=== PATIENT | male | born 1970 | race Caucasian/White ===

== ENCOUNTER 2024-12-05 18:52 | Inpatient (IN) | payer BC, SELFPAY ==
--- OUTSIDE RECORDS SUMMARY | 2024-10-08 07:37 | XMS_ITS | Encounter Summary ---
Author Organization [facility] Address [address] [place] [address] Care Team Providers Care Laboratory Director Name Role Phone Jose Luis Pinon MD Primary Care Provider [phone] Reason for Referral * MRI/CAT/PET Scan (Routine) - Closed Specialty Diagnoses / Procedures Referred By Contac t Referred To Contact Radiology Diagnoses Palpitations PAF (paroxysmal atrial fibrillation) Chronic systolic heart failure Acute on chronic systolic heart failure Primary hypertension Chest pain, unspecified type Procedures CT Angiogram Coronary Loi Robles MD [address] [address] Phone: tel: fax: [facility] [address] [place] [address] Phone: tel: Referral ID Status Reason Start Date Expiration Date Visits Re quested Visits Authorized [id number] Closed 09/27/2024 12/27/2025 1 1 Reason for Visit * MRI/CAT/PET Scan (Routine) - Closed Specialty Diagnoses / Procedures Referred By Contac t Referred To Contact Radiology Diagnoses Palpitations PAF (paroxysmal atrial fibrillation) Chronic systolic heart failure Acute on chronic systolic heart failure Primary hypertension Chest pain, unspecified type Procedures CT Angiogram Coronary Loi Robles MD [address] [address] Phone: tel: fax: [facility] [address] [place] [address] Phone: tel: Referral ID Status Reason Start Date Expiration Date Visits Re quested Visits Authorized [id number] Closed 09/27/2024 12/27/2025 1 1 Encounter Details Date Type Department Care Team (Latest Contact Info) Description 10/08/2024 7:37 AM EDT - 10/08/2024 11:59 PM EDT Hospital Encounter [facility] [address] [place] [address] Palpitations; PAF (paroxysmal atrial fibrillation); Chronic systolic heart failure; Acute on chronic systolic heart failure; Primary hypertension; Chest pain, unspecified type Discharge Disposition: Home or Self Care Social History Tobacco Use Types Packs/Day Years Used Date Smoking Tobacco: Some Days Cigarettes 1 17.6 Started: 05/09/2007 Passive Smoke Exposure: Current Smokeless Tobacco: Never Alcohol Use Standard Drinks/Week Comments Not Currently 0 (1 standard drink = 0.6 oz pur e alcohol) Does not drink anymore [facility] Utilities Answer Date Recorded In the past 12 months has [employer] electric, gas, oil, or water [employer] threatened to shut off services in your home? No 10/11/2023 AUDIT-C Answer Date Recorded Q1: How often do you have a drink containing alc ohol? Monthly or less 08/07/2024 Q2: How many drinks containi ng alcohol do you have on a typical day when you are drinking? 3 or 4 08/07/2024 Q3: How often do you have si x or more drinks on one occasion? Never 08/07/2024 Overall Financial Resource Strain (CARDIA) Answe r Date Recorded How hard is it for you to pa y for the very basics like food, housing, medical care, and heating? Not hard at all 10/11/2023 [facility] [place] of Occupat ional Health - Occupational Stress Questionnaire Answer Date Recorded Do you feel stress - tense, restless, nervous, or anxious, or unable to sleep at night because your mind is troubled all the time - these days? Not at all 10/11/2023 Exercise Vital Sign Answer Date Recorde d On average, how many days pe r week do you engage in moderate to strenuous exercise (like a brisk walk)? 7 days 10/11/2023 On average, how many minutes do you engage in exercise at this level? 30 min 10/11/2023 Hunger Vital Sign Answer Date Recorded Within the past 12 months, y ou worried that your food would run out before you got the money to buy more. Never true 10/11/19 24 Within the past 12 months, t he food you bought just didn't last and you didn't have money to get more. Never true 10/11/2023 PRAPARE - Transportation Answer Date Re corded In the past 12 months, has l ack of transportation kept you from medical appointments or from getting medications? No 08/2023 In the past 12 months, has l ack of transportation kept you from meetings, work, or from getting things needed for daily living? No 10/11/2023 Abuse Screen Answer Date Recorded Feels Unsafe at Home or Work/School no 08/07/2024 Feels Threatened by Someone no 05/2024 Does Anyone Try to Keep You From Having Contact with Others or Doing Things Outside Your Home? no 08/07/2024 Physical Signs of Abuse Present no 08/07/2024 Housing Stability Answer Date Recorded Current Living Arrangements home 05/2024 Potentially Unsafe Housing Conditions Not on jessika e 08/07/2024 Family and Community Support Answer Adithya e Recorded If for any reason you need h elp with day-to-day activities such as bathing, preparing meals, shopping, managing finances, etc., do you get the help you need? I don't need any help 10/11/2023 How often do you feel lonely or isolated from those around you? Rarely 10/11/2023 Employment Answer Date Recorded Do you want help finding or keeping work or a job? I do not need or want help 10/11/2023 Disabilities Answer Date Recorded Difficulty Concentrating, Remembering or Making Decisions no 08/07/2024 Difficulty Managing Errands Independently no 08/07/2024 Education Answer Date Recorded Do you want help with school or training? For example, starting or completing job training or getting a high school diploma, GED or equivalent No 10/11/2023 Preferred Language Citizen Of [place] 10/11/2023 PHQ-2 Answer Date Recorded Retired PHQ-9: Brief Depression Severity Measure Score 0 10/11/2023 Education Answer Date Recorded What is the highest level of school you have completed or the highest degree you have received? Bachelor's degree (e.g., BA, AB, BS) 10/07/2023 Comments Unknown Sex and Gender Information Value Date Recorded Sex Assigned at Choose not to disclose 12:56 PM EDT Legal Sex Male 10:22 AM EDT Gender Identity Not on file Sexual Orientation Straight 12/03/2024 12 :56 PM EDT documented as of this encounter Last Filed Vital Signs Vital Sign Reading Time Taken Comments Blood Pressure 102/69 10/08/2024 8:49 AM EDT Pulse 60 10/08/2024 8:49 AM EDT Temperature 35.9 C (96.6 F) 10/08/2024 7:36 AM EDT Respiratory Rate 18 10/08/2024 7:36 AM EDT Oxygen Saturation 94% 10/08/2024 7:36 AM EDT Inhaled Oxygen Concentration - - Weight 83.9 kg (185 lb) 10/08/2024 7:36 AM EDT Height 177.8 cm (5' 10 ) 10/08/2024 7:36 AM EDT Body Mass Index 26.54 10/08/2024 7:36 AM EDT documented in this encounter Discharge Instructions * Discharge Instructions* Dorothy Mueller RN - 10/08/2024 7:27 AM EDT MAKE SURE TO DRINK PLENTY OF FLUIDS FOR THE NEXT 48 HOURS TO FLUSH THE CONTRAST DYE THROUGH YOUR KIDNEYS TO PROTECT RENAL FUNCTION. * Attachments The following attachments cannot be sent through Care Everywhere. * Cardiac CT Angiogram (Citizen Of [place]) * Coronary Calcium Scan (Citizen Of [place]) documented in this encounter Medications at Time of Discharge aspirin 81 MG EC tablet Take 1 tablet by mouth Daily. 30 tablet 08/09/2024 Fluticasone-Umec lidin-Vilant (Trelegy Ellipta) 100-62.5-25 MCG/ACT inhaler Inhale 1 puff As Needed. 05/07/2024 Jardiance 10 MG tablet tablet TAKE 1 TABLET BY MOUTH DAILY 90 tablet 3 09/21/2024 metoprolol succinate XL (Toprol XL) 100 MG 24 hr tablet Take 1.5 tablets by mouth Daily. 135 tablet 3 08/08/2024 sacubitril-valsa rtan (Entresto) 24-26 MG tablet Take 1 tablet by mouth 2 (Two) Times a Day. 180 tablet 3 07/05/2024 spironolactone (ALDACTONE) 25 MG tablet TAKE 1 TABLET BY MOUTH DAILY 90 tablet 3 09/21/2024 albuterol sulfate HFA 108 (90 Base) MCG/ACT inhaler Inhale 2 puffs Every 4 (Four) Hours As Needed for Wheezing. 18 g 3 09/22/2022 10/30/2024 buprenorphine-na loxone (SUBOXONE) 8-[address] 1 film under the tongue Daily. 09/29/2022 10/30/2024 diazePAM (Valium) 5 MG tabletIndication s:Anxiety Take 1 tablet by mouth 2 (Two) Times a Day As Needed for Anxiety (take one tab one hour prior to CT scan). 2 tablet 10/05/2024 10/30/2024 sildenafil (VIAGRA) 100 MG tablet Take 1 tablet by mouth Daily As Needed for Erectile Dysfunction. 10/30/2024 documented as of this encounter Plan of Treatment Upcoming Encounters Date Type Department Care Team (Late st Contact Info) Description 12/10/2024 8:30 AM EDT Office Visit [facility] CARDIOTHORACIC SURGERY [address] [facility] [address] [place] [address] Elba Garcia APRN [address] [facility] [address] [place] [address] 01/04/2025 2:45 PM EDT Office Visit [facility] HEMATOLOGY & ONCOLOGY [address] [facility] [address] [place] [phone] Rc Valdez MD [address] [facility] [address] [place] [address] 07/04/2025 11:40 AM EST Office Visit [facility] CARDIOLOGY [address] [place] [address] Helene Girard PA-C [address] [place] [address] documented as of this encounter Procedures Procedure Name Priority Date/Time Associated Diagnosis Comments CT ANGIOGRAM CORONARY Routine 10/08/2024 8:54 AM EDT Palpitations PAF (paroxysmal atrial fibrillation) Chronic systolic heart failure Acute on chronic systolic heart failure Primary hypertension Chest pain, unspecified type SCANNED - TELEMETRY 10/08/2024 documented in this encounter Results * CT Angiogram Coronary (10/08/2024 8:54 AM EDT) Anatomical Region Laterality Modality Vascular, Chest N/A Computed Tomogra phy, Other 10/08/2024 11:5 2 AM EDT Impressions 10/08/2024 11:58 AM EDT Impression: 1. 2.3 cm spiculated noncalcified pulmonary nodule within the medial right lower lobe. PET/CT scan would be recommended for further evaluation. Please refer to CT Angiogram Coronary Cardiology Interp report for information on cardiac structures. Electronically Signed: Tyrel Prather MD 10/08/2024 11:58 AM EDT Workstation ID: [id number] Narrative 10/08/2024 11:[address] ANGIOGRAM CORONARY Date of Exam: 10/08/2024 8:16 AM EDT Indication: . Palpitations Comparison: None available. Technique: Non-contrasted CT images of the chest were performed for calcium scoring purposes followed by CTA images of the chest after the uneventful intravenous administration of Isovue-370 . Reconstructed coronal and sagittal images were also obtained. In addition, a 3-D volume rendered image was created for interpretation. Automated exposure control and iterative reconstruction methods were used. Findings: No mediastinal, hilar, or axillary adenopathy. No pleural effusions. Within the right upper lobe there are multiple 1 to 2 mm size interstitial tree-in-bud type nodules favoring infectious or inflammatory process. Within the right lower lobe there is a spiculated noncalcified pulmonary nodule measuring 2.3 x 2.0 cm. This is suspicious for malignancy. PET/CT scan would be recommended for further evaluation. No suspicious left-sided pulmonary nodule. Bilateral adrenal glands are within normal limits. No lytic or sclerotic bony lesion. Procedure Note Mele Prather MD - 10/08/2024 CT ANGIOGRAM CORONARY Date of Exam: 10/08/2024 8:16 AM EDT Indication: . Palpitations Comparison: None available. Technique: Non-contrasted CT images of the chest were performed forcalcium scoring purposes followed by CTA images of the chest after theuneventful intravenous administration of Isovue-370 . Reconstructedcoronal and sagittal images were also obtained. In addition, a 3-D volume rendered image was created for interpretation.Automated exposure control and iterative reconstruction methods wereused. Findings: No mediastinal, hilar, or axillary adenopathy. No pleural effusions.Within the right upper lobe there are multiple 1 to 2 mm size ymffjzqfvczoubkg-vr-aqb type nodules favoring infectious or inflammatory process.Within the right lower lobe there is a spiculated noncalcified pulmonary nodule measuring 2.3 x 2.0 cm. This issuspicious for malignancy. PET/CT scan would be recommended for furtherevaluation. No suspicious left-sided pulmonary nodule. Bilateral adrenal glands are within normal limits. No lytic or sclerotic bony lesion. IMPRESSION: Impression: 1. 2.3 cm spiculated noncalcified pulmonary nodule within the medial rightlower lobe. PET/CT scan would be recommended for further evaluation. Please refer to CT Angiogram Coronary Cardiology Interp report forinformation on cardiac structures. Electronically Signed: Tyrel Prather MD 10/08/2024 11:58 AM EDT Workstation ID: [id number] Loi Robles MD IM CT ORDERABLES Final Resul t * Telemetry Scan (10/08/2024) us [facility] Onbase ECG ORDERABLES Final Result documented in this encounter Visit Diagnoses Diagnosis Palpitations PAF (paroxysmal atrial fibrillation) Atrial fibrillation Chronic systolic heart failure Acute on chronic systolic heart failure Primary hypertension Unspecified essential hypertension Chest pain, unspecified type documented in this encounter Administered Medications Inactive Administered Medications - up to 3 most recent administrations Medication Order MAR Action Action Date Dose Rate Site iopamidol (ISOVUE-370) 76 % injection 65 mL 65 mL, Intravenous, Once in Imaging, On Tue10/08/24 at 0841, For 1 dose Given 10/08/2024 8:39 AM EDT 65 mL nitroglycerin (NITROSTAT) SL tablet 0.8 mg 0.8 mg, Sublingual, Once in Imaging, On Tue10/08/24 at 0728, For 1 dose, SBP >100 Administer Immediately Prior to Contrast Injection in CT DO NOT Administer if Phosphodiesterase Inhibitor Taken in Previous 24 Hours or Patient Has History of Severe Aortic Stenosis May administer up to 3 doses per episode. Hold if SBP less than 100.Indications:Palpitations,PAF (paroxysmal atrial fibrillation),Chronic systolic heart failure,Acute on chronic systolic heart failure,Primary hypertension,Chest pain, unspecified type Given 10/08/2024 8:30 AM EDT 0.8 mg documented in this encounter Care Teams Laboratory Director Relationship Specialty Start Date End Date Jose Luis Pinon MD [address] [facility] [place] [address] PCP - General Internal Medicine 09/19/22 documented as of this encounter
--- OUTSIDE RECORDS SUMMARY | 2024-10-08 07:37 | XMS_ITS | Encounter Summary ---
Author Organization [facility] Address [address] [place] [address] Care Team Providers Care Hospice Administrator Name Role Phone Jose Luis Pinon MD Primary Care Provider [phone] Reason for Referral * MRI/CAT/PET Scan (Routine) - Closed Specialty Diagnoses / Procedures Referred By Contac t Referred To Contact Radiology Diagnoses Palpitations PAF (paroxysmal atrial fibrillation) Chronic systolic heart failure Acute on chronic systolic heart failure Primary hypertension Chest pain, unspecified type Procedures CT Angiogram Coronary Loi Robles MD [address] [address] Phone: tel: fax: [facility] [address] [place] [address] Phone: tel: Referral ID Status Reason Start Date Expiration Date Visits Re quested Visits Authorized [id number] Closed 09/27/2024 12/27/2025 1 1 Reason for Visit * MRI/CAT/PET Scan (Routine) - Closed Specialty Diagnoses / Procedures Referred By Contac t Referred To Contact Radiology Diagnoses Palpitations PAF (paroxysmal atrial fibrillation) Chronic systolic heart failure Acute on chronic systolic heart failure Primary hypertension Chest pain, unspecified type Procedures CT Angiogram Coronary Loi Robles MD [address] [address] Phone: tel: fax: [facility] [address] [place] [address] Phone: tel: Referral ID Status Reason Start Date Expiration Date Visits Re quested Visits Authorized [id number] Closed 09/27/2024 12/27/2025 1 1 Encounter Details Date Type Department Care Team (Latest Contact Info) Description 10/08/2024 7:37 AM EDT - 10/08/2024 11:59 PM EDT Hospital Encounter [facility] [address] [place] [address] Palpitations; PAF (paroxysmal atrial fibrillation); [...] pur e alcohol) Does not drink anymore [facility] Utilities Answer Date Recorded In the past 12 months has [employer] electric, gas, oil, or water [employer] threatened to shut off services in your [...] and heating? Not hard at all 10/11/2023 [facility] [place] of Occupat ional Health - Occupational Stress [...] GED or equivalent No 10/11/2023 Preferred Language Kyrgyz 10/11/2023 PHQ-2 Answer Date Recorded Retired PHQ-9: [...] through Care Everywhere. * Cardiac CT Angiogram (Kyrgyz) * Coronary Calcium Scan (Kyrgyz) documented in this encounter Medications at Time [...] Description 12/10/2024 8:30 AM EDT Office Visit [facility] CARDIOTHORACIC SURGERY [address] [facility] [address] [place] [address] Elba Garcia APRN [address] [facility] [address] [place] [address] 01/04/2025 2:45 PM EDT Office Visit [facility] HEMATOLOGY & ONCOLOGY [address] [facility] [address] [place] [phone] Rc Valdez MD [address] [facility] [address] [place] [address] 07/04/2025 11:40 AM EST Office Visit [facility] CARDIOLOGY [address] [place] [address] Helene Girard PA-C [address] [place] [address] documented as of this encounter [...] MD 10/08/2024 11:58 AM EDT Workstation ID: [id number] Narrative 10/08/2024 11:[address] ANGIOGRAM [...] are multiple 1 to 2 mm size hdmjejxrudfyxace-wb-hdx type nodules favoring infectious or inflammatory process.Within [...] MD 10/08/2024 11:58 AM EDT Workstation ID: [id number] Loi Robles MD IM CT ORDERABLES Final [...] mg documented in this encounter Care Teams Hospice Administrator Relationship Specialty Start Date End Date Jose Luis Pinon MD [address] [facility] [place] [address] PCP - General Internal Medicine 09/19/22 documented as of this encounter
--- OUTSIDE RECORDS SUMMARY | 2024-10-08 08:56 | XMS_ITS | Encounter Summary ---
Author Organization [facility] Address [address] [place] [address] Care Team Providers Care Finance Lecturer Name Role Phone Jose Luis Pinon MD Primary Care Provider [phone] Encounter Details Date Type Department Care Team (Latest Contact Info) Description 10/08/2024 8:56 AM EDT - 10/08/2024 11:59 PM EDT Hospital Encounter [address] [address] Palpitations; PAF (paroxysmal atrial fibrillation); Chronic systolic [...] pur e alcohol) Does not drink anymore [facility] Utilities Answer Date Recorded In the past 12 months has [employer], gas, oil, or water [employer] threatened to shut off services in your [...] and heating? Not hard at all 10/11/2023 [facility] [place] of Occupat ional Health - Occupational Stress [...] GED or equivalent No 10/11/2023 Preferred Language [place] 10/11/2023 PHQ-2 Answer Date Recorded Retired PHQ-9: [...] PM EDT documented as of this encounter Medications at Time of Discharge [...] Description 12/10/2024 8:30 AM EDT Office Visit [facility] CARDIOTHORACIC SURGERY [address] [facility] [address] [place] [phone] Elba Garcia APRN [address] [facility] [address] [place] [address] 01/04/2025 2:45 PM EDT Office Visit [facility] HEMATOLOGY & ONCOLOGY [address] [facility] [address] [place] [address] cR Valdez MD [address] [facility] [address] [place] [address] 07/04/2025 11:40 AM EST Office Visit [facility] CARDIOLOGY [address] [facility] [address] [place] [phone] Helene Girard PA-C [address] [facility] [address] [address] [place] [address] documented as of this encounter Procedures Procedure Name Priority Date/Time Associated Diagnosis Comments CTA CARDIOLOGY READ CAR Routine 10/08/2024 8:56 AM EDT Palpitations PAF (paroxysmal atrial fibrillation) Chronic systolic heart failure Acute on chronic systolic heart failure Primary hypertension Chest pain, unspecified type documented in this encounter Results * CT Angiogram Coronary-Cardiology Interpretation (10/08/2024 8:56 AM EDT) Anatomical Region Laterality Modality Vascular, Chest N/A Computed Tomogra phy Impressions 10/10/2024 3:51 PM EDT Mild (25-49%) 1 vessel disease. CAD RADS 2 Overall there is moderate amount of coronary plaque No non-atherosclerotic coronary abnormalities Normal LV systolic function (calculated LVEF 67%) Please refer to the radiology report for information on non-cardiac structures. RECOMMENDATION: Mild 25-49% proximal and mid LAD stenosis otherwise normal vessels Moderate to high intensity statin therapy recommended along with smoking cessation Narrative 10/10/2024 3:51 PM EDT Table formatting from the original result was not included. Images from the original result were not included. Mild 25-49% proximal and mid LAD stenosis otherwise normal vessels Moderate to high intensity statin therapy and smoking cessation recommended. CORONARY CT ANGIOGRAPHY WITH CALCIUM SCORE CLINICAL HISTORY: atypical angina TECHNIQUE: Using a Siemens Force scanner, a preliminary brimming machine operator study was obtained, followed by coronary artery calcium protocol. 0.5 mm collimated images were obtained through the coronary arteries. Data were transferred offline for 3D reconstructions using [employer]. CONTRAST: 65 mL iopamidol (ISOVUE-370) ACQUISITION: Retrospective ECG triggered acquisition was used. Heart rate at the time of acquisition was approximately 59 BPM. MEDICATIONS: Metoprolol tartrate 150 mg oral Metoprolol tartrate 0 IV Nitroglycerin 0.8 mg sublingual tablet TECHNICAL QUALITY: Good, with minor artifact but good diagnostic quality FINDINGS: Coronary artery calcification findings: The total calcium score is 142 indicating moderate (CAC 101-300) calcified plaque in the coronary tree. Left main 0 LAD 90 LCx 43 RCA 9 Grading Scale for Plaque [place]: P1 (CAC 1-100) Mild amount of plaque P2 (CAC 101-300) Moderate amount of plaque P3 (CAC 301-999) Severe amount of plaque P4 (CAC > 1000) Extensive amount of plaque Angiographic Findings: The coronary anatomy is codominant. Left Main: Large-caliber vessel bifurcates in LAD and left circumflex, normal. LAD: Moderate caliber vessel gives rise to 2 diagonal branches, proximal to mid 30-49% heterogeneous stenosis LCX: Moderate caliber codominant vessel gives rise to 2 OM branches and continues in the AV groove to supply and LPDA, normal. RCA: Moderate caliber codominant vessel gives rise to PDA and PLV, normal. Grading Scale for Stenosis Severity: Category Degree Interpretation CAD-RADS 0 0% (No plaque or stenosis) Absence of CAD CAD-RADS 1 1-24% (Minimal stenosis or plaque w/o stenosis) Minimal non-obstructive CAD CAD-RADS 2 25-49% (Mild stenosis) Mild non-obstructive CAD CAD-RADS 3 50-69% (Moderate stenosis) Moderate stenosis CAD-RADS 4 A - 70-99% stenosis or B - Left main >/= 50% or 3-vessel obstructive (>/=70%) disease Severe stenosis CAD-RADS 5 100% (total occlusion) Total coronary occlusion or sub-total occlusion CAD-RADS N Non-diagnostic study Obstructive CAD cannot be excluded Noncoronary Cardiac Findings: Cardiac valves: Aortic valve is trileaflet. There is no thickening or calcification in the aortic and mitral valves. Pericardium: The pericardial contour is preserved with no effusion, thickening, or calcifications. Left ventricle: Calculated LVEF 67% Non-cardiac findings reported separately by radiology. us Loi Robles MD IMG CT ORDERABLES Final Resul t documented in this encounter Visit Diagnoses Diagnosis Palpitations PAF (paroxysmal atrial fibrillation) Atrial fibrillation Chronic systolic heart failure Acute on chronic systolic heart failure Primary hypertension Unspecified essential hypertension Chest pain, unspecified type documented in this encounter Care Teams Finance Lecturer Relationship Specialty Start Date End Date Jose Luis Pinon MD [address] [place] [id number] PCP - General Internal Medicine 09/19/22 documented as of this encounter
--- OUTSIDE RECORDS SUMMARY | 2024-10-08 08:56 | XMS_ITS | Encounter Summary ---
Author Organization [facility] Address [address] [place] [address] Care Team Providers Care Archivist Military History Name Role Phone Jose Luis Pinon MD Primary Care Provider [phone] Encounter Details Date Type Department Care Team (Latest Contact Info) Description 10/08/2024 8:56 AM EDT - 10/08/2024 11:59 PM EDT Hospital Encounter [address] [id number] Palpitations; PAF (paroxysmal atrial fibrillation); Chronic systolic [...] pur e alcohol) Does not drink anymore [facility] Utilities Answer Date Recorded In the past 12 months has [employer], gas, oil, or water [employer] threatened to shut off services in your [...] and heating? Not hard at all 10/11/2023 [facility] [place] of Occupat ional Health - Occupational Stress [...] GED or equivalent No 10/11/2023 Preferred Language Ecuadorean 10/11/2023 PHQ-2 Answer Date Recorded Retired PHQ-9: [...] Description 12/10/2024 8:30 AM EDT Office Visit [facility] CARDIOTHORACIC SURGERY [address] [facility] [address] [place] [id number] Elba Garcia APRN [address] [facility] [address] [place] [address] 01/04/2025 2:45 PM EDT Office Visit [facility] HEMATOLOGY & ONCOLOGY [address] [facility] [address] [place] [address] Rc Valdez MD [address] [facility] [address] [place] [address] 07/04/2025 11:40 AM EST Office Visit [facility] CARDIOLOGY [address] [facility] [address] [place] [phone] Helene Girard PA-C [address] [facility] [address] [place] [address] documented as of this encounter [...] Using a Siemens Force scanner, a preliminary armed custom protection officer study was obtained, followed by coronary artery [...] 43 RCA 9 Grading Scale for Plaque [place]: P1 (CAC 1-100) Mild amount of plaque [...] type documented in this encounter Care Teams Archivist Military History Relationship Specialty Start Date End Date Jose Luis Pinon MD [address] [place] [id number] PCP - General Internal Medicine 09/19/22 documented as of this encounter
--- OUTSIDE RECORDS SUMMARY | 2024-10-30 08:30 | XMS_ITS | Encounter Summary ---
Author Organization [facility] Address [address] [place] [address] Care Team Providers Care Material Coordinator Name Role Phone Jose Luis Pinon MD Primary Care Provider [phone] Reason for Referral * Diagnostic Medical (Routine) - Closed Specialty Diagnoses / Procedures Referred By Joo borrero Referred To Contact Pulmonology Diagnoses Lung nodule Procedures Complete PFT - Pre & Post Bronchodilator Bill Ziegler DO [address] [id number] Phone: tel: fax: [facility] PULMONARY & CRITICAL CARE MEDICINE [address] [place] [address] Phone: tel: fax: Referral ID Status Reason Start Date Expiration Date Visits Re quested Visits Authorized [id number] Closed 10/30/2024 01/29/2026 1 1 * MRI/CAT/PET Scan (Emergency) - Closed Specialty Diagnoses / Procedures Referred By Joo borrero Referred To Contact Radiology Diagnoses Lung nodule Procedures CT Chest Without Contrast Diagnostic Bill Ziegler DO [address] [place] [address] Phone: tel: fax: [facility] [address] [place] [address], [place] [address] Phone: tel: Referral ID Status Reason Start Date Expiration Date Visits Re quested Visits Authorized [id number] Closed 10/30/2024 01/29/2026 1 1 Reason for Visit * Reason Comments Lung Nodule Encounter Details Date Type Department Care Team (Late st Contact Info) Description 10/30/2024 8:30 AM EDT Office Visit [facility] PULMONARY & CRITICAL CARE MEDICINE [address] [place] [address] Bill Ziegler DO [address] [place] [address] Lung nodule (Primary Dx); Mucopurulent chronic bronchitis Social History Tobacco Use Types Packs/Day Years Used Date Smoking Tobacco: Some Days Cigarettes 1 17.6 Started: 05/09/2007 Passive Smoke Exposure: Current Smokeless Tobacco: Never Tobacco Cessation:Ready to Q uit: Not Asked; Counseling Given: Not Answered Alcohol Use Standard Drinks/Week Comments Not Currently 0 (1 standard drink = 0.6 oz pur e alcohol) Does not drink anymore [facility] Utilities Answer Date Recorded In the past 12 months has e electric, gas, oil, or water company threatened to shut off services in your [...] and heating? Not hard at all 10/11/2023 [facility] [place] of Occupat ional Health - Occupational Stress [...] GED or equivalent No 10/11/2023 Preferred Language Austrian 10/11/2023 PHQ-2 Answer Date Recorded Retired PHQ-9: [...] Sign Reading Time Taken Comments Blood Pressure 130/80 10/30/2024 8:16 AM EDT Pulse 96 10/30/2024 8:16 AM EDT Temperature 36.9 C (98.4 F) 10/30/2024 8:16 AM EDT Respiratory Rate - - Oxygen Saturation 98% 10/30/2024 8:1 6 AM EDT room air at rest Inhaled Oxygen Concentration - - Weight 86.2 kg (190 lb) 10/30/2024 8:16 AM EDT Height 177.8 cm (5' 10 ) 10/30/2024 8:1 6 AM EDT Body Mass Index 27.26 10/30/2024 8:16 AM EDT documented in this encounter Progress Notes * Layne Vogt CRT - 10/30/2024 8:30 AM EDTAddended by: LAYNE VOGT on: 10/30/2024 01:28 PM Modules accepted: Orders * Bill Ziegler DO - 10/30/2024 8:30 AM EDT New Patient Pulmonary Office Visit Patient Name: Odell Viramontes Referring Physician: No ref. provider found Chief Complaint: Chief Complaint Patient presents with Lung Nodule History of Present Illness: Odell Viramontes is a 54 y.o. male who is here today to establish care with Pulmonary. Patient has a past medical history significant for tobacco abuse, COPD, systolic heart failure, and hypertension. Patient was referred to pulmonary for evaluation of a pulmonary nodule. Patient states that he was having cardiac workup when they noted that he had a right lower lobe nodule. Has a history of smoking. Quit when he got the CT scan of the chest performed. Did not feel sick at the time. 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 No further imaging is available to compare to. Review of Systems: Review of Systems Constitutional: Negative for chills, fatigue and fever. HENT: Negative for congestion and voice change. Eyes: Negative for blurred vision. Respiratory: Negative for cough, shortness of breath and wheezing. Cardiovascular: Negative for chest pain. Skin: Negative for dry skin. Hematological: Negative for adenopathy. Psychiatric/Behavioral: Negative for agitation and depressed mood. Past Medical History: Past Medical History: Diagnosis Date Abnormal ECG Alcoholism Arrhythmia Asthma Atrial fibrillation CHF (congestive heart failure) Congenital heart disease COPD (chronic obstructive pulmonary disease) HTN (hypertension) Myocardial infarction Past Surgical History: Past Surgical History: Procedure Laterality Date OTHER SURGICAL HISTORY arm fracture Family History: Family History Problem Relation Age of Onset Arrhythmia Mother Heart attack Father Heart disease Father Heart failure Father No Known Problems Maternal Grandmother No Known Problems Maternal Grandfather No Known Problems Paternal Grandmother No Known Problems Paternal Grandfather Social History: Social History Socioeconomic History Marital status: Spouse name: Melanie Number of children: 1 Highest education level: Bachelor's degree (e.g., BA, AB, BS) Tobacco Use Smoking status: Some Days Current packs/day: 1.00 Average packs/day: 1 pack/day for 17.5 years (17.5 ttl pk-yrs) Types: Cigarettes Start date: 05/09/2007 Passive exposure: Current Smokeless tobacco: Never Vaping Use Vaping status: Never Used Substance and Sexual Activity Alcohol use: Not Currently Comment: Does not drink anymore Drug use: Never Sexual activity: Yes Partners: Female control/protection: None, Partner of same sex Medications: Current Outpatient Medications: aspirin 81 MG EC tablet, Take 1 tablet by mouth Daily., Disp: 30 tablet, Rfl: 0 Eentduvbqay-Ofucoankq-Sfpzlm (Trelegy Ellipta) 100-62.5-25 MCG/ACT inhaler, Inhale 1 puff As Needed., Disp: , Rfl: Jardiance 10 MG tablet tablet, TAKE 1 TABLET BY MOUTH DAILY, Disp: 90 tablet, Rfl: 3 metoprolol succinate XL (Toprol XL) 100 MG 24 hr tablet, Take 1.5 tablets by mouth Daily., Disp: 135 tablet, Rfl: 3 rosuvastatin (CRESTOR) 10 MG tablet, Take 1 tablet by mouth Daily., Disp: 90 tablet, Rfl: 1 sacubitril-valsartan (Entresto) 24-26 MG tablet, Take 1 tablet by mouth 2 (Two) Times a Day., Disp:180 tablet, Rfl: 3 spironolactone (ALDACTONE) 25 MG tablet, TAKE 1 TABLET BY MOUTH DAILY, Disp: 90 tablet, Rfl: 3 Allergies: No Known Allergies Physical Exam: Vital Signs: Vitals: 10/30/24 0816 BP: 130/80 Pulse: 96 Temp: 98.4 ??F (36.9 ??C) SpO2: 98% Comment: room air at rest Weight: 86.2 kg (190 lb) Height: 177.8 cm (70 ) Physical Exam Vitals and nursing note reviewed. Constitutional: General: He is not in acute distress. Appearance: He is well-developed and normal weight. He is not ill-appearing or toxic-appearing. Cardiovascular: Rate and Rhythm: Normal rate and regular rhythm. Pulses: Normal pulses. Heart sounds: Normal heart sounds. No murmur heard. No gallop. Pulmonary: Effort: Pulmonary effort is normal. Breath sounds: Normal breath sounds. No wheezing, rhonchi or rales. Musculoskeletal: Right lower leg: No edema. Left lower leg: No edema. Neurological: Mental Status: He is alert. Immunization History Administered Date(s) Administered 31-influenza Vac Quardvalent Preservativ 02/20/2019 COVID-19 (MODERNA) 1st,2nd,3rd Dose Monovalent 07/24/2020 COVID-19 (MODERNA) Monovalent Original Booster 06/09/2021 COVID-19 (PFIZER) Purple Cap Monovalent 05/28/2020, 06/20/2020 COVID-19 (UNSPECIFIED) 06/14/2020, 07/12/2020 Fluzone >6mos 01/29/2024 Influenza, Unspecified 02/20/2018 TD Preservative Free (Tenivac) 12/30/2017 Td (TDVAX) 09/16/1998, 10/15/2010 Tetanus Toxoid 06/07/2014 Results Review: - I personally reviewed the pts imaging from CT angiogram of the coronaries lung windows from 10/08/2024 showed a 2.3 centimeter right lower lobe noncalcified nodule - I personally reviewed the pts PFT from 10/30/2024 shows moderate obstruction without restriction and a normal DLCO - I personally reviewed the pts Echo report from 08/07/2020 showed a EF of 61 to 65%, normal RVSP andnormal diastolic function. - I personally reviewed the pts chart with regards to evaluation by cardiology. Assessment / Plan: Diagnoses and all orders for this visit: 1. Lung nodule (Primary) - We discussed that the lung nodule of 2.3 cm right lower lobe is concerning for malignancy especially given his history of smoking, the size and the spiculation. I would recommend they pursue navigational bronchoscopy and EBUS. -I discussed the risk and benefits of the procedure with the patient, this includes but is not limited to hoarseness/vocal cord damage, pain, infection, cough, bleeding, pneumothorax, and anesthesia complications. Patient verbalized understanding of this and agreed to proceed. - Robotic CT scan ordered - CBC, CMP, coags and EKG ordered 2. Mucopurulent chronic bronchitis -Patient has gold stage 2 class B COPD -Continue Trelegy 100 mcg 1 puff once daily with albuterol every 4 hours as needed for medication management -latest PFTs as noted above -Patient counseled on monitoring for COPD exacerbation and treatment plan - Recommend 30 minutes cardiovascular exercise per day High level of risk due to: High risk lower lobe lesion concerning for malignancy requiring invasiveprocedure navigational bronchoscopy and EBUS for further diagnosis. If malignant would have a high morbidity and require surgery which we discussed on today's visit. Follow Up: Return in about 6 weeks (around 12/11/2024). Marion Ziegler DO Pulmonary and Critical Care Medicine Note Electronically Signed Part of this note may be an electronic livestock inspector/translation of spoken language to printed textusing the Teqcycleation System. documented in this encounter Plan of Treatment Upcoming Encounters Date Type Department Care Team (Late st Contact Info) Description 12/10/2024 8:30 AM EDT Office Visit [facility] CARDI[facility]ACIC SURGERY [address] [facility] [address] [place] [phone] Elba Garcia, ROD CUP FILLER [address] [facility] [address] [place] [address] 01/04/2025 2:45 PM EDT Office Visit [facility] HEMATOLOGY & ONCOLOGY [address] [facility] [address] [place] [address] Rc Valdez MD [address] [facility] [address] [place], [place] [id number] 07/04/2025 11:40 AM EST Office Visit [facility] CARDIOLOGY [address] [facility] [address] [place] [phone] Helene Girard PA-C [address] [facility] [address] [place] [address] Scheduled Orders Name Type Priority Associated Diagnoses Orde r Schedule ECG Scan ECG Ordered: 10/30 documented as of this encounter Procedures Procedure Name Priority Date/Time Associated Diagnosis Comments PULMONARY FUNCTION TEST Routine 10/30/2024 1:28 PM EDT Lung nodule CBC WITH AUTO DIFFERENTIAL Routine 10/30/2024 9:25 AM EDT Lung nodule CBC AND DIFFERENTIAL Routine 10/30/2024 9:25 AM EDT Lung nodule COMPREHENSIVE METABOLIC PANEL Routine 10/30/2024 9:25 AM EDT Lung nodule documented in this encounter Results * CT Chest Without Contrast Diagnostic (11/06/2024 10:36 AM EDT) Anatomical Region Laterality Modality Chest N/A Computed Tomogra phy 11/12/2024 10:2 2 AM EDT Impressions 11/12/2024 10:25 AM EDT Impression: 1.Similar 2.4 x 2.1 cm spiculated nodule within the medial right lower lobe. 2.Mild emphysema. 3.Chronic mild superior endplate compression fracture of T7. Electronically Signed: Deng Chaparro MD 11/12/2024 10:25 AM EDT Workstation ID: [id number] Narrative 11/12/2024 10:[address] CHEST WO CONTRAST DIAGNOSTIC Date of Exam: 11/06/2024 10:30 AM EDT Indication: Lung nodule. Comparison: CT coronary artery exam 10/08/2024 Technique: Axial CT images were obtained of the chest without contrast administration. Reconstructed coronal and sagittal images were also obtained. Automated exposure control and iterative construction methods were used. Findings: Operative planning CT. MEDIASTINUM: Unremarkable. Aortic and heart size are normal. No mass nor pericardial effusion. CORONARY ARTERIES: There is calcified atherosclerotic disease. LUNGS: Similar 2.4 x 2.1 cm spiculated nodule within the medial right lower lobe (image 275, series 2). No other suspicious soft tissue nodule is identified. There is a calcified left upper lobe granuloma. There is mild emphysema. PLEURAL SPACE: No effusion, mass, nor pneumothorax. LYMPH NODES: There are no pathologically enlarged lymph nodes. UPPER ABDOMEN: Unremarkable OSSEOUS STRUCTURES: Chronic mild superior endplate compression fracture of T7. Procedure Note Deng Chaparro MD - 11/12/2024 CT CHEST WO CONTRAST DIAGNOSTIC Date of Exam: 11/06/2024 10:30 AM EDT Indication: Lung nodule. Comparison: CT coronary artery exam 10/08/2024 Technique: Axial CT images were obtained of the chest without contrastadministration. Reconstructed coronal and sagittal images were alsoobtained. Automated exposure control and iterative construction methodswere used. Findings: Operative planning CT. MEDIASTINUM: Unremarkable. Aortic and heart size are normal. No mass norpericardial effusion. CORONARY ARTERIES: There is calcified atherosclerotic disease. LUNGS: Similar 2.4 x 2.1 cm spiculated nodule within the medial rightlower lobe (image 275, series 2). No other suspicious soft tissue noduleis identified. There is a calcified left upper lobe granuloma. There ismild emphysema. PLEURAL SPACE: No effusion, mass, nor pneumothorax. LYMPH NODES: There are no pathologically enlarged lymph nodes. UPPER ABDOMEN: Unremarkable OSSEOUS STRUCTURES: Chronic mild superior endplate compression fracture ofT7. IMPRESSION: Impression: 1.Similar 2.4 x 2.1 cm spiculated nodule within the medial right lowerlobe. 2.Mild emphysema. 3.Chronic mild superior endplate compression fracture of T7. Electronically Signed: Deng Chaparro MD 11/12/2024 10:25 AM EDT Workstation ID: [id number] Marinoopher Mj Courtneyenach DO IMG CT ORDERABLES F inal Result * Complete PFT - Pre & Post Bronchodilator (10/30/2024 1:28 PM EDT) Bill Courtneyenach DO PFT ORDERABLES Fin al Result * (ABNORMAL) CBC Auto Differential (10/30/2024 9:25 AM EDT) WBC 11.17(H) 3.40 - 10.80 10*3/mm3 10/30/2024 11:26 PM EDT [facility] RBC 5.15 4.14 - 5.80 10*6/mm3 10/30/2024 11:26 PM EDT [facility] Hemoglobin 16.5 13.0 - 17.7 g/dL 10/30/2024 11:26 PM EDT [facility] Hematocrit 47.9 37.5 - 51.0 % 10/30/2024 11:26 PM EDT [facility] MCV 93.0 79.0 - 97.0 fL 10/30/2024 11:26 PM EDT [facility] MCH 32.0 26.6 - 33.0 pg 10/30/2024 11:26 PM EDT [facility] MCHC 34.4 31.5 - 35.7 g/dL 10/30/2024 11:26 PM EDT [facility] RDW 12.3 12.3 - 15.4 % 10/30/2024 11:26 PM [facility] RDW-SD 42.0 37.0 - 54.0 fl 10/30/2024 11:26 PM [facility] MPV 11.8 6.0 - 12.0 fL 10/30/2024 11:26 PM [facility] Platelets 212 140 - 450 10*3/mm3 10/30/2024 11:26 PM [facility] Neutrophil % 82.5(H) 42.7 - 76.0 % 10/30/2024 11:26 PM [facility] Lymphocyte % 11.3(L) 19.6 - 45.3 % 10/30/2024 11:26 PM [facility] Monocyte % 4.3(L) 5.0 - 12.0 % 10/30/2024 11:26 PM [facility] Eosinophil % 0.7 0.3 - 6.2 % 10/30/2024 11:26 PM [facility] Basophil % 0.9 0.0 - 1.5 % 10/30/2024 11:26 PM [facility] Immature Grans % 0.3 0.0 - 0.5 % 10/30/2024 11:26 PM [facility] Neutrophils, Absolute 9.22(H) 1.70 - 7.00 10*3/mm3 10/30/2024 11:26 PM [facility] Lymphocytes, Absolute 1.26 0.70 - 3.10 10*3/mm3 10/30/2024 11:26 PM [facility] Monocytes, Absolute 0.48 0.10 - 0.90 10*3/mm3 10/30/2024 11:26 PM [facility] Eosinophils, Absolute 0.08 0.00 - 0.40 10*3/mm3 10/30/2024 11:26 PM [facility] Basophils, Absolute 0.10 0.00 - 0.20 10*3/mm3 10/30/2024 11:26 PM [facility] Immature Grans, Absolute 0.03 0.00 - 0.05 10*3/mm3 10/30/2024 11:26 PM T [facility] nRBC 0.0 0.0 - 0.2 /100 WBC 10/30/2024 11:26 PM [facility] Blood Structure of left hand / Unknown Venipuncture / Unknown 10/30/2024 9:25 AM EDT 10/30/2024 9:26 AM EDT Bill Ziegler DO LAB BLOOD ORDERABLE S Final Result [facility]
[address] [place] [address], * (ABNORMAL) Comprehensive Metabolic Panel (10/30/2024 9:25 AM EDT) Glucose 113(H) 65 - 99 mg/dL 10/31/2024 12:05 AM [facility] BUN 19.0 6.0 - 20.0 mg/dL 10/31/2024 12:05 AM [facility] Creatinine 0.98 0.76 - 1.27 mg/dL 10/31/2024 12:05 AM [facility] Sodium 137 136 - 145 mmol/L 10/31/2024 12:05 AM [facility] Potassium 3.8 3.5 - 5.2 mmol/L 10/31/2024 12:05 AM [facility] Chloride 100 98 - 107 mmol/L 10/31/2024 12:05 AM [facility] CO2 22.1 22.0 - 29.0 mmol/L 10/31/2024 12:05 AM [facility] Calcium 9.2 8.6 - 10.5 mg/dL 10/31/2024 12:05 AM [facility] Total Protein 7.3 6.0 - 8.5 g/dL 10/31/2024 12:05 AM [facility] Albumin 4.6 3.5 - 5.2 g/dL 10/31/2024 12:05 AM [facility] ALT (SGPT) 29 1 - 41 U/L 10/31/2024 12:05 AM [facility] AST (SGOT) 27 1 - 40 U/L 10/31/2024 12:05 AM [facility] Alkaline Phosphatase 89 39 - 117 U/L 10/31/2024 12:05 AM [facility] Total Bilirubin 0.6 0.0 - 1.2 mg/dL 10/31/2024 12:05 AM [facility] Globulin 2.7 gm/dL 10/31/2024 12:05 AM [facility] A/G Ratio 1.7 g/dL 10/31/2024 12:05 AM [facility] BUN/Creatinine Ratio 19.4 7.0 - 25.0 10/31/2024 12:05 AM [facility] Anion Gap 14.9 5.0 - 15.0 mmol/L 10/31/2024 12:05 AM [facility] eGFR 90.5 >60.0 mL/min/1.7 3 10/31/2024 12:05 AM [facility] Blood Structure of left hand / Unknown Venipuncture / Unknown 10/30/2024 9:25 AM EDT 10/30/2024 9:26 AM [facility] - 10/31/2024 12:05 AM [facility] GFR Categories in Chronic Kidney Disease (CKD) GFR Category GFR (mL/min/1.73) Interpretation G1 90 or greater Normal or high (1) G2 60-89 Mild decrease (1) G3a 45-59 Mild to moderate decrease G3b 30-44 Moderate to severe decrease G4 15-29 Severe decrease G5 14 or less Kidney failure (1)In the absence of evidence of kidney disease, neither GFR category G1 or G2 fulfill the criteria for CKD. eGFR calculation 2020 CKD-EPI creatinine equation, which does not include race as a factor Bill Ziegler DO LAB BLOOD ORDERABLE S Final Result [facility]
[address] [place] [address], documented in this encounter Visit Diagnoses Diagnosis Lung nodule- Primary Other diseases of lung, not elsewhere classified Mucopurulent chronic bronchitis Lung nodule Other diseases of lung, not elsewhere classified documented in this encounter Administered Medications Inactive Administered Medications - up to 3 most recent administrations Medication Order MAR Action Action Date Dose Rate Site albuterol sulfate HFA (PROVENTIL HFA;VENTOLIN HFA;PROAIR HFA) inhaler 4 puff 4 puff, Inhalation, Once, On Tue10/30/24 at 1330, For 1 dose, Include Respiratory Treatment Education (SP) Shake well.Indications:Lung nodule Given 10/30/2024 1:28 PM EDT 4 puffs documented in this encounter Care Teams Material Coordinator Relationship Specialty Start Date End Date Jose Luis Pinon MD [address] [facility] [address] [place] [address] PCP - General Internal Medicine 09/19/22 documented as of this encounter
--- OUTSIDE RECORDS SUMMARY | 2024-10-30 08:30 | XMS_ITS | Encounter Summary ---
Author Organization [facility] Address [address] [place] [address] Care Team Providers Care Presser And Blocker Knitted Goods Name Role Phone Jose Luis Pinon MD Primary Care Provider [phone] Reason for Referral * Diagnostic Medical (Routine) - Closed Specialty Diagnoses / Procedures Referred By Joo borrero Referred To Contact Pulmonology Diagnoses Lung nodule Procedures Complete PFT - Pre & Post Bronchodilator Bill Ziegler DO [address] [place] [id number] Phone: tel: fax: [facility] PULMONARY & CRITICAL CARE MEDICINE [address] [place] [address] Phone: tel: fax: Referral ID Status Reason Start Date Expiration Date Visits Re quested Visits Authorized [id number] Closed 10/30/2024 01/29/2026 1 1 * MRI/CAT/PET Scan (Emergency) - Closed Specialty Diagnoses / Procedures Referred By Joo borrero Referred To Contact Radiology Diagnoses Lung nodule Procedures CT Chest Without Contrast Diagnostic Bill Ziegler DO [address] [place] [address] Phone: tel: fax: [facility] [address] [place] [address], [place] [address] Phone: tel: Referral ID Status Reason Start Date Expiration Date Visits Re quested Visits Authorized [id number] Closed 10/30/2024 01/29/2026 1 1 Reason for Visit * Reason Comments Lung Nodule Encounter Details Date Type Department Care Team (Late st Contact Info) Description 10/30/2024 8:30 AM EDT Office Visit [facility] PULMONARY & CRITICAL CARE MEDICINE [address] [place] [address] Bill Ziegler DO [address] [place] [address] Lung nodule (Primary Dx); Mucopurulent chronic bronchitis [...] pur e alcohol) Does not drink anymore [facility] Utilities Answer Date Recorded In the past [...] and heating? Not hard at all 10/11/2023 [facility] [place] of Occupat ional Health - Occupational Stress [...] GED or equivalent No 10/11/2023 Preferred Language Yemeni 10/11/2023 PHQ-2 Answer Date Recorded Retired PHQ-9: [...] at the time. 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 No further imaging is available to compare [...] mouth Daily., Disp: 30 tablet, Rfl: 0 Vjqqpfspgdb-Tbldbiove-Jnywsm (Trelegy Ellipta) 100-62.5-25 MCG/ACT inhaler, Inhale 1 [...] of this note may be an electronic jet aircraft servicer/translation of spoken language to printed textusing the Linux Voiceation System. documented in this encounter Plan of Treatment Upcoming Encounters Date Type Department Care Team (Late st Contact Info) Description 12/10/2024 8:30 AM EDT Office Visit [facility] CARDIOTHORACIC SURGERY [address] [facility] [address] [place] [phone] Elba Garcia, ASBESTOS REMOVAL SUPERVISOR [address] [facility] [address] [place] [address] 01/04/2025 2:45 PM EDT Office Visit [facility] HEMATOLOGY & ONCOLOGY [address] [facility] [address] [facility] [address] [place] [address] Rc Valdez MD [address] [facility] [address] [place], [place] [id number] 07/04/2025 11:40 AM EST Office Visit [facility] CARDIOLOGY [address] [facility] [address] [place] [phone] Helene Girard PA-C [address] [facility] [address] [place] [address] Scheduled Orders Name Type Priority [...] MD 11/12/2024 10:25 AM EDT Workstation ID: [id number] Narrative 11/12/2024 10:[address] CHEST [...] MD 11/12/2024 10:25 AM EDT Workstation ID: [id number] Marinoopher Mj Courtneyenach DO IMG CT ORDERABLES F inal Result * Complete PFT - Pre & Post Bronchodilator (10/30/2024 1:28 PM EDT) Bill Courtneyenach DO PFT ORDERABLES Fin al Result * (ABNORMAL) CBC Auto Differential (10/30/2024 9:25 AM EDT) WBC 11.17(H) 3.40 - 10.80 10*3/mm3 10/30/2024 11:26 PM EDT [facility] RBC 5.15 4.14 - 5.80 10*6/mm3 10/30/2024 11:26 PM EDT [facility] Hemoglobin 16.5 13.0 - 17.7 g/dL 10/30/2024 11:26 PM EDT [facility] Hematocrit 47.9 37.5 - 51.0 % 10/30/2024 11:26 PM EDT [facility] MCV 93.0 79.0 - 97.0 fL 10/30/2024 11:26 PM EDT [facility] MCH 32.0 26.6 - 33.0 pg 10/30/2024 11:26 PM EDT [facility] MCHC 34.4 31.5 - 35.7 g/dL 10/30/2024 11:26 PM EDT [facility] RDW 12.3 12.3 - 15.4 % 10/30/2024 11:26 PM [facility] RDW-SD 42.0 37.0 - 54.0 fl 10/30/2024 11:26 PM [facility] MPV 11.8 6.0 - 12.0 fL 10/30/2024 11:26 PM [facility] Platelets 212 140 - 450 10*3/mm3 10/30/2024 11:26 PM [facility] Neutrophil % 82.5(H) 42.7 - 76.0 % 10/30/2024 11:26 PM [facility] Lymphocyte % 11.3(L) 19.6 - 45.3 % 10/30/2024 11:26 PM [facility] Monocyte % 4.3(L) 5.0 - 12.0 % 10/30/2024 11:26 PM [facility] Eosinophil % 0.7 0.3 - 6.2 % 10/30/2024 11:26 PM [facility] Basophil % 0.9 0.0 - 1.5 % 10/30/2024 11:26 PM [facility] Immature Grans % 0.3 0.0 - 0.5 % 10/30/2024 11:26 PM [facility] Neutrophils, Absolute 9.22(H) 1.70 - 7.00 10*3/mm3 10/30/2024 11:26 PM [facility] Lymphocytes, Absolute 1.26 0.70 - 3.10 10*3/mm3 10/30/2024 11:26 PM [facility] Monocytes, Absolute 0.48 0.10 - 0.90 10*3/mm3 10/30/2024 11:26 PM [facility] Eosinophils, Absolute 0.08 0.00 - 0.40 10*3/mm3 10/30/2024 11:26 PM [facility] Basophils, Absolute 0.10 0.00 - 0.20 10*3/mm3 10/30/2024 11:26 PM [facility] Immature Grans, Absolute 0.03 0.00 - 0.05 10*3/mm3 10/30/2024 11:26 PM T [facility] nRBC 0.0 0.0 - 0.2 /100 WBC 10/30/2024 11:26 PM [facility] Blood Structure of left hand / Unknown Venipuncture / Unknown 10/30/2024 9:25 AM EDT 10/30/2024 9:26 AM EDT Bill Ziegler DO LAB BLOOD ORDERABLE S Final Result [facility]
[address] [place] [address], * (ABNORMAL) Comprehensive Metabolic Panel (10/30/2024 9:25 AM EDT) Glucose 113(H) 65 - 99 mg/dL 10/31/2024 12:05 AM [facility] BUN 19.0 6.0 - 20.0 mg/dL 10/31/2024 12:05 AM [facility] Creatinine 0.98 0.76 - 1.27 mg/dL 10/31/2024 12:05 AM [facility] Sodium 137 136 - 145 mmol/L 10/31/2024 12:05 AM [facility] Potassium 3.8 3.5 - 5.2 mmol/L 10/31/2024 12:05 AM [facility] Chloride 100 98 - 107 mmol/L 10/31/2024 12:05 AM [facility] CO2 22.1 22.0 - 29.0 mmol/L 10/31/2024 12:05 AM [facility] Calcium 9.2 8.6 - 10.5 mg/dL 10/31/2024 12:05 AM [facility] Total Protein 7.3 6.0 - 8.5 g/dL 10/31/2024 12:05 AM [facility] Albumin 4.6 3.5 - 5.2 g/dL 10/31/2024 12:05 AM [facility] ALT (SGPT) 29 1 - 41 U/L 10/31/2024 12:05 AM [facility] AST (SGOT) 27 1 - 40 U/L 10/31/2024 12:05 AM [facility] Alkaline Phosphatase 89 39 - 117 U/L 10/31/2024 12:05 AM [facility] Total Bilirubin 0.6 0.0 - 1.2 mg/dL 10/31/2024 12:05 AM [facility] Globulin 2.7 gm/dL 10/31/2024 12:05 AM [facility] A/G Ratio 1.7 g/dL 10/31/2024 12:05 AM [facility] BUN/Creatinine Ratio 19.4 7.0 - 25.0 10/31/2024 12:05 AM [facility] Anion Gap 14.9 5.0 - 15.0 mmol/L 10/31/2024 12:05 AM [facility] eGFR 90.5 >60.0 mL/min/1.7 3 10/31/2024 12:05 AM [facility] Blood Structure of left hand / Unknown Venipuncture / Unknown 10/30/2024 9:25 AM EDT 10/30/2024 9:26 AM [facility] - 10/31/2024 12:05 AM [facility] GFR Categories in Chronic Kidney Disease (CKD) [...] DO LAB BLOOD ORDERABLE S Final Result [facility]
[address] [place] [address], documented in this encounter Visit Diagnoses Diagnosis [...] puffs documented in this encounter Care Teams Presser And Blocker Knitted Goods Relationship Specialty Start Date End Date Jose Luis Pinon MD [address] [facility] [address] [place] [address] PCP - General Internal Medicine 09/19/22 documented as of this encounter
--- OUTSIDE RECORDS SUMMARY | 2024-11-06 10:23 | XMS_ITS | Encounter Summary ---
Author Organization [facility] Address [address] [place] [id number] Care Team Providers Care Dowel Pin Man Name Role Phone Jose Luis Pinon MD Primary Care Provider [phone] Reason for Referral * MRI/CAT/PET Scan (Emergency) - Closed Specialty Diagnoses / Procedures Referred By Joo borrero Referred To Contact Radiology Diagnoses Lung nodule Procedures CT Chest Without Contrast Diagnostic Bill Ziegler DO [address] [place] [address] Phone: tel: fax: [address] [address] Phone: tel: Referral ID Status Reason Start Date Expiration Date Visits Re quested Visits Authorized [id number] Closed 10/30/2024 01/29/2026 1 1 Reason for Visit * MRI/CAT/PET Scan (Emergency) - Closed Specialty Diagnoses / Procedures Referred By Joo borrero Referred To Contact Radiology Diagnoses Lung nodule Procedures CT Chest Without Contrast Diagnostic Bill Ziegler DO [address] [place] [address] Phone: tel: fax: [facility] [address] [place] [address] Phone: tel: Referral ID Status Reason Start Date Expiration Date Visits Re quested Visits Authorized [id number] Closed 10/30/2024 01/29/2026 1 1 Encounter Details Date Type Department Care Team (Moisés gold Contact Info) Description 11/06/2024 10:23 AM EDT - 11/06/2024 11:59 PM EDT Hospital Encounter [facility] AT [address] [place] [phone] Bill Ziegler, DO [address] [place] [address] Lung nodule Discharge Disposition: Home or Self Care Social History Tobacco Use Types Packs/Day Years Used Date Smoking Tobacco: Some Days Cigarettes 1 17.6 Started: 05/09/2007 Passive Smoke Exposure: Current Smokeless Tobacco: Never Alcohol Use Standard Drinks/Week Comments Not Currently 0 (1 standard drink = 0.6 oz pur e alcohol) Does not drink anymore [facility] Utilities Answer Date Recorded In the past 12 months has [employer], gas, oil, or water [employer] threatened to shut off services in your [...] and heating? Not hard at all 10/11/2023 [place] of Occupat ional Health - Occupational Stress [...] equivalent No 10/11/2023 Preferred Language Citizen Of [place] 10/11/2023 PHQ-2 Answer Date Recorded Retired PHQ-9: [...] tablet by mouth Daily. 30 tablet 08/09/2024 Fluticasone-Umecl idin-Vilant (Trelegy Ellipta) 100-62.5-25 MCG/ACT inhaler Inhale 1 puff As Needed. 05/07/2024 Jardiance 10 MG tablet tablet TAKE 1 TABLET BY MOUTH DAILY 90 tablet 3 09/21/2024 metoprolol succinate XL (Toprol XL) 100 MG 24 hr tablet Take 1.5 tablets by mouth Daily. 135 tablet 3 08/08/2024 rosuvastatin (CRESTOR) 10 MG tabletIndications :Abnormal coronary angiogram,Lung nodule Take 1 tablet by mouth Daily. 90 tablet 1 10/11/2024 sacubitril-valsar collier (Entresto) 24-26 MG tablet Take 1 tablet by mouth 2 (Two) Times a Day. 180 tablet 3 07/05/2024 spironolactone (ALDACTONE) 25 MG tablet TAKE 1 TABLET BY MOUTH DAILY 90 tablet 3 09/21/2024 documented as of this encounter Plan of Treatment Upcoming Encounters Date Type Department Care Team (Late st Contact Info) Description 12/10/2024 8:30 AM EDT Office Visit [facility] CARDIOTH[facility]ACIC SURGERY [address] [facility] [address] [place] [address] Elba Garcia, LOGISTICIAN [address] [facility] [address] [place] [address] 01/04/2025 2:45 PM EDT Office Visit [facility] HEMATOLOGY & ONCOLOGY [address] [facility] [address] [place] [phone] Rc Valdez MD [address] [facility] [address] [place], [place] [id number] 07/04/2025 11:40 AM EST Office Visit [facility] CARDIOLOGY [address] [facility] [address] [place] [address] Helene Girard PA-C [address] [facility] [address] [place] [address] documented as of this encounter Procedures Procedure Name Priority Date/Time Associated Diagnosis Comments CT CHEST WO CONTRAST DIAGNOSTIC Routine 11/06/2024 10:36 AM EDT Lung nodule documented in this [...] MD 11/12/2024 10:25 AM EDT Workstation ID: [id number] Narrative 11/12/2024 10:[address] CHEST [...] MD 11/12/2024 10:25 AM EDT Workstation ID: [id number] Bill Ziegler DO IMG CT ORDERABLES F inal Result documented in this encounter Visit Diagnoses Diagnosis Lung nodule Other diseases of lung, not elsewhere classified documented in this encounter Care Teams Dowel Pin Man Relationship Specialty Start Date End Date Jose Luis Pinon MD [address] [place] [address] PCP - General Internal Medicine 09/19/22 documented as of this encounter
--- OUTSIDE RECORDS SUMMARY | 2024-11-06 10:23 | XMS_ITS | Encounter Summary ---
Author Organization [facility] Address [address] [place] [id number] Care Team Providers Care Ring Sorter Name Role Phone Jose Luis Pinon MD Primary Care Provider [phone] Reason for Referral * MRI/CAT/PET Scan (Emergency) - Closed Specialty Diagnoses / Procedures Referred By Joo borrero Referred To Contact Radiology Diagnoses Lung nodule Procedures CT Chest Without Contrast Diagnostic Bill Ziegler DO [address] [place] [address] Phone: tel: fax: [address] [address] Phone: tel: Referral ID Status Reason Start Date Expiration Date Visits Re quested Visits Authorized [id number] Closed 10/30/2024 01/29/2026 1 1 Reason for Visit * MRI/CAT/PET Scan (Emergency) - Closed Specialty Diagnoses / Procedures Referred By Joo borrero Referred To Contact Radiology Diagnoses Lung nodule Procedures CT Chest Without Contrast Diagnostic Bill Ziegler DO [address] [place] [address] Phone: tel: fax: [facility] [address] [place] [phone] Phone: tel: Referral ID Status Reason Start Date Expiration Date Visits Re quested Visits Authorized [id number] Closed 10/30/2024 01/29/2026 1 1 Encounter Details Date Type Department Care Team (Moisés gold Contact Info) Description 11/06/2024 10:23 AM EDT - 11/06/2024 11:59 PM EDT Hospital Encounter [facility] AT [address] [place] [phone] Bill Ziegler, DO [address] [place] [address] Lung nodule Discharge Disposition: Home or Self Care Social History Tobacco Use Types Packs/Day Years Used Date Smoking Tobacco: Some Days Cigarettes 1 17.6 Started: 05/09/2007 Passive Smoke Exposure: Current Smokeless Tobacco: Never Alcohol Use Standard Drinks/Week Comments Not Currently 0 (1 standard drink = 0.6 oz pur e alcohol) Does not drink anymore [facility] Utilities Answer Date Recorded In the past 12 months has [employer], gas, oil, or water [employer] threatened to shut off services in your [...] and heating? Not hard at all 10/11/2023 [place] of Occupat ional Health - Occupational Stress [...] GED or equivalent No 10/11/2023 Preferred Language Kosovan 10/11/2023 PHQ-2 Answer Date Recorded Retired PHQ-9: [...] Description 12/10/2024 8:30 AM EDT Office Visit [facility] CARDIOTHORACIC SURGERY [address] [facility] [address] [place] [address] Elba Garcia, TOOL AND DIE MACHINIST [address] [facility] [facility] [address] [place] [address] 01/04/2025 2:45 PM EDT Office Visit [facility] HEMATOLOGY & ONCOLOGY [address] [facility] [address] [place] [phone] Rc Valdez MD [address] [facility] [address] [place], [place] [id number] 07/04/2025 11:40 AM EST Office Visit [facility] CARDIOLOGY [address] [facility] [address] [place] [address] Helene Girard PA-C [address] [facility] [address] [place] [address] documented as of this encounter [...] MD 11/12/2024 10:25 AM EDT Workstation ID: [id number] Narrative 11/12/2024 10:[address] CHEST [...] MD 11/12/2024 10:25 AM EDT Workstation ID: [id number] Bill Ziegler DO IMG CT ORDERABLES F inal Result documented in this encounter Visit Diagnoses Diagnosis Lung nodule Other diseases of lung, not elsewhere classified documented in this encounter Care Teams Ring Sorter Relationship Specialty Start Date End Date Jose Luis Pinon MD [address] [place] [address] PCP - General Internal Medicine 09/19/22 documented as of this encounter
--- OUTSIDE RECORDS SUMMARY | 2024-11-08 08:53 | XMS_ITS | Encounter Summary ---
[facility] [address] [place] [address] Care Team Providers Care Vehicle And Equipment Cleaner Name Role Phone Jose Luis Pinon MD Primary Care Provider [phone] Reason for Visit * Auth/Cert Specialty Diagnoses / Procedures Referred By Joo t Referred To Contact Diagnoses Lung nodule Lung nodule [R91.1] Procedures CT BRONCHOSCOPY W/CPTR-ASST IMAGE-GUIDED NAVIGATION BRONCHOSCOPY NAVIGATION WITH ENDOBRONCHIAL ULTRASOUND AND ION ROBOT Referral ID Status Reason Start Date Expiration Date Visits Re quested Visits Authorized [id number] 1 1 Encounter Details Date Type Department Care Team (Late st Contact Info) Description 11/08/2024 8:53 AM EDT - 11/08/2024 12:54 PM EDT Hospital Encounter [facility] [address] [place] [phone] Anette Ziegler, [address] [place] [address] Lung nodule Discharge Disposition: Home or Self Care Social History Tobacco Use Types Packs/Day Years Used Date Smoking Tobacco: Some Days Cigarettes 1 17.6 Started: 05/09/2007 Passive Smoke Exposure: Current Smokeless Tobacco: Never Alcohol Use Standard Drinks/Week Comments Not Currently 0 (1 standard drink = 0.6 oz pur e alcohol) Does not drink anymore [facility] Utilities Answer Date Recorded In the past 12 months has [employer], gas, oil, or water [employer] threatened to shut off services in your [...] and heating? Not hard at all 10/11/2023 [facility] - Occupational Stress [...] GED or equivalent No 10/11/2023 Preferred Language Angolan 10/11/2023 PHQ-2 Answer Date Recorded Retired PHQ-9: [...] Sign Reading Time Taken Comments Blood Pressure 143/90 11/08/2024 12:40 PM EDT Pulse 63 11/08/2024 12:40 PM EDT Temperature 36.5 C (97.7 F) 11/08/2024 12:40 PM EDT Respiratory Rate 20 11/08/2024 12:40 PM EDT Oxygen Saturation 98% 11/08/2024 12:40 PM EDT Inhaled Oxygen Concentration - - Weight - - Height - - Body Mass Index - - documented in this encounter Discharge Instructions * Attachments The following attachments cannot be sent through Care Everywhere. * General Anesthesia Adult Care After (Angolan) * Flexible Bronchoscopy (Angolan) * Endobronchial Ultrasound (Angolan) documented in this encounter Medications at Time [...] 3 09/21/2024 documented as of this encounter H&P Notes * Anette Ziegler DO - 11/08/2024 12:54 PM EDT H&P reviewed. The patient was examined and there are no changes to the H&P. Source Note - Anette Ziegler DO - 10/30/2024 8:30 AM EDT [...] the time. 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 No further imaging is available to compare [...] mouth Daily., Disp: 30 tablet, Rfl: 0 Nogfjnohulq-Jlkynwckq-Lohqoh (Trelegy Ellipta) 100-62.5-25 MCG/ACT inhaler, Inhale 1 [...] of this note may be an electronic superintendent drilling and production/translation of spoken language to printed textusing the [employer] Restaurant Reservationsation System. documented in this encounter Plan of Treatment Upcoming Encounters Date Type Department Care Team (Late st Contact Info) Description 12/10/2024 8:30 AM EDT Office Visit [facility] CARDIOTHORACIC SURGERY [address] [place] [phone] Elba Garcia, CANCER PROGRAM COORDINATOR [address] [facility] [address] [place], [place] [id number] 01/04/2025 2:45 PM EDT Office Visit [facility] HEMATOLOGY & ONCOLOGY [address] [place] [phone] Rc Valdez MD [address] [facility] [address] [place], [place] [phone] 07/04/2025 11:40 AM EST Office Visit [facility] CARDIOLOGY [address] [facility] [address] [place] [address] Helene Girard PA-C [address] [facility] [address] [place] [address] Pending Results Name Type Priority Associated Diagnoses Date /Time Fungus Culture - Lavage, Lung, Right Lower Lobe Microbiology Routine Lung nodule 11/08/2024 11:58 AM EDT AFB Culture - Lavage, Lung, Right Lower Lobe Microbiology Routine Lung nodule 11/08/2024 11:58 AM EDT documented as of this encounter Procedures Procedure Name Priority Date/Time Associated Diagnosis Comments XR CHEST 1 VW STAT 11/08/2024 12:22 PM EDT FL C ARM DURING SURGERY Routine 11/08/2024 12:04 PM EDT BAL CULTURE, QUANTITATIVE Routine 11/08/2024 11:58 AM EDT Lung nodule FUNGUS SMEAR Routine 11/08/2024 11:58 AM EDT Lung nodule AFB CULTURE Routine 11/08/2024 11:58 AM EDT Lung nodule FUNGAL CULTURE Routine 11/08/2024 11:58 AM EDT Lung nodule TISSUE PATHOLOGY EXAM Routine 11/08/2024 11:52 AM EDT Lung nodule NON-ASBESTOS WIRE FINISHER CYTOLOGY, [facility] (RICKIE, COR, MAD, MARCIE) Routine 11/08/2024 11:50 AM EDT Lung nodule CT BRONCHOSCOPY W/CPTR-ASST IMAGE-GUIDED NAVIGATION 11/08/2024 11:23 AM EDT Lung nodule BRONCHOSCOPY 11/08/2024 11:14 AM EDT documented in this encounter Results * XR Chest 1 View (11/08/2024 12:22 PM EDT) Anatomical Region Laterality Modality Body N/A Radiographic Yuly ging 11/08/2024 12:3 4 PM EDT Impressions 11/08/2024 12:35 PM EDT Impression: Negative for postprocedural pneumothorax. Electronically Signed: Adam Patel MD 11/08/2024 12:35 PM EDT Workstation ID: [id number] Narrative 11/08/2024 12:35 PM EDT XR CHEST 1 VW Date of Exam: 11/08/2024 12:06 PM EDT Indication: post bronch Comparison: CT chest 11/06/2024 Findings: Negative for pneumothorax, consolidation or large effusion. Heart size within normal limits. Procedure Note Adam Patel MD - 11/08/2024 XR CHEST 1 VW Date of Exam: 11/08/2024 12:06 PM EDT Indication: post bronch Comparison: CT chest 11/06/2024 Findings: Negative for pneumothorax, consolidation or large effusion. Heart sizewithin normal limits. IMPRESSION: Impression: Negative for postprocedural pneumothorax. Electronically Signed: Adam Patel MD 11/08/2024 12:35 PM EDT Workstation ID: [id number] Anette Ziegler DO IMG DIAGNOSTIC IMAG ING ORDERABLES Final Result * FL C Arm During Surgery (11/08/2024 12:04 PM EDT) Narrative SYSTEMGENERATED, DOCUMENTATION - 11/08/2024 12:06 PM EDT This procedure was auto-finalized with no dictation required. Anette Ziegler DO IMG FLUOROSCOPY ORD ERABLES Final Result * BAL Culture, Quantitative - Lavage, Lung, Right Lower Lobe (11/08/2024 11:58 AM EDT) BAL Culture No growth at 2 days ALEA 11/10/2024 10:41 AM EDT [facility] Gram Stain Few (2+) WBCs seen 11/10/2024 10:41 AM EDT [facility] Gram Stain No organisms seen 11/10/2024 10:41 AM EDT [facility] Lavage Structure of lower lobe of right lung / Unknown 11/08/2024 11:58 AM EDT 11/08/2024 1:05 PM EDT Anette Ziegler DO MICROBIOLOGY - GENE RAL ORDERABLES Final Result Performing Organization Address City/[facility]/ZIP Co de Phone Number [facility]
[address] [place] [address], [facility]
[address] [place] [address], [place] [phone] * Fungus Smear - Lavage, Lung, Right Lower Lobe (11/08/2024 11:58 AM EDT) Fungal Stain No fungal elements seen 11/12/2024 1:51 PM EDT [facility] Lavage Structure of lower lobe of right lung / Unknown 11/08/2024 11:58 AM EDT 11/08/2024 1:05 PM EDT Anette Ziegler DO MICROBIOLOGY - GENE RAL ORDERABLES Final Result Performing Organization Address City/[facility]/ZIP Co de Phone Number [facility]
[address] [place] [address], [place] [phone] * Tissue Pathology Exam (11/08/2024 11:52 AM EDT) Case Report Surgical Pathology Report Case: [id number] Authorizing Provider: Anette Ziegler Collected: 11/08/2024 11:52 AM DO Mj Ordering Location: [facility] Received: 11/08/2024 12:59 PM ENDO SUITES Pathologist: Kyrie Bird MD Specimen: Lung, Right Lower Lobe, RLL TBBX for patho 11/13/2024 1:09 PM EDT [facility] Clinical Information Lung nodule 11/13/2024 1:09 PM EDT [facility] Final Diagnosis RIGHT LOWER LOBE, TRANSBRONCHIAL BIOPSY: Pulmonary adenocarcinoma GJK 11/13/2024 1:09 PM EDT [facility] at 1309 EDT Gross Description 1. Lung, Right Lower Lobe. Received in formalin labeled RLL TBBX for patho is a 1 x 0.5 x 0.1 cm aggregate of fragmented collier-red tissue, filtered and submitted entirely in a single cassette. LDP 11/13/2024 1:09 PM EDT [facility] Special Stains Stains performed with adequate controls. Tumor positive for TTF-1 and Napsin. Tumor shows focal positivity for p40. Immunohistochemist jitendra RLLaisha: PD-L1 (22C3) Tumor Proportion Score: 30%: PD-L1 expression Testing performed at [facility]. See scanned report. 11/13/2024 1:09 PM EDT [facility] Microscopic Description The slides are reviewed and demonstrate histopathologic features supporting the above rendered diagnosis. 11/13/2024 1:09 PM EDT [facility] Tissue Structure of lower lobe of right lung / Unknown 11/08/2024 11:52 AM EDT 11/08/2024 12:59 PM EDT Anette Ziegler DO PATHOLOGY/CYTOLOGY ORDERABLES Final Result [facility]
[address] [place] [address], * NON-ASBESTOS WIRE FINISHER CYTOLOGY, [facility] (RICKIE,COR,MAD,MARCIE) (11/08/2024 11:50 AM EDT) Reference Lab Report [facility] [address] [place] [address] or [phone] Mickey Aguirre M.D., Ferryboat Operator PATIENT NAME LABORATORY NO. ODELL DAY. [id number] AGE SEX SSN CLIENT REF # [facility] 54 1970 M [id number] [address] [facility] REQUESTING [place]. [place] [address] ANETTE ZIEGLER DATE COLLECTED DATE RECEIVED DATE REPORTED 11/08/2024 11/08/2024 11/13/2024 DIAGNOSIS: A. TBNA, RIGHT LOWER LOBE: Malignant B. BRONCH BRUSH, RIGHT LOWER LOBE: Suspicious MICROSCOPIC DESCRIPTION: A. Adenocarcinoma of lung primary, see comment B. Suspicious for adenocarcinoma. Professional interpretation rendered by Laurence John D.O., F.C.A.P. at [facility], [address] [place] [address]. COMMENT: The following immunohistochemical stains were performed and reviewed with appropriate controls on block A1: TTF-1: Positive Napsin A: Positive PD-L1 (22C3) Tumor Proportion Score: 25%: PD-L1 expression The PD-L1 22C3 immunohistochemical stain for non small cell lung carcinoma is scored using the tumor proportion score (TPS). A minimum of 100 tumor cells is necessary for interpretation. The TPS is calculated by dividing the number of positive tumor cells by the total number of tumor cells, multiplied by 100. The interpretative criteria are as follows: TPS <1%: no PD-L1 expression. TPS 1-49%: PD-L1 expression. TPS 50-100%: high PD-L1 expression. The tissue was stained with the PD-L1 22C3 antibody from [employer] on the [employer] Benchmark Ultra, a process which was validated internally as a laboratory developed test. Stain is performed at [facility] and is interpreted by Dr. John. CLINICAL HISTORY: Lung nodule SPECIMENS SUBMITTED: A. TBNA, RIGHT LOWER LOBE B. BRONCH BRUSH, RIGHT LOWER LOBE GROSS SPECIMEN DESCRIPTION: A. 30 ccs transparent red fluid, scant sediment, received in fixative ThinPrep slides prepared. Cell block has been examined. B. 30 ccs clear pink fluid, containing brush, very scant visible sediment, received in fixative ThinPrep slides prepared. Automated paraffin embedded cell block has been examined. REVIEWED, DIAGNOSED AND ELECTRONICALLY SIGNED BY: Laurence John D.O., Robyn. CPT CODES: 91431, 79493q3, 83169, 47051, 34113 11/13/2024 8:57 AM EDT [facility] Tissue Structure of lower lobe of right lung / Unknown 11/08/2024 11:50 AM EDT 11/08/2024 1:00 PM EDT Bronchial brushings specimen (specimen) Structure of lower lobe of right lung / Unknown 11/08/2024 11:57 AM EDT Anette Ziegler DO PATHOLOGY/CYTOLOGY ORDERABLES Final Result [facility]
[address] [place] [address], * Bronchoscopy (11/08/2024 11:14 AM EDT) Anette Ziegler DO INTERFACE NEEDS Fin al Result documented in this encounter Visit Diagnoses Diagnosis Lung nodule- Primary Other diseases of lung, not elsewhere classified Lung nodule Other diseases of lung, not elsewhere classified documented in this encounter Admitting Diagnoses Diagnosis Lung nodule Other diseases of lung, not elsewhere classified documented in this encounter Administered Medications Inactive Administered Medications - up to 3 most recent administrations Medication Order MAR Action Action Date Dose Rate Site fentaNYL citrate (PF) (SUBLIMAZE) injection 50 mcg 50 mcg, Intravenous, Every 5 Minutes PRN, Moderate Pain, Starting on Kenzie 11/08/24 at 0924, For 5 doses, If given for pain, use the following pain scale: Mild Pain = Pain Score of 1-3, CPOT 1-2 Moderate Pain = Pain Score of 4-6, CPOT 3-4 Severe Pain = Pain Score of 7-10, CPOT 5-8 HYDROmorphone (DILAUDID) injection 0.5 mg 0.5 mg, Intravenous, Every 5 Minutes PRN, Severe Pain, Starting on Kenzie 11/08/24 at 0924, For 4 doses, Maximum total dose of hydromorphone is 2 mg. If given for pain, use the following pain scale: Mild Pain = Pain Score of 1-3, CPOT 1-2 Moderate Pain = Pain Score of 4-6, CPOT 3-4 Severe Pain = Pain Score of 7-10, CPOT 5-8 ipratropium-albuterol (DUO-NEB) nebulizer solution 3 mL 3 mL, Nebulization, Once As Needed, Wheezing, Shortness of Air, bronchospasm, Starting on Kenzie 11/08/24 at 1009, For 1 dose lactated ringers bolus 500 mL 500 mL, Intravenous, at 2,000 mL/hr, Administer over 0.25 Hours, Once As Needed, for hypovolemia, call anesthesiologist before initiating, Starting on Kenzie 11/08/24 at 0924, For 1 dose, Indications: HypovolemiaIndications:Hypovolemia lactated ringers infusion 9 mL/hr, Intravenous, Continuous, Starting on Tue11/09/24 at 0600, For 1 day, May switch to NS IV at [facility] if renal / if indicated New Bag 11/08/2024 11:28 AM EDT lidocaine PF 1% (XYLOCAINE) injection 0.5 mL 0.5 mL, Injection, Once As Needed, IV Start, Starting on Kenzie 11/08/24 at 0924, For 1 dose midazolam (VERSED) injection 1 mg 1 mg, Intravenous, Every 10 Minutes PRN, Anxiety prophylaxis, Pre-op comfort, Starting on Kenzie 11/08/24 at 0924, For 2 doses, May repeat dose in 10 minutes one time then contact provider for additional orders. (FREYA) Given 11/08/2024 10:32 AM EDT 1 mg Given 11/08/2024 9:36 AM EDT 1 mg ondansetron (ZOFRAN) injection 4 mg 4 mg, Intravenous, Once As Needed, Nausea, Vomiting, If not given pre-op/intra-op, Starting on Kenzie 11/08/24 at 0924, For 1 dose, If BOTH ondansetron (ZOFRAN) and promethazine (PHENERGAN) are ordered use ondansetron first and THEN promethazine IF ondansetron is ineffective. ondansetron (ZOFRAN) injection 4 mg 4 mg, Intravenous, Once As Needed, Nausea, Vomiting, Starting on Kenzie 11/08/24 at 1009, For 1 dose, If BOTH ondansetron (ZOFRAN) and promethazine (PHENERGAN) are ordered use ondansetron first and THEN promethazine IF ondansetron is ineffective. sodium chloride 0.9 % flush 10 mL 10 mL, Intravenous, Every 12 Hours Scheduled, First dose on Kenzie 11/08/24 at 0926 sodium chloride 0.9 % flush 10 mL 10 mL, Intravenous, As Needed, Line Care, Starting on Kenzie 11/08/24 at 0924 sodium chloride 0.9 % flush 10 mL 10 mL, Intravenous, Every 12 Hours Scheduled, First dose on Kenzie 11/08/24 at 0936Indications:Lung nodule sodium chloride 0.9 % flush 10 mL 10 mL, Intravenous, As Needed, Line Care, Starting on Kenzie 11/08/24 at 0934Indications:Lung nodule sodium chloride 0.9 % infusion 40 mL 40 mL, Intravenous, at 100 mL/hr, As Needed, Line Care, Starting on Kenzie 11/08/24 at 0934, Following administration of an IV intermittent medication, flush line with 40mL NS at 100mL/hr.Indications:Lung nodule documented in this encounter Active and Recently Administered Medications Times are shown in EDT. Scheduled Medication Order 11/06/2024 11/07/2024 11/08/2024 famotidine (PEPCID) injection 20 mg 20 mg, Intravenous, Once, On Kenzie 11/08/24 at 0926, For 1 dose, Give IV push over 2 minutes. 0926 (Due) famotidine (PEPCID) tablet 20 mg 20 mg, Oral, Once, On Kenzie 11/08/24 at 0926, For 1 dose 09 (Due) lidocaine HCl (PF) (XYLOCAINE) 4 % nebulizer solution 4 mL 4 mL, Nebulization, Once, On Kenzie 11/08/24 at 0936, For 1 dose, Administer 10 Minutes Prior to Bronchoscopy Procedure 09 (Due) sodium chloride 0.9 % flush 10 mL 10 mL, Intravenous, Every 12 Hours Scheduled, First dose on Kenzie 11/08/24 at 0926 0926 (Due) sodium chloride 0.9 % flush 10 mL 10 mL, Intravenous, Every 12 Hours Scheduled, First dose on Kenzie 11/08/24 at 0936 0936 (Due) Continuous Medication Order 11/06/2024 11/07/2024 11/08/2024 lactated ringers infusion 9 mL/hr, Intravenous, Continuous, Starting on Tue11/09/24 at 0600, For 1 day, May switch to NS IV at [facility] if renal / if indicated 1128 (New Bag - Prov ider: Daniel Louie CRNA)1145 (Anesthesia Volume Adjustment - Provider: Daniel Louie CRNA)1455 (Due: Order Ending - Provider: Automatic Discharge Provider - Comment: [Order ends at this time. Document the following action when infusion is complete: Stopped]) PRN Medication Order 11/06/2024 11/07/2024 11/08/2024 fentaNYL citrate (PF) (SUBLIMAZE) injection 50 mcg 50 mcg, Intravenous, Every 5 Minutes PRN, Moderate Pain, Starting on Kenzie 11/08/24 at 0924, For 5 doses, If given for pain, use the following pain scale: Mild Pain = Pain Score of 1-3, CPOT 1-2 Moderate Pain = Pain Score of 4-6, CPOT 3-4 Severe Pain = Pain Score of 7-10, CPOT 5-8 HYDROmorphone (DILAUDID) injection 0.5 mg 0.5 mg, Intravenous, Every 5 Minutes PRN, Severe Pain, Starting on Kenzie 11/08/24 at 0924, For 4 doses, Maximum total dose of hydromorphone is 2 mg. If given for pain, use the following pain scale: Mild Pain = Pain Score of 1-3, CPOT 1-2 Moderate Pain = Pain Score of 4-6, CPOT 3-4 Severe Pain = Pain Score of 7-10, CPOT 5-8 ipratropium-albuterol (DUO-NEB) nebulizer solution 3 mL 3 mL, Nebulization, Once As Needed, Wheezing, Shortness of Air, bronchospasm, Starting on Kenzie 11/08/24 at 1009, For 1 dose lactated ringers bolus 500 mL 500 mL, Intravenous, at 2,000 mL/hr, Administer over 0.25 Hours, Once As Needed, for hypovolemia, call anesthesiologist before initiating, Starting on Kenzie 11/08/24 at 0924, For 1 dose, Indications: Hypovolemia lidocaine PF 1% (XYLOCAINE) injection 0.5 mL 0.5 mL, Injection, Once As Needed, IV Start, Starting on Kenzie 11/08/24 at 0924, For 1 dose midazolam (VERSED) injection 1 mg (COMPLETED) 1 mg, Intravenous, Every 10 Minutes PRN, Anxiety prophylaxis, Pre-op comfort, Starting on Kenzie 11/08/24 at 0924, For 2 doses, May repeat dose in 10 minutes one time then contact provider for additional orders. (FREYA) 5945 (Given - Provid er: Rebekah De La Cruz, CONCEPCION)6087 (Given - Provider: Rebekah De La Cruz, CONCEPCION) ondansetron (ZOFRAN) injection 4 mg 4 mg, Intravenous, Once As Needed, Nausea, Vomiting, If not given pre-op/intra-op, Starting on Kenzie 11/08/24 at 0924, For 1 dose, If BOTH ondansetron (ZOFRAN) and promethazine (PHENERGAN) are ordered use ondansetron first and THEN promethazine IF ondansetron is ineffective. ondansetron (ZOFRAN) injection 4 mg 4 mg, Intravenous, Once As Needed, Nausea, Vomiting, Starting on Kenzie 11/08/24 at 1009, For 1 dose, If BOTH ondansetron (ZOFRAN) and promethazine (PHENERGAN) are ordered use ondansetron first and THEN promethazine IF ondansetron is ineffective. sodium chloride 0.9 % flush 10 mL 10 mL, Intravenous, As Needed, Line Care, Starting on Kenzie 11/08/24 at 0924 sodium chloride 0.9 % flush 10 mL 10 mL, Intravenous, As Needed, Line Care, Starting on Kenzie 11/08/24 at 0934 sodium chloride 0.9 % infusion 40 mL 40 mL, Intravenous, at 100 mL/hr, As Needed, Line Care, Starting on Kenzie 11/08/24 at 0934, Following administration of an IV intermittent medication, flush line with 40mL NS at 100mL/hr. documented in this encounter Care Teams Vehicle And Equipment Cleaner Relationship Specialty Start Date End Date Jose Luis Pinon MD [address] [place] [address] PCP - General Internal Medicine 09/19/22 documented as of this encounter
--- OUTSIDE RECORDS SUMMARY | 2024-11-08 08:53 | XMS_ITS | Encounter Summary ---
[facility] Address [address] [place] [address] Care Team Providers Care Knitter Machine Name Role Phone Jose Luis Pinon MD Primary Care Provider [phone] Reason for Visit * Auth/Cert Specialty Diagnoses / Procedures Referred By Joo t Referred To Contact Diagnoses Lung nodule Lung nodule [R91.1] Procedures WI BRONCHOSCOPY W/CPTR-ASST IMAGE-GUIDED NAVIGATION BRONCHOSCOPY NAVIGATION WITH ENDOBRONCHIAL ULTRASOUND AND ION ROBOT Referral ID Status Reason Start Date Expiration Date Visits Re quested Visits Authorized [id number] 1 1 Encounter Details Date Type Department Care Team (Late st Contact Info) Description 11/08/2024 8:53 AM EDT - 11/08/2024 12:54 PM EDT Hospital Encounter [facility] ENDO SUITES [address] [place] [phone] Anette Ziegler, [address] [place] [address] Lung nodule Discharge Disposition: Home or Self Care Social History Tobacco Use Types Packs/Day Years Used Date Smoking Tobacco: Some Days Cigarettes 1 17.6 Started: 05/09/2007 Passive Smoke Exposure: Current Smokeless Tobacco: Never Alcohol Use Standard Drinks/Week Comments Not Currently 0 (1 standard drink = 0.6 oz pur e alcohol) Does not drink anymore [facility] Utilities Answer Date Recorded In the past 12 months has [employer], gas, oil, or water [employer] threatened to shut off services in your [...] and heating? Not hard at all 10/11/2023 [facility] ional [facility] - Occupational Stress [...] GED or equivalent No 10/11/2023 Preferred Language Ghanaian 10/11/2023 PHQ-2 Answer Date Recorded Retired PHQ-9: [...] Everywhere. * General Anesthesia Adult Care After (Ghanaian) * Flexible Bronchoscopy (Ghanaian) * Endobronchial Ultrasound (Ghanaian) documented in this encounter Medications at Time [...] at the time. 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 No further imaging is available [...] mouth Daily., Disp: 30 tablet, Rfl: 0 Nkiwtuslhoa-Dmfkpeluh-Toicfp (Trelegy Ellipta) 100-62.5-25 MCG/ACT inhaler, Inhale 1 [...] of this note may be an electronic rn cardiac rehab/translation of spoken language to printed textusing the Fourth Wall Studiosation System. documented in this encounter Plan of Treatment Upcoming Encounters Date Type Department Care Team (Late st Contact Info) Description 12/10/2024 8:30 AM EDT Office Visit [facility] CARDIOTHORACIC SURGERY [address] [place] [phone] Elba Garcia, PARBOILER [address] [facility] [address] [place], [place] [phone] 01/04/2025 2:45 PM EDT Office Visit [facility] & [facility] [address] [place] [phone] Rc Valdez MD [address] [facility] [address] [place], [place] [id number] 07/04/2025 11:40 AM EST Office Visit [facility] CARDIOLOGY [address] [facility] [address] [place] [address] Helene Girard PA-C [address] [facility] [address] [place] [address] Pending Results Name Type Priority [...] Routine 11/08/2024 11:52 AM EDT Lung nodule NON-SHEEP STICKER CYTOLOGY, [facility] (RICKIE, COR, MAD, MARCIE) Routine 11/08/2024 11:50 AM EDT Lung nodule WI BRONCHOSCOPY W/CPTR-ASST IMAGE-GUIDED NAVIGATION 11/08/2024 11:23 AM [...] MD 11/08/2024 12:35 PM EDT Workstation ID: [id number] Narrative 11/08/2024 12:35 PM EDT XR CHEST [...] MD 11/08/2024 12:35 PM EDT Workstation ID: [id number] us Anette Ziegler DO IMG DIAGNOSTIC IMAG [...] 2 days ALEA 11/10/2024 10:41 AM EDT [facility] Gram Stain Few (2+) WBCs seen 11/10/2024 10:41 AM EDT [facility] Gram Stain No organisms seen 11/10/2024 10:41 AM EDT [facility] Lavage Structure of lower lobe of right lung / Unknown 11/08/2024 11:58 AM EDT 11/08/2024 1:05 PM EDT Anette Ziegler DO MICROBIOLOGY - GENE RAL ORDERABLES Final Result Performing Organization Address City/[facility]/ZIP Co de Phone Number [facility]
[address] [place] [address], [facility]
[address] [place] [address], [place] [phone] * Fungus Smear - Lavage, Lung, Right Lower Lobe (11/08/2024 11:58 AM EDT) Fungal Stain No fungal elements seen 11/12/2024 1:51 PM EDT [facility] Lavage Structure of lower lobe of right lung / Unknown 11/08/2024 11:58 AM EDT 11/08/2024 1:05 PM EDT Anette Ziegler DO MICROBIOLOGY - GENE RAL ORDERABLES Final Result Performing Organization Address City/[facility]/ZIP Co de Phone Number [facility]
[address] [place] [address], [place] [phone] * Tissue Pathology Exam (11/08/2024 11:52 AM EDT) Case Report Surgical Pathology Report Case: [id number] Authorizing Provider: Anette Ziegler Collected: 11/08/2024 11:52 AM DO Mj Ordering Location: [facility] Received: 11/08/2024 12:59 PM ENDO SUITES Pathologist: Kyrie Bird MD Specimen: Lung, Right Lower Lobe, RLL TBBX for patho 11/13/2024 1:09 PM EDT [facility] Clinical Information Lung nodule 11/13/2024 1:09 PM EDT [facility] Final Diagnosis RIGHT LOWER LOBE, TRANSBRONCHIAL BIOPSY: Pulmonary adenocarcinoma GJK 11/13/2024 1:09 PM EDT [facility] at 1309 EDT Gross Description 1. Lung, Right Lower Lobe. Received in formalin labeled RLL TBBX for patho is a 1 x 0.5 x 0.1 cm aggregate of fragmented collier-red tissue, filtered and submitted entirely in a single cassette. LDP 11/13/2024 1:09 PM EDT [facility] Special Stains Stains performed with adequate controls. Tumor positive for TTF-1 and Napsin. Tumor shows focal positivity for p40. Immunohistochemist jitendra RLLaisha: PD-L1 (22C3) Tumor Proportion Score: 30%: PD-L1 expression Testing performed at [facility]. See scanned report. 11/13/2024 1:09 PM EDT [facility] Microscopic Description The slides are reviewed and demonstrate histopathologic features supporting the above rendered diagnosis. 11/13/2024 1:09 PM EDT [facility] Tissue Structure of lower lobe of right lung / Unknown 11/08/2024 11:52 AM EDT 11/08/2024 12:59 PM EDT Anette Ziegler DO PATHOLOGY/CYTOLOGY ORDERABLES Final Result [facility]
[address] [place] [address], * NON-SHEEP STICKER CYTOLOGY, [facility] (RICKIE,COR,MAD,MARCIE) (11/08/2024 11:50 AM EDT) Reference Lab Report [facility] [address] [place] [address] or [phone] Mickey Aguirre M.D., Director Search PATIENT NAME LABORATORY NO. ODELL DAY. [id number] AGE SEX SSN CLIENT REF # [facility] 54 1970 M [id number] [address] [facility] REQUESTING [place]. ATTENDING [place] [address] ANETTE ZIEGLER DATE COLLECTED DATE RECEIVED DATE REPORTED 11/08/2024 11/08/2024 11/13/2024 DIAGNOSIS: A. TBNA, RIGHT LOWER LOBE: Malignant B. BRONCH BRUSH, RIGHT LOWER LOBE: Suspicious MICROSCOPIC DESCRIPTION: A. Adenocarcinoma of lung primary, see comment B. Suspicious for adenocarcinoma. Professional interpretation rendered by Laurence John D.O., F.C.A.P. at [facility] [employer], [employer], [address] [place] [address]. COMMENT: The following immunohistochemical stains were performed [...] PD-L1 22C3 antibody from [employer] on the [employer] Benchmark Ultra, a process which was validated [...] BY: Laurence John D.O., Robyn. CPT CODES: 35066, 89954n5, 68422, 53680, 23513 11/13/2024 8:57 AM EDT [facility] Tissue Structure of lower lobe of right lung / Unknown 11/08/2024 11:50 AM EDT 11/08/2024 1:00 PM EDT Bronchial brushings specimen (specimen) Structure of lower lobe of right lung / Unknown 11/08/2024 11:57 AM EDT Anette Ziegler DO PATHOLOGY/CYTOLOGY ORDERABLES Final Result [facility]
[address] [place] [address], * Bronchoscopy (11/08/2024 11:14 AM EDT) Anette [...] day, May switch to NS IV at [facility] if renal / if indicated New Bag [...] then contact provider for additional orders. (FREYA) 2502 (Given - Provid er: Rebekah De La Cruz, CONCEPCION)3234 (Given - Provider: Rebekah De La Cruz, [...] 100mL/hr. documented in this encounter Care Teams Knitter Machine Relationship Specialty Start Date End Date Jose Luis Pinon MD [address] [place] [address] PCP - General Internal Medicine 09/19/22 documented as of this encounter
--- OUTSIDE RECORDS SUMMARY | 2024-11-08 11:12 | XMS_ITS | Encounter Summary ---
[facility] Address [address] [place] [address] Care Team Providers Care Hotbed Lever Operator Name Role Phone Jose Luis Pinon MD Primary Care Provider [phone] Reason for Visit * Auth/Cert Specialty Diagnoses / Procedures Referred By Joo t Referred To Contact Diagnoses Lung nodule Lung nodule [R91.1] Procedures ME BRONCHOSCOPY W/CPTR-ASST IMAGE-GUIDED NAVIGATION BRONCHOSCOPY NAVIGATION WITH ENDOBRONCHIAL ULTRASOUND AND ION ROBOT Referral ID Status Reason Start Date Expiration Date Visits Re quested Visits Authorized [id number] 1 1 Encounter Details Date Type Department Care Team (Late st Contact Info) Description 11/08/2024 11:12 AM EDT - 11/08/2024 12:26 PM EDT Surgery [facility] ENDO SUITES [address] [place] [phone] Anette Ziegler, [address] [place] [address] BRONCHOSCOPY NAVIGATION WITH ENDOBRONCHIAL ULTRASOUND AND ION ROBOT [85302 (CPT )] Social History Tobacco Use Types Packs/Day Years Used Date Smoking Tobacco: Some Days Cigarettes 1 17.6 Started: 05/09/2007 Passive Smoke Exposure: Current Smokeless Tobacco: Never Alcohol Use Standard Drinks/Week Comments Not Currently 0 (1 standard drink = 0.6 oz pur e alcohol) Does not drink anymore [facility] Utilities Answer Date Recorded In the past 12 months has [employer], [employer], or [employer] threatened to shut off services in your [...] and heating? Not hard at all 10/11/2023 [facility] Occupat ional Health - Occupational Stress [...] GED or equivalent No 10/11/2023 Preferred Language Turkish 10/11/2023 PHQ-2 Answer Date Recorded Retired PHQ-9: [...] Sign Reading Time Taken Comments Blood Pressure 142/83 11/08/2024 12:25 PM EDT Pulse 60 11/08/2024 12:25 PM EDT Temperature 36.4 C (97.6 F) 11/08/2024 12:25 PM EDT Respiratory Rate 21 11/08/2024 12:25 PM EDT Oxygen Saturation 98% 11/08/2024 12:25 PM EDT Inhaled Oxygen Concentration - - Weight - - Height - - Body Mass Index - - documented in this encounter Discharge Instructions * Attachments The following attachments cannot be sent through Care Everywhere. * General Anesthesia Adult Care After (Turkish) * Flexible Bronchoscopy (Turkish) * Endobronchial Ultrasound (Turkish) documented in this encounter Medications at Time [...] at the time. 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 No further imaging is available to [...] mouth Daily., Disp: 30 tablet, Rfl: 0 Evlxhdvuesx-Nzwwnejpz-Nlevgw (Trelegy Ellipta) 100-62.5-25 MCG/ACT inhaler, Inhale 1 [...] of this note may be an electronic heart specialist/translation of spoken language to printed textusing the OrderBorderation System. documented in this encounter Plan of Treatment Upcoming Encounters Date Type Department Care Team (Late st Contact Info) Description 12/10/2024 8:30 AM EDT Office Visit [facility] CARDIOTHORACIC SURGERY [address] [place] [phone] Elba Garcia, ASIC DESIGN ENGINEER [address] [facility] [address] [place] [address] 01/04/2025 2:45 PM EDT Office Visit [facility] [address] [address] [place] [address] Rc Valdez MD [address] [facility] [address] [place] [address] 07/04/2025 11:40 AM EST Office Visit [facility] CARDIOLOG[facility] [address] [facility] [address] [place] [address] Helene Girard PA-C [address] [facility] [address] [place] [address] Pending Results Name Type Priority [...] Routine 11/08/2024 11:52 AM EDT Lung nodule NON-HOT DIE PICKER CYTOLOGY, [facility] (RICKIE, COR, MAD, MARCIE) Routine 11/08/2024 11:50 AM EDT Lung nodule ME BRONCHOSCOPY W/CPTR-ASST IMAGE-GUIDED NAVIGATION 11/08/2024 11:23 AM [...] MD 11/08/2024 12:35 PM EDT Workstation ID: [id number] Narrative 11/08/2024 12:35 PM EDT XR CHEST [...] MD 11/08/2024 12:35 PM EDT Workstation ID: [id number] us Anette Ziegler DO IMG DIAGNOSTIC IMAG ING ORDERABLES Final Result * FL C Arm During Surgery (11/08/2024 12:04 PM EDT) Narrative SYSTEMGENERATED, DOCUMENTATION - 11/08/2024 12:06 PM EDT This procedure was auto-finalized with no dictation required. us Anette Ziegler DO IMG FLUOROSCOPY ORD ERABLES Final Result * BAL Culture, Quantitative - Lavage, Lung, Right Lower Lobe (11/08/2024 11:58 AM EDT) BAL Culture No growth at 2 days ALEA 11/10/2024 10:41 AM EDT [facility] Gram Stain Few (2+) WBCs seen 11/10/2024 10:41 AM EDT [facility] Gram Stain No organisms seen 11/10/2024 10:41 AM EDT [facility] Lavage Structure of lower lobe of right lung / Unknown 11/08/2024 11:58 AM EDT 11/08/2024 1:05 PM EDT Anette Ziegler DO MICROBIOLOGY - GENE RAL ORDERABLES Final Result Performing Organization Address City/[facility]/ZIP Co de Phone Number [facility]
[address] [place] [address], [facility]
[address] [place] [address], [place] [phone] * Fungus Smear - Lavage, Lung, Right Lower Lobe (11/08/2024 11:58 AM EDT) Fungal Stain No fungal elements seen 11/12/2024 1:51 PM EDT [facility] Lavage Structure of lower lobe of right lung / Unknown 11/08/2024 11:58 AM EDT 11/08/2024 1:05 PM EDT Anette Ziegler DO MICROBIOLOGY - GENE RAL ORDERABLES Final Result [facility]
[address] [place] [address], [place] [phone] * Tissue Pathology Exam (11/08/2024 11:52 AM EDT) Case Report Surgical Pathology Report Case: [id number] Authorizing Provider: Anette Ziegler Collected: 11/08/2024 11:52 AM DO Mj Ordering Location: [facility] Received: 11/08/2024 12:59 PM ENDO SUITES Pathologist: Kyrie Bird MD Specimen: Lung, Right Lower Lobe, RLL TBBX for patho 11/13/2024 1:09 PM EDT [facility] Clinical Information Lung nodule 11/13/2024 1:09 PM EDT [facility] Final Diagnosis RIGHT LOWER LOBE, TRANSBRONCHIAL BIOPSY: Pulmonary adenocarcinoma GJK 11/13/2024 1:09 PM EDT [facility] at 1309 EDT Gross Description 1. Lung, Right Lower Lobe. Received in formalin labeled RLL TBBX for patho is a 1 x 0.5 x 0.1 cm aggregate of fragmented collier-red tissue, filtered and submitted entirely in a single cassette. LDP 11/13/2024 1:09 PM EDT [facility] Special Stains Stains performed with adequate controls. Tumor positive for TTF-1 and Napsin. Tumor shows focal positivity for p40. Immunohistochemist ry RLL: PD-L1 (22C3) Tumor Proportion Score: 30%: PD-L1 expression Testing performed at [facility]. See scanned report. 11/13/2024 1:09 PM EDT [facility] Microscopic Description The slides are reviewed and demonstrate histopathologic features supporting the above rendered diagnosis. 11/13/2024 1:09 PM EDT [facility] Tissue Structure of lower lobe of right lung / Unknown 11/08/2024 11:52 AM EDT 11/08/2024 12:59 PM EDT Anette Ziegler DO PATHOLOGY/CYTOLOGY ORDERABLES Final Result [facility]
[address] [place] [address], * NON-HOT DIE PICKER CYTOLOGY, [facility] (RICKIE,COR,MAD,MARCIE) (11/08/2024 11:50 AM EDT) Reference Lab Report [facility] [address] [place] [address] or [phone] Mickey Aguirre M.D., Printed Circuit Boards Router PATIENT NAME LABORATORY NO. ODELL DAY. [id number] AGE SEX SSN CLIENT REF # [facility] 54 [id number] [address] [place] [address] REQUESTING Sherlyn. ATTENDING MStellaDSt[place] [address] ANETTE ZIEGLER DATE COLLECTED DATE RECEIVED DATE REPORTED 11/08/2024 11/08/2024 11/13/2024 DIAGNOSIS: A. TBNA, RIGHT LOWER LOBE: Malignant B. BRONCH BRUSH, RIGHT LOWER LOBE: Suspicious MICROSCOPIC DESCRIPTION: A. Adenocarcinoma of lung primary, see comment B. Suspicious for adenocarcinoma. Professional interpretation rendered by Laurence John D.O., F.C.A.P. at [facility], [facility], [address] [place] [address]. COMMENT: The following immunohistochemical stains were performed [...] PD-L1 22C3 antibody from [employer] on the [employer] Benchmark Ultra, a process which was validated [...] BY: Laurence John D.O., Robyn. CPT CODES: 56697, 18690k5, 35545, 74472, 23192 11/13/2024 8:57 AM EDT [facility] Tissue Structure of lower lobe of right lung / Unknown 11/08/2024 11:50 AM EDT 11/08/2024 1:00 PM EDT Bronchial brushings specimen (specimen) Structure of lower lobe of right lung / Unknown 11/08/2024 11:57 AM EDT Anette Ziegler DO PATHOLOGY/CYTOLOGY ORDERABLES Final Result [facility]
[address] [place] [address], * Bronchoscopy (11/08/2024 11:14 AM EDT) Anette [...] day, May switch to NS IV at [facility] if renal / if indicated New Bag [...] Kenzie 11/08/24 at 0926, For 1 dose 0926 (Due) lidocaine HCl (PF) (XYLOCAINE) 4 % nebulizer solution 4 mL 4 mL, Nebulization, Once, On Kenzie 11/08/24 at 0936, For 1 dose, Administer 10 Minutes Prior to Bronchoscopy Procedure 0936 (Due) sodium chloride 0.9 % flush 10 [...] then contact provider for additional orders. (FREYA) 8495 (Given - Provid er: Rebekah De La Cruz, CONCEPCION)8599 (Given - Provider: Rebekah De La Cruz, [...] 100mL/hr. documented in this encounter Care Teams Hotbed Lever Operator Relationship Specialty Start Date End Date Jose Luis Pinon MD [address] [facility] [address] [place] [address] PCP - General Internal Medicine 09/19/22 documented as of this encounter
--- OUTSIDE RECORDS SUMMARY | 2024-11-08 11:12 | XMS_ITS | Encounter Summary ---
[facility] Address [address] [place] [address] Care Team Providers Care Services Host Name Role Phone Jose Luis Pinon MD Primary Care Provider [phone] Reason for Visit * Auth/Cert Specialty Diagnoses / Procedures Referred By Joo t Referred To Contact Diagnoses Lung nodule Lung nodule [R91.1] Procedures [place] BRONCHOSCOPY W/CPTR-ASST IMAGE-GUIDED NAVIGATION BRONCHOSCOPY NAVIGATION WITH ENDOBRONCHIAL ULTRASOUND AND ION ROBOT Referral ID Status Reason Start Date Expiration Date Visits Re quested Visits Authorized [id number] 1 1 Encounter Details Date Type Department Care Team (Late st Contact Info) Description 11/08/2024 11:12 AM EDT - 11/08/2024 12:26 PM EDT Surgery [facility] ENDO SUITES [address] [place] [address] Anette Ziegler, [address] [place] [address] BRONCHOSCOPY NAVIGATION WITH ENDOBRONCHIAL ULTRASOUND AND ION ROBOT [44656 (CPT )] Social History Tobacco Use Types Packs/Day Years Used Date Smoking Tobacco: Some Days Cigarettes 1 17.6 Started: 05/09/2007 Passive Smoke Exposure: Current Smokeless Tobacco: Never Alcohol Use Standard Drinks/Week Comments Not Currently 0 (1 standard drink = 0.6 oz pur e alcohol) Does not drink anymore [facility] Utilities Answer Date Recorded In the past 12 months has [facility], [facility], or [employer] threatened to shut off services in your [...] and heating? Not hard at all 10/11/2023 [facility] [place] of Occupat ional Health - Occupational Stress [...] GED or equivalent No 10/11/2023 Preferred Language Marshallese 10/11/2023 PHQ-2 Answer Date Recorded Retired PHQ-9: [...] Everywhere. * General Anesthesia Adult Care After (Marshallese) * Flexible Bronchoscopy (Marshallese) * Endobronchial Ultrasound (Marshallese) documented in this encounter Medications at Time [...] at the time. 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 No further imaging is available to [...] mouth Daily., Disp: 30 tablet, Rfl: 0 Eblxrnpkypi-Xyrmlrune-Xjykjw (Trelegy Ellipta) 100-62.5-25 MCG/ACT inhaler, Inhale 1 [...] of this note may be an electronic engineer gas pumping station/translation of spoken language to printed textusing the CoSchedule[employer] System. documented in this encounter Plan of Treatment Upcoming Encounters Date Type Department Care Team (Late st Contact Info) Description 12/10/2024 8:30 AM EDT Office Visit [facility] CARDIOTHORACIC SURGERY [address] [place] [phone] Elba Garcia, OUTREACH EDUCATOR [address] [facility] [address] [place] [address] 01/04/2025 2:45 PM EDT Office Visit [facility]ATOLOGY & [facility]COLOGY [address] [place] [address] Rc Valdez MD [address] [facility] [address] [place] [address] 07/04/2025 11:40 AM EST Office Visit [facility] CARDIOLOGY [address] [facility] [address] [place] [address] Helene Girard PA-C [address] [facility] [address] [place] [address] Pending Results Name Type Priority [...] Routine 11/08/2024 11:52 AM EDT Lung nodule NON-INJECTION MOLDING MACHINE SETTER CYTOLOGY, [facility] (RICKIE, COR, MAD, MARCIE) Routine 11/08/2024 11:50 AM EDT Lung nodule AK BRONCHOSCOPY W/CPTR-ASST IMAGE-GUIDED NAVIGATION 11/08/2024 11:23 AM [...] MD 11/08/2024 12:35 PM EDT Workstation ID: [id number] Narrative 11/08/2024 12:35 PM EDT XR CHEST [...] MD 11/08/2024 12:35 PM EDT Workstation ID: [id number] us Anette Ziegler DO IMG DIAGNOSTIC IMAG [...] 2 days ALEA 11/10/2024 10:41 AM EDT [facility] Gram Stain Few (2+) WBCs seen 11/10/2024 10:41 AM EDT [facility] Gram Stain No organisms seen 11/10/2024 10:41 AM EDT [facility] Lavage Structure of lower lobe of right lung / Unknown 11/08/2024 11:58 AM EDT 11/08/2024 1:05 PM EDT Anette Ziegler DO MICROBIOLOGY - GENE RAL ORDERABLES Final Result Performing Organization Address City/[facility]/ZIP Co de Phone Number [facility]
[address] [place] [address], [facility]
[address] [place] [address], [place] [phone] * Fungus Smear - Lavage, Lung, Right Lower Lobe (11/08/2024 11:58 AM EDT) Fungal Stain No fungal elements seen 11/12/2024 1:51 PM EDT [facility] Lavage Structure of lower lobe of right lung / Unknown 11/08/2024 11:58 AM EDT 11/08/2024 1:05 PM EDT Anette Ziegler DO MICROBIOLOGY - GENE RAL ORDERABLES Final Result [facility]
[address] [place] [address], [place] [phone] * Tissue Pathology Exam (11/08/2024 11:52 AM EDT) Case Report Surgical Pathology Report Case: [id number] Authorizing Provider: Anette Ziegler Collected: 11/08/2024 11:52 AM DO Mj Ordering Location: [facility] Received: 11/08/2024 12:59 PM ENDO SUITES Pathologist: Kyrie Bird MD Specimen: Lung, Right Lower Lobe, RLL TBBX for patho 11/13/2024 1:09 PM EDT [facility] Clinical Information Lung nodule 11/13/2024 1:09 PM EDT [facility] Final Diagnosis RIGHT LOWER LOBE, TRANSBRONCHIAL BIOPSY: Pulmonary adenocarcinoma GJK 11/13/2024 1:09 PM EDT [facility] at 1309 EDT Gross Description 1. Lung, Right Lower Lobe. Received in formalin labeled RLL TBBX for patho is a 1 x 0.5 x 0.1 cm aggregate of fragmented collier-red tissue, filtered and submitted entirely in a single cassette. LDP 11/13/2024 1:09 PM EDT [facility] Special Stains Stains performed with adequate controls. Tumor positive for TTF-1 and Napsin. Tumor shows focal positivity for p40. Immunohistochemist ry RLL: PD-L1 (22C3) Tumor Proportion Score: 30%: PD-L1 expression Testing performed at [facility]. See scanned report. 11/13/2024 1:09 PM EDT [facility] Microscopic Description The slides are reviewed and demonstrate histopathologic features supporting the above rendered diagnosis. 11/13/2024 1:09 PM EDT [facility] Tissue Structure of lower lobe of right lung / Unknown 11/08/2024 11:52 AM EDT 11/08/2024 12:59 PM EDT Anette Ziegler DO PATHOLOGY/CYTOLOGY ORDERABLES Final Result [facility]
[address] [place] [address], * NON-INJECTION MOLDING MACHINE SETTER CYTOLOGY, [facility] (RICKIE,COR,MAD,MARCIE) (11/08/2024 11:50 AM EDT) Reference Lab Report [facility] [address] [place] [address] or [phone] Mickey Aguirre M.D., Road Commissioner PATIENT NAME LABORATORY NO. ODELL DAY. [id number] AGE SEX SSN CLIENT REF # [facility] 54 1970 [id number] [address] [place] [address] REQUESTING Sherlyn. ATTENDING MStellaDStella[place] [address] ANETTE ZIEGLER DATE COLLECTED DATE RECEIVED DATE REPORTED 11/08/2024 11/08/2024 11/13/2024 DIAGNOSIS: A. TBNA, RIGHT LOWER LOBE: Malignant B. BRONCH BRUSH, RIGHT LOWER LOBE: Suspicious MICROSCOPIC DESCRIPTION: A. Adenocarcinoma of lung primary, see comment B. Suspicious for adenocarcinoma. Professional interpretation rendered by Laurence John D.O., F.C.A.P. at [facility], [facility], [address] [place] [address]. COMMENT: The following immunohistochemical stains were performed [...] PD-L1 22C3 antibody from [employer] on the [employer] Benchmark Ultra, a process which was validated [...] BY: Laurence John D.O., Robyn. CPT CODES: 07041, [id number], [id number], 10930, 97557 11/13/2024 8:57 AM EDT [facility] Tissue Structure of lower lobe of right lung / Unknown 11/08/2024 11:50 AM EDT 11/08/2024 1:00 PM EDT Bronchial brushings specimen (specimen) Structure of lower lobe of right lung / Unknown 11/08/2024 11:57 AM EDT Anette Ziegler DO PATHOLOGY/CYTOLOGY ORDERABLES Final Result [facility]
[address] [place] [address], * Bronchoscopy (11/08/2024 11:14 AM EDT) Anette [...] day, May switch to NS IV at [facility] if renal / if indicated New [...] 20 mg 20 mg, Oral, Once, On Keznie 11/08/24 at 0926, For 1 dose 0926 [...] then contact provider for additional orders. (FREYA) 4772 (Given - Provid er: Rebekah De La Cruz, CONCEPCION)4415 (Given - Provider: Rebekah De La Cruz, [...] 100mL/hr. documented in this encounter Care Teams Services Host Relationship Specialty Start Date End Date Jose Luis Pinon MD [address] [facility] [address] [place] [address] PCP - General Internal Medicine 09/19/22 documented as of this encounter
--- OUTSIDE RECORDS SUMMARY | 2024-11-08 11:28 | XMS_ITS | Encounter Summary ---
[facility] Address [address] [place] [address] Care Team Providers Care Theatrical Scenic Designer Name Role Phone HectorfatumaJose Luis MD Primary Care Provider + [phone] Reason for Visit * Auth/Cert Specialty Diagnoses / Procedures Referred By Joo t Referred To Contact Diagnoses Lung nodule Lung nodule [R91.1] Procedures [place] BRONCHOSCOPY W/CPTR-ASST IMAGE-GUIDED NAVIGATION BRONCHOSCOPY NAVIGATION WITH ENDOBRONCHIAL ULTRASOUND AND ION ROBOT Referral ID Status Reason Start Date Expiration Date Visits Re quested Visits Authorized [id number] 1 1 Encounter Details Date Type Department Care Team (Late st Contact Info) Description 11/08/2024 11:28 AM EDT Anesthesia Event [facility] ENDO SUITES [address] [place] [address] Markus Allan MD [address] [place] [address] Anesthesia Record Procedure Summary Procedure Name Responsible Anesthesiologist Anesthesia Start Time Anesthesia Stop Time BRONCHOSCOPY NAVIGATION WITH ENDOBRONCHIAL ULTRASOUND AND ION ROBOT Markus Allan MD 11/08/24 1128 11/08/24 1211 Events Date Time Event Comment 11/08/2024 0929 1114 AN Equip Check 1128 An Start The patient was reevaluated immediately before moderate or deep sedation use and before anesthesia induction. 1128 An Start Data 1129 An Induction 1131 An Intubation 1204 An Extubation 1211 an stop data 1211 Handoff to RN The following has been completed: 1. Identification of Patient, garcía family member(s) or patient surrogate 2. Identification of the responsible Practitioner (primary service) 3. Discussion of the pertinent/attainable medical history 4. Discussion of the surgical/procedure course (procedure, reason for surgery, procedure performed) 5. Intraoperative anesthetic management and issue/concerns to include things such as airway, hemodynamics, narcotic, sedation level and paralytic management and intravenous fluids/blood products and urine output during the procedure 6. Expectations/Plans for the early post-procedure period to include things such as anticipated course (anticipatory guidance), complications, need for laboratory or ECG and medication administration 7. Opportunity for questions and acknowledgment of understanding of report from the receiving PACU/ICU team 1211 An Stop Meds Name Total propofol 10 MG/ML 200 mg lidocaine PF 1% 1 % 100 mg rocuronium 50 MG/5ML 50 mg ondansetron 2 mg/mL 4 mg dexAMETHasone 4 MG/ML 8 mg fentaNYL citrate (PF) 100 MCG/2ML 100 mc g dexmedetomidine (PRECEDEX) 200 mcg/2 mL injection 40 mcg sugammadex 200 MG/2ML 200 mg lactated ringers infusion 250 mL * Agents Name O2 N2O Air Sevoflurane Inspired Sevoflurane * Blood No blood administrations on file. Lines, Drains, and Airways Type Details Placement Removal Peripheral IV Placement Date: 07/31; Placement Time: 924; Catheter Size: 20 G; Orientation: Anterior, Right; Location: Wrist; Removal Date: 11/08/24; Removal Time: 1253 11/08/24 0925 by Dora Waters RN 11/08/24 1253 by Oanh Lim RN ETT Placement Date: 07/31; Placement Time: 113 (created via procedure documentation); Blade Size: 3; Location: Oral; Removal Date: 11/08/24; Removal Time: 1204 11/08/24 1131 by Daniel Louie CRNA 11/08/24 1204 by Daniel Louie CRNA documented in this encounter Social History Tobacco Use Types Packs/Day Years Used Date Smoking Tobacco: Some Days Cigarettes 1 17.6 Started: 05/09/2007 Passive Smoke Exposure: Current Smokeless Tobacco: Never Alcohol Use Standard Drinks/Week Comments Not Currently 0 (1 standard drink = 0.6 oz pur e alcohol) Does not drink anymore [facility] Utilities Answer Date Recorded In the past 12 months has th e electric, gas, oil, or water company [...] and heating? Not hard at all 10/11/2023 [facility] [place] of Occupat ional Health - Occupational Stress [...] GED or equivalent No 10/11/2023 Preferred Language Haitian 10/11/2023 PHQ-2 Answer Date Recorded Retired PHQ-9: [...] PM EDT documented as of this encounter OR Notes * Anesthesia Postprocedure Evaluation - Daniel Louie CRNA - 11/08/2024 12:11 PM EDT Patient: Odell Viramontes Procedure Summary Date: 11/08/24 Room / Location: [facility] Anesthesia Start: 1128 Anesthesia Stop: 1211 Procedure: BRONCHOSCOPY NAVIGATION WITH ENDOBRONCHIAL ULTRASOUND AND ION ROBOT Diagnosis: Lung nodule (Lung nodule [R91.1]) Surgeons: Bill Ziegler DO Provider: Markus Allan MD Anesthesia Type: general ASA Status: 3 Anesthesia Type: general Vitals No vitals data found for the desired time range. Post Anesthesia Care and Evaluation Patient location during evaluation: PACU Patient participation: complete - patient participated Level of consciousness: awake and alert Pain management: adequate Airway patency: patent Anesthetic complications: No anesthetic complications PONV Status: none Cardiovascular status: hemodynamically stable and acceptable Respiratory status: nonlabored ventilation, acceptable and nasal cannula Hydration status: acceptable * Anesthesia Procedure Notes - Daniel Louie CRNA - 11/08/2024 11:34 AM EDTAssociated Order(s): Airway Airway Reason: elective Date/Time: 11/08/2024 11:31 AM Airway not difficult General Information and Staff Patient location during procedure: OR SALES SPECIAL AGENT/CAA: Daniel Louie CRNA Indications and Patient Condition Indications for airway management: airway protection Preoxygenated: yes MILS not maintained throughout Mask difficulty assessment: 1 - vent by mask Final Airway Details Final airway type: endotracheal airway Successful airway: ETT Cuffed: yes Successful intubation technique: direct laryngoscopy Adjuncts used in placement: anterior pressure/BURP and intubating stylet Endotracheal tube insertion site: oral Blade: Trevino Blade size: 3 ETT size (mm): 9.0 Cormack-Lehane Classification: grade I - full view of glottis Placement verified by: chest auscultation and capnometry Measured from: lips ETT/EBT to lips (cm): 20 Number of attempts at approach: 2 Assessment: lips, teeth, and gum same as pre-op and atraumatic intubation Additional Comments Negative epigastric sounds, Breath sound equal bilaterally with symmetric chest rise and fall. First look DL Robison 2, limited neck extension, grade 2b. Second look Trevino Grade I. Tube thru glotticopening w anterior pressure. Easy pass, atraumatic, dentition unchanged. * Anesthesia Preprocedure Evaluation - Markus Allan MD - 11/08/2024 9:26 AM EDT Anesthesia Evaluation Patient summary reviewed and Nursing notes reviewed Airway Mallampati: II TM distance: >3 FB Neck ROM: full No difficulty expected Dental - normal exam Pulmonary - normal exam (+) a smoker Current, COPD, asthma, Cardiovascular - normal exam (+) hypertension, past [place] , dysrhythmias Atrial Fib, CHF Neuro/Psych (+) psychiatric history Anxiety and Depression GI/Hepatic/Renal/Endo (+) renal disease- ARF Musculoskeletal (-) negative ROS Abdominal - normal exam Bowel sounds: normal. 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 Plan discussed with SALES SPECIAL AGENT. CODE STATUS: documented in this encounter Plan of Treatment Upcoming Encounters Date Type Department Care Team (Late st Contact Info) Description 12/10/2024 8:30 AM EDT Office Visit [facility] CARDIOTHORACIC SURGERY [address] [facility] [address] [place] [address] Elba Garcia APRN [address] [facility] [address] [place] [address] 01/04/2025 2:45 PM EDT Office Visit [facility] HEMATOLOGY & ONCOLOGY [address] [facility] [address] [place] [address] Rc Valdez MD [address] [facility] [address] [place] [address] 07/04/2025 11:40 AM EST Office Visit [facility] CARDIOLOGY [address] [facility] [address] [place] [address] Helene Girard PA-C [address] [facility] [address] [place] [address] documented as of this encounter Procedures Procedure Name Priority Date/Time Associated Diagnosis Comments ANESTHESIA INTUBATION Routine 11/08/2024 11:34 AM EDT documented in this encounter Results * BH AN ETT AIRWAY (11/08/2024 11:34 AM EDT) Narrative Daniel Louie CRNA - 11/08/2024 11:34 AM EDT Daniel Louie CRNA 11/08/2024 11:35 AM Airway Reason: elective Date/Time: 11/08/2024 11:31 AM Airway not difficult General Information and Staff Patient location during procedure: OR SALES SPECIAL AGENT/CAA: Daniel Louie CRNA Indications and Patient Condition Indications for airway management: airway protection Preoxygenated: yes MILS not maintained throughout Mask difficulty assessment: 1 - vent by mask Final Airway Details Final airway type: endotracheal airway Successful airway: ETT Cuffed: yes Successful intubation technique: direct laryngoscopy Adjuncts used in placement: anterior pressure/BURP and intubating stylet Endotracheal tube insertion site: oral Blade: Belinda Blade size: 3 ETT size (mm): 9.0 Cormack-Lehane Classification: grade I - full view of glottis Placement verified by: chest auscultation and capnometry Measured from: lips ETT/EBT to lips (cm): 20 Number of attempts at approach: 2 Assessment: lips, teeth, and gum same as pre-op and atraumatic intubation Additional Comments Negative epigastric sounds, Breath sound equal bilaterally with symmetric chest rise and fall. First look DL Robison 2, limited neck extension, grade 2b. Second look Trevino Grade I. Tube thru glottic opening w anterior pressure. Easy pass, atraumatic, dentition unchanged. us Markus Allan MD ANESTHESIA ORDERABLES Final Res ult documented in this encounter Visit Diagnoses Not on filedocumented in this encounter Administered Medications Inactive Administered Medications - up to 3 most recent administrations Medication Order MAR Action Action Date Dose Rate Site dexAMETHasone (DECADRON) injection Intravenous, As Needed, Starting on Kenzie 11/08/24 at 1136 Given 11/08/2024 11:36 AM EDT 8 mg dexmedetomidine HCl (PRECEDEX) injection Intravenous, As Needed, Starting on Kenzie 11/08/24 at 1128 Given 11/08/2024 11:28 AM EDT 40 mcg fentaNYL citrate (PF) (SUBLIMAZE) injection Intravenous, As Needed, Starting on Kenzie 11/08/24 at 1128 Given 11/08/2024 11:28 AM EDT 100 mcg lactated ringers infusion 9 mL/hr, Intravenous, Continuous, Starting on Tue11/09/24 at 0600, For 1 day, May switch to NS IV at [facility] if renal / if indicated New Bag 11/08/2024 11:28 AM EDT lidocaine PF 1% (XYLOCAINE) injection Intravenous, As Needed, Starting on Kenzie 11/08/24 at 1128 Given 11/08/2024 11:28 AM EDT 100 mg ondansetron (ZOFRAN) injection Intravenous, As Needed, Starting on Kenzie 11/08/24 at 1136 Given 11/08/2024 11:36 AM EDT 4 mg propofol (DIPRIVAN) injection Intravenous, As Needed, Starting on Kenzie 11/08/24 at 1129 Given 11/08/2024 11:29 AM EDT 200 mg rocuronium (ZEMURON) injection Intravenous, As Needed, Starting on Kenzie 11/08/24 at 1129 Given 11/08/2024 11:29 AM EDT 50 mg sugammadex (BRIDION) injection Intravenous, As Needed, Starting on Kenzie 11/08/24 at 1203 Given 11/08/2024 12:03 PM EDT 200 mg documented in this encounter Care Teams Theatrical Scenic Designer Relationship Specialty [place] [address] [place] [address] PCP - General Internal Medicine 09/19/22 documented as of this encounter
--- OUTSIDE RECORDS SUMMARY | 2024-11-08 11:28 | XMS_ITS | Encounter Summary ---
[facility] Address [address] [place] [address] Care Team Providers Care Utility Arborist Name Role Phone HectorfatumaJose Luis MD Primary Care Provider + [phone] Reason for Visit * Auth/Cert Specialty Diagnoses / Procedures Referred By Joo t Referred To Contact Diagnoses Lung nodule Lung nodule [R91.1] Procedures [place] BRONCHOSCOPY W/CPTR-ASST IMAGE-GUIDED NAVIGATION BRONCHOSCOPY NAVIGATION WITH ENDOBRONCHIAL ULTRASOUND AND ION ROBOT Referral ID Status Reason Start Date Expiration Date Visits Re quested Visits Authorized [id number] 1 1 Encounter Details Date Type Department Care Team (Late st Contact Info) Description 11/08/2024 11:28 AM EDT Anesthesia Event [facility] ENDO SUITES [address] [place] [address] Markus Allan MD [address] [place] [address] Anesthesia Record Procedure Summary Procedure Name Responsible [...] pur e alcohol) Does not drink anymore [facility] Utilities Answer Date Recorded In [...] and heating? Not hard at all 10/11/2023 [facility] [place] of Occupat ional Health - Occupational Stress [...] GED or equivalent No 10/11/2023 Preferred Language Guamanian 10/11/2023 PHQ-2 Answer Date Recorded Retired PHQ-9: [...] and Staff Patient location during procedure: OR MORNING SHOW PRODUCER/CAA: Daniel Louie CRNA Indications and Patient Condition [...] Cardiovascular - normal exam (+) hypertension, past [place] , dysrhythmias Atrial Fib, CHF Neuro/Psych (+) psychiatric history Anxiety and Depression GI/Hepatic/Renal/Endo (+) renal disease- ARF Musculoskeletal (-) negative ROS Abdominal - normal exam Bowel sounds: normal. 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 Plan discussed with MORNING SHOW PRODUCER. CODE STATUS: documented in this encounter Plan of Treatment Upcoming Encounters Date Type Department Care Team (Late st Contact Info) Description 12/10/2024 8:30 AM EDT Office Visit [facility] CARDIOTHORACIC SURGERY [address] [facility] [address] [place] [address] Elba Garcia APRN [address] [facility] [address] [place] [address] 01/04/2025 2:45 PM EDT Office Visit [facility] HEMATOLOGY & ONCOLOGY [address] [facility] [address] [place] [address] Rc Valdez MD [address] [facility] [address] [place] [address] 07/04/2025 11:40 AM EST Office Visit [facility] CARDIOLOGY [address] [facility] [address] [place] [address] Helene Girard PA-C [address] [facility] [address] [place] [address] documented as of this encounter [...] and Staff Patient location during procedure: [place] MORNING SHOW PRODUCER/CAA: Daniel Louie CRNA Indications and Patient Condition [...] chest rise and fall. First look DL Roibson 2, limited neck extension, grade 2b. Second [...] mg documented in this encounter Care Teams Utility Arborist Relationship Specialty [place] [address] [place] [address] PCP - General Internal Medicine 09/19/22 documented as of this encounter
--- OUTSIDE RECORDS SUMMARY | 2024-11-20 07:49 | XMS_ITS | Encounter Summary ---
Author Organization [facility] [address] Address [address] [place] [address] Care Team Providers Care Geological Engineer Name Role Phone Jose Luis Pinon MD Primary Care Provider [phone] Reason for Visit * MRI/CAT/PET Scan (Routine) - Closed Specialty Diagnoses / Procedures Referred By Contac t Referred To Contact Radiology Diagnoses Adenocarcinoma of right lung Procedures NM PET/CT Skull Base to Mid Thigh Bill Ziegler, DO [address] [place] [address] Phone: tel: fax: [facility] [address] [place] [phone] Phone: tel: Referral ID Status Reason Start Date Expiration Date Visits Re quested Visits Authorized [id number] Closed 11/13/2024 02/12/2026 2 2 Encounter Details Date Type Department Care Team (Latest Contact Info) Description 11/20/2024 7:49 AM EDT - 11/20/2024 11:59 PM EDT Hospital Encounter [facility] [address] [place] [address] Discharge Disposition: Home or Self Care Social History Tobacco Use Types Packs/Day Years Used Date Smoking Tobacco: Some Days Cigarettes 1 17.6 Started: 05/09/2007 Passive Smoke Exposure: Current Smokeless Tobacco: Never Alcohol Use Standard Drinks/Week Comments Not Currently 0 (1 standard drink = 0.6 oz pur e alcohol) Does not drink anymore [facility] Utilities Answer Date Recorded In the [...] and heating? Not hard at all 10/11/2023 [facility]at [facility] - Occupational [...] this encounter Medications at Time of Discharge ALPRAZolam (XANAX) 0.5 MG tablet Take 1 tablet 3 times a day by oral route as needed for 30 days. 11/14/2024 aspirin 81 MG EC tablet Take 1 [...] Times a Day. 180 tablet 3 07/05/2024 sertraline (ZOLOFT) 50 MG tablet Take 1 tablet by mouth Daily. 11/14/2024 02/12/2025 spironolactone (ALDACTONE) 25 MG tablet TAKE 1 TABLET BY MOUTH DAILY 90 tablet 3 09/21/2024 documented as of this encounter Plan of Treatment Upcoming Encounters Date Type Department Care Team (Late st Contact Info) Description 12/10/2024 8:30 AM EDT Office Visit [facility] CARDIOTHORACIC SURGERY [address] [facility] [address] [place] [phone] Elba Garcia APRN [address] [facility] [address] [place] [address] 01/04/2025 2:45 PM EDT Office Visit [facility] HEMATOLOGY & ONCOLOGY [address] [facility] [address] [place] [address] Rc Valdez MD [address] [facility] [address] [place] [address] 07/04/2025 11:40 AM EST Office Visit [facility] CARDIOLOGY [address] [facility] [address] [place] [phone] Helene Girard PAFlorentinC [address] [facility] [address] [place] [address] documented as of this encounter Procedures Procedure Name Priority Date/Time Associated Diagnosis Comments NM PET/CT SKULL BASE TO MID THIGH Routine 11/20/2024 9:43 AM EDT Adenocarcinoma of right lung documented in this encounter Results * NM PET/CT Skull Base to Mid Thigh (11/20/2024 9:43 AM EDT) Anatomical Region Laterality Modality Head and Neck, Spine, Abdome n, Chest, Pelvis, Lower Leg, Thigh N/A Nuclear Medicine 11/23/2024 11:1 3 AM EDT Impressions 11/23/2024 11:34 AM EDT Impression: 1. Mildly hypermetabolic activity in the patient's known right lower lobe pulmonary mass, which by biopsy represents adenocarcinoma. 2. Negative PET scan for metastatic disease elsewhere. 3. Incidentally noted hypermetabolic activity corresponding to opacified right maxillary sinus, and what appears to be a small dental apical abscess along the inferior margin of the right maxillary sinus floor. Electronically Signed: Deric Nava MD 11/23/2024 11:34 AM EDT Workstation ID: [id number] Narrative 11/23/2024 11:34 AM EDT FDG NM PET/CT SKULL BASE TO MID THIGH Date of Exam: 11/20/2024 8:33 AM EDT Indication: Adenocarcinoma of the lung. Comparison: No prior PET scan. Unenhanced chest CT scan 11/06/2024 Technique: 13.9 mCi of F-18 FDG was administered intravenously. PET imaging was obtained from skull base to mid-thigh approximately 60 minutes after radiotracer injection. A low dose non contrast CT was obtained for attenuation correction and anatomic localization. Fused PET-CT and 3D MIP reconstructions were utilized for image interpretation. Fasting blood glucose level: 103 mg/dl. Reference uptake values: Mediastinum: 2.1 SUVmax Liver: 2.5 SUVmax Normalization method: Body Weight Findings: Exam report from 11/06/2024 describes approximately 2.4 x 2.1 cm spiculated medial right lower lobe pulmonary nodule. 3D images show mild focal activity in the medial right lung base, mild patchy activity in the anterior right face and otherwise expected biodistribution of radiotracer. Multiplanar images show no some generalized mild increased uptake in the right maxillary sinus corresponding to the maxillary sinus opacification and also a small focus of activity along the floor of the right maxillary sinus appears to correspond to a dental apical abscess of the right upper first molar, maximal SUV 4.8, image 46. No other significant abnormality of radiotracer uptake is seen in the neck. In the chest, the patient's spiculated right lower lobe nodule has stable appearance on CT scan and maximal SUV of only 3.4, greater than background liver uptake. This is consistent with biopsy results of adenocarcinoma, with the mild degree of uptake suggesting potential low-grade adenocarcinoma. No hypermetabolic node or mass is seen elsewhere in the chest. Below the diaphragm, no hypermetabolic liver or adrenal or other solid organ uptake is seen. There is typical GI and tract activity. Small focus of activity in the anterior subcutaneous tissues of the mid abdomen resembles a medicine injection site on CT imaging, maximal SUV 3.0. No abnormal marrow space uptake is seen. Procedure Note NavaDeric abraham MD - 11/23/2024 FDG NM PET/CT SKULL BASE TO MID THIGH Date of Exam: 11/20/2024 8:33 AM EDT Indication: Adenocarcinoma of the lung. Comparison: No prior PET scan. Unenhanced chest CT scan 11/06/2024 Technique: 13.9 mCi of F-18 FDG was administered intravenously. PETimaging was obtained from skull base to mid-thigh approximately 60 minutesafter radiotracer injection. A low dose non contrast CT was obtained forattenuation correction and anatomic localization. Fused PET-CT and 3D MIP reconstructions were utilized forimage interpretation. Fasting blood glucose level: 103 mg/dl. Reference uptake values: Mediastinum: 2.1 SUVmax Liver: 2.5 SUVmax Normalization method: Body Weight Findings: Exam report from 11/06/2024 describes approximately 2.4 x 2.1 cm spiculatedmedial right lower lobe pulmonary nodule. 3D images show mild focalactivity in the medial right lung base, mild patchy activity in theanterior right face and otherwise expected biodistribution of radiotracer. Multiplanar images show no some generalized mild increased uptake in theright maxillary sinus corresponding to the maxillary sinus opacificationand also a small focus of activity along the floor of the right maxillarysinus appears to correspond to a dental apical abscess of the right upper first molar, maximal SUV 4.8,image 46. No other significant abnormality of radiotracer uptake is seenin the neck. In the chest, the patient's spiculated right lower lobe nodule has stableappearance on CT scan and maximal SUV of only 3.4, greater than backgroundliver uptake. This is consistent with biopsy results of adenocarcinoma,with the mild degree of uptake suggesting potential low-grade adenocarcinoma. No hypermetabolic node or mass is seen elsewhere in the chest. Below thediaphragm, no hypermetabolic liver or adrenal or other solid organ uptakeis seen. There is typical GI and tract activity. Small focus ofactivity in the anterior subcutaneous tissues of the mid abdomen resembles a medicine injection site on CTimaging, maximal SUV 3.0. No abnormal marrow space uptake is seen. IMPRESSION: Impression: 1. Mildly hypermetabolic activity in the patient's known right lower lobepulmonary mass, which by biopsy represents adenocarcinoma. 2. Negative PET scan for metastatic disease elsewhere. 3. Incidentally noted hypermetabolic activity corresponding to opacifiedright maxillary sinus, and what appears to be a small dental apicalabscess along the inferior margin of the right maxillary sinus floor. Electronically Signed: Deric Nava MD 11/23/2024 11:34 AM EDT Workstation ID: [id number] Bill Ziegler DO IM NM ORDERABLES F inal Result documented in this encounter Visit Diagnoses Not on filedocumented in this encounter Care Teams Geological Engineer Relationship Specialty Start Date End Date Jose Luis Pinon MD [address] [place] [address] PCP - General Internal Medicine 09/19/22 documented as of this encounter
--- OUTSIDE RECORDS SUMMARY | 2024-11-20 07:49 | XMS_ITS | Encounter Summary ---
Author Organization [facility] Address [address] [place] [address] Care Team Providers Care Coach Operator Name Role Phone Jose Luis Pinon MD Primary Care Provider [phone] Reason for Referral * MRI/CAT/PET Scan (Routine) - Closed Specialty Diagnoses / Procedures Referred By Joo borrero Referred To Contact Radiology Diagnoses Adenocarcinoma of right lung Procedures NM PET/CT Skull Base to Mid Thigh Bill Ziegler DO [address] [place] [address] Phone: tel: fax: [address] [address] Phone: tel: Referral ID Status Reason Start Date Expiration Date Visits Re quested Visits Authorized [id number] Closed 11/13/2024 02/12/2026 2 2 Reason for Visit * MRI/CAT/PET Scan (Routine) - Closed Specialty Diagnoses / Procedures Referred By Joo borrero Referred To Contact Radiology Diagnoses Adenocarcinoma of right lung Procedures NM PET/CT Skull Base to Mid Thigh Bill Ziegler DO [address] [place] [address] Phone: tel: fax: [place] [phone] Phone: tel: Referral ID Status Reason Start Date Expiration Date Visits Re quested Visits Authorized [id number] Closed 11/13/2024 02/12/2026 2 2 Encounter Details Date Type Department Care Team (Latest Contact Info) Description 11/20/2024 7:49 AM EDT - 11/20/2024 11:59 PM EDT Hospital Encounter [facility] [place] [address] [place] [address] Adenocarcinoma of right lung Discharge Disposition: Home or Self Care Social History Tobacco Use Types Packs/Day Years Used Date Smoking Tobacco: Some Days Cigarettes 1 17.6 Started: 05/09/2007 Passive Smoke Exposure: Current Smokeless Tobacco: Never Alcohol Use Standard Drinks/Week Comments Not Currently 0 (1 standard drink = 0.6 oz pur e alcohol) Does not drink anymore [facility] Utilities Answer Date Recorded In the past 12 months has [employer], gas, oil, or water [employer] threatened to shut off services in your [...] and heating? Not hard at all 10/11/2023 [facility] Occupat ional Health - Occupational Stress [...] GED or equivalent No 10/11/2023 Preferred Language Kiswahili 10/11/2023 PHQ-2 Answer Date Recorded Retired PHQ-9: [...] [facility] CARDIOTHORACIC SURGERY [address] [facility] [address] [place] [address] Elba Garcia, CIGAR TOBACCO PROCESSING SUPERVISOR [address] [address] 01/04/2025 2:45 PM EDT Office Visit [facility] HEMATOLOGY & ONCOLOGY [address] [facility] [address] [place] [address] Rc Valdez MD [address] [facility] [address] [place] [address] 07/04/2025 11:40 AM EST Office Visit [facility] CARDIOLOGY [address] [facility] [address] [place] [address] Helene Girard PA-C [address] [facility] [address] [place] [address] documented as of this encounter Procedures Procedure Name Priority Date/Time Associated Diagnosis Comments NM PET/CT SKULL BASE TO MID THIGH Routine 11/20/2024 9:43 AM EDT Adenocarcinoma of right lung POCT GLUCOSE FINGERSTICK Routine 11/20/2024 8:20 AM EDT documented in this encounter Results * NM [...] MD 11/23/2024 11:34 AM EDT Workstation ID: [id number] Narrative 11/23/2024 11:34 AM EDT FDG NM [...] marrow space uptake is seen. Procedure Note Deric Nava MD - 11/23/2024 FDG NM PET/CT SKULL [...] MD 11/23/2024 11:34 AM EDT Workstation ID: [id number] us Bill Ziegler DO IMG NM ORDERABLES F inal Result * POC Glucose Once (11/20/2024 8:20 AM EDT) Glucose 103 70 - 130 mg/dL 11/20/2024 8:33 AM EDT [facility] Comment:Serial Number: [id number]: [id number] Blood 11/20/2024 8:20 AM EDT 11/20/2024 8:33 AM EDT Bill Ziegler DO POINT OF CARE TEST ORDERABLES Final Result [facility]
[address] [facility] [address] [place] [address], documented in this encounter Visit Diagnoses Diagnosis Adenocarcinoma of right lung documented in this encounter Administered Medications Inactive Administered Medications - up to 3 most recent administrations Medication Order MAR Action Action Date Dose Rate Site fludeoxyglucose F18 injection 1 dose 1 dose, Intravenous, Once in Imaging, On Tue11/20/24 at 0930, For 1 dose, Millicuries: 13.86 Given 11/20/2024 8:27 AM EDT 1 dose documented in this encounter Care Teams Coach Operator Relationship Specialty Start Date End Date Jose Luis Pinon MD [address] [facility] [[email or web address] [address] [place] [address] PCP - General Internal Medicine 09/19/22 documented as of this encounter
--- OUTSIDE RECORDS SUMMARY | 2024-11-20 07:49 | XMS_ITS | Encounter Summary ---
Author Organization [facility] [address] [address] [facility] Address [address] [place] [address] Care Team Providers Care School Boat Driver Name Role Phone Jose Luis Pinon MD Primary Care Provider [phone] Reason for Visit * MRI/CAT/PET Scan (Routine) - Closed Specialty Diagnoses / Procedures Referred By Contac t Referred To Contact Radiology Diagnoses Adenocarcinoma of right lung Procedures NM PET/CT Skull Base to Mid Thigh Bill Ziegler, DO [address] [place] [address] Phone: tel: fax: [facility] [address] [place] [phone] Phone: tel: Referral ID Status Reason Start Date Expiration Date Visits Re quested Visits Authorized [id number] Closed 11/13/2024 02/12/2026 2 2 Encounter Details Date Type Department Care Team (Latest Contact Info) Description 11/20/2024 7:49 AM EDT - 11/20/2024 11:59 PM EDT Hospital Encounter [facility] [place] [address] [facility] [address] [place] [address] Discharge Disposition: Home or Self Care Social History Tobacco Use Types Packs/Day Years Used Date Smoking Tobacco: Some Days Cigarettes 1 17.6 Started: 05/09/2007 Passive Smoke Exposure: Current Smokeless Tobacco: Never Alcohol Use Standard Drinks/Week Comments Not Currently 0 (1 standard drink = 0.6 oz pur e alcohol) Does not drink anymore [facility] Utilities Answer Date Recorded In [...] and heating? Not hard at all 10/11/2023 [facility] of Occupat ional Health - Occupational [...] equivalent No 10/11/2023 Preferred Language Citizen Of [place] 10/11/2023 PHQ-2 Answer Date Recorded Retired PHQ-9: [...] Description 12/10/2024 8:30 AM EDT Office Visit [facility] CARDIOTHORACIC SURGERY [address] [facility] [address] [place] [phone] Elba Garcia APRN [address] [facility] [address] [place] [address] 01/04/2025 2:45 PM EDT Office Visit [facility] HEMATOLOGY & ONCOLOGY [address] [facility] [address] [place] [address] Rc Valdez MD [address] [facility] [address] [place] [address] 07/04/2025 11:40 AM EST Office Visit [facility] CARDIOLOGY [address] [facility] [address] [place] [address] Helene Girard PAFlorentinC [address] [facility] [address] [place] [address] documented as of this encounter [...] MD 11/23/2024 11:34 AM EDT Workstation ID: [id number] Narrative 11/23/2024 11:34 AM EDT FDG NM [...] MD 11/23/2024 11:34 AM EDT Workstation ID: [id number] Bill Ziegler DO IM NM ORDERABLES F inal Result documented in this encounter Visit Diagnoses Not on filedocumented in this encounter Care Teams School Boat Driver Relationship Specialty Start Date End Date Jose Luis Pinon MD [address] [facility] [address] [place] [address] PCP - General Internal Medicine 09/19/22 documented as of this encounter
--- OUTSIDE RECORDS SUMMARY | 2024-11-20 07:49 | XMS_ITS | Encounter Summary ---
Author Organization [facility] Address [address] [place] [address] Care Team Providers Care Building Surveyor Name Role Phone Jose Luis Pinon MD Primary Care Provider [phone] Reason for Referral * MRI/CAT/PET Scan (Routine) - Closed Specialty Diagnoses / Procedures Referred By Joo borrero Referred To Contact Radiology Diagnoses Adenocarcinoma of right lung Procedures NM PET/CT Skull Base to Mid Thigh Bill Ziegler DO [address] [place] [address] Phone: tel: fax: [address] [phone] Phone: tel: Referral ID Status Reason Start Date Expiration Date Visits Re quested Visits Authorized [id number] Closed 11/13/2024 02/12/2026 2 2 Reason for Visit * MRI/CAT/PET Scan (Routine) - Closed Specialty Diagnoses / Procedures Referred By Joo borrero Referred To Contact Radiology Diagnoses Adenocarcinoma of right lung Procedures NM PET/CT Skull Base to Mid Thigh Bill Ziegler DO [address] [place] [address] Phone: tel: fax: [place] [phone] Phone: tel: Referral ID Status Reason Start Date Expiration Date Visits Re quested Visits Authorized [id number] Closed 11/13/2024 02/12/2026 2 2 Encounter Details Date Type Department Care Team (Latest Contact Info) Description 11/20/2024 7:49 AM EDT - 11/20/2024 11:59 PM EDT Hospital Encounter [facility] [address] [facility] [address] [place] [address] Adenocarcinoma of right lung Discharge Disposition: Home or Self Care Social History Tobacco Use Types Packs/Day Years Used Date Smoking Tobacco: Some Days Cigarettes 1 17.6 Started: 05/09/2007 Passive Smoke Exposure: Current Smokeless Tobacco: Never Alcohol Use Standard Drinks/Week Comments Not Currently 0 (1 standard drink = 0.6 oz pur e alcohol) Does not drink anymore [facility] Utilities Answer Date Recorded In the past 12 months has [employer], gas, oil, or water [employer] threatened to shut off services in your [...] and heating? Not hard at all 10/11/2023 [facility] [place] of Occupat ional Health - Occupational Stress [...] GED or equivalent No 10/11/2023 Preferred Language Upper Sorbian 10/11/2023 PHQ-2 Answer Date Recorded Retired PHQ-9: [...] Description 12/10/2024 8:30 AM EDT Office Visit [facility] CARDIOTHORACIC SURGERY [address] [facility] [address] [place] [address] Elba Garcia, RESTAURANT HOURLY TEAM MEMBER [address] [address] 01/04/2025 2:45 PM EDT Office Visit [facility] HEMATOLOGY & ONCOLOGY [address] [facility] [address] [place] [address] Rc Valdez MD [address] [facility] [address] [place] [address] 07/04/2025 11:40 AM EST Office Visit [facility] CARDIOLOGY [address] [facility] [address] [place] [address] Helene Girard PA-C [address] [facility] [address] [place] [address] documented as of this encounter [...] MD 11/23/2024 11:34 AM EDT Workstation ID: [id number] Narrative 11/23/2024 11:34 AM EDT FDG NM [...] MD 11/23/2024 11:34 AM EDT Workstation ID: [id number] us Bill Ziegler DO IMG NM ORDERABLES F inal Result * POC Glucose Once (11/20/2024 8:20 AM EDT) Glucose 103 70 - 130 mg/dL 11/20/2024 8:33 AM EDT [facility] Comment:Serial Number: [id number] Blood 11/20/2024 8:20 AM EDT 11/20/2024 8:33 AM EDT Bill Ziegler DO POINT OF CARE TEST ORDERABLES Final Result [facility]
[address] [facility] [address] [place] [address], documented in this encounter Visit Diagnoses Diagnosis [...] dose documented in this encounter Care Teams Building Surveyor Relationship Specialty Start Date End Date Jose Luis Pinon MD [address] [facility] [address] [place] [address] PCP - General Internal Medicine 09/19/22 documented as of this encounter
--- OUTSIDE RECORDS SUMMARY | 2024-11-23 09:45 | XMS_ITS | Encounter Summary ---
[facility] Address [address] [place] [address] Care Team Providers Care Fire Alarm Technician Name Role Phone Jose Luis Pinon MD Primary Care Provider [phone] Reason for Visit * Consultation (Routine) - Authorized Specialty Diagnoses / Procedures Referred By Joo borrero Referred To Contact Oncology Diagnoses Adenocarcinoma of right lung Procedures [place] OFFICE/OUTPATIENT NEW MODERATE MDM 45 MINUTES Bill Ziegler, DO [address] [place] [address] Phone: tel: fax: [facility] & ONCOLOGY [address] [facility] [address] [place] [address] Phone: tel: fax: Referral ID Status Reason Start Date Expiration Date V isits Requested Visits Authorized [id number] Authorized 11/13/2024 02/12/2026 2 2 Encounter Details Date Type Department Care Team (Late st Contact Info) Description 11/23/2024 9:45 AM EDT Consult [facility] HEMATOLOG[facility] & ONCOLOGY [address] [facility] [address] [place] [address] Rc Valdez MD [address] [facility] [address] [place] [address] Adenocarcinoma of lower lobe of right lung (Primary Dx) Social History Tobacco Use Types Packs/Day Years [...] and heating? Not hard at all 10/11/2023 [facility] - Occupational Stress [...] Sign Reading Time Taken Comments Blood Pressure 167/97 11/23/2024 9:03 AM EDT LUE Pulse 72 11/23/2024 9:03 AM EDT Temperature 36.2 C (97.1 F) 11/23/2024 9:03 AM EDT Respiratory Rate 20 11/23/2024 9:03 AM EDT Oxygen Saturation 99% 11/23/2024 9:03 AM EDT RA Inhaled Oxygen Concentration - - Weight 90.3 kg (199 lb) 11/23/2024 9:03 AM EDT Height 172.7 cm (5' 8 ) 11/23/2024 9:03 AM EDT Body Mass Index 30.26 11/23/2024 9:03 AM EDT documented in this encounter Progress Notes * Rc Valdez MD - 11/23/2024 9:45 AM EDT DATE OF CONSULTATION: 11/23/2024 REFERRING PHYSICIAN: Jose Luis Pinon MD Dear Jose Luis Amador MD Thank you for asking for my medical advice on this patient. I saw him in the [place] office on 11/23/2024 REASON FOR CONSULTATION: Right lower lobe lung adenocarcinoma PROBLEM LIST: 1. Right lower lobe lung adenocarcinoma T1 cN0 M0 stage I A3, PD-L1 30%: A. Presented with abnormal CT coronary October 08, 2024. B. CT chest November 06, 2024 confirmed 2.5 cm right lower lobe lung nodule. C. Status post bronchoscopy with biopsy done by Dr. Ziegler November 08, 2024 confirmed adenocarcinoma D. Whole-body PET scan done November 20, 2024 negative for metastatic disease. 2. Anxiety 3. Hypertension 4. Type 2 diabetes without complications HISTORY OF PRESENT ILLNESS: The patient is a very pleasant 54 y.o. male who was in his usual state of health until October 08, 2024 the patient presented with abnormal CT angiogram for coronary arteries. Incidentally noted right lower lobe lung nodule this was confirmed on CT chest November 06, 2024. The patient status post bronchoscopy with biopsy from right lower lobe lung nodule confirming adenocarcinoma done by Dr. Ziegler November 08, 2024. The patient was referred to me for further recommendations. SUBJECTIVE: When I saw the patient today he is here by himself. He is very anxious about his new cancer diagnosis. Never been diagnosed with cancer before. Denies any respiratory symptoms. Review of Systems Past Medical History: Diagnosis Date Abnormal ECG Alcoholism Arrhythmia Asthma Atrial fibrillation CHF (congestive heart failure) Congenital heart disease COPD (chronic obstructive pulmonary disease) HTN (hypertension) Myocardial infarction Social History Socioeconomic History Marital status: Spouse [...] Female control/protection: None, Partner of same sex Family History Problem Relation Age of Onset Arrhythmia Mother Heart attack Father Heart disease Father Heart failure Father No Known Problems Maternal Grandmother No Known Problems Maternal Grandfather No Known Problems Paternal Grandmother No Known Problems Paternal Grandfather Past Surgical History: Procedure Laterality Date BRONCHOSCOPY WITH ION ROBOTIC ASSIST N/A 11/08/2024 Procedure: BRONCHOSCOPY NAVIGATION WITH ENDOBRONCHIAL ULTRASOUND AND ION ROBOT; Surgeon: Bill Ziegler DO; Location: [facility]; Service: Robotics - Pulmonary; Laterality: N/A; OTHER SURGICAL HISTORY arm fracture No Known Allergies Current Outpatient Medications: ALPRAZolam (XANAX) 0.5 MG tablet, Take 1 tablet 3 times a day by oral route as needed for 30 days.,Disp: , Rfl: Rwgzativdtc-Jmzjmkska-Wuvyyh (Trelegy Ellipta) 100-62.5-25 MCG/ACT inhaler, Inhale 1 [...] Times a Day., Disp:180 tablet, Rfl: 3 sertraline (ZOLOFT) 50 MG tablet, Take 1 tablet by mouth Daily., Disp: , Rfl: spironolactone (ALDACTONE) 25 MG tablet, TAKE 1 TABLET BY MOUTH DAILY, Disp: 90 tablet, Rfl: 3 tadalafil (Cialis) 5 MG tablet, , Disp: , Rfl: aspirin 81 MG EC tablet, Take 1 tablet by mouth Daily., Disp: 30 tablet, Rfl: 0 PHYSICAL EXAMINATION: BP 167/97 Comment: LUE Pulse 72 Temp 97.1 ??F (36.2 ??C) (Temporal) Resp 20 Ht 172.7 cm (68 ) Wt 90.3 kg (199 lb) SpO2 99% Comment: RA BMI 30.26 kg/m?? Pain Score 11/23/24 0903 PainSc: 0-No pain ECOG score: 0 ECOG Performance Status: 1 - Symptomatic but completely ambulatory General Appearance: alert, cooperative, no apparent distress and appears stated age Neurologic/Psychiatric: A&O x 3, gait steady, appropriate affect, strength 5/5 in all muscle groups HEENT: Normocephalic, without obvious abnormality, mucous membranes moist Neck: Supple, symmetrical, trachea midline, no adenopathy; No thyromegaly, masses, or tenderness Lungs: Clear to auscultation bilaterally; respirations regular, even, and unlabored bilaterally Heart: Regular rate and rhythm, no murmurs appreciated Abdomen: Soft, non-tender, non-distended, and no organomegaly Lymph nodes: No cervical, supraclavicular, inguinal or axillary adenopathy noted Extremities: Normal, atraumatic; no clubbing, cyanosis, or edema Skin: No rashes, ulcers, or suspicious lesions noted Hospital Outpatient Visit on 11/20/2024 Component Date Value Ref Range Status Glucose 11/20/2024 103 70 - 130 mg/dL Final Serial Number: [id number]: [id number] CT Chest Without Contrast Diagnostic Result Date: 11/12/2024 Narrative: CT CHEST WO CONTRAST DIAGNOSTIC Date of Exam: 11/06/2024 10:30 AM EDT Indication: Lung nodule. Comparison: CT coronary artery exam 10/08/2024 Technique: Axial CT images were obtained of the chest without contrast administration. Reconstructed coronal and sagittal images were also obtained. Automated exposure control and iterative construction methods were used. Findings: Operative planningCT. MEDIASTINUM: Unremarkable. Aortic and heart size are [...] mild superior endplate compression fracture of T7. Impression: Impression: 1.Similar 2.4 x 2.1 cm spiculated nodule within the medial right lower lobe. 2.Mild emphysema. 3.Chronic mild superior endplate compression fracture of T7. Electronically Signed: Deng Chaparro MD 11/12/2024 10:25 AM EDT Workstation ID: [id number] XR Chest 1 View Result Date: 11/08/2024 Narrative: XR CHEST 1 VW Date of Exam: 11/08/2024 12:06 PM EDT Indication: post bronch Comparison: CTchest 11/06/2024 Findings: Negative for pneumothorax, consolidation or large effusion. Heart size within normal limits. Impression: Impression: Negative for postprocedural pneumothorax. Electronically Signed: Adam Patel MD 11/08/2024 12:35 PM EDT Workstation ID: [id number] FL C Arm During Surgery Result Date: 11/08/2024 Narrative: This procedure was auto-finalized with no dictation required. DIAGNOSTIC DATA: Extensive patient medical records including doctor notes, blood work results, pathology report and imaging reports reviewed by me and documented in the patient's chart. ASSESSMENT: The patient is a very pleasant 54 y.o. male with right lower lobe lung adenocarcinoma PLAN: 1. Right lower lobe lung adenocarcinoma, T1 cN0 M0 stage I A3, PD-L1 30%: A. I had a long discussion today with the patient about his new diagnosis of lung cancer. I did go over the final pathology report in detail with both of them. I reviewed the patient's documents including refereing provider's notes, lab results, imaging, and path report. B. I did go over the PET scan result with the patient. I reviewed the films myself. I went over thepictures with him. No official reading yet. No evidence of metastatic disease. C. I will refer the patient to Dr. Mccord for surgical resection. I discussed the case with Dr. Martin over the phone today to coordinate patient care. D. He will follow-up me in 6 weeks to go over the final pathology report. F. The patient is a candidate for regular clinical trial looking at the addition of immunotherapy with or without targeted therapy in adjuvant setting troponin 12 protocol. Patient is interested. I discussed the case with my research nurse Stella Luis who will be consulting with the patient today. 2. Hypertension: A. He will continue metoprolol twice a day as well as spironolactone. 3. Type 2 diabetes without complications: A. He will continue Jardiance. 4. Anxiety: A. Patient is on Xanax as needed. FOLLOW UP: 6 weeks to go over the results. Total time of patient care including preparation of patient chart prior to arrival, [id number] with patient and following visit spent in reviewing records, lab results, imaging studies, discussion with patient, and documentation/charting was 60 minutes Rc Valdez MD 11/23/2024 documented in this encounter Plan of Treatment Upcoming Encounters Date Type Department Care Team (Late st Contact Info) Description 12/10/2024 8:30 AM EDT Office Visit [facility] CARDI[facility]IC SURGERY [address] [facility] [address] [place] [address] Elba Garcia, ACTIVITIES MANAGER [address] [facility] [address] [place] [address] 01/04/2025 2:45 PM EDT Office Visit [facility] & ONCOLOGY [address] [facility] [address] [place] [phone] Rc Valdez MD [address] [facility] [address] [place] [address] 07/04/2025 11:40 AM EST Office Visit [facility] CARDIOLOGY [address] [facility] [address] [place] [address] Helene Girard PAFlorentinC [address] [place] [address] documented as of this encounter Visit Diagnoses Diagnosis Adenocarcinoma of lower lobe of right lung- Primary documented in this encounter Care Teams Fire Alarm Technician Relationship Specialty Start Date End Date Beiting, Jose Luis Martinez MD [address] [place], [place] [id number] PCP - General Internal Medicine 09/19/22 documented as of this encounter
--- OUTSIDE RECORDS SUMMARY | 2024-11-23 09:45 | XMS_ITS | Encounter Summary ---
[facility] Address [address] [place] [address] Care Team Providers Care Paper Cup Machine Tender Name Role Phone Jose Luis Pinon MD Primary Care Provider [phone] Reason for Visit * Consultation (Routine) - Authorized Specialty Diagnoses / Procedures Referred By Joo borrero Referred To Contact Oncology Diagnoses Adenocarcinoma of right lung Procedures [place] OFFICE/OUTPATIENT NEW MODERATE MDM 45 MINUTES Bill Ziegler, DO [address] [place] [address] Phone: tel: fax: [facility] HEMATOLOGY & ONCOLOGY [address] [facility] [address] [place] [address] Phone: tel: fax: Referral ID Status Reason Start Date Expiration Date V isits Requested Visits Authorized [id number] Authorized 11/13/2024 02/12/2026 2 2 Encounter Details Date Type Department Care Team (Late st Contact Info) Description 11/23/2024 9:[address] [facility] HEMATOLOGY & ONCOLOGY [address] [facility] [address] [place] [address] Rc Valdez MD [address] [facility] [address] [place] [address] Adenocarcinoma of lower lobe of right lung (Primary Dx) Social History Tobacco Use Types Packs/Day Years Used Date Smoking Tobacco: Some Days Cigarettes 1 17.6 Started: 05/09/2007 Passive Smoke Exposure: Current Smokeless Tobacco: Never Alcohol Use Standard Drinks/Week Comments Not Currently 0 (1 standard drink = 0.6 oz pur e alcohol) Does not drink anymore [facility] Utilities Answer Date Recorded In [...] heating? Not hard at all 10/11/2023 [facility] Occupat ional Health - [...] GED or equivalent No 10/11/2023 Preferred Language Welsh 10/11/2023 PHQ-2 Answer Date Recorded Retired PHQ-9: [...] this patient. I saw him in the [place] office on 11/23/2024 REASON FOR CONSULTATION: Right [...] ION ROBOT; Surgeon: Bill Ziegler DO; Location: [facility]; Service: Robotics - Pulmonary; Laterality: N/A; OTHER SURGICAL HISTORY arm fracture No Known Allergies Current Outpatient Medications: ALPRAZolam (XANAX) 0.5 MG tablet, Take 1 tablet 3 times a day by oral route as needed for 30 days.,Disp: , Rfl: Bnvzivzsjmq-Qndvpjvid-Sebdgz (Trelegy Ellipta) 100-62.5-25 MCG/ACT inhaler, Inhale 1 [...] 70 - 130 mg/dL Final Serial Number: [id number]: [id number] CT Chest Without Contrast Diagnostic Result Date: [...] MD 11/12/2024 10:25 AM EDT Workstation ID: [id number] XR Chest 1 View Result Date: 11/08/2024 Narrative: XR CHEST 1 VW Date of Exam: 11/08/2024 12:06 PM EDT Indication: post bronch Comparison: CTchest 11/06/2024 Findings: Negative for pneumothorax, consolidation or large effusion. Heart size within normal limits. Impression: Impression: Negative for postprocedural pneumothorax. Electronically Signed: Adam Patel MD 11/08/2024 12:35 PM EDT Workstation ID: [id number] FL C Arm During Surgery Result Date: [...] preparation of patient chart prior to arrival, [id number] with patient and following visit spent in reviewing records, lab results, imaging studies, discussion with patient, and documentation/charting was 60 minutes Rc Valdez MD 11/23/2024 documented in this encounter Plan of Treatment Upcoming Encounters Date Type Department Care Team (Late st Contact Info) Description 12/10/2024 8:30 AM EDT Office Visit [facility] CARDI[facility]IC SURGERY [address] [facility] [address] [place] [address] Elba Garcia, REGULAR SENIOR CARE PROVIDER [address] [facility] [address] [place] [address] 01/04/2025 2:45 PM EDT Office Visit [facility] HEMATOLOGY & ONCOLOGY [address] [facility] [address] [place] [address] Rc Valdez MD [address] [facility] [address] [place] [address] 07/04/2025 11:40 AM EST Office Visit [facility] C[facility]Y [address] [facility] [address] [place] [address] Helene Girard PAFlorentinC [address] [place] [address] documented as of this encounter Visit Diagnoses Diagnosis Adenocarcinoma of lower lobe of right lung- Primary documented in this encounter Care Teams Paper Cup Machine Tender Relationship Specialty Start Date End Date Beiting, Jose Luis Martinez MD [address] [place], [place] [id number] PCP - General Internal Medicine 09/19/22 documented as of this encounter
--- OUTSIDE RECORDS SUMMARY | 2024-11-27 09:56 | XMS_ITS | Encounter Summary ---
Author Organization [facility] Address [address] [place] [id number] Care Team Providers Care Front Desk Worker Name Role Phone Jose Luis Pinon MD Primary Care Provider [phone] Reason for Referral * MRI/CAT/PET Scan (Routine) - Closed Specialty Diagnoses / Procedures Referred By Joo borrero Referred To Contact Radiology Diagnoses Adenocarcinoma of right lung Procedures MRI Brain With & Without Contrast Bill Ziegler DO [address] [place] [address] Phone: tel: fax: [address] [address] Phone: tel: Referral ID Status Reason Start Date Expiration Date Visits Re quested Visits Authorized [id number] Closed 11/13/2024 02/12/2026 1 1 Reason for Visit * MRI/CAT/PET Scan (Routine) - Closed Specialty Diagnoses / Procedures Referred By Joo borrero Referred To Contact Radiology Diagnoses Adenocarcinoma of right lung Procedures MRI Brain With & Without Contrast Bill Ziegler DO [address] [place] [address] Phone: tel: fax: [address] [address] Phone: tel: Referral ID Status Reason Start Date Expiration Date Visits Re quested Visits Authorized [id number] Closed 11/13/2024 02/12/2026 1 1 Encounter Details Date Type Department Care Team (Late st Contact Info) Description 11/27/2024 9:56 AM EDT - 11/27/2024 11:59 PM EDT Hospital Encounter [facility] MRI AT [facility] [address] [place] [address] Bill Ziegler, DO [address] [place] [address] Adenocarcinoma of right lung Discharge Disposition: Home or Self Care Social History Tobacco Use Types Packs/Day Years Used Date Smoking Tobacco: Some Days Cigarettes 1 17.6 Started: 05/09/2007 Passive Smoke Exposure: Current Smokeless Tobacco: Never Alcohol Use Standard Drinks/Week Comments Not Currently 0 (1 standard drink = 0.6 oz pur e alcohol) Does not drink anymore [facility] Utilities Answer Date Recorded In the past 12 months has [employer], gas, oil, or water [employer] threatened to shut off services in your [...] and heating? Not hard at all 10/11/2023 [facility] - Occupational Stress [...] GED or equivalent No 10/11/2023 Preferred Language Romanian 10/11/2023 PHQ-2 Answer Date Recorded Retired PHQ-9: [...] BY MOUTH DAILY 90 tablet 3 09/21/2024 tadalafil (Cialis) 5 MG tablet documented as of this encounter Plan of Treatment Upcoming Encounters Date Type Department Care Team (Late st Contact Info) Description 12/10/2024 8:30 AM EDT Office Visit [facility]ERY [address] [facility] [address] [place] [phone] Elba Garcia APRN [address] [facility] [address] [place] [address] 01/04/2025 2:45 PM EDT Office Visit [facility] HEMAT[facility] & ONCOLOGY [address] [facility] [address] [place] [address] Rc Valdez MD [address] [facility] [address] [place], [place] [address] 07/04/2025 11:40 AM EST Office Visit [facility] [address] [facility] [address] [place] [phone] Helene Girard PA-C [address] [facility] [address] [place] [address] documented as of this encounter Procedures Procedure Name Priority Date/Time Associated Diagnosis Comments MRI BRAIN W WO CONTRAST Routine 11/27/2024 11:33 AM EDT Adenocarcinoma of right lung documented in this encounter Results * MRI Brain With & Without Contrast (11/27/2024 11:33 AM EDT) Anatomical Region Laterality Modality Head, Neck N/A Magnetic Resonan ce 11/27/2024 11:3 5 AM EDT Impressions 11/27/2024 11:43 AM EDT 1.No significant abnormality is identified within the brain. 2.No diffusion restriction is identified to suggest acute infarct. 3.No abnormal contrast enhancement is identified. 4.Paranasal sinus disease with complete opacification of the right maxillary sinus. Electronically Signed: Ankush Miguel MD 11/27/2024 11:43 AM EDT Workstation ID: [id number] Narrative 11/27/2024 11:43 AM EDT MRI BRAIN W WO CONTRAST Date of Exam: 11/27/2024 10:52 AM EDT Indication: Adenocarcinoma of the lung. Comparison: Brain MRI dated 08/06/2024 Technique: Routine multiplanar/multisequence sequence images of the brain were obtained before and after the uneventful administration of 19 mL Multihance. FINDINGS: The brain parenchyma appears unremarkable in volume and signal intensity on the obtained sequences. Midline structures appear unremarkable. No significant mass effect, intracranial hemorrhage, or hydrocephalus is identified. No abnormal contrast enhancement is seen. Diffusion-weighted sequences demonstrate no acute infarct.The visualized intracranial flow-voids appear unremarkable. Paranasal sinus mucosal thickening is present with complete opacification of the right maxillary sinus. The orbits, globes, retrobulbar soft tissues appear unremarkable. The visualized superficial soft tissues and cervical spine demonstrate no significant abnormality. Procedure Note Ankush Miguel MD - 11/27/2024 MRI BRAIN W WO CONTRAST Date of Exam: 11/27/2024 10:52 AM EDT Indication: Adenocarcinoma of the lung. Comparison: Brain MRI dated 08/06/2024 Technique: Routine multiplanar/multisequence sequence images of the brainwere obtained before and after the uneventful administration of 19 mLMultihance. FINDINGS: The brain parenchyma appears unremarkable in volume and signal intensityon the obtained sequences. Midline structures appear unremarkable. Nosignificant mass effect, intracranial hemorrhage, or hydrocephalus isidentified. No abnormal contrast enhancement is seen. Diffusion-weighted sequences demonstrate no acuteinfarct.The visualized intracranial flow-voids appear unremarkable.Paranasal sinus mucosal thickening is present with complete opacificationof the right maxillary sinus. The orbits, globes, retrobulbar soft tissues appear unremarkable. The visualizedsuperficial soft tissues and cervical spine demonstrate no significantabnormality. IMPRESSION: 1.No significant abnormality is identified within the brain. 2.No diffusion restriction is identified to suggest acute infarct. 3.No abnormal contrast enhancement is identified. 4.Paranasal sinus disease with complete opacification of the rightmaxillary sinus. Electronically Signed: Ankush Miguel MD 11/27/2024 11:43 AM EDT Workstation ID: [id number] Bill Ziegler DO [facility] MRI ORDERABLES Final Result documented in this encounter Visit Diagnoses Diagnosis Adenocarcinoma of right lung documented in this encounter Administered Medications Inactive Administered Medications - up to 3 most recent administrations Medication Order MAR Action Action Date Dose Rate Site gadobenate dimeglumine (MULTIHANCE) injection 19 mL 19 mL, Intravenous, Once in Imaging, On Tue11/27/24 at 1125, For 1 dose, Vesicant; admin as rapid bolus; flush with 5 mL NS after admin or 20 mL for renal or aortoiliofemoral vasculature Given 11/27/2024 11:24 AM EDT 19 mL documented in this encounter Care Teams Front Desk Worker Relationship Specialty Start Date End Date Jose Luis Pinon MD [address] [facility] [address] [place] [address] PCP - General Internal Medicine 09/19/22 documented as of this encounter
--- OUTSIDE RECORDS SUMMARY | 2024-11-27 09:56 | XMS_ITS | Encounter Summary ---
Author Organization [facility] Address [address] [place] [id number] Care Team Providers Care Child Psychology Teacher Name Role Phone Jose Luis Pinon MD Primary Care Provider [phone] Reason for Referral * MRI/CAT/PET Scan (Routine) - Closed Specialty Diagnoses / Procedures Referred By Joo borrero Referred To Contact Radiology Diagnoses Adenocarcinoma of right lung Procedures MRI Brain With & Without Contrast Bill Ziegler DO [address] [place] [address] Phone: tel: fax: [address] [phone] Phone: tel: Referral ID Status Reason Start Date Expiration Date Visits Re quested Visits Authorized [id number] Closed 11/13/2024 02/12/2026 1 1 Reason for Visit * MRI/CAT/PET Scan (Routine) - Closed Specialty Diagnoses / Procedures Referred By Joo borrero Referred To Contact Radiology Diagnoses Adenocarcinoma of right lung Procedures MRI Brain With & Without Contrast Bill Ziegler DO [address] [place] [address] Phone: tel: fax: [address] [address] Phone: tel: Referral ID Status Reason Start Date Expiration Date Visits Re quested Visits Authorized [id number] Closed 11/13/2024 02/12/2026 1 1 Encounter Details Date Type Department Care Team (Late st Contact Info) Description 11/27/2024 9:56 AM EDT - 11/27/2024 11:59 PM EDT Hospital Encounter [facility] MRI AT [facility] [address] [place] [address] Bill Ziegler, DO [address] [place] [address] Adenocarcinoma of right lung Discharge Disposition: Home or Self Care Social History Tobacco Use Types Packs/Day Years Used Date Smoking Tobacco: Some Days Cigarettes 1 17.6 Started: 05/09/2007 Passive Smoke Exposure: Current Smokeless Tobacco: Never Alcohol Use Standard Drinks/Week Comments Not Currently 0 (1 standard drink = 0.6 oz pur e alcohol) Does not drink anymore [facility] Utilities Answer Date Recorded In the past 12 months has [place], gas, oil, or water [employer] threatened to shut off services in your [...] and heating? Not hard at all 10/11/2023 [place] [facility] - Occupational Stress [...] GED or equivalent No 10/11/2023 Preferred Language Chinese 10/11/2023 PHQ-2 Answer Date Recorded Retired PHQ-9: [...] Office Visit [facility] CARDIOTHORACIC SURGERY [address] [facility] [address] [place] [id number] Elba Garcia APRN [address] [facility] [address] [place] [address] 01/04/2025 2:45 PM EDT Office Visit [facility] HEMATOLOGY & ONCOLOGY [address] [facility] [address] [place] [address] Rc Valdez MD [address] [facility] [address] [place], [place] [id number] 07/04/2025 11:40 AM EST Office Visit [facility] CARDIOLOGY [address] [facility] [address] [place] [id number] Helene Girard PA-C [address] [facility] [address] [place] [address] documented as of this encounter [...] MD 11/27/2024 11:43 AM EDT Workstation ID: [id number] Narrative 11/27/2024 11:43 AM EDT MRI BRAIN [...] MD 11/27/2024 11:43 AM EDT Workstation ID: [id number] Bill Ziegler DO [facility] [place] Final Result documented in this [...] mL documented in this encounter Care Teams Child Psychology Teacher Relationship Specialty Start Date End Date Jose Luis Pinon MD [address] [facility] [address] [place] [address] PCP - General Internal Medicine 09/19/22 documented as of this encounter
--- OUTSIDE RECORDS SUMMARY | 2024-12-03 23:17 | XMS_ITS | Encounter Summary ---
Author Organization [facility] Address [address] [place] [address] Care Team Providers Care Hollow Core Door Frame Assembler Name Role Phone Jose Luis Pinon MD Primary Care Provider [phone] Reason for Visit * Reason Comments Anxiety Encounter Details Date Type Department Care Team (Late st Contact Info) Description 12/03/2024 11:17 PM EDT - 12/04/2024 5:42 AM EDT Emergency [facility] EMERGENCY DEPARTMENT [address] [place] [id number] Adam Sanchez MD [address] [place] [address] Alcohol abuse (Primary Dx); Anxiety; Primary hypertension; Tobacco abuse Discharge Disposition: Home or Self Care Social History Tobacco Use Types Packs/Day Years Used Date Smoking Tobacco: Some Days Cigarettes 1 17.6 Started: 05/09/2007 Passive Smoke Exposure: Current Smokeless Tobacco: Never Alcohol Use Standard Drinks/Week Comments Not Currently 0 (1 standard drink = 0.6 oz pur e alcohol) Does not drink anymore [facility] Utilities Answer Date Recorded In the past 12 months has [employer], gas, oil, or water [employer] threatened to shut off services in your [...] and heating? Not hard at all 10/11/2023 [facility] Occupational Stress Questionnaire Answer Date Recorded [...] Feels Unsafe at Home or Work/School no 12/04/2024 Feels Threatened by Someone no 11/07 Does Anyone Try to Keep You From Having Contact with Others or Doing Things Outside Your Home? no 12/04/2024 Physical Signs of Abuse Present no 12/04/2024 Housing Stability Answer Date Recorded Current Living [...] GED or equivalent No 10/11/2023 Preferred Language Sami 10/11/2023 PHQ-2 Answer Date Recorded Retired PHQ-9: [...] Sign Reading Time Taken Comments Blood Pressure 115/65 12/04/2024 1:00 AM EDT Pulse 96 12/04/2024 12:30 AM EDT Temperature 36.6 C (97.8 F) 12/03/2024 11:25 PM EDT Respiratory Rate 18 12/03/2024 11:25 PM EDT Oxygen Saturation 93% 12/04/2024 12:30 AM EDT Inhaled Oxygen Concentration - - Weight 83.9 kg (185 lb) 12/04/2024 12:00 AM EDT Height 177.8 cm (5' 10 ) 12/03/2024 11:25 PM EDT Body Mass Index 26.54 12/03/2024 11:25 PM EDT documented in this encounter Functional Status * Calculated C-SSRS Risk Score (Lifetime/Recent) Answer Date of Assessment Author No Risk Indicated 12/03/2024 11:23 PM EDT Vogt, Adam, RN * [place] Suicide Severity Rating Scale (Screener/Recent Self-Report) Question Answer Date of Assessment Author 1. Wish to be (Past 1 Month) No 025 11:23 PM EDT Adam Yanes RN 2. Non-Specific Active Suici brisa Thoughts (Past 1 Month) No 12/03/2024 11:23 PM EDT Adam Yanes RN 6. Suicidal Behavior (Lifetime) No 11:23 PM EDT Adam Yanes RN documented as of this encounter Discharge Instructions * Discharge Instructions* Adam Sanchez MD - 12/04/2024 5:25 AM EDT Continue to take medications as directed. Maintain adequate hydration. Use acetaminophen or NSAIDs as discussed for pain control. Follow-up with your primary physician or specialist within the next 24 hours. Return to the emergency department for any change in symptoms. * Attachments The following attachments cannot be sent through Care Everywhere. * Alcohol Misuse and Nutrition (Sami) documented in this encounter Medications at Time [...] MG tablet documented as of this encounter ED Notes * Adam Sanchez MD - 12/04/2024 3:32 AM EDT Subjective History of Present Illness This is a 54-year-old male with a history of alcohol abuse presenting to the emergency department with some agitation. The patient states that he has been very anxious. He states that he has a cancerdiagnosis and very anxious about his medical condition. Patient mitts to drinking earlier today. Hestates that he just wants something to calm him down. Denies any suicidal or homicidal ideations. No fevers or chills. No headache or change in vision. No focal weakness. No chest pain or shortness of breath History provided by: Patient and EMS personnel engrosser used: No Review of Systems Constitutional: Negative for chills and fever. HENT: Negative for congestion, ear pain and sore throat. Eyes: Negative for visual disturbance. Respiratory: Negative for shortness of breath. Cardiovascular: Negative for chest pain. Gastrointestinal: Negative for abdominal pain. Genitourinary: Negative for difficulty urinating. Musculoskeletal: Negative for arthralgias. Skin: Negative for rash. Neurological: Negative for dizziness, weakness and numbness. Psychiatric/Behavioral: Negative for agitation. The patient is nervous/anxious. Past Medical History: Diagnosis Date Abnormal ECG Alcoholism Arrhythmia Asthma Atrial fibrillation CHF (congestive heart failure) Congenital heart disease COPD (chronic obstructive pulmonary disease) HTN (hypertension) Myocardial infarction No Known Allergies Past Surgical History: Procedure Laterality Date BRONCHOSCOPY WITH ION ROBOTIC ASSIST N/A 11/08/2024 Procedure: BRONCHOSCOPY NAVIGATION WITH ENDOBRONCHIAL ULTRASOUND AND ION ROBOT; Surgeon: Bill Ziegler DO; Location: [facility] END[facility]COPY; Service: Robotics - Pulmonary; Laterality: N/A; OTHER SURGICAL HISTORY arm fracture Family History Problem Relation Age of Onset Arrhythmia Mother Heart attack Father Heart disease Father Heart failure Father No Known Problems Maternal Grandmother No Known Problems Maternal Grandfather No Known Problems Paternal Grandmother No Known Problems Paternal Grandfather Social History Socioeconomic History Marital status: Spouse name: Melanie Number of children: 1 Highest education level: Bachelor's degree (e.g., BA, AB, BS) Tobacco Use Smoking status: Some Days Current packs/day: 1.00 Average packs/day: 1 pack/day for 17.6 years (17.6 ttl pk-yrs) Types: Cigarettes Start date: 05/09/2007 Passive exposure: Current Smokeless tobacco: Never Vaping Use Vaping status: Never Used Substance and Sexual Activity Alcohol use: Not Currently Comment: Does not drink anymore Drug use: Never Sexual activity: Yes Partners: Female control/protection: None, Partner of same sex Objective Physical Exam Vitals and nursing note reviewed. Constitutional: General: He is not in acute distress. Appearance: He is not ill-appearing or toxic-appearing. Eyes: Conjunctiva/sclera: Conjunctivae normal. Cardiovascular: Rate and Rhythm: Normal rate and regular rhythm. Pulmonary: Effort: Pulmonary effort is normal. No respiratory distress. Abdominal: General: Abdomen is flat. There is no distension. Palpations: There is no mass. Tenderness: There is no abdominal tenderness. There is no guarding or rebound. Musculoskeletal: General: No deformity. Normal range of motion. Skin: General: Skin is warm. Findings: No rash. Neurological: General: No focal deficit present. Mental Status: He is alert and oriented to person, place, and time. Motor: No weakness. Procedures ED Course ED Course as of 12/04/24 0525 [facility] Dec 04, 2024 0200 SMOKING CESSATION COUNSELING: I independently performed smoking cessation counseling with the patient for a total of 5 minutes. Idiscussed the risks associated with smoking, including increased risk of chronic lung disease, cardiovascular disease and cancer. I offered to provide resources related to assistance with smoking cessation and also offered to prescribe nicotine replacement therapy, including nicotine gum and patches. The patient is not currently interested in quitting at this time. I am providing discharge instructions related to smoking cessation as well as information on how to obtain treatment should they decide. [JK] 0334 BP: 116/77 [JK] 0334 Noninvasive MAP (mmHg): 97 [JK] 0334 Heart Rate: 97 [JK] 0334 SpO2: 93 % Interpretation: Patient's repeat vitals, telemetry tracing, and pulse oximetry tracing were directly viewed and interpreted by myself. O2 sat 93% on room air, interpreted as normal. Telemetry rhythm strip revealed a rate of 96 bpm, interpreted as normal sinus rhythm [JK] 0334 Comprehensive Metabolic Panel(!) [JK] 0334 Ethanol(!) [JK] 0334 TSH Rfx On Abnormal To Free T4 [JK] 0334 CBC & Differential(!) Interpretation: Laboratory studies were reviewed and interpreted directly by myself. CMP shows a mild elevation ALTof 42, ethanol is elevated to 34 [JK] 0334 Patient is declining EKG, imaging and urine drug screen. He states that he just wants to sleep. [JK] 0523 Patient is resting comfortably in the room. On reexam I did offer evaluation by behavioral health. Patient declining at this time. He wants to go home. No suicidal homicidal ideations. We did have a long discussion about alcohol cessation. Follow-up with PCP in 48 hours. Given strict return pre cautions. Verbalized understanding. [JK] 0524 I had a discussion with the patient/family regarding diagnosis, diagnostic results, treatment plan, and medications. The patient/family indicated understanding of these instructions. I spent adequate time at the bedside prior to discharge necessary to discuss the aftercare instructions, givingpatient education, providing explanations of the results of our evaluations/findings, and my decision making to assure that the patient/family understand the plan of care. Time was allotted to answerquestions at that time and throughout the ED course. Patient is required to maintain timely follow up, as discussed. I also discussed the potential for the development of an acute emergent condition r equiring further evaluation, return to the ER, admission, or even surgical intervention. I encouraged the patient to return to the emergency department immediately for any concerns, worsening symptoms, new complaints, or if symptoms persist and they are unable to seek follow-up in a timely fashion.The patient/family expressed understanding and agreement with this plan Shared decision making: After full review of the patient's clinical presentation, review of any work-up including but not limited to laboratory studies and radiology obtained, I had a discussion with the patient. Treatment options were discussed as well as the risks, benefits and consequences. I discussed all findings with the patient and family members if available. During the discussion, treatment goals were understood by all as well as any misconceptions which were addressed with the patient. Ample time was given for any questions they may have had. They are in agreement with the treatment plan as well as final disposition. [JK] ED Course User Index [JK] Adam Sanchez MD Medical Decision Making This is a 54-year-old male presenting to the emergency department with some anxiety and agitation. Patient meets alcohol use tonight. I do believe this is exacerbating his symptoms. No suicidal homicidal ideations. Overall, the patient is nontoxic. Afebrile. IV access was established in the patient. Placed on continuous telemetry monitoring. Given the patient's presentation, differential is broadand will require further evaluation. Workup initiated. Differential diagnosis: Alcohol abuse, anxiety, agitation, acute kidney injury, electrolyte abnormality, anemia Amount and/or Complexity of Data Reviewed Independent Historian: EMS External Data Reviewed: labs, radiology, ECG and notes. Details: External laboratories, imaging as well as notes were reviewed personally by myself. All relevant studies were used to guide decision making. Date of previous record: 07/09/2024 Source of note: Admission Record Summary: Patient was seen and admitted for chest pain. I did review basic laboratory studies on file as well as a previous chest x-ray and EKG. Records reviewed Labs: ordered. Decision-making details documented in ED Course. Risk Prescription drug management. Final diagnoses: Alcohol abuse Anxiety Primary hypertension Tobacco abuse ED Disposition ED Disposition ED Disposition Discharge Condition Stable Comment -- Jose Luis Pionn MD [address] [facility] [address] [facility] [address] [address] [facility] [address] [facility] [address] Call in 1 day Medication List No changes were made to your prescriptions during this visit. Adam Sanchez MD 12/04/24 0525 documented in this encounter Plan of Treatment Upcoming Encounters Date Type Department Care Team (Late st Contact Info) Description 12/10/2024 8:30 AM EDT Office Visit [facility] CARDIOTHORACIC SURGERY [address] [place] [address] Elba Garcia, GLOBAL CHIEF EXPERIENCE OFFICER [address] [facility] [address] [place], [place] [id number] 01/04/2025 2:45 PM EDT Office Visit [facility] HEMATOLOGY & ONCOLOGY [address] [place] [address] Rc Valdez MD [address] [facility] [address] [place], [place] [id number] 07/04/2025 11:40 AM EST Office Visit [facility] CARDIOLOGY [address] [facility] [address] [place] [address] Helene Girard PA-C [address] [facility] [address] [place] [address] documented as of this encounter Procedures Procedure Name Priority Date/Time Associated Diagnosis Comments TSH RFX ON ABNORMAL TO FREE T4 STAT 12/04/2024 12:09 AM EDT CBC WITH AUTO DIFFERENTIAL STAT 12/04/2024 12:09 AM EDT CBC AND DIFFERENTIAL STAT 12/04/2024 12:09 AM EDT ETHANOL STAT 12/04/2024 12:09 AM EDT COMPREHENSIVE METABOLIC PANEL STAT 12/04/2024 12:09 AM EDT SCANNED - TELEMETRY 12/03/2024 1 1:23 PM EDT documented in this encounter Results * (ABNORMAL) CBC Auto Differential (12/04/2024 12:09 AM EDT) [facility] WBC 10.14 3.40 - 10.80 10*3/mm3 12/04/2024 12:16 AM EDT [facility] RBC 4.87 4.14 - 5.80 10*6/mm3 12/04/2024 12:16 AM [facility] Hemoglobin 15.5 13.0 - 17.7 g/dL 12/04/2024 12:16 AM [facility] Hematocrit 43.7 37.5 - 51.0 % 12/04/2024 12:16 AM [facility] MCV 89.7 79.0 - 97.0 fL 12/04/2024 12:16 AM EDT [facility] MCH 31.8 26.6 - 33.0 pg 12/04/2024 12:16 AM [facility] MCHC 35.5 31.5 - 35.7 g/dL 12/04/2024 12:16 AM [facility] RDW 12.6 12.3 - 15.4 % 12/04/2024 12:16 AM [facility] RDW-SD 41.1 37.0 - 54.0 fl 12/04/2024 12:16 AM [facility] MPV 10.3 6.0 - 12.0 fL 12/04/2024 12:16 AM [facility] Platelets 273 140 - 450 10*3/mm3 12/04/2024 12:16 AM [facility] Neutrophil % 56.3 42.7 - 76.0 % 12/04/2024 12:16 AM [facility] Lymphocyte % 33.1 19.6 - 45.3 % 12/04/2024 12:16 AM [facility] Monocyte % 5.5 5.0 - 12.0 % 12/04/2024 12:16 AM [facility] Eosinophil % 2.6 0.3 - 6.2 % 12/04/2024 12:16 AM [facility] Basophil % 1.9(H) 0.0 - 1.5 % 12/04/2024 12:16 AM [facility] Immature Grans % 0.6(H) 0.0 - 0.5 % 12/04/2024 12:16 AM EDT [facility] Neutrophils, Absolute 5.71 1.70 - 7.00 10*3/mm3 12/04/2024 12:16 AM EDT [facility] Lymphocytes, Absolute 3.36(H) 0.70 - 3.10 10*3/mm3 12/04/2024 12:16 AM EDT [facility] Monocytes, Absolute 0.56 0.10 - 0.90 10*3/mm3 12/04/2024 12:16 AM EDT [facility] Eosinophils, Absolute 0.26 0.00 - 0.40 10*3/mm3 12/04/2024 12:16 AM EDT [facility] Basophils, Absolute 0.19 0.00 - 0.20 10*3/mm3 12/04/2024 12:16 AM EDT [facility] Immature Grans, Absolute 0.06(H) 0.00 - 0.05 10*3/mm3 12/04/2024 12:16 AM EDT [facility] nRBC 0.0 0.0 - 0.2 /100 WBC 12/04/2024 12:16 AM EDT [facility] Blood Line / Unknown 12/04/2024 12 :09 AM EDT 12/04/2024 12:14 AM EDT Adam Sanchez MD LAB BLOOD ORDERABLES Final Result [facility]
[address] [place] [address], * TSH Rfx On Abnormal To Free T4 (12/04/2024 12:09 AM EDT) TSH 1.660 0.270 - 4.200 uIU/mL 12/04/2024 12:45 AM EDT [facility] Blood Line / Unknown 12/04/2024 12 :09 AM EDT 12/04/2024 12:14 AM EDT us Adam Sanchez MD LAB BLOOD ORDERABLES Final Result Performing Organization Address City/[facility]/ZIP Co de Phone Number [facility]
[address] [place] [address], * (ABNORMAL) Ethanol (12/04/2024 12:09 AM EDT) Ethanol 234(H) 0 - 10 mg/dL 12/04/2024 12:40 AM EDT [facility] Blood Line / Unknown 12/04/2024 12 :09 AM EDT 12/04/2024 12:14 AM EDT Narrative [facility] - 12/04/2024 12:40 AM EDT Not for legal purposes. Adam Sanchez MD LAB BLOOD ORDERABLES Final Result Performing Organization Address [facility] Co de Phone Number [facility]
[address] [place] [address], * (ABNORMAL) Comprehensive Metabolic Panel (12/04/2024 12:09 AM EDT) Glucose 131(H) 65 - 99 mg/dL 12/04/2024 12:40 AM EDT [facility] BUN 13.0 6.0 - 20.0 mg/dL 12/04/2024 12:40 AM EDT [facility] Creatinine 0.93 0.76 - 1.27 mg/dL 12/04/2024 12:40 AM EDT [facility] Sodium 143 136 - 145 mmol/L 12/04/2024 12:40 AM EDT [facility] Potassium 3.6 3.5 - 5.2 mmol/L 12/04/2024 12:40 AM EDT [facility] Chloride 105 98 - 107 mmol/L 12/04/2024 12:40 AM EDT [facility] CO2 25.0 22.0 - 29.0 mmol/L 12/04/2024 12:40 AM [facility] Calcium 8.3(L) 8.6 - 10.5 mg/dL 12/04/2024 12:40 AM [facility] Total Protein 6.7 6.0 - 8.5 g/dL 12/04/2024 12:40 AM [facility] Albumin 4.6 3.5 - 5.2 g/dL 12/04/2024 12:40 AM [facility] ALT (SGPT) 42(H) 1 - 41 U/L 12/04/2024 12:40 AM [facility] AST (SGOT) 35 1 - 40 U/L 12/04/2024 12:40 AM [facility] Alkaline Phosphatase 78 39 - 117 U/L 12/04/2024 12:40 AM [facility] Total Bilirubin 0.3 0.0 - 1.2 mg/dL 12/04/2024 12:40 AM [facility] Globulin 2.1 gm/dL 12/04/2024 12:40 AM [facility] Comment:Calculated Result A/G Ratio 2.2 g/dL 12/04/2024 12:40 AM [facility] BUN/Creatinine Ratio 14.0 7.0 - 25.0 12/04/2024 12:40 AM [facility] Anion Gap 13.0 5.0 - 15.0 mmol/L 12/04/2024 12:40 AM [facility] eGFR 96.4 >60.0 mL/min/1.7 3 12/04/2024 12:40 AM [facility] Blood Line / Unknown 12/04/2024 12 :09 AM EDT 12/04/2024 12:14 AM [facility] - 12/04/2024 12:40 AM EDT GFR Categories in Chronic Kidney Disease (CKD) [...] does not include race as a factor Adam Sanchez MD LAB BLOOD ORDERABLES Final Result [facility]
[address] [place] [address], * Telemetry Scan (12/03/2024 11:23 PM EDT) [facility] Onbase ECG ORDERABLES Final Result documented in this encounter Visit Diagnoses Diagnosis Alcohol abuse- Primary Nondependent alcohol abuse, unspecified drinking behavior Anxiety Anxiety state, unspecified Primary hypertension Unspecified essential hypertension Tobacco abuse Tobacco use disorder documented in this encounter Administered Medications Inactive Administered Medications - up to 3 most recent administrations Medication Order MAR Action Action Date Dose Rate Site midazolam (VERSED) injection 2 mg 2 mg, Intravenous, Once, On Tue12/03/24 at 2348, For 1 dose, If given IV Push: give slowly over at least 2 minutes, unless provider at bedside for induction. (FREYA) Given 12/03/2024 11:52 PM EDT 2 mg sodium chloride 0.9 % bolus 1,000 mL 1,000 mL, Intravenous, at 2,000 mL/hr, Administer over 0.5 Hours, Once, On Tue12/03/24 at 2348, For 1 dose New Bag 12/03/2024 11:52 PM EDT 1,000 mL 2000 mL/hr documented in this encounter Active and Recently Administered Medications Times are shown in EDT. Scheduled Medication Order 12/02/2024 12/03/2024 12/04/2024 midazolam (VERSED) injection 2 mg (COMPLETED) 2 mg, Intravenous, Once, On Tue12/03/24 at 2348, For 1 dose, If given IV Push: give slowly over at least 2 minutes, unless provider at bedside for induction. (FREYA) 0217 (Given - Provider: Irene Lassiter, RN) sodium chloride 0.9 % bolus 1,000 mL (COMPLETED) 1,000 mL, Intravenous, at 2,000 mL/hr, Administer over 0.5 Hours, Once, On Tue12/03/24 at 2348, For 1 dose 2352 (New Bag - Provider: Irene Lassiter RN) 5678 (Stopped - Provider: Erick Arriaga Roving Machine Operator) documented in this encounter Care Teams Hollow Core Door Frame Assembler Relationship Specialty Start Date End Date Jose Luis Pinon MD [address] [facility] [address] [place] [address] PCP - General Internal Medicine 09/19/22 documented as of this encounter
--- OUTSIDE RECORDS SUMMARY | 2024-12-03 23:17 | XMS_ITS | Encounter Summary ---
Author Organization [facility] Address [address] [place] [address] Care Team Providers Care Bender Hand Name Role Phone Jose Luis Pinon MD Primary Care Provider [phone] Reason for Visit * Reason Comments Anxiety Encounter Details Date Type Department Care Team (Late st Contact Info) Description 12/03/2024 11:17 PM EDT - 12/04/2024 5:42 AM EDT Emergency [facility] EMERGENCY DEPARTMENT [address] [place] [phone] Adam Sanchez MD [address] [place] [address] Alcohol abuse (Primary Dx); Anxiety; Primary hypertension; Tobacco abuse Discharge Disposition: Home or Self Care Social History Tobacco Use Types Packs/Day Years Used Date Smoking Tobacco: Some Days Cigarettes 1 17.6 Started: 05/09/2007 Passive Smoke Exposure: Current Smokeless Tobacco: Never Alcohol Use Standard Drinks/Week Comments Not Currently 0 (1 standard drink = 0.6 oz pur e alcohol) Does not drink anymore [facility] Utilities Answer Date Recorded In the past 12 months has [employer], gas, oil, or water [employer] threatened to shut off services in your [...] and heating? Not hard at all 10/11/2023 [facility] - Occupational Stress Questionnaire Answer Date [...] 11:23 PM EDT Vogt, Adam, RN * [place] Suicide Severity Rating Scale (Screener/Recent Self-Report) Question [...] History provided by: Patient and EMS personnel paraprofessional interpreter used: No Review of Systems Constitutional: Negative [...] ION ROBOT; Surgeon: Bill Ziegler DO; [facility]; Service: Robotics - Pulmonary; Laterality: N/A; [...] Course ED Course as of 12/04/24 0525 [facility] Dec 04, 2024 0200 SMOKING CESSATION COUNSELING: [...] Discharge Condition Stable Comment -- Jose Luis Pinon MD [address] [facility] [address] [facility] [address] Call in 1 day [facility] [address] [facility] [address] Call in 1 day Medication List No changes were made to your prescriptions during this visit. Adam Sanchez MD 12/04/24 0525 documented in this encounter Plan of Treatment Upcoming Encounters Date Type Department Care Team (Late st Contact Info) Description 12/10/2024 8:30 AM EDT Office Visit [facility] CARDIOTHORACIC SURGERY [address] [place] [address] Elba Garcia, COLLEGE INTERN [address] [facility] [address] [place], [place] [id number] 01/04/2025 2:45 PM EDT Office Visit [facility] HEMATOLOGY & ONCOLOGY [address] [address] [place] [address] Rc Valdez MD [address] [facility] [address] [place], [place] [id number] 07/04/2025 11:40 AM EST Office Visit [facility] CARDIOLOGY [address] [facility] [address] [place] [address] Helene Girard PA-C [address] [facility] [address] [place] [address] documented as of this encounter [...] CBC Auto Differential (12/04/2024 12:09 AM EDT) [facility] WBC 10.14 3.40 - 10.80 10*3/mm3 12/04/2024 12:16 AM EDT [facility] RBC 4.87 4.14 - 5.80 10*6/mm3 12/04/2024 12:16 AM [facility] Hemoglobin 15.5 13.0 - 17.7 g/dL 12/04/2024 12:16 AM [facility] Hematocrit 43.7 37.5 - 51.0 % 12/04/2024 12:16 AM [facility] MCV 89.7 79.0 - 97.0 fL 12/04/2024 12:16 AM EDT [facility] MCH 31.8 26.6 - 33.0 pg 12/04/2024 12:16 AM [facility] MCHC 35.5 31.5 - 35.7 g/dL 12/04/2024 12:16 AM [facility] RDW 12.6 12.3 - 15.4 % 12/04/2024 12:16 AM [facility] RDW-SD 41.1 37.0 - 54.0 fl 12/04/2024 12:16 AM [facility] MPV 10.3 6.0 - 12.0 fL 12/04/2024 12:16 AM [facility] Platelets 273 140 - 450 10*3/mm3 12/04/2024 12:16 AM [facility] Neutrophil % 56.3 42.7 - 76.0 % 12/04/2024 12:16 AM [facility] Lymphocyte % 33.1 19.6 - 45.3 % 12/04/2024 12:16 AM [facility] Monocyte % 5.5 5.0 - 12.0 % 12/04/2024 12:16 AM [facility] Eosinophil % 2.6 0.3 - 6.2 % 12/04/2024 12:16 AM [facility] Basophil % 1.9(H) 0.0 - 1.5 % 12/04/2024 12:16 AM [facility] Immature Grans % 0.6(H) 0.0 - 0.5 % 12/04/2024 12:16 AM EDT [facility] Neutrophils, Absolute 5.71 1.70 - 7.00 10*3/mm3 12/04/2024 12:16 AM EDT [facility] Lymphocytes, Absolute 3.36(H) 0.70 - 3.10 10*3/mm3 12/04/2024 12:16 AM EDT [facility] Monocytes, Absolute 0.56 0.10 - 0.90 10*3/mm3 12/04/2024 12:16 AM EDT [facility] Eosinophils, Absolute 0.26 0.00 - 0.40 10*3/mm3 12/04/2024 12:16 AM EDT [facility] Basophils, Absolute 0.19 0.00 - 0.20 10*3/mm3 12/04/2024 12:16 AM EDT [facility] Immature Grans, Absolute 0.06(H) 0.00 - 0.05 10*3/mm3 12/04/2024 12:16 AM EDT [facility] nRBC 0.0 0.0 - 0.2 /100 WBC 12/04/2024 12:16 AM EDT [facility] Blood Line / Unknown 12/04/2024 12 :09 AM EDT 12/04/2024 12:14 AM EDT Adam Sanchez MD LAB BLOOD ORDERABLES Final Result [facility]
[address] [place] [address], * TSH Rfx On Abnormal To Free T4 (12/04/2024 12:09 AM EDT) TSH 1.660 0.270 - 4.200 uIU/mL 12/04/2024 12:45 AM EDT [facility] Blood Line / Unknown 12/04/2024 12 :09 AM EDT 12/04/2024 12:14 AM EDT us Adam Sanchez MD LAB BLOOD ORDERABLES Final Result Performing Organization Address City/[facility]/ZIP Co de Phone Number [facility]
[address] [place] [address], * (ABNORMAL) Ethanol (12/04/2024 12:09 AM EDT) Ethanol 234(H) 0 - 10 mg/dL 12/04/2024 12:40 AM EDT [facility] Blood Line / Unknown 12/04/2024 12 :09 AM EDT 12/04/2024 12:14 AM EDT Narrative [facility] - 12/04/2024 12:40 AM EDT Not for legal purposes. Adam Sanchez MD LAB BLOOD ORDERABLES Final Result Performing Organization Address [facility] Co de Phone Number [facility]
[address] [place] [address], * (ABNORMAL) Comprehensive Metabolic Panel (12/04/2024 12:09 AM EDT) Glucose 131(H) 65 - 99 mg/dL 12/04/2024 12:40 AM EDT [facility] BUN 13.0 6.0 - 20.0 mg/dL 12/04/2024 12:40 AM EDT [facility] Creatinine 0.93 0.76 - 1.27 mg/dL 12/04/2024 12:40 AM EDT [facility] Sodium 143 136 - 145 mmol/L 12/04/2024 12:40 AM EDT [facility] Potassium 3.6 3.5 - 5.2 mmol/L 12/04/2024 12:40 AM EDT [facility] Chloride 105 98 - 107 mmol/L 12/04/2024 12:40 AM EDT [facility] CO2 25.0 22.0 - 29.0 mmol/L 12/04/2024 12:40 AM [facility] Calcium 8.3(L) 8.6 - 10.5 mg/dL 12/04/2024 12:40 AM [facility] Total Protein 6.7 6.0 - 8.5 g/dL 12/04/2024 12:40 AM [facility] Albumin 4.6 3.5 - 5.2 g/dL 12/04/2024 12:40 AM [facility] ALT (SGPT) 42(H) 1 - 41 U/L 12/04/2024 12:40 AM [facility] AST (SGOT) 35 1 - 40 U/L 12/04/2024 12:40 AM [facility] Alkaline Phosphatase 78 39 - 117 U/L 12/04/2024 12:40 AM [facility] Total Bilirubin 0.3 0.0 - 1.2 mg/dL 12/04/2024 12:40 AM [facility] Globulin 2.1 gm/dL 12/04/2024 12:40 AM [facility] Comment:Calculated Result A/G Ratio 2.2 g/dL 12/04/2024 12:40 AM [facility] BUN/Creatinine Ratio 14.0 7.0 - 25.0 12/04/2024 12:40 AM [facility] Anion Gap 13.0 5.0 - 15.0 mmol/L 12/04/2024 12:40 AM [facility] eGFR 96.4 >60.0 mL/min/1.7 3 12/04/2024 12:40 AM [facility] Blood Line / Unknown 12/04/2024 12 :09 AM EDT 12/04/2024 12:14 AM [facility] - 12/04/2024 12:40 AM EDT GFR [...] Sanchez MD LAB BLOOD ORDERABLES Final Result [facility]
[address] [place] [address], * Telemetry Scan (12/03/2024 11:23 PM EDT) [facility] Onbase ECG ORDERABLES Final Result documented [...] unless provider at bedside for induction. (FREYA) 3199 (Given - Provider: Irene Lassiter, RN) sodium chloride 0.9 % bolus 1,000 mL (COMPLETED) 1,000 mL, Intravenous, at 2,000 mL/hr, Administer over 0.5 Hours, Once, On Tue12/03/24 at 2348, For 1 dose 2352 (New Bag - Provider: Irene Lassiter RN) 0260 (Stopped - Provider: Erick Arriaga Metal Furnace Operator) documented in this encounter Care Teams Bender Hand Relationship Specialty Start Date End Date Jose Luis Pinon MD [address] [facility] [address] [place] [address] PCP - General Internal Medicine 09/19/22 documented as of this encounter
[2024-12-05] VITALS (13 sets, daily range): BP systolic 149–177; BP diastolic 91–116; PULSE 92–109; RESP 13–19; TEMP 36.6; O2SAT 95–99; BMI 27.3
--- NOTE | 2024-12-05 19:25 | ED_ITS ---
Discharge Plan Referrals Follow up/Referrals: Provider,Referral, [Primary Care Provider, Medical] - See instructions Clinical Impressions Clinical Impression: Suicide ideation, Alcohol abuse Print Language Print Language: Ukrainian Discharge ED Provider: Satnam Feliz General Adult HPI General Chief complaint: Psychiatric Symptoms Stated complaint: Intoxicated; SI Time Seen by Provider: 12/05/24 19:09 Mode of Arrival: Ambulatory Source of Information: Patient Description of Symptoms (Recalled from ER Triage Doc. by RN): pt presents to ED for SI and alcohol intoxication. pt reports that he was recently diagnosed with lung cancer and has had racing thoughts. pt reports that he began drinking approx 2-3 days ago. son at bedside reports pt p[refers fireball. upon talking to pt, he is very tearful. pt states that he likes to to drink anything. pt called son to be taken somewhere. pt had psych history but has not been taking medications. 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 son reports that pt stated he wanted to put a gun in his mouth and blow his head off. pt reports that he is not going to harm anyone else, but wants to rest. History of Present Illness HPI narrative: Patient is a 54-year-old male previous smoker bipolar disorder not on long-term medication, hypertension hyperlipidemia presents emergency department for evaluation of suicidal ideation with a plan. Patient reportedly told his son that he was going to kill himself he has multiple guns that he has access to at home. 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 He has been diagnosed recently with small cell lung cancer and has had significant anxiety around this. He has no acute complaints, denies chest pain, abdominal pain, shortness of breath, ingestants. Please note that above description of symptoms, in this electronic medical record under categorization of recalled from ER triage doctor by RN are reflective of an initial nursing assessment, however, is not reflective of my full history and physical exam that was personally taken and clarified. Consequentially, this preceding description of symptoms, which may include the patient's categorized chief complaint in the EMR, do not reflect my personal clinical impression, and the ultimate description of history of present illness and patient stated complaints should be deferred to this section of the note. Unless stated otherwise or congruent with this section of the note, additional signs, symptoms, or incongruence should be interpreted as inaccurate with my clinical impression. Related Data Allergies Allergy/AdvReac Type Severity Reaction Status Date / Time No Known Allergies Allergy Verified 12/05/24 19:56 [facility] Disclaimer: The information contained in this section may have been updated after the patient was seen, as this information can be updated by other users. Social History Smoking Status: Never smoker alcohol intake: current current occupational status: other Travel in the last 8 weeks?: None ROS Obtained: Yes Systems reviewed as appropriate & no additional complaints except as documented Physical Exam General General appearance: alert and anxious Head Head exam: atraumatic and normocephalic Eye Eye exam: Present PERRL and EOMI ENT ENT exam: Present mucous membranes moist Neck Neck exam: Present normal inspection Chest Chest inspection: Present normal inspection and symmetric chest wall rise Respiratory Respiratory exam: Present normal lung sounds bilaterally; Absent respiratory distress Cardiovascular Cardiovascular exam: Present regular rate and tachycardia Abdominal Exam Abdominal exam: Present soft; Absent tenderness Extremities Exam Extremities exam: Present normal inspection Neurological Exam Neurological exam: Present alert Psychiatric Psychiatric exam: Present anxious Skin Skin exam: Present warm and dry Medical Decision Making Medical Records Screening: Per USPSTF and CDC recommendations, given the prevalence of disease in our region, it is our hospital?s policy to screen for HIV and viral Hepatitis for all patients aged 18 and over and those with ongoing risk factors. Manav Inquiry Pt receiving controlled substance: No Vital Signs: 12/05/24 18:57 12/05/24 19:00 12/05/24 19:14 Temperature 97.9 F Temperature Source Oral Pulse Rate 96 H 97 H Pulse Rate [Left Radial] 95 H Respiratory Rate 16 19 Blood Pressure 177/102 H 167/116 H Blood Pressure [Right Arm] 177/102 H Blood Pressure Mean [Right Arm] 127 02 Sat by Pulse Oximetry 98 99 99 Oxygen Delivery Method Room Air 12/05/24 19:55 12/05/24 20:00 12/05/24 20:30 Temperature Temperature Source Pulse Rate 109 H 107 H Pulse Rate [Left Radial] Respiratory Rate 15 15 13 Blood Pressure 172/105 H 169/115 H 158/91 H Blood Pressure [Right Arm] Blood Pressure Mean [Right Arm] 02 Sat by Pulse Oximetry 95 96 Oxygen Delivery Method 12/05/24 21:00 Temperature Temperature Source Pulse Rate Pulse Rate [Left Radial] Respiratory Rate 16 Blood Pressure 153/93 H Blood Pressure [Right Arm] Blood Pressure Mean [Right Arm] 02 Sat by Pulse Oximetry Oxygen Delivery Method Lab Data Lab Results 12/05/24 19:48: WBC 8.3, RBC 5.39, Hgb 17.5, Hct 47.2, MCV 87.6, MCH 32.5 H, M CHC 37.1 H, RDW 12.3, Plt Count 270, MPV 10.2, Neut % (Auto) 61.2, Lymph % (Auto) 25.8, [place] % (Auto) 9.7 H, Eos % (Auto) 1.2, Baso % (Auto) 1.7, Neut # (Auto) 5.1, Lymph # (Auto) 2.1, [place] # (Auto) 0.8, Eos # (Auto) 0.1, Baso # (Auto) 0.1, D-Dimer 0.39, Sodium 144, Potassium 3.8, Chloride 104, Carbon Dioxide 28, Anion Gap 15.8 H, BUN 11, Creatinine 0.90, Estimated Creat Clear 106, Estimated GFR 87, Est GFR ( Amer) 106, Glucose 144 H, Calcium 9.0, Total Bilirubin 0.7, AST 142 H, ALT 187 H, Alkaline Phosphatase 75, Total Protein 7.5, Albumin 5.1 H, Globulin 2.4, Albumin/Globulin Ratio 2.1 H, TSH 1.66, Free T4 0.83, Salicylates < 1.0 L, Acetaminophen < 10 L, Plasma/Serum Alcohol 281 H 12/05/24 20:08: Urine Color Yellow, Urine Appearance Clear, Urine pH 6.0, Ur Specific [place] 1.020, Urine Protein Trace, Urine Glucose (UA) 3+, Urine Ketones Negative, Urine Blood Negative, Urine Nitrate Negative, Urine Bilirubin Negative, Urine Urobilinogen 0.2, Ur Leukocyte Esterase Negative, Urine WBC Occasional, Ur Squamous Epith Cells 3-5, Urine Bacteria Trace, Urine Opiates Screen Negative, Urine Methadone Screen Negative, Ur Barbituates Screen Negative, Ur Phencyclidine Scrn Negative, Ur Amphetamines Screen Negative, U Benzodiazepines Scrn Positive H, Urine Cocaine Screen Negative, U Marijuana (THC) Screen Negative 12/05/24 19:48 12/05/24 19:48 Orders (Tests/Meds): ED MEDICATIONS Discontinued Medications Generic Name Dose Route Start Last Admin Trade Name Freq PRN Reason Stop Dose Admin Diazepam 2 mg 12/05/24 19:24 12/05/24 19:50 Diazepam 10mg/2ml Syringe IV 12/05/24 19:25 2 mg ONCE ONE Administration Diazepam 2 mg 12/05/24 21:00 12/05/24 21:04 Diazepam 10mg/2ml Syringe IV 12/05/24 21:01 2 mg ONCE ONE Administration ORDERS Category Date Time Status Acetaminophen Stat Lab 12/05/24 19:48 Completed Complete Blood Count Auto Diff Stat Lab 12/05/24 19:48 Completed Comprehensive Metabolic Panel Stat Lab 12/05/24 19:48 Completed D-Dimer Stat Lab 12/05/24 19:48 Completed Drug Screen,Urine Stat Lab 12/05/24 20:08 Completed Ethyl Alcohol Stat Lab 12/05/24 19:48 Completed Free T4 (Free Thyroxine) Stat Lab 12/05/24 19:48 Completed Salicylate Stat Lab 12/05/24 19:48 Completed Thyroid Stimulating Hormone Stat Lab 12/05/24 19:48 Completed Urinalysis and Microscopic Stat Lab 12/05/24 20:08 Completed ECG Data Tracing #1: Independently interpreted by me rate is 94, rhythm is regular, axis is normal, no ST elevation in anatomical contiguous leads, QTc 401 Medical Decision Narrative: In summary patient is a 54-year-old male with past medical history described above who presents emergency department for evaluation of suicidal ideation with a plan. Patient is hemodynamically stable nontoxic-appearing arrival, afebrile. He has no acute complaints. He has mild tachycardia which I think is secondary to anxiety however he does have a recent diagnosis of small cell lung cancer therefore workup will be conducted with D-dimer. Hematologic labs, urinalysis, drug screen, coingestion screen will be conducted for medical clearance for behavioral health evaluation. Initial interventions include Valium given how anxious patient is. Initial reviewed by me no significant leukocytosis no transfusable anemia no CHELY or critical electrolyte abnormality. Mild transaminitis with elevated ethanol level 281. I suspect patient drinks significantly at baseline although he did not state this given that he is completely conversational upon my original evaluation. Benzodiazepines are positive in the setting of benzodiazepine administration. Drug abuse screen negative otherwise. The patient was placed in observation status at 8:45 PM. Medical necessity for observational status is psychiatric patient planning placement. The patient was provided serial reevaluations while awaiting results. I discussed case with Yary with empath graciously accepted patient for continued evaluation at this time. Total time of observation 30 minutes. Critical Care Critical Care Time Critical Care Time: No
--- NOTE | 2024-12-05 19:27 | ECG_ITS ---
APPROVED REPORT Exam: Resting ECG HR:94 bpm ECG Measurements Heart Rate 94 AXES OH 146 P 70 QRSd 93 QRS 73 QT 349 T 48 QTc 401 Conclusion SINUS RHYTHM NORMAL ECG Electronically signed by : CRUZ GUSMAN, 12/05/2024 22:04:09
--- OUTSIDE RECORDS SUMMARY | 2024-12-05 19:48 | XMS_ITS | Encounter Summary ---
[facility] Address [address] [place] [address] Care Team Providers Care Broadcast Systems Engineer Name Role Phone Jose Luis Pinon MD Primary Care Provider + [phone] Encounter Details Date Type Department Care Team (Latest Contact Info) Description 11/27/2024 Travel Social History Tobacco Use Types Packs/Day Years Used Date Smoking Tobacco: Some Days Cigarettes 1 17.6 Started: 05/09/2007 Passive Smoke Exposure: Current Smokeless Tobacco: Never Alcohol Use Standard Drinks/Week Comments Not Currently 0 (1 standard drink = 0.6 oz pur e alcohol) Does not drink anymore [facility] Utilities Answer Date Recorded In the [...] and heating? Not hard at all 10/11/2023 [facility] [place] [facility] Occupat ional Health - Occupational Stress [...] GED or equivalent No 10/11/2023 Preferred Language Prydeinig 10/11/2023 PHQ-2 Answer Date Recorded Retired PHQ-9: [...] PM EDT documented as of this encounter Plan of Treatment Upcoming Encounters Date Type Department Care Team (Late st Contact Info) Description 12/10/2024 8:30 AM EDT Office Visit [facility] CARDI[facility]IC SURGERY [address] [facility] [address] [place] [phone] Elba Garcia APRN [address] [facility] [address] [place] [address] 01/04/2025 2:45 PM EDT Office Visit [facility] HEMATOLOGY & ONCOLOGY [address] [facility] [address] [place] [address] Rc Valdez MD [address] [facility] [address] [place] [address] 07/04/2025 11:40 AM EST Office Visit [facility] C[facility] [address] [facility] [address] [place] [address] Helene Girard PA-C [address] [facility] [address] [place] [phone] documented as of this encounter Visit Diagnoses Not on filedocumented in this encounter Care Teams Broadcast Systems Engineer Relationship Specialty Start Date End Date Jose Luis Pinon MD [address] [facility] [address] [place] [address] PCP - General Internal Medicine 09/19/22 documented as of this encounter
--- OUTSIDE RECORDS SUMMARY | 2024-12-05 19:48 | XMS_ITS | Encounter Summary ---
[facility] Address [address] [place] [address] Care Team Providers Care Safety Security Officer Name Role Phone Jose Luis Pinon MD Primary Care Provider + [phone] Encounter Details Date Type Department Care Team (Late st Contact Info) Description 12/03/2024 Patient Outreach [facility] NURSE NAVIGATOR [address] [place] [phone] Svetlana Lala, RN Social History Tobacco Use Types Packs/Day Years Used Date Smoking Tobacco: Some Days Cigarettes 1 17.6 Started: 05/09/2007 Passive Smoke Exposure: Current Smokeless Tobacco: Never Alcohol Use Standard Drinks/Week Comments Not Currently 0 (1 standard drink = 0.6 oz pur e alcohol) Does not drink anymore [facility] Utilities Answer Date Recorded In the past 12 months has [employer] gas, oil, or water [employer] threatened to shut off services in your [...] and heating? Not hard at all 10/11/2023 [facility] [place] [facility] Occupat ional Health - Occupational Stress [...] GED or equivalent No 10/11/2023 Preferred Language Jamaican 10/11/2023 PHQ-2 Answer Date Recorded Retired PHQ-9: [...] PM EDT documented as of this encounter Miscellaneous Notes * Significant Note - Svetlana Lala RN - 12/03/2024 3:40 PM EDTSummary: Incoming patient call with several questions/concerns Received incoming call from patient with several questions and concerns regarding upcoming appointments and plans for treatment of his recently diagnosed lung cancer. Provided emotional support and answered questions and concerns regarding upcoming appointments and what to expect. Discussed keeping journal with questions/concerns as well as list of his doctors in order to feel more organized and decrease confusion. Patient has agreed to do this and is aware of his appointment on Tuesday with [facility]. He is aware of date, time, location and has agreed to write down surgical questions to discuss withElba Garcia APRN at this appointment. He knows to call me back in the interim if he has further needs prior to his appt. documented in this encounter Plan of Treatment Upcoming Encounters Date Type Department Care Team (Late st Contact Info) Description 12/10/2024 8:30 AM EDT Office Visit [facility] CARDIOTHORACIC SURGERY [address] [place] [phone] Elba Garcia, BUTCHER SCULLION [address] [facility] [address] [place], [place] [id number] 01/04/2025 2:45 PM EDT Office Visit [facility] HEMATOLOGY & ONCOLOGY [address] [facility] [address] [place] [address] Rc Valdez MD [address] [facility] [address] [place], [place] [id number] 07/04/2025 11:40 AM EST Office Visit [facility] CARDIOLOGY [address] [facility] [address] [place] [address] Helene Girard PAMelissa [address] [facility] [address] [place] [address] documented as of this encounter Visit Diagnoses Not on filedocumented in this encounter Care Teams Safety Security Officer Relationship Specialty Start Date End Date Be[place], Jose Luis Martinez MD [address] [facility] [address] [place], [place] [id number] PCP - General Internal Medicine 09/19/22 documented as of this encounter
--- OUTSIDE RECORDS SUMMARY | 2024-12-05 19:48 | XMS_ITS | Encounter Summary ---
[facility] [address] [place] [address] Care Team Providers Care Rehabilitation Aide Name Role Phone Jose Luis Pinon MD Primary Care Provider + [phone] Encounter Details Date Type Department Care Team (Latest Contact Info) Description 12/03/2024 Travel Social History Tobacco Use Types Packs/Day Years Used Date Smoking Tobacco: Some Days Cigarettes 1 17.6 Started: 05/09/2007 Passive Smoke Exposure: Current Smokeless Tobacco: Never Alcohol Use Standard Drinks/Week Comments Not Currently 0 (1 standard drink = 0.6 oz pur e alcohol) Does not drink anymore [facility] Utilities Answer Date Recorded In the [...] and heating? Not hard at all 10/11/2023 [employer] [place] of Occupat ional Health - Occupational Stress [...] GED or equivalent No 10/11/2023 Preferred Language Tanzanian 10/11/2023 PHQ-2 Answer Date Recorded Retired PHQ-9: [...] PM EDT documented as of this encounter Functional Status * Calculated C-SSRS Risk Score (Lifetime/Recent) Answer Date of Assessment Author No Risk Indicated 12/03/2024 11:23 PM EDT Adam Yanes RN * [place] Suicide Severity Rating Scale (Screener/Recent Self-Report) Question Answer Date of Assessment Author 1. Wish to be (Past 1 Month) No 025 11:23 PM EDT Adam Yanes RN 2. Non-Specific Active Suici brisa Thoughts (Past 1 Month) No 12/03/2024 11:23 PM EDT Adam Yanes RN 6. Suicidal Behavior (Lifetime) No 11:23 PM EDT Adam Yanes RN documented as of this encounter Plan of Treatment Upcoming Encounters Date Type Department Care Team (Late st Contact Info) Description 12/10/2024 8:30 AM EDT Office Visit [facility] CARDIOTHORACIC SURGERY [address] [facility] [address] [place] [phone] Elba Garcia APRN [address] [facility] [address] [place] [address] 01/04/2025 2:45 PM EDT Office Visit [facility] HEMATOLOGY & ONCOLOGY [address] [facility] [address] [place] [address] Rc Valdez MD [address] [place], [place] [id number] 07/04/2025 11:40 AM EST Office Visit [facility] CARDIOLOGY [address] [place] [address] Helene Girard PAMelissa [address] [place] [address] documented as of this encounter Visit Diagnoses Not on filedocumented in this encounter Care Teams Rehabilitation Aide Relationship Specialty Start Date End Date Jose Luis Pinon MD [address] [place] [address] PCP - General Internal Medicine 09/19/22 documented as of this encounter
--- OUTSIDE RECORDS SUMMARY | 2024-12-05 19:49 | XMS_ITS | Clinical Summary ---
[facility] Address [address] [place] [address] Care Team Providers Care Census Enumerator Name Role Phone Jose Luis Pinon MD Primary Care Provider + [phone] Allergies No known active allergies Medications sacubitril-vals yessi (Entresto) 24-26 MG tablet Take 1 tablet by mouth 2 (Two) Times a Day. 180 tablet 3 07/05/2024 Active metoprolol succinate XL (Toprol XL) 100 MG 24 hr tablet Take 1.5 tablets by mouth Daily. 135 tablet 3 08/08/2024 Active aspirin 81 MG EC tablet Take 1 tablet by mouth Daily. 30 tablet 08/09/2024 Active spironolactone (ALDACTONE) 25 MG tablet TAKE 1 TABLET BY MOUTH DAILY 90 tablet 3 09/21/2024 Active Jardiance 10 MG tablet tablet TAKE 1 TABLET BY MOUTH DAILY 90 tablet 3 09/21/2024 Active Fluticasone-Ume clidin-Vilant (Trelegy Ellipta) 100-62.5-25 MCG/ACT inhaler Inhale 1 puff As Needed. 05/07/2024 Active rosuvastatin (CRESTOR) 10 MG tabletIndicatio ns:Abnormal coronary angiogram,Lung nodule Take 1 tablet by mouth Daily. 90 tablet 1 10/11/2024 Active ALPRAZolam (XANAX) 0.5 MG tablet Take 1 tablet 3 times a day by oral route as needed for 30 days. 11/14/2024 Active sertraline (ZOLOFT) 50 MG tablet Take 1 tablet by mouth Daily. 11/14/2024 Active tadalafil (Cialis) 5 MG tablet Active Active Problems Problem Noted Date Diagnosed Date Adenocarcinoma of lower lobe of right lung 11/23 Cancer Staging:Clinical stage from 11/23/2024:Stage IA3(cT1c, cN0, cM0) - Signed by Rc Valdez MD on 11/23/2024 Lung nodule 10/30/2024 Palpitations 08/08/2024 Unilateral weakness 08/06/2024 PAF (paroxysmal atrial fibrillation) 07/05/2024 Tobacco abuse 07/05/2024 Anxiety disorder, unspecified 10/11/2023 Adjustment disorder with mixed anxiety and depre ssed mood 10/08/2023 Alcohol withdrawal syndrome without complication 01/26/2023 CHELY (acute kidney injury) 01/24/2023 Acute systolic heart failure 09/22/2022 Acute on chronic systolic heart failure 09/23/19 Chronic systolic heart failure 09/22/2022 Alcohol dependence 09/19/2022 Alcohol intoxication 09/19/2022 Opioid dependence 09/19/2022 Chest pain 09/19/2022 HTN (hypertension) 09/19/2022 Resolved Problems Problem Noted Date Diagnosed Date Resolved Date Suicidal ideation 10/07/2023 10/11/2023 Acute HFrEF (heart failure w ith reduced ejection fraction) 09/22/2022 09/27/2024 Atrial fibrillation with rap id ventricular response 09/19/2022 09/27/2024 Encounters Date Type Department Care Team Description 12/03/2024 11:17 PM EDT - 12/04/2024 5:42 AM EDT Emergency [facility] EMERGENCY DEPARTMENT [address] [place] [address] Adam Sanchez MD Alcohol abuse (Primary Dx); Anxiety; Primary hypertension; Tobacco abuse Discharge Disposition: Home or Self Care 12/03/2024 Travel 12/03/2024 Patient Outreach [facility] NURSE NAVIGATOR [address] [place] [address] Svetlana Lala RN 11/27/2024 9:56 AM EDT - 11/27/2024 11:59 PM EDT Hospital Encounter [facility] [place] [address] [place] [id number] Anette Ziegler, Adenocarcinoma of right lung Discharge Disposition: Home or Self Care 11/27/2024 Travel 11/23/2024 9:45 AM EDT Consult [facility] HEMATOLOGY & ONCOLOGY [address] [facility] [address] [place] [address] Rc Valdez MD Adenocarcinoma of lower lobe of right lung (Primary Dx) 11/23/2024 Travel 11/20/2024 7:49 AM EDT - 11/20/2024 11:59 PM EDT Hospital Encounter [facility] [address] [facility] [address] [place] [address] Discharge Disposition: Home or Self Care 11/20/2024 7:49 AM EDT - 11/20/2024 11:59 PM EDT Hospital Encounter [facility] [address] [facility] [address] [place] [address] Adenocarcinoma of right lung Discharge Disposition: Home or Self Care 11/20/2024 Travel 11/13/2024 Patient Outreach [facility] HEMATOLOGY & ONCOLOGY [address] [facility] [address] [place] [address] Charlene Pickard RN 11/08/2024 11:28 AM EDT Anesthesia Event [facility] ENDO SUITES [address] [place] [address] Markus Allan MD 11/08/2024 11:12 AM EDT - 11/08/2024 12:26 PM EDT Surgery [facility] SU[facility] [address] [place] [address] Anette Ziegler, BRONCHOSCOPY NAVIGATION WITH ENDOBRONCHIAL ULTRASOUND AND ION ROBOT [97024 (CPT )] 11/08/2024 8:53 AM EDT - 11/08/2024 12:54 PM EDT Hospital Encounter [facility] END[facility]IT[facility] [address] [place] [address] Anette Ziegler, DO Lung nodule Discharge Disposition: Home or Self Care 11/08/2024 Travel 11/06/2024 10:23 AM EDT - 11/06/2024 11:59 PM EDT Hospital Encounter [facility] AT [address] [place] [phone] Anette Ziegler, DO Lung nodule Discharge Disposition: Home or Self Care 11/06/2024 Travel 10/30/2024 8:30 AM EDT Office Visit [facility] PULMONARY & CRITICAL CARE MEDICINE [address] [place] [address] Anette Ziegler, DO Lung nodule (Primary Dx); Mucopurulent chronic bronchitis 10/30/2024 Patient Outreach [facility] HEMATOLOGY & ONCOLOGY [address] [facility] [address] [place] [address] Charlene Pickard, RN 10/30/2024 Prep for Surgery [facility] ORDERS ONLY [address] [place] [address] Anette Ziegler, DO Lung nodule (Primary Dx) 10/30/2024 Travel 10/10/2024 Telephone [facility] CARDIOLOGY [address] [facility] [address] [place] [address]SAWYER - CALL BACK 10/09/2024 Patient Outreach [facility] NURSE NAVIGATOR [address] [place] [address] Svetlana Lala, RN 10/08/2024 8:56 AM EDT - 10/08/2024 11:59 PM EDT Hospital Encounter [facility] [address] [place] [address] Palpitations; PAF (paroxysmal atrial fibrillation); Chronic systolic heart failure; Acute on chronic systolic heart failure; Primary hypertension; Chest pain, unspecified type Discharge Disposition: Home or Self Care 10/08/2024 7:37 AM EDT - 10/08/2024 11:59 PM EDT Hospital Encounter [facility] [address] [place] [address] Palpitations; PAF (paroxysmal atrial fibrillation); Chronic systolic heart failure; Acute on chronic systolic heart failure; Primary hypertension; Chest pain, unspecified type Discharge Disposition: Home or Self Care 10/08/2024 Travel 10/05/2024 Telephone [facility] 4D [address] [place] [address] Loi Robles MD 10/05/2024 Telephone [facility] 4D [address] [place] [address] Loi Robles MD 09/27/2024 1:30 PM EDT Office Visit [facility] CARDIOLOGY [address] [facility] [address] [place] [address] Loi Robles MD Chronic systolic heart failure (Primary Dx); PAF (paroxysmal atrial fibrillation); Primary hypertension 09/27/2024 Travel 09/21/2024 Refill [facility] CARDIOLOGY [address] [facility] [address] [place] [address] Loi Robles MD Med Refill from Last 3 Months Immunizations Immunization Administration Dates Next Due 31-influenza Vac Quardvalent Preservativ 019 COVID-19 (MODERNA) 1st,2nd,3rd Dose Monovalent 0 07/24/2020 COVID-19 (MODERNA) Monovalent Original Booster 0 06/09/2021 COVID-19 (UNSPECIFIED) 07/12/2020,06/14/2020 Fluzone >6mos 01/29/2024 Influenza, Unspecified 02/20/2018 TD Preservative Free (Tenivac) 12/30/2017 Td (TDVAX) 10/15/2010,09/16/1998 Tetanus Toxoid 06/07/2014 Family History Medical History Relation Name Comments Heart attack Father Amando Wander Heart disease Father Amando Fang Heart failure Father Amando Fang No Known Problems Maternal Grandfather No Known Problems Maternal Grandmother Arrhythmia Mother Madan burton No Known Problems Paternal Grandfather No Known Problems Paternal Grandmother Relation Name Status Comments Brother Alive Father Amando Fang Alive Maternal Grandfather Maternal Grandmother Mother Madan burton Alive Paternal Grandfather Paternal Grandmother Social History Tobacco Use Types Packs/Day Years Used Date Smoking Tobacco: Some Days Cigarettes 1 17.6 Started: 05/09/2007 Passive Smoke Exposure: Current Smokeless Tobacco: Never Tobacco Cessation:Ready to Q uit: Not Asked; Counseling Given: Not Answered Alcohol Use Standard Drinks/Week Comments Not Currently 0 (1 standard drink = 0.6 oz pur e alcohol) Does not drink anymore [facility] Answer Date Recorded In the past 12 [...] and heating? Not hard at all 10/11/2023 [facility] - Occupational [...] GED or equivalent No 10/11/2023 Preferred Language Mongolian 10/11/2023 PHQ-2 Answer Date Recorded Retired PHQ-9: [...] Orientation Straight 12/03/2024 12 :56 PM EDT Last Filed Vital Signs Vital Sign Reading [...] Mass Index 26.54 12/03/2024 11:25 PM EDT Plan of Treatment Upcoming Encounters Date Type Department Care Team (Late st Contact Info) Description 12/10/2024 8:30 AM EDT Office Visit [facility] CARDIOTHORACIC SURGERY [address] [facility] [address] [place] [phone] Elba Garcia APRN [address] [facility] [address] [place] [address] 01/04/2025 2:45 PM EDT Office Visit [facility] HEMATOLOGY & ONCOLOGY [address] [facility] [address] [place] [phone] Rc Valdez MD [address] [facility] [address] [place] [address] 07/04/2025 11:40 AM EST Office Visit [facility] CARDIOLOGY [address] [facility] [address] [place] [address] Helene Girard PAFlorentinC [address] [facility] [address] [place] [address] Health Maintenance Due Date Last Done Comments Annual Gynecologic Pelvic an d Breast Exam 1970 Pneumococcal Vaccine 50+ (1 of 2 - PCV) 07/27/1987 PAP SMEAR 1989 MAMMOGRAM 2008 COLOGUARD 2013 COLON CANCER SCREENING 5 YEA R SIGMOIDOSCOPY 2013 COLONOSCOPY 2013 [address] CANCER SCREENING 2013 CT COLONOGRAPHY 2013 FECAL OCCULT BLOOD TEST 2013 FIT Testing (1 year) 2013 ZOSTER VACCINE (1 of 2) 2018 ANNUAL PHYSICAL 09/22/2022 COVID-19 Vaccine (7 - 2023-2 5 season) 2024 06/09/2021, 07/24/2020, 07/12/2020, Additional history exists INFLUENZA VACCINE 02/06/2025 01/29/2024, , 02/20/2018 TDAP/TD VACCINES (4 - Tdap) 12/31/2027 0808/2017, 10/15/2010, 09/16/1998 HEPATITIS C SCREENING Completed 01/24/2023 Procedures Procedure Name Priority Date/Time Associated Diagnosis Comments CBC AND DIFFERENTIAL STAT 12/04/2024 12:09 AM EDT CBC WITH AUTO DIFFERENTIAL STAT 12/04/2024 12:09 AM EDT TSH RFX ON ABNORMAL TO FREE T4 STAT 12/04/2024 12:09 AM EDT ETHANOL STAT 12/04/2024 12:09 AM EDT COMPREHENSIVE METABOLIC PANEL STAT 12/04/2024 12:09 AM EDT SCANNED - TELEMETRY 12/03/2024 1 1:23 PM EDT MRI BRAIN W WO CONTRAST Routine 11/27/2024 11:33 AM EDT Adenocarcinoma of right lung NM PET/CT SKULL BASE TO MID THIGH Routine 11/20/2024 9:43 AM EDT Adenocarcinoma of right lung POCT GLUCOSE FINGERSTICK Routine 11/20/2024 8:20 AM EDT XR CHEST 1 VW STAT 11/08/2024 12:22 [...] Routine 11/08/2024 11:52 AM EDT Lung nodule NON-AUTOMATIC CHIEF CYTOLOGY, [facility] (RICKIE, COR, MAD, MARCIE) Routine 11/08/2024 11:50 AM EDT Lung nodule ANESTHESIA INTUBATION Routine 11/08/2024 11:34 AM EDT NM BRONCHOSCOPY W/CPTR-ASST IMAGE-GUIDED NAVIGATION 11/08/2024 11:23 AM EDT Lung nodule BRONCHOSCOPY 11/08/2024 11:[address] CHEST WO CONTRAST DIAGNOSTIC Routine 11/06/2024 10:36 AM EDT Lung nodule PULMONARY FUNCTION TEST Routine 10/30/2024 1:28 PM EDT Lung nodule CBC AND DIFFERENTIAL Routine 10/30/2024 9:25 AM EDT Lung nodule CBC WITH AUTO DIFFERENTIAL Routine 10/30/2024 9:25 AM EDT Lung nodule COMPREHENSIVE METABOLIC PANEL Routine 10/30/2024 9:25 AM EDT Lung nodule CTA CARDIOLOGY READ CAR Routine 10/08/2024 8:56 AM EDT Palpitations PAF (paroxysmal atrial fibrillation) Chronic systolic heart failure Acute on chronic systolic heart failure Primary hypertension Chest pain, unspecified type CT ANGIOGRAM CORONARY Routine 10/08/2024 8:54 AM EDT Palpitations PAF (paroxysmal atrial fibrillation) Chronic systolic heart failure Acute on chronic systolic heart failure Primary hypertension Chest pain, unspecified type SCANNED - TELEMETRY 10/08/2024 HEPATITIS PANEL, ACUTE Add-On 4:32 PM EDT from Last 3 Months or Most Recently Relevant to Health Maintenance Results * TSH Rfx On Abnormal To Free T4 (12/04/2024 12:09 AM EDT) Pathologist [facility] TSH 1.660 0.270 - 4.200 uIU/mL 12/04/2024 12:45 AM EDT [facility] Blood Line / Unknown 12/04/2024 12 :09 AM EDT 12/04/2024 12:14 AM EDT Adam Sanchez MD LAB BLOOD ORDERABLES Final Result [facility]
[address] [place] [address], * (ABNORMAL) CBC Auto Differential (12/04/2024 12:09 AM EDT) Only the most recent of2 resultswithin the time period is included. Pathologist [facility] WBC 10.14 3.40 - 10.80 10*3/mm3 12/04/2024 12:16 AM EDT [facility] RBC 4.87 4.14 - 5.80 10*6/mm3 12/04/2024 12:16 AM EDT [facility] Hemoglobin 15.5 13.0 - 17.7 g/dL 12/04/2024 12:16 AM EDT [facility] Hematocrit 43.7 37.5 - 51.0 % 12/04/2024 12:16 [facility] MCV 89.7 79.0 - 97.0 fL 12/04/2024 12:16 AM EDT [facility] MCH 31.8 26.6 - 33.0 pg 12/04/2024 12:16 [facility] MCHC 35.5 31.5 - 35.7 g/dL 12/04/2024 12:16 AM T [facility] RDW 12.6 12.3 - 15.4 % 12/04/2024 12:16 AM [facility] RDW-SD 41.1 37.0 - 54.0 fl 12/04/2024 12:16 AM [facility] MPV 10.3 6.0 - 12.0 fL 12/04/2024 12:16 AM [facility] Platelets 273 140 - 450 10*3/mm3 12/04/2024 12:16 AM [facility] Neutrophil % 56.3 42.7 - 76.0 % 12/04/2024 12:16 AM [facility] Lymphocyte % 33.1 19.6 - 45.3 % 12/04/2024 12:16 AM [facility] Monocyte % 5.5 5.0 - 12.0 % 12/04/2024 12:16 AM [facility] Eosinophil % 2.6 0.3 - 6.2 % 12/04/2024 12:16 AM [facility] Basophil % 1.9(H) 0.0 - 1.5 % 12/04/2024 12:16 AM [facility] Immature Grans % 0.6(H) 0.0 - 0.5 % 12/04/2024 12:16 AM [facility] Neutrophils, Absolute 5.71 1.70 - 7.00 10*3/mm3 12/04/2024 12:16 AM [facility] Lymphocytes, Absolute 3.36(H) 0.70 - 3.10 10*3/mm3 12/04/2024 12:16 AM EDT [facility] Monocytes, Absolute 0.56 0.10 - 0.90 10*3/mm3 12/04/2024 12:16 AM EDT [facility] Eosinophils, Absolute 0.26 0.00 - 0.40 10*3/mm3 12/04/2024 12:16 AM EDT [facility] Basophils, Absolute 0.19 0.00 - 0.20 10*3/mm3 12/04/2024 12:16 AM EDT [facility] Immature Grans, Absolute 0.06(H) 0.00 - 0.05 10*3/mm3 12/04/2024 12:16 AM EDT [facility] nRBC 0.0 0.0 - 0.2 /100 WBC 12/04/2024 12:16 AM EDT [facility] Blood Line / Unknown 12/04/2024 12 :09 AM EDT 12/04/2024 12:14 AM EDT Adam Sanchez MD LAB BLOOD ORDERABLES Final Result [facility]
[address] [place] [address], * (ABNORMAL) Ethanol (12/04/2024 12:09 AM EDT) Ethanol 234(H) 0 - 10 mg/dL 12/04/2024 12:40 AM EDT [facility] Blood Line / Unknown 12/04/2024 12 :09 AM EDT 12/04/2024 12:14 AM EDT Narrative [facility] - 12/04/2024 12:40 AM EDT Not for legal purposes. Adam Sanchez MD LAB BLOOD ORDERABLES Final Result [facility]
[address] [place] [address], [place] [phone] * (ABNORMAL) Comprehensive Metabolic Panel (12/04/2024 12:09 AM EDT) Only the most recent of2 resultswithin the time period is included. Glucose 131(H) 65 - 99 mg/dL 12/04/2024 12:40 AM EDT [facility] BUN 13.0 6.0 - 20.0 mg/dL 12/04/2024 12:40 AM EDT [facility] Creatinine 0.93 0.76 - 1.27 mg/dL 12/04/2024 12:40 AM T [facility] Sodium 143 136 - 145 mmol/L 12/04/2024 12:40 AM T [facility] Potassium 3.6 3.5 - 5.2 mmol/L 12/04/2024 12:40 AM [facility] Chloride 105 98 - 107 mmol/L 12/04/2024 12:40 AM [facility] CO2 25.0 22.0 - 29.0 mmol/L 12/04/2024 12:40 AM [facility] Calcium 8.3(L) 8.6 - 10.5 mg/dL 12/04/2024 12:40 AM [facility] Total Protein 6.7 6.0 - 8.5 g/dL 12/04/2024 12:40 AM [facility] Albumin 4.6 3.5 - 5.2 g/dL 12/04/2024 12:40 AM EDT [facility] ALT (SGPT) 42(H) 1 - 41 U/L 12/04/2024 12:40 AM [facility] AST (SGOT) 35 1 - 40 U/L 12/04/2024 12:40 AM [facility] Alkaline Phosphatase 78 39 - 117 U/L 12/04/2024 12:40 AM [facility] Total Bilirubin 0.3 0.0 - 1.2 mg/dL 12/04/2024 12:40 AM [facility] Globulin 2.1 gm/dL 12/04/2024 12:40 AM EDT [facility] Comment:Calculated Result A/G Ratio 2.2 g/dL 12/04/2024 12:40 AM EDT [facility] BUN/Creatinine Ratio 14.0 7.0 - 25.0 12/04/2024 12:40 AM EDT [facility] Anion Gap 13.0 5.0 - 15.0 mmol/L 12/04/2024 12:40 AM EDT [facility] eGFR 96.4 >60.0 mL/min/1.7 3 12/04/2024 12:40 AM EDT [facility] Blood Line / Unknown 12/04/2024 12 :09 AM EDT 12/04/2024 12:14 AM EDT Narrative [facility] - 12/04/2024 12:40 AM EDT GFR [...] Sanchez MD LAB BLOOD ORDERABLES Final Result [facility]
[address] [place] [address], * Telemetry Scan (12/03/2024 11:23 PM EDT) Only the most recent of2 resultswithin the time period is included. [facility] Onbase ECG ORDERABLES Final Result * MRI Brain With & Without Contrast [...] MD 11/27/2024 11:43 AM EDT Workstation ID: [id number] Narrative 11/27/2024 11:43 AM EDT MRI BRAIN [...] MD 11/27/2024 11:43 AM EDT Workstation ID: [id number] us Anette Ziegler DO IMG MRI ORDERABLES Final Result * NM PET/CT Skull Base to Mid [...] MD 11/23/2024 11:34 AM EDT Workstation ID: [id number] Narrative 11/23/2024 11:34 AM EDT FDG NM [...] MD 11/23/2024 11:34 AM EDT Workstation ID: [id number] us Anette Ziegler DO IMG NM ORDERABLES F inal Result * POC Glucose Once (11/20/2024 8:20 AM EDT) Glucose 103 70 - 130 mg/dL 11/20/2024 8:33 AM EDT [facility] Comment:Serial Number: [id number]: [id number] Blood 11/20/2024 8:20 AM EDT 11/20/2024 8:33 AM EDT Anette Ziegler DO POINT OF CARE TEST ORDERABLES Final Result [facility]
[address] [place] [address], [place] * XR Chest 1 View (11/08/2024 12:22 PM EDT) Anatomical Region Laterality Modality Body N/A Radiographic Yuly ging 11/08/2024 12:3 4 PM EDT Impressions 11/08/2024 12:35 PM EDT Impression: Negative for postprocedural pneumothorax. Electronically Signed: Adam Patel MD 11/08/2024 12:35 PM EDT Workstation ID: [id number] Narrative 11/08/2024 12:35 PM EDT XR CHEST [...] MD 11/08/2024 12:35 PM EDT Workstation ID: [id number] Anette Ziegler DO IMG DIAGNOSTIC IMAG ING [...] 2 days ALEA 11/10/2024 10:41 AM EDT [facility] Gram Stain Few (2+) WBCs seen 11/10/2024 10:41 AM EDT [facility] Gram Stain No organisms seen 11/10/2024 10:41 AM EDT [facility] Lavage Structure of lower lobe of right lung / Unknown 11/08/2024 11:58 AM EDT 11/08/2024 1:05 PM EDT Anette Ziegler DO MICROBIOLOGY - GENE RAL ORDERABLES Final Result Performing Organization Address City/[facility]/ZIP Co de Phone Number [facility]
[address] [place] [address], [facility]
[address] [place] [address], [place] [phone] * Fungus Smear - Lavage, Lung, Right Lower Lobe (11/08/2024 11:58 AM EDT) Fungal Stain No fungal elements seen 11/12/2024 1:51 PM EDT [facility] Lavage Structure of lower lobe of right lung / Unknown 11/08/2024 11:58 AM EDT 11/08/2024 1:05 PM EDT Anette Ziegler DO MICROBIOLOGY - GENE RAL ORDERABLES Final Result Performing Organization Address City/[facility]/ZIP Co de Phone Number [facility]
[address] [place] [address], [place] [phone] * Tissue Pathology Exam (11/08/2024 11:52 AM EDT) Case Report Surgical Pathology Report Case: [id number] Authorizing Provider: Anette Ziegler Collected: 11/08/2024 11:52 AM DO Mj Ordering Location: [facility] Received: 11/08/2024 12:59 PM ENDO SUITES Pathologist: Kyrie Bird MD Specimen: Lung, Right Lower Lobe, RLL TBBX for patho 11/13/2024 1:09 PM EDT [facility] Clinical Information Lung nodule 11/13/2024 1:09 PM EDT [facility] Final Diagnosis RIGHT LOWER LOBE, TRANSBRONCHIAL BIOPSY: Pulmonary adenocarcinoma GJK 11/13/2024 1:09 PM EDT [facility] at 1309 EDT Gross Description 1. Lung, Right Lower Lobe. Received in formalin labeled RLL TBBX for patho is a 1 x 0.5 x 0.1 cm aggregate of fragmented collier-red tissue, filtered and submitted entirely in a single cassette. LDP 11/13/2024 1:09 PM EDT [facility] Special Stains Stains performed with adequate controls. Tumor positive for TTF-1 and Napsin. Tumor shows focal positivity for p40. Immunohistochemist SANDIE ham: PD-L1 (22C3) Tumor Proportion Score: 30%: PD-L1 expression Testing performed at [facility]. See scanned report. 11/13/2024 1:09 PM EDT [facility] Microscopic Description The slides are reviewed and demonstrate histopathologic features supporting the above rendered diagnosis. 11/13/2024 1:09 PM EDT [facility] Tissue Structure of lower lobe of right lung / Unknown 11/08/2024 11:52 AM EDT 11/08/2024 12:59 PM EDT Anette Ziegler DO PATHOLOGY/CYTOLOGY ORDERABLES Final Result [facility]
[address] [place] [address], * NON-AUTOMATIC CHIEF CYTOLOGY, [facility] (RICKIE,COR,MAD,MARCIE) (11/08/2024 11:50 AM EDT) Reference Lab Report [facility] [address] [place] [address] or [phone] Mickey Aguirre M.D., [employer] PATIENT NAME LABORATORY NO. ODELL DAY. [id number] AGE SEX SSN CLIENT REF # [facility] 54 1970 [id number] MANDUJANO REQUESTING Barry ATTENDING [place] [address] ANETTE ZIEGLER DATE COLLECTED DATE RECEIVED DATE REPORTED 11/08/2024 11/08/2024 11/13/2024 DIAGNOSIS: A. TBNA, RIGHT LOWER LOBE: Malignant B. BRONCH BRUSH, RIGHT LOWER LOBE: Suspicious MICROSCOPIC DESCRIPTION: A. Adenocarcinoma of lung primary, see comment B. Suspicious for adenocarcinoma. Professional interpretation rendered by Laurence John D.O., F.C.A.P. at [facility], [employer], [address] [place] [address]. COMMENT: The following immunohistochemical stains were performed [...] PD-L1 22C3 antibody from [employer] on the [place] Benchmark Ultra, a process which was validated [...] AND ELECTRONICALLY SIGNED BY: Laurence John D.O., Fernanda CPT CODES: [id number], [id number], [id number], [id number], [id number] 11/13/2024 8:57 AM EDT [facility] Tissue Structure of lower lobe of right lung / Unknown 11/08/2024 11:50 AM EDT 11/08/2024 1:00 PM EDT Bronchial brushings specimen (specimen) Structure of lower lobe of right lung / Unknown 11/08/2024 11:57 AM EDT Anette Ziegler DO PATHOLOGY/CYTOLOGY ORDERABLES Final Result [facility]
[address] [place] [address], * BH AN ETT AIRWAY (11/08/2024 11:34 AM EDT) Narrative Daniel Louie CRNA - 11/08/2024 11:34 AM EDT Daniel Louie CRNA 11/08/2024 11:35 AM Airway Reason: elective Date/Time: 11/08/2024 11:31 AM Airway not difficult General Information and Staff Patient location during procedure: OR SENIOR BENEFITS SPECIALIST/CAA: Daniel Louie CRNA Indications and Patient Condition [...] anterior pressure. Easy pass, atraumatic, dentition unchanged. Markus Allan MD ANESTHESIA ORDERABLES Final Res ult * Bronchoscopy (11/08/2024 11:14 AM EDT) Anette Ziegler DO INTERFACE NEEDS Fin al Result * CT Chest Without Contrast Diagnostic (11/06/2024 [...] MD 11/12/2024 10:25 AM EDT Workstation ID: [id number] Narrative 11/12/2024 10:[address] CHEST [...] MD 11/12/2024 10:25 AM EDT Workstation ID: [id number] Anette Ziegler DO IMG CT ORDERABLES F inal Result * Complete PFT - Pre & Post Bronchodilator (10/30/2024 1:28 PM EDT) us Anette Ziegler DO PFT ORDERABLES Fin al Result * CT Angiogram Coronary-Cardiology Interpretation (10/08/2024 8:56 [...] Using a Siemens Force scanner, a preliminary newspaper carrier study was obtained, followed by coronary artery [...] 43 RCA 9 Grading Scale for Plaque [place]: P1 (CAC 1-100) Mild amount of plaque [...] MD IMG CT ORDERABLES Final Resul t * CT Angiogram Coronary (10/08/2024 8:54 AM [...] MD 10/08/2024 11:58 AM EDT Workstation ID: [id number] Narrative 10/08/2024 11:[address] ANGIOGRAM [...] are multiple 1 to 2 mm size ldtxbjahpvttbnqt-ta-buo type nodules favoring infectious or inflammatory process.Within [...] MD 10/08/2024 11:58 AM EDT Workstation ID: [id number] Loi Robles MD IMG CT ORDERABLES Final Resul t * Hepatitis Panel, Acute (01/24/2023 4:32 PM EDT) Hepatitis B Surface Ag Non-Reacti ve Non-Reacti ve 01/24/2023 10:44 PM EDT [facility] Hep A IgM Non-Reacti ve Non-Reacti ve 01/24/2023 10:44 PM EDT [facility] Hep B C IgM Non-Reacti ve Non-Reacti ve 01/24/2023 10:44 PM EDT [facility] Hepatitis C Ab Non-Reacti ve Non-Reacti ve 01/24/2023 10:44 PM EDT [facility] Blood Venipuncture / Unknown 01/24/2023 4:32 PM EDT 01/24/2023 4:42 PM EDT Narrative [facility] - 01/24/2023 10:44 PM EDT Results may be falsely decreased if patient taking Biotin. Ernst Ingram DO LAB BLOOD ORDERABLES Final Resu lt [facility]
[address] [place] [address], from Last 3 Months or Most Recently Relevant to Health Maintenance Insurance [address] PPO Advance Directives * CPR (Attempt to Resuscitate) (Latest Code Status on File) Date Activated Date Inactivated Comments 08/06/2024 8:49 PM 08/08/2024 4:52 PM Question Answer Comments Code Status (Patient has no pulse and is not breathing): CPR (Attempt to Resuscitate) Medical Interventions (Patie nt has pulse or is breathing): Full Support Level Of Support Discussed With: Patient * CPR (Attempt to Resuscitate) Date Activated Date Inactivated Comments 10/07/2023 8:46 AM 10/11/2023 3:06 PM Question Answer Comments Code Status (Patient has no pulse and is not breathing): CPR (Attempt to Resuscitate) Medical Interventions (Patie nt has pulse or is breathing): Full Support * CPR (Attempt to Resuscitate) Date Activated Date Inactivated Comments 01/24/2023 10:13 PM 01/26/2023 3:26 PM Question Answer Comments Code Status (Patient has no pulse and is not breathing): CPR (Attempt to Resuscitate) Medical Interventions (Patie nt has pulse or is breathing): Full Support * CPR (Attempt to Resuscitate) Date Activated Date Inactivated Comments 09/19/2022 10:33 PM 09/22/2022 2:23 PM Question Answer Comments Code Status (Patient has no pulse and is not breathing): CPR (Attempt to Resuscitate) Medical Interventions (Patie nt has pulse or is breathing): Full Support Care Teams Census Enumerator Relationship Specialty Start Date End Date Jose Luis Pinon MD [address] [facility] [address] [place] [address] PCP - General Internal Medicine 09/19/22
--- OUTSIDE RECORDS SUMMARY | 2024-12-05 19:49 | XMS_ITS | Encounter Summary ---
[facility] Address [address] [place] [address] Care Team Providers Care Assistant Kitchen Manager Name Role Phone Jose Luis Pinon MD Primary Care Provider + [phone] Encounter Details Date Type Department Care Team (Latest Contact Info) Description 10/30/2024 Travel Social History Tobacco Use Types Packs/Day Years Used Date Smoking Tobacco: Some Days Cigarettes 1 17.6 Started: 05/09/2007 Passive Smoke Exposure: Current Smokeless Tobacco: Never Alcohol Use Standard Drinks/Week Comments Not Currently 0 (1 standard drink = 0.6 oz pur e alcohol) Does not drink anymore [facility] Utilities Answer Date Recorded In the past [...] and heating? Not hard at all 10/11/2023 [facility] [place] of Occupat ional Health - Occupational Stress [...] equivalent No 10/11/2023 Preferred Language Citizen Of [place] 10/11/2023 PHQ-2 Answer Date Recorded Retired PHQ-9: [...] Description 12/10/2024 8:30 AM EDT Office Visit [facility] CARDIOTHORACIC SURGERY [address] [facility] [address] [place] [phone] Elba Garcia APRN [address] [facility] [address] [place] [address] 01/04/2025 2:45 PM EDT Office Visit [facility] HEMATOLOGY & ONCOLOGY [address] [facility] [address] [place] [address] Rc Valdez MD [address] [facility] [address] [place] [address] 07/04/2025 11:40 AM EST Office Visit [facility] CARDIOLOGY [address] [facility] [address] [place] [address] Helene Girard PA-C [address] [facility] [address] [place] [phone] documented as of this encounter Visit Diagnoses Not on filedocumented in this encounter Care Teams Assistant Kitchen Manager Relationship Specialty Start Date End Date Jose Luis Pinon MD [address] [facility] [address] [place] [address] PCP - General Internal Medicine 09/19/22 documented as of this encounter
--- OUTSIDE RECORDS SUMMARY | 2024-12-05 19:49 | XMS_ITS | Encounter Summary ---
[facility] Address [address] [place] [address] Care Team Providers Care Uptwister Tender Name Role Phone Jose Luis Pinon MD Primary Care Provider + [phone] Encounter Details Date Type Department Care Team (Latest Contact Info) Description 11/20/2024 Travel Social History Tobacco Use Types Packs/Day Years Used Date Smoking Tobacco: Some Days Cigarettes 1 17.6 Started: 05/09/2007 Passive Smoke Exposure: Current Smokeless Tobacco: Never Alcohol Use Standard Drinks/Week Comments Not Currently 0 (1 standard drink = 0.6 oz pur e alcohol) Does not drink anymore [facility] Utilities Answer Date Recorded In the [...] and heating? Not hard at all 10/11/2023 [facility] of Occupat ional Health - Occupational Stress [...] GED or equivalent No 10/11/2023 Preferred Language Turkmen 10/11/2023 PHQ-2 Answer Date Recorded Retired PHQ-9: [...] Description 12/10/2024 8:30 AM EDT Office Visit [facility] CARDIOTHORACIC SURGERY [address] [facility] [address] [place] [phone] Elba Garcia APRN [address] [facility] [address] [place] [address] 01/04/2025 2:45 PM EDT Office Visit [facility] HEMATOLOGY & ONCOLOGY [address] [facility] [address] [place] [address] Rc Valdez MD [address] [facility] [address] [place] [address] 07/04/2025 11:40 AM EST Office Visit [facility] CARDIOLOGY [address] [facility] [address] [place] [address] Helene Girard PA-C [address] [facility] [address] [place] [phone] documented as of this encounter Visit Diagnoses Not on filedocumented in this encounter Care Teams Uptwister Tender Relationship Specialty Start Date End Date Jose Luis Pinon MD [address] [facility] [address] [place] [address] PCP - General Internal Medicine 09/19/22 documented as of this encounter
--- OUTSIDE RECORDS SUMMARY | 2024-12-05 19:49 | XMS_ITS | Encounter Summary ---
Author Organization [facility] Address [address] [place] [address] Care Team Providers Care Developer Architect Name Role Phone Jose Luis Pinon MD Primary Care Provider [phone] Reason for Visit * Reason Onset Date Comments - CALL BACK 10/10/2024 Encounter Details Date Type Department Care Team (Late st Contact Info) Description 10/10/2024 Telephone [facility] CARDIOLOGY [address] [address] Loi Robles MD [address] [place] [address] - CALL BACK Social History Tobacco Use Types Packs/Day Years Used Date Smoking Tobacco: Some Days Cigarettes 1 17.6 Started: 05/09/2007 Passive Smoke Exposure: Current Smokeless Tobacco: Never Alcohol Use Standard Drinks/Week Comments Not Currently 0 (1 standard drink = 0.6 oz pur e alcohol) Does not drink anymore [facility] Utilities Answer Date Recorded In the past 12 months has [employer], gas, oil, or water company threatened to [...] all 10/11/2023 [facility] - Occupational Stress Questionnaire Answer Date Recorded [...] GED or equivalent No 10/11/2023 Preferred Language Khmer 10/11/2023 PHQ-2 Answer Date Recorded Retired PHQ-9: [...] as of this encounter Miscellaneous Notes * Telephone Encounter - Mack Wei RN - 10/11/2024 9:41 AM EDT Spoke with patient about test results. Per Dr. Robles, start patient on rosuvastatin 10mg and [facility]. Orders placed. * Telephone Encounter - Latrice Fuentes RegSched Rep - 10/10/2024 4:31 PM EDT Caller: Odell Viramontes Relationship: Self Best call back number: [phone] What is the best time to reach you: ANYTIME Who are you requesting to speak with (clinical staff, provider, specific staff member): ANYONE What was the call regarding: PATIENT WOULD LIKE A CALL BACK TO DISCUSS HIS CTA RESULTS. WANTING TO KNOW WHAT PROVIDER HE SHOULD BE SEEING MOVING FORWARD. IS VERY CONCERNED AND WOULD LIKE A CALL BACK [facility] TO DISCUSS HIS PLAN OF CARE WITH . documented in this encounter Plan of Treatment Upcoming Encounters Date Type Department Care Team (Late st Contact Info) Description 12/10/2024 8:30 AM EDT Office Visit [facility] CARDIOTHORACIC SURGERY [address] [facility] [address] [place] [phone] Elba Garcia, GOVERNMENT RELATIONS DIRECTOR [address] [place] [address] 01/04/2025 2:45 PM EDT Office Visit [facility] HEMATOLOGY & ONCOLOGY [address] [facility] [address] [place] [phone] Rc Valdez MD [address] [facility] [address] [place] [address] 07/04/2025 11:40 AM EST Office Visit [facility] CARDIOLOGY [address] [facility] [address] [place] [phone] Helene Girard, PAFlorentinC [address] [facility] [address] [place] [phone] documented as of this encounter Visit Diagnoses Not on filedocumented in this encounter Care Teams Developer Architect Relationship Specialty Start Date End Date Jose Luis Pinon MD [address] [place], [place] [phone] PCP - General Internal Medicine 09/19/22 documented as of this encounter
--- OUTSIDE RECORDS SUMMARY | 2024-12-05 19:49 | XMS_ITS | Encounter Summary ---
[facility] Address [address] [place] [address] Care Team Providers Care Study Hall Supervisor Name Role Phone Jose Luis Pinon MD Primary Care Provider + [phone] Encounter Details Date Type Department Care Team (Latest Contact Info) Description 11/08/2024 Travel Social History Tobacco Use Types Packs/Day Years Used Date Smoking Tobacco: Some Days Cigarettes 1 17.6 Started: 05/09/2007 Passive Smoke Exposure: Current Smokeless Tobacco: Never Alcohol Use Standard Drinks/Week Comments Not Currently 0 (1 standard drink = 0.6 oz pur e alcohol) Does not drink anymore [place] Utilities Answer Date Recorded In the past [...] and heating? Not hard at all 10/11/2023 [facility] [place] of Occupat ional Health - Occupational Stress [...] GED or equivalent No 10/11/2023 Preferred Language Gambian 10/11/2023 PHQ-2 Answer Date Recorded Retired PHQ-9: [...] Description 12/10/2024 8:30 AM EDT Office Visit [facility] CARDIOTHORACIC SURGERY [address] [facility] [address] [place] [phone] Elba Garcia APRN [address] [facility] [address] [place] [address] 01/04/2025 2:45 PM EDT Office Visit [facility] HEMATOLOGY & ONCOLOGY [address] [facility] [address] [place] [address] Rc Valdez MD [address] [facility] [address] [place] [address] 07/04/2025 11:40 AM EST Office Visit [facility] CARDIOLOGY [address] [facility] [address] [place] [address] Helene Girard PA-C [address] [facility] [address] [place] [phone] documented as of this encounter Visit Diagnoses Not on filedocumented in this encounter Care Teams Study Hall Supervisor Relationship Specialty Start Date End Date Jose Luis Pinon MD [address] [facility] [address] [place] [address] PCP - General Internal Medicine 09/19/22 documented as of this encounter
--- OUTSIDE RECORDS SUMMARY | 2024-12-05 19:49 | XMS_ITS | Encounter Summary ---
[facility] Address [address] [place] [address] Care Team Providers Care Director Learning Name Role Phone Jose Luis Pinon MD Primary Care Provider + [phone] Encounter Details Date Type Department Care Team (Late st Contact Info) Description 10/30/2024 Prep for Surgery [facility] ORDERS ONLY [address] [place] [address] Bill Ziegler, DO [address] [place] [address] Lung nodule (Primary Dx) Social History Tobacco Use Types Packs/Day Years Used Date Smoking Tobacco: Some Days Cigarettes 1 17.6 Started: 05/09/2007 Passive Smoke Exposure: Current Smokeless Tobacco: Never Alcohol Use Standard Drinks/Week Comments Not Currently 0 (1 standard drink = 0.6 oz pur e alcohol) Does not drink anymore [facility] Utilities Answer Date Recorded In the past 12 months has [facility], gas, oil, or water [employer] threatened to shut off services in your [...] and heating? Not hard at all 10/11/2023 [facility] [place] of Occupat ional Health - Occupational Stress [...] GED or equivalent No 10/11/2023 Preferred Language Syriac 10/11/2023 PHQ-2 Answer Date Recorded Retired PHQ-9: [...] Description 12/10/2024 8:30 AM EDT Office Visit [facility] CARDIOTHORACIC SURGERY [address] [facility] [address] [place] [phone] Elba Garcia APRN [address] [facility] [address] [place] [address] 01/04/2025 2:45 PM EDT Office Visit [facility] HEMATOLOGY & ONCOLOGY [address] [facility] [address] [place] [phone] Rc Valdez MD [address] [facility] [address] [place] [address] 07/04/2025 11:40 AM EST Office Visit [facility] CARDIOLOGY [address] [facility] [address] [place] [phone] McGHelene lawrence PA-C [address] [place] [address] Scheduled Orders Name Type Priority Associated Diagnoses Orde r Schedule ECG 12 Lead ECG Routine Lung nodule Expected: 11/04/2024, Expires: 10/30/2025 documented as of this encounter Results * (ABNORMAL) Comprehensive Metabolic Panel (10/30/2024 9:25 AM EDT) Glucose 113(H) 65 - 99 mg/dL 10/31/2024 12:05 AM EDT [facility] BUN 19.0 6.0 - 20.0 mg/dL 10/31/2024 12:05 AM T [facility] Creatinine 0.98 0.76 - 1.27 mg/dL 10/31/2024 12:05 AM [facility] Sodium 137 136 - 145 mmol/L 10/31/2024 12:05 AM EDT [facility] Potassium 3.8 3.5 - 5.2 mmol/L 10/31/2024 12:05 AM [facility] Chloride 100 98 - 107 mmol/L 10/31/2024 12:05 AM T [facility] CO2 22.1 22.0 - 29.0 mmol/L 10/31/2024 12:05 AM [facility] Calcium 9.2 8.6 - 10.5 mg/dL 10/31/2024 12:05 AM T [facility] Total Protein 7.3 6.0 - 8.5 g/dL 10/31/2024 12:05 AM T [facility] Albumin 4.6 3.5 - 5.2 g/dL 10/31/2024 12:05 AM [facility] ALT (SGPT) 29 1 - 41 U/L 10/31/2024 12:05 AM [facility] AST (SGOT) 27 1 - 40 U/L 10/31/2024 12:05 AM [facility] Alkaline Phosphatase 89 39 - 117 U/L 10/31/2024 12:05 AM EDT [facility] Total Bilirubin 0.6 0.0 - 1.2 mg/dL 10/31/2024 12:05 AM T [facility] Globulin 2.7 gm/dL 10/31/2024 12:05 AM T [facility] A/G Ratio 1.7 g/dL 10/31/2024 12:05 AM EDT [facility] BUN/Creatinine Ratio 19.4 7.0 - 25.0 10/31/2024 12:05 AM T [facility] Anion Gap 14.9 5.0 - 15.0 mmol/L 10/31/2024 12:05 AM [facility] eGFR 90.5 >60.0 mL/min/1.7 3 10/31/2024 12:05 AM [facility] Blood Structure of left hand / Unknown Venipuncture / Unknown 10/30/2024 9:25 AM EDT 10/30/2024 9:26 AM EDT Narrative [facility] - 10/31/2024 12:05 AM EDT GFR Categories in Chronic Kidney [...] DO LAB BLOOD ORDERABLE S Final Result [facility]
[address] [place] [address], [place] [phone] documented in this encounter Visit Diagnoses Diagnosis Lung nodule- Primary Other diseases of lung, not elsewhere classified documented in this encounter Care Teams Director Learning Relationship Specialty Start Date End Date Jose Luis Pinon MD [address] [facility] [address] [place] [address] PCP - General Internal Medicine 09/19/22 documented as of this encounter
--- OUTSIDE RECORDS SUMMARY | 2024-12-05 19:49 | XMS_ITS | Encounter Summary ---
[facility] Address [address] [place] [address] Care Team Providers Care Forest Fire Fighters Dispatcher Name Role Phone Jose Luis Pinon MD Primary Care Provider + [phone] Reason for Visit * Reason Comments Med Refill Encounter Details Date Type Department Care Team (Late st Contact Info) Description 05/30/2023 Refill [facility] CARDIOLOGY [address] [phone] Arlene Mccarty, LUIS [address] [place] [address] Med Refill Social History Tobacco Use Types Packs/Day Years Used Date Smoking Tobacco: Former Cigarettes 1 17.6 S tarted: 2007 Passive Smoke Exposure: Current Smokeless Tobacco: Never Alcohol Use Standard Drinks/Week Comments Yes 0 (1 standard drink = 0.6 oz pure alcohol) drinks 3 shots of fireball daily, 1 tall sharmin mixer in a can AUDIT-C Answer Date Recorded Q1: How often do you have a drink containing alcohol? 4 or more times a week 01/25/2023 Q2: How many drinks containi ng alcohol do you have on a typical day when you are drinking? 7 to 9 Q3: How often do you have si x or more drinks on one occasion? Daily or almost daily 01/25/2023 Exercise Vital Sign Answer Date Recorde d On average, how many days pe r week do you engage in moderate to strenuous exercise (like a brisk walk)? 5 days 01/26/2023 On average, how many minutes do you engage in exercise at this level? 20 min 01/26/2023 Hunger Vital Sign Answer Date Recorded Within the past 12 months, y ou worried that your food would run out before you got the money to buy more. Never true 01/27/20 Within the past 12 months, t he food you bought just didn't last and you didn't have money to get more. Never true 01/26/2023 Abuse Screen Answer Date Recorded Feels Unsafe at Home or Work/School no 01/24/2023 Feels Threatened by Someone no 01/07 Does Anyone Try to Keep You From Having Contact with Others or Doing Things Outside Your Home? no 01/24/2023 Physical Signs of Abuse Present no 01/24/2023 Housing Stability Answer Date Recorded Current Living Arrangements home 01/08 Potentially Unsafe Housing Conditions none 01/26/2023 Family and Community Support Answer Adithya e Recorded Help with Day-to-Day Activities Not on file 02/14/2023 Lonely or Isolated Not on file 02/14/2023 Employment Answer Date Recorded Do you want help finding or keeping work or a srinivasa b? Not on file 02/14/2023 Disabilities Answer Date Recorded Difficulty Concentrating, Remembering or Making Decisions no 01/25/2023 Difficulty Managing Errands Independently no 01/25/2023 Education Answer Date Recorded Help with school or training? Not on file Preferred Language Trinidadian 01/26/2023 Comments Unknown Sex and Gender Information Value Date Recorded Sex Assigned at Choose not to disclose 12:56 PM EDT Legal Sex Male 10:22 AM EDT Gender Identity Not on file Sexual Orientation Straight 12/03/2024 12 :56 PM EDT documented as of this encounter Miscellaneous Notes * Telephone Encounter - Katie Hancock, PharmD - 05/31/2023 7:53 AM EST See message from pharmacy. Failed refill protocol. Please review and refill if appropriate. documented in this encounter Plan of Treatment Upcoming Encounters Date Type Department Care Team (Late st Contact Info) Description 12/10/2024 8:30 AM EDT Office Visit [facility] CARDIOTHORACIC SURGERY [address] [facility] [address] [place] [phone] Elba Garcia APRN [address] [facility] [address] [place] [address] 01/04/2025 2:45 PM EDT Office Visit [facility] HEMATOLOGY & ONCOLOGY [address] [facility] [address] [place] [address] Rc Valdez MD [address] [facility] [address] [place], [place] [id number] 07/04/2025 11:40 AM EST Office Visit [facility] CARDIOLOGY [address] [facility] [address] [place] [phone] Helene Girard PA-C [address] [facility] [address] [place] [address] documented as of this encounter Visit Diagnoses Not on filedocumented in this encounter Additional Health Concerns Infection Onset Date Last Indicated Resolved Time COVID Screen (preop/placement) 08/06/2024 08/06/2024 08/06/2024 6:48 PM EDT documented as of this encounter Care Teams Forest Fire Fighters Dispatcher Relationship Specialty Start Date End Date Jose Luis Pinon MD [address] [place], [place] [id number] PCP - General Internal Medicine 09/19/22 documented as of this encounter
--- OUTSIDE RECORDS SUMMARY | 2024-12-05 19:49 | XMS_ITS | Encounter Summary ---
[facility] Address [address] [place] [address] Care Team Providers Care Iron Worker Name Role Phone Jose Luis Pinon MD Primary Care Provider + [phone] Encounter Details Date Type Department Care Team (Late st Contact Info) Description 10/30/2024 Patient Outreach [facility] HEMATOLOGY & ONCOLOGY [address] [facility] [address] [place] [phone] Charlene Pickard, RN Social History Tobacco Use Types Packs/Day Years Used Date Smoking Tobacco: Some Days Cigarettes 1 17.6 Started: 05/09/2007 Passive Smoke Exposure: Current Smokeless Tobacco: Never Alcohol Use Standard Drinks/Week Comments Not Currently 0 (1 standard drink = 0.6 oz pur e alcohol) Does not drink anymore [facility] Utilities Answer Date Recorded In the past 12 months has [email or web address], gas, oil, or water [employer] threatened to shut off services in your [...] and heating? Not hard at all 10/11/2023 [facility] [place] of Occupat ional Health - Occupational Stress [...] GED or equivalent No 10/11/2023 Preferred Language Bermudian 10/11/2023 PHQ-2 Answer Date Recorded Retired PHQ-9: [...] Description 12/10/2024 8:30 AM EDT Office Visit [facility] CARDIOTHORACIC SURGERY [address] [facility] [address] [place] [phone] Elba Garcia, CLINICAL QUALITY ASSURANCE SPECIALIST [address] [facility] [address] [place] [address] 01/04/2025 2:45 PM EDT Office Visit [facility] HEMATOLOGY & ONCOLOGY [address] [facility] [address] [place] [address] cR Valdez MD [address]00 [facility] [address] [place] [address] 07/04/2025 11:40 AM EST Office Visit [facility] CARDIOLOGY [address] [facility] [address] [place] [phone] Helene Girard PA-C [address] [facility] [address] [place] [address] documented as of this encounter Visit Diagnoses Not on filedocumented in this encounter Care Teams Iron Worker Relationship Specialty Start Date End Date Jose Luis Pinon MD [address] [facility] [address] [place] [address] PCP - General Internal Medicine 09/19/22 documented as of this encounter
--- OUTSIDE RECORDS SUMMARY | 2024-12-05 19:49 | XMS_ITS | Encounter Summary ---
[facility] Address [address] [place] [address] Care Team Providers Care Metal Painter Name Role Phone Jose Luis Pinon MD Primary Care Provider + [phone] Encounter Details Date Type Department Care Team (Latest Contact Info) Description 11/06/2024 Travel Social History Tobacco Use Types Packs/Day Years Used Date Smoking Tobacco: Some Days Cigarettes 1 17.6 Started: 05/09/2007 Passive Smoke Exposure: Current Smokeless Tobacco: Never Alcohol Use Standard Drinks/Week Comments Not Currently 0 (1 standard drink = 0.6 oz pur e alcohol) Does not drink anymore [facility] Utilities Answer Date Recorded In the [...] and heating? Not hard at all 10/11/2023 [facility] [place] of Occupat ional Health - Occupational Stress [...] GED or equivalent No 10/11/2023 Preferred Language Lao 10/11/2023 PHQ-2 Answer Date Recorded Retired PHQ-9: [...] 8:30 AM EDT Office Visit [facility] CARDIOTHORACIC SURGERY [address]20 [facility] 502 [place] [phone] Elba Garcia APRN 1720 [facility] [address] [place] [address] 01/04/2025 2:45 PM EDT Office Visit [facility] HEMATOLOGY & ONCOLOGY 3000 [facility] [address] [place] [address] Rc Valdez MD 1700 [facility] [address] [place] [address] 07/04/2025 11:40 AM EST Office Visit [facility] CARDIOLOGY 1720 [facility] [address] [place] [address] Helene Girard PA-C 1720 [facility] [address] [place] [phone] documented as of this encounter Visit Diagnoses Not on filedocumented in this encounter Care Teams Metal Painter Relationship Specialty Start Date End Date Jose Luis Pinon MD [address] [facility] [address] [place] [address] PCP - General Internal Medicine 09/19/22 documented as of this encounter
--- OUTSIDE RECORDS SUMMARY | 2024-12-05 19:49 | XMS_ITS | Encounter Summary ---
[facility] Address [address] [place] [address] Care Team Providers Care Cooking Chef Name Role Phone Jose Luis Pinon MD Primary Care Provider + [phone] Encounter Details Date Type Department Care Team (Latest Contact Info) Description 11/23/2024 Travel Social History Tobacco Use Types Packs/Day Years Used Date Smoking Tobacco: Some Days Cigarettes 1 17.6 Started: 05/09/2007 Passive Smoke Exposure: Current Smokeless Tobacco: Never Alcohol Use Standard Drinks/Week Comments Not Currently 0 (1 standard drink = 0.6 oz pur e alcohol) Does not drink anymore [facility] Utilities Answer Date Recorded In the past [...] and heating? Not hard at all 10/11/2023 [facility] [place] of Occupat ional Health - Occupational Stress [...] GED or equivalent No 10/11/2023 Preferred Language [place] Citizen 10/11/2023 PHQ-2 Answer Date Recorded Retired PHQ-9: [...] Description 12/10/2024 8:30 AM EDT Office Visit [facility] CARDIOTHORACIC SURGERY [address] [facility] [address] [place] [phone] Elba Garcia APRN [address]20 [facility] [address] [place] [address] 01/04/2025 2:45 PM EDT Office Visit [facility] HEMATOLOGY & ONCOLOGY 3000 [facility] [address] [place] [address] Rc Valdez MD 1700 [facility] [address] [place] [address] 07/04/2025 11:40 AM EST Office Visit [facility] CARDIOLOGY [address] [facility] [address] [place] [address] Helene Girard PA-C 17[address] [facility] [address] [address] [place] [phone] documented as of this encounter Visit Diagnoses Not on filedocumented in this encounter Care Teams Cooking Chef Relationship Specialty Start Date End Date Jose Luis Pinon MD [address] [facility] [address] [place] [address] PCP - General Internal Medicine 09/19/22 documented as of this encounter
--- OUTSIDE RECORDS SUMMARY | 2024-12-05 19:49 | XMS_ITS | Encounter Summary ---
[facility] Address [address] [place] [address] Care Team Providers Care Supervisor [employer] Name Role Phone Jose Luis Pinon MD Primary Care Provider + [phone] Encounter Details Date Type Department Care Team (Latest Contact Info) Description 10/08/2024 Travel Social History Tobacco Use Types Packs/Day [...] and heating? Not hard at all 10/11/2023 [facility] [place] of Occupat ional Health - Occupational Stress [...] GED or equivalent No 10/11/2023 Preferred Language Qatari 10/11/2023 PHQ-2 Answer Date Recorded Retired PHQ-9: [...] Description 12/10/2024 8:30 AM EDT Office Visit [facility] CARDIOTHORACIC SURGERY 1720 [facility] 502 [place] [phone] Elba Garcia APRN [address] [facility] [address] [place] [address] 01/04/2025 2:45 PM EDT Office Visit [facility] HEMATOLOGY & ONCOLOGY 3000 [facility] [address] [place] [address] Rc Valdez MD [address] [facility] [address] [place] [address] 07/04/2025 11:40 AM EST Office Visit [facility] CARDIOLOGY [address] [facility] [address] [place] [address] Helene Girard PA-C [address] [facility] [address] [place] [phone] documented as of this encounter Visit Diagnoses Not on filedocumented in this encounter Care Teams Supervisor [employer] Relationship Specialty Start Date End Date Jose Luis Pinon MD [address] [facility] [address] [place] [address] PCP - General Internal Medicine 09/19/22 documented as of this encounter
--- OUTSIDE RECORDS SUMMARY | 2024-12-05 19:49 | XMS_ITS | Encounter Summary ---
[facility] Address [address] [place] [address] Care Team Providers Care Beef Cattle Farm Manager Name Role Phone Jose Luis Pinon MD Primary Care Provider + [phone] Encounter Details Date Type Department Care Team (Late st Contact Info) Description 11/13/2024 Patient Outreach [facility] HEMATOLOGY & ONCOLOGY 1700 [facility] 1100 [place] [phone] Charlene Pickard, RN Social History Tobacco Use Types Packs/Day Years Used Date Smoking Tobacco: Some Days Cigarettes 1 17.6 Started: 05/09/2007 Passive Smoke Exposure: Current Smokeless Tobacco: Never Alcohol Use Standard Drinks/Week Comments Not Currently 0 (1 standard drink = 0.6 oz pur e alcohol) Does not drink anymore [facility] Utilities Answer Date Recorded In the past 12 months has [employer], gas, oil, or water [employer] threatened to shut off services in your [...] and heating? Not hard at all 10/11/2023 [facility] [place] of Occupat ional Health - Occupational Stress [...] GED or equivalent No 10/11/2023 Preferred Language Malian 10/11/2023 PHQ-2 Answer Date Recorded Retired PHQ-9: [...] Description 12/10/2024 8:30 AM EDT Office Visit [facility] CARDIOTHORACIC SURGERY 1720 [facility] 502 [place] [phone] Elba Garcia, VEGETABLE COOK 1720 [facility] [address] [place] [address] 01/04/2025 2:45 PM EDT Office Visit [facility] HEMATOLOGY & ONCOLOGY [address] [facility] [address] [place] [address] Rc Valdez MD 1700 [facility] [address] [place] [address] 07/04/2025 11:40 AM EST Office Visit [facility] CARDIOLOGY 17[address] [facility] [address] [place] [phone] Helene Girard PA-C 17[address] [facility] [address] [address] [place] [address] documented as of this encounter Visit Diagnoses Not on filedocumented in this encounter Care Teams Beef Cattle Farm Manager Relationship Specialty Start Date End Date Jose Luis Pinon MD [address] [facility] [address] [place] [address] PCP - General Internal Medicine 09/19/22 documented as of this encounter
--- OUTSIDE RECORDS SUMMARY | 2024-12-05 19:49 | XMS_ITS | Encounter Summary ---
[facility] Address [address] [place] [address] Care Team Providers Care Course Instructor Name Role Phone Jose Luis Pinon MD Primary Care Provider + [phone] Encounter Details Date Type Department Care Team (Late st Contact Info) Description 10/09/2024 Patient Outreach [facility] NURSE NAVIGATOR [address] [place] [phone] Svetlana Lala, RN Social History Tobacco Use Types Packs/Day Years Used Date Smoking Tobacco: Some Days Cigarettes 1 17.6 Started: 05/09/2007 Passive Smoke Exposure: Current Smokeless Tobacco: Never Alcohol Use Standard Drinks/Week Comments Not Currently 0 (1 standard drink = 0.6 oz pur e alcohol) Does not drink anymore [facility] Utilities Answer Date Recorded In the past 12 months has [employer], gas, oil, or water [employer] threatened to shut off services in your [...] and heating? Not hard at all 10/11/2023 [facility] [place] of Occupat ional Health - Occupational Stress [...] GED or equivalent No 10/11/2023 Preferred Language Barbadian 10/11/2023 PHQ-2 Answer Date Recorded Retired PHQ-9: [...] Description 12/10/2024 8:30 AM EDT Office Visit [facility] CARDIOTHORACIC SURGERY 1720 [facility] [address] [place] [address] Elba Garcia, END USER CONSULTANT 1720 [facility] [address] [place] [address] 01/04/2025 2:45 PM EDT Office Visit [facility] HEMATOLOGY & ONCOLOGY 3000 [facility] [address] [place] [address] Rc Valdez MD 1700 [facility] [address] [place] [address] 07/04/2025 11:40 AM EST Office Visit [facility] CARDIOLOGY 17[address] [facility] [address] [place] [address] Helene Girard PA-C [address] [facility] [address] [address] [place] [address] documented as of this encounter Visit Diagnoses Not on filedocumented in this encounter Care Teams Course Instructor Relationship Specialty Start Date End Date Jose Luis Pinon MD [address] [facility] [address] [place] [address] PCP - General Internal Medicine 09/19/22 documented as of this encounter
--- OUTSIDE RECORDS SUMMARY | 2024-12-05 19:49 | XMS_ITS | Clinical Summary ---
Author Organization [facility] Address [address] [place] [address] Care Team Providers Care Bailing Machine Operator Name Role Phone Jose Luis Pinon MD Primary Care Provider + [phone] Allergies Active Allergy Reactions Criticality Noted Date Comments Penicillins Unknown - Patient st ates they do not know rxn details Low 12/23/2022 Immunizations Immunization Administration Dates Next Due TD (adult), 2 Lf tetanus tox oid, preservative free, adsorbed 10/15/2010 Social History Tobacco Use Types Packs/Day Years Used Date Smoking Tobacco: Never Assessed Tobacco Cessation:Counseling Given: Not Answered Sex and Gender Information Value Date Recorded Sex Assigned at Not on file Legal Sex Male 7:41 PM EDT Gender Identity Not on file Sexual Orientation Not on file Last Filed Vital Signs Vital Sign Reading Time Taken Comments Blood Pressure 153/79 12/23/2022 9:45 PM EDT Pulse 81 12/23/2022 9:45 PM EDT Temperature 36.6 C (97.8 F) 12/23/2022 9:45 PM EDT Respiratory Rate 14 12/23/2022 9:45 PM EDT Oxygen Saturation 98% 12/23/2022 9:45 PM EDT Inhaled Oxygen Concentration - - Weight 87.7 kg (193 lb 5.5 oz) 12/23/2022 4:20 P M EDT Height 177.8 cm (5' 10 ) 12/23/2022 4:20 PM EDT Body Mass Index 27.74 12/23/2022 4:20 PM EDT Plan of Treatment Not on file Insurance Care Teams Bailing Machine Operator Relationship Specialty Start Date End Date Jose Luis Pinon MD [address] [place] [address] PCP - General 12/23/22
[2024-12-05] MEDS: diazePAM 10MG/2ML SYRINGE 2 MG IV ×2 (19:50→21:04)
--- OUTSIDE RECORDS SUMMARY | 2024-12-05 19:50 | XMS_ITS | Encounter Summary ---
[facility] Address [address] [place] [address] Care Team Providers Care Research Engineer Marine Equipment Name Role Phone Jose Luis Pinon MD Primary Care Provider + [phone] Reason for Visit * Reason Comments Med Refill Encounter Details Date Type Department Care Team (Late st Contact Info) Description 05/05/2023 Refill [facility] CARDIOLOGY [address] [place] [phone] Arlene Mccarty, LUIS [address]20 [place] [address] Med Refill Social History Tobacco Use Types [...] money to buy more. Never true 01/27/20 23 Within the past 12 months, t he [...] or training? Not on file Preferred Language Bahamian 01/26/2023 Comments Unknown Sex and Gender Information [...] [facility] CARDIOTHORACIC SURGERY 1720 [facility] 502 [place] [address] Elba Garcia, TRANSPORT ANALYST 1720 [facility] [address] [place] [id number] 01/04/2025 2:45 PM EDT Office Visit [facility] HEMATOLOGY & ONCOLOGY 3000 [facility] [address] [place] [address] Rc Valdez MD 1700 [facility] [address] [place], [place] [id number] 07/04/2025 11:40 AM EST Office Visit [facility] CARDIOLOGY 17[address] [facility] 400 [place] [address] Helene Girard PAMelissa 1720 [facility] [address] [place] [address] documented as of this encounter Visit Diagnoses Not on filedocumented in this encounter Additional Health Concerns Infection Onset Date Last Indicated Resolved Time COVID Screen (preop/placement) 08/06/2024 08/06/2024 08/06/2024 6:48 PM EDT documented as of this encounter Care Teams Research Engineer Marine Equipment Relationship Specialty Start Date End Date Jose Luis Pinon MD 1401 [facility] [address] [place], [place] [phone] PCP - General Internal Medicine 09/19/22 documented as of this encounter
--- OUTSIDE RECORDS SUMMARY | 2024-12-05 19:50 | XMS_ITS | Encounter Summary ---
Author [facility] Address [address] [place] [address] Care Team Providers Care Appeals Rn Name Role Phone Jose Luis Pinon MD Primary Care Provider [phone] Reason for Visit * Reason Comments Med Refill Encounter Details Date Type Department Care Team (Late st Contact Info) Description 10/19/2022 Refill [facility] CARDIOLOGY [address] [place] [phone] Arlene Mccarty, CLOD PULLER [address] [place] [address] Med Refill Social History Tobacco Use Types Packs/Day Years Used Date Smoking Tobacco: Former Cigarettes 1 17.6 S tarted: 2008 Passive Smoke Exposure: Current Smokeless Tobacco: Never Alcohol Use Standard Drinks/Week Comments Not Currently 10 (1 standard drink = 0.6 oz pu re alcohol) not for 4 weeks AUDIT-C Answer Date Recorded Q1: How often do you have a drink containing alcohol? 4 or more times a week 09/23/2022 Q2: How many drinks containi ng alcohol do you have on a typical day when you are drinking? 5 or 6 Q3: How often do you have si x or more drinks on one occasion? Weekly 09/23/2022 Comments Unknown Sex and Gender Information Value [...] Description 12/10/2024 8:30 AM EDT Office Visit [facility] CARDIOTHORACIC SURGERY [address] [facility] [address] [place] [phone] Elba Garcia, CLOD PULLER [address] [facility] [address] [place] [address] 01/04/2025 2:45 PM EDT Office Visit [facility] HEMATOLOGY & ONCOLOGY 3000 [facility] [address] [place] [phone] Rc Valdez MD [address] [facility] [address] [place], [place] [address] 07/04/2025 11:40 AM EST Office Visit [facility] CARDIOLOGY [address] [facility] [address] [place] [phone] Helene Girard PA-C [address] [facility] [address] [address] [place] [phone] documented as of this encounter Visit Diagnoses Not on filedocumented in this encounter Additional Health Concerns Infection Onset Date Last Indicated Resolved Time COVID Screen (preop/placement) 01/24/2023 01/24/2023 01/24/2023 5:05 PM EDT COVID Screen (preop/placement) 08/06/2024 08/06/2024 08/06/2024 6:48 PM EDT documented as of this encounter Care Teams Appeals Rn Relationship Specialty Start Date End Date Jose Luis Pinon MD [address] [place], [place] [phone] PCP - General Internal Medicine 09/19/22 documented as of this encounter
--- OUTSIDE RECORDS SUMMARY | 2024-12-05 19:50 | XMS_ITS | Encounter Summary ---
[facility] [address] [place] [address] Care Team Providers Care Roustabout Pusher Name Role Phone Jose Luis Pinon MD Primary Care Provider + [phone] Reason for Visit * Reason Comments Med Refill Encounter Details Date Type Department Care Team (Late st Contact Info) Description 09/23/2022 Refill [facility] CARDIOLOGY [address] [phone] Arlene Mccarty, WRONG ADDRESS CLERK [address] [place] [address] Med Refill Social History Tobacco Use Types Packs/Day Years Used Date Smoking Tobacco: Former Cigarettes 1 17.6 S tarted: 2008 Passive Smoke Exposure: Current Smokeless Tobacco: Never Alcohol Use Standard Drinks/Week Comments Yes 10 (1 standard drink = 0.6 oz pu re alcohol) AUDIT-C Answer Date Recorded Q1: How often [...] as of this encounter Functional Status * Audit-C Score Answer Date of Assessment Author 9 09/23/2022 3:05 PM EDT Monique Hayes MA * Question Answer Date of Assessment Author Q1: How often do you have a drink containing alcohol? 4 or more times a week 09/23/2022 3:05 PM EDT Shaista Hayes MA Q2: How many drinks containing alcohol do you have on a typical day when you are drinking? 5 or 6 09/23/2022 3:05 PM EDT Shaista Hayes MA Q3: How often do you have six or more drinks on one occasion? Weekly 09/23/2022 3:05 PM EDT Shaista Hayes MA documented as of this encounter Plan of Treatment Upcoming Encounters Date Type Department Care Team (Late st Contact Info) Description 12/10/2024 8:30 AM EDT Office Visit [facility] CARDIOTHORACIC SURGERY [address] [facility] [address] [place] [phone] Elba Garcia, WRONG ADDRESS CLERK [address] [facility] [address] [place] [address] 01/04/2025 2:45 PM EDT Office Visit [facility] HEMATOLOGY & ONCOLOGY [address] [facility] [address] [place] [address] Rc Valdez MD 1700 [facility] [address] [place] [address] 07/04/2025 11:40 AM EST Office Visit [facility] CARDIOLOGY 1720 [facility] [address] [place] [address] Helene Girard PA-C [address] [facility] [address] [place] [address] documented as of this encounter Visit Diagnoses Not on filedocumented in this encounter Additional Health Concerns Infection Onset Date Last Indicated Resolved Time COVID Screen (preop/placement) 01/24/2023 01/24/2023 01/24/2023 5:05 PM EDT COVID Screen (preop/placement) 08/06/2024 08/06/2024 08/06/2024 6:48 PM EDT documented as of this encounter Care Teams Roustabout Pusher Relationship Specialty Start Date End Date Jose Luis Pinon MD [address] [place] [address] PCP - General Internal Medicine 09/19/22 documented as of this encounter
[2024-12-05 19:59] LABS: Hematocrit 47.2 % (42.0-52.0); Hemoglobin 17.5 g/dL (14.1-18.0); Immature Granulocytes % 0.4 %; Mean Corpuscular HGB Conc 37.1 g/dL (31.8-35.4); Mean Corpuscular Hemoglobin 32.5 pg (27.0-31.2); Mean Corpuscular Volume 87.6 fl (80-94); Nucleated Red Blood Cells % 0 %; Platelet Count 270 K/mm3 (142-424); Red Blood Count 5.39 M/mm3 (4.60-6.20); Red Cell Distribution Width-SD 39.3 fL; White Blood Count 8.3 K/mm3 (4.8-10.8)
[2024-12-05 20:12] LABS: Alanine Aminotransferase 187 U/L (12-78); Albumin Level 5.1 g/dl (3.5-5.0); Albumin/Globulin Ratio 2.1 (1.1-1.8); Alkaline Phosphatase 75 U/L (38-126); Anion Gap 15.8 mEq/L (5-15); Aspartate Amino Transferase 142 U/L (17-59); Bilirubin,Total 0.7 mg/dl (0.2-1.3); Blood Urea Nitrogen 11 mg/dl (9-20); Calcium 9.0 mg/dl (8.4-10.2); Carbon Dioxide 28 mmol/L (22.0-30.0); Chloride 104 mmol/L (98-107); Creatinine Clearance Estimated 106 mL/min (50-200); Creatinine,Serum 0.90 mg/dl (0.66-1.25); Estimated Glomerular Filt Rate 87 ml/min (>60); GFR (African American) 106 ML/MIN (>60); Globulin 2.4 g/dL (1.3-3.2); Glucose 144 mg/dl (74-100); Potassium 3.8 mmoL/L (3.5-5.1); Sodium 144 mmol/L (136-145); Total Protein,Serum 7.5 g/dl (6.3-8.2)
[2024-12-05 20:13] LABS: Acetaminophen < 10 ug/ml (10-30); Salicylate < 1.0 mg/dL (2.0-20.0)
[2024-12-05 20:18] LABS: D-Dimer 0.39 ug/mL (0.0-0.5)
[2024-12-05 20:19] LABS: Microscopic, Urine URINE MICROSCOPIC (MICROSCOPIC)
[2024-12-05 20:27] LABS: Bilirubin,Urine Negative (Negative); Color,Urine YELLOW (Yellow); Glucose,Urine (UA) 3+ (Negative); Ketones,Urine Negative (Negative); Leukocyte Esterase,Urine Negative (Negative); PH,Urine 6.0 (5.0-8.5); Protein,Urine TRACE (Negative); Specific Gravity, Urine 1.020 (1.005-1.030); Urobilinogen,Urine 0.2 EU/dl (0.2)
[2024-12-05 20:36] LABS: Free T4 (Free Thyroxine) 0.83 ng/dl (0.78-2.19)
[2024-12-05 20:38] LABS: Barbiturates Screen,Urine Negative ng/ml (<200)
[2024-12-05 20:39] LABS: Benzodiazepines Screen,Urine Positive ng/ml (<200)
[2024-12-05 20:40] LABS: Amphetamine/Metha Screen,Urine Negative ng/ml (<1000)
[2024-12-05 20:41] LABS: Methadone Screen,Urine Negative ng/ml (<300)
[2024-12-05 20:42] LABS: Thyroid Stimulating Hormone 1.66 uIU/mL (0.465-4.68)
[2024-12-05 20:42] LABS: Opiate Screen,Urine Negative ng/ml (<300)
[2024-12-05 20:43] LABS: Bacteria,Urine Trace /lpf; Phencyclidine Screen,Urine Negative ng/ml (<25); WBC,Urine Occasional #/hpf (0-3)
--- NOTE | 2024-12-05 21:10 | PC.NURSE ---
Called [facility] regarding a transfer. stated they would call back
--- NOTE | 2024-12-05 21:52 | PC.NURSE ---
Pt woke up from nap very agitated this tech tried to calm pt down. Looked through the door to the nurses and said that i needed help. Hermann Gill and the rest of the nurses came in the room to help calm pt down. Took approximately 5 or so minutes to calm down pt. Pt at this time is calm at this time
[2024-12-05] MEDS: diazePAM 10MG/2ML SYRINGE 5 MG IV (21:57)
--- NOTE | 2024-12-05 22:19 | PC.NURSE ---
Patient became agitated and proceeded to remove his gown, blood pressure cuff and cardiac monitoring insisting that he needed to leave. pt stated i'm freaking the fuck out and you guys dont understand . This RN as well as other staff at bedside, Pt was able to be redirected and calmed down. This RN got patient back into bed with gown and monitoring back on. MD notified of situation and new orders given, upon attempt to administer medication, this RN discover the IV was no longer patent. New IV established into the left hand , medication administered per orde and patient is resting more comfortable at this time communicating with staff.
--- NOTE | 2024-12-05 22:54 | EXP.HP ---
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 Patient states he has unfortunately been diagnosed with stage II lung cancer at [facility], [place] in [place] about 4 weeks ago. He has since followed up with oncology who is considering surgical resection. They apparently have not discussed chemo/radiation therapy yet. Nonetheless, patient has taken this news extremely hard and has been very depressed since diagnosis. He is currently reserved, tearful and not providing many details at this time. 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 He has been having racing thoughts, including thoughts of self-harm. He apparently told his son that he wanted to put a gun in his mouth and blow his head off, and asked to be taken somewhere at which point his son brought him to the ED. In addition, patient started drinking heavily with multiple shots of fireball 3 days ago, last known drink was 6 PM on 12/05/2024. Workup in the ED significant for AST/ALT 142/187, alcohol level 281. ED provider consulted with empath who initially excepted patient, but upon further discovery the patient has had severe alcohol withdrawal in the past they advised further medical stabilization before considering inpatient psychiatry. I discussed case with ED provider and decision was made to admit patient for alcohol intoxication/withdrawal, and suicidal ideation. [facility] Disclaimer: The information contained in this section may have been updated after the patient was seen, as this information can be updated by other users. Social History (Updated 12/06/24 @ 00:55 by Arlene Bajwa RN) Smoking Status: Never smoker alcohol intake: current current occupational status: other Travel in the last 8 weeks?: None Have you lived/traveled outside US in past 30 days?: No Contact w/someone who lives/traveled outside US past 30 days?: No Exposure to someone with infectious disease in past 14 days?: No Do you have a fever (greater than 100.4 F or 38 C)?: No Have you tested positive for COVID-19?: No Exposed to someone with COVID-19 in past 14 days?: No Do you have a sore throat?: No Do you have a cough?: No Do you have any weakness?: No Are you experiencing any nausea/vomitting?: No Do you have any diarrhea?: No Are you experiencing any unusual bleeding?: No Do you have any muscle aches/pain?: No Do you have any abdominal pain?: No Are you experiencing loss of taste or smell?: No Meds Home Medications and Allergies New Prescriptions to Start Prescriptions: Allergies Allergy/AdvReac Type Severity Reaction Status Date / Time No Known Allergies Allergy Verified 12/05/24 19:56 Exam Data for Last 24 hours Vital signs and Labs for Last 24 Hours: Temp Pulse Resp BP Pulse Ox O2 Del Method 97.8 F 96 H 18 152/92 H 96 Room Air 12/05/24 22:09 12/05/24 22:09 12/05/24 22:09 12/05/24 22:09 12/05/24 22:09 12/05/24 22:09 Laboratory Results - last 24 hr 12/05/24 19:48: WBC 8.3, RBC 5.39, Hgb 17.5, Hct 47.2, MCV 87.6, MCH 32.5 H, MCHC 37.1 H, RDW 12.3, Plt Count 270, MPV 10.2, Neut % (Auto) 61.2, Lymph % (Auto) 25.8, Hunt % (Auto) 9.7 H, Eos % (Auto) 1.2, Baso % (Auto) 1.7, Neut # (Auto) 5.1, Lymph # (Auto) 2.1, Hunt # (Auto) 0.8, Eos # (Auto) 0.1, Baso # (Auto) 0.1, D-Dimer 0.39, Sodium 144, Potassium 3.8, Chloride 104, Carbon Dioxide 28, Anion Gap 15.8 H, BUN 11, Creatinine 0.90, Estimated Creat Clear 106, Estimated GFR 87, Est GFR ( Amer) 106, Glucose 144 H, Calcium 9.0, Total Bilirubin 0.7, AST 142 H, ALT 187 H, Alkaline Phosphatase 75, Total Protein 7.5, Albumin 5.1 H, Globulin 2.4, Albumin/Globulin Ratio 2.1 H, TSH 1.66, Free T4 0.83, Salicylates < 1.0 L, Acetaminophen < 10 L, Plasma/Serum Alcohol 281 H 12/05/24 20:08: Urine Color Yellow, Urine Appearance Clear, Urine pH 6.0, Ur Specific [place] 1.020, Urine Protein Trace, Urine Glucose (UA) 3+, Urine Ketones Negative, Urine Blood Negative, Urine Nitrate Negative, Urine Bilirubin Negative, Urine Urobilinogen 0.2, Ur Leukocyte Esterase Negative, Urine WBC Occasional, Ur Squamous Epith Cells 3-5, Urine Bacteria Trace, Urine Opiates Screen Negative, Urine Methadone Screen Negative, Ur Barbituates Screen Negative, Ur Phencyclidine Scrn Negative, Ur Amphetamines Screen Negative, U Benzodiazepines Scrn Positive H, Urine Cocaine Screen Negative, U Marijuana (THC) Screen Negative I & O for Last 24 hours: Intake & Output 12/02/24 12/03/24 12/04/24 12/05/24 23:59 23:59 23:59 23:59 Weight 81.647 kg Constitutional Constitutional: no acute distress *Routine HEENT Exam Head: Present normocephalic Eye: Present EOMI and PERRL ENT: Present mucous membranes moist *Routine Neck Exam Neck: Present supple; Absent lymphadenopathy *Routine Respiratory Exam Respiratory: Present CTA bilaterally *Routine Cardiovascular Exam Cardiovascular: Present RRR *Routine Abdominal Exam Abdominal: Present soft and normoactive bowel sounds; Absent tenderness *Routine Rectal Exam Rectal:: deferred *Routine Genitalia Exam Genitalia:: deferred *Routine Extremities Exam Extremities: Absent cyanosis, clubbing or edema *Routine Skin Exam Skin: Present warm; Absent rash *Routine Neurological Exam Neurological: Present alert and oriented X3 Routine Psychiatric Exam Psychiatric: Present depressed and anxious Assessment and Plan *Assessment and plan (1) Suicide ideation: Status: Acute Category: Medical Code(s): R45.851 - Suicidal ideations (2) Anxiety and depression: Status: Acute Category: Medical Code(s): F41.9 - Anxiety disorder, unspecified; F32.A - Depression, unspecified Plan 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 Patient states he has unfortunately been diagnosed with stage II lung cancer at [facility] [place] in [place] about 4 weeks ago. He has since followed up with oncology who is considering surgical resection. They apparently have not discussed chemo/radiation therapy yet. Nonetheless, patient has taken this news extremely hard and has been very depressed since diagnosis. He is currently reserved, tearful and not providing many details at this time. 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 He has been having racing thoughts, including thoughts of self-harm. He apparently told his son that he wanted to put a gun in his mouth and blow his head off, and asked to be taken somewhere at which point his son brought him to the ED. In addition, patient started drinking heavily with multiple shots of fireball 3 days ago, last known drink was 6 PM on 12/05/2024. Workup in the ED significant for AST/ALT 142/187, alcohol level 281. ED provider consulted with empath who initially excepted patient, but upon further discovery the patient has had severe alcohol withdrawal in the past they advised further medical stabilization before considering inpatient psychiatry. I discussed case with ED provider and decision was made to admit patient for alcohol intoxication/withdrawal, and suicidal ideation. #Suicidal ideation #Uncontrolled anxiety/depression #Stage II lung malignancy ? Presents with 4-week onset of uncontrolled anxiety/depression after learning he has stage II lung cancer [facility]. ? Has been having racing thoughts, including thoughts of suicide with multiple guns at home. Asked son for help, who brought him to the ED. ? On my evaluation, patient is tearful and feeling very anxious. But also reserved. Denies SI/HI at this time, states guns are locked at home with a garcía. I advised garcía be given to his . ? Empath unable to accept at this time as patient has history of severe alcohol withdrawals. Advised medical stabilization and reconsideration after that. ? TSH, free T4 normal. ? Ativan as needed for anxiety. ? Behavioral health consulted, pending further recommendations. #Alcohol intoxication #History of alcohol withdrawal ? Initial serum alcohol 281. Has been drinking multiple shots of fireball the past 3 days. No significant drinking history prior to that. Last known drink 6 PM 12/05/2024. ? CIWA protocol, Ativan as needed. ? Daily vitamins. ? Banana bag for 1 day. Discontinue after that. ? Peer support consulted, pending further recommendations. Full code DVT prophylaxis: Lovenox 40 mg
[2024-12-06] VITALS (11 sets, daily range): BP systolic 153–170; BP diastolic 90–108; PULSE 67–110; RESP 9–24; TEMP 36.8–37.1; O2SAT 94–99; BMI 29.5; BMI 29.4
[2024-12-06] MEDS: ACETAMINOPHEN 325MG TAB 650 MG PO (00:18)
--- NOTE | 2024-12-06 04:18 | PC.NURSE ---
0418 Linen bags were taken out, table wiped, and ice filled. Patient does not need anything at this time.
[2024-12-06 06:19] LABS: Hematocrit 47.0 % (42.0-52.0); Hemoglobin 16.8 g/dL (14.1-18.0); Immature Granulocytes % 0.3 %; Mean Corpuscular HGB Conc 35.7 g/dL (31.8-35.4); Mean Corpuscular Hemoglobin 32.6 pg (27.0-31.2); Mean Corpuscular Volume 91.1 fl (80-94); Nucleated Red Blood Cells % 0 %; Platelet Count 206 K/mm3 (142-424); Red Blood Count 5.16 M/mm3 (4.60-6.20); Red Cell Distribution Width-SD 40.7 fL; White Blood Count 7.0 K/mm3 (4.8-10.8)
[2024-12-06 07:05] LABS: Alanine Aminotransferase 513 U/L (12-78); Albumin Level 4.7 g/dl (3.5-5.0); Albumin/Globulin Ratio 2.0 (1.1-1.8); Alkaline Phosphatase 105 U/L (38-126); Anion Gap 17.3 mEq/L (5-15); Aspartate Amino Transferase 546 U/L (17-59); Bilirubin,Total 1.4 mg/dl (0.2-1.3); Blood Urea Nitrogen 13 mg/dl (9-20); Calcium 8.6 mg/dl (8.4-10.2); Carbon Dioxide 21 mmol/L (22.0-30.0); Chloride 106 mmol/L (98-107); Creatinine Clearance Estimated 114 mL/min (50-200); Creatinine,Serum 0.90 mg/dl (0.66-1.25); Estimated Glomerular Filt Rate 87 ml/min (>60); GFR (African American) 106 ML/MIN (>60); Globulin 2.4 g/dL (1.3-3.2); Glucose 131 mg/dl (74-100); Magnesium 1.8 mg/dl (1.6-2.3); Potassium 4.3 mmoL/L (3.5-5.1); Sodium 140 mmol/L (136-145); Total Protein,Serum 7.1 g/dl (6.3-8.2)
[2024-12-06] MEDS: HALOPERIDOL LACTATE 5 MG/ML VIAL IV (09:43)
[2024-12-06] MEDS: FOLIC ACID 1MG TABLET 1 MG PO (09:44)
[2024-12-06] MEDS: FAMOTIDINE 20MG TABLET 20 MG PO ×2 (09:44→20:21)
[2024-12-06] MEDS: MVI, ADULT NO.1 WITH VIT K 10 ML, THIAMINE HCL 100 MG, MAGNESIUM SULFATE 2 GM in LACTAT... 125 ML IV (09:45)
[2024-12-06] MEDS: THIAMINE 100MG TABLET 100 MG PO (09:54)
--- NOTE | 2024-12-06 12:05 | P.CONS_ITS ---
History of Present Illness *Admission Date: 12/05/24 *Reason for visit:: Behavioral health referral for suicidal ideation. *History of present illness: Per Dr. 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 Patient states he has unfortunately been diagnosed with stage II lung cancer at [facility] in [place] about 4 weeks ago. He has since followed up with oncology who is considering surgical resection. They apparently have not discussed chemo/radiation therapy yet. Nonetheless, patient has taken this news extremely hard and has been very depressed since diagnosis. He is currently reserved, tearful and not providing many details at this time. 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 He has been having racing thoughts, including thoughts of self-harm. He apparently told his son that he wanted to put a gun in his mouth and blow his head off, and asked to be taken somewhere at which point his son brought him to the ED. In addition, patient started drinking heavily with multiple shots of fireball 3 days ago, last known drink was 6 PM on 12/05/2024. Workup in the ED significant for AST/ALT 142/187, alcohol level 281. ED provider consulted with empath who initially excepted patient, but upon further discovery the patient has had severe alcohol withdrawal in the past they advised further medical stabilization before considering inpatient psychiatry. I discussed case with ED provider and decision was made to admit patient for alcohol intoxication/withdrawal, and suicidal ideation. [facility] Disclaimer: The information contained in this section may have been updated after the patient was seen, as this information can be updated by other users. Social History (Updated 12/06/24 @ 00:55 by Arlene Bajwa RN) Smoking Status: Never smoker alcohol intake: current current occupational status: other Travel in the last 8 weeks?: None Have you lived/traveled outside US in past 30 days?: No Contact w/someone who lives/traveled outside US past 30 days?: No Exposure to someone with infectious disease in past 14 days?: No Do you have a fever (greater than 100.4 F or 38 C)?: No Have you tested positive for COVID-19?: No Exposed to someone with COVID-19 in past 14 days?: No Do you have a sore throat?: No Do you have a cough?: No Do you have any weakness?: No Are you experiencing any nausea/vomitting?: No Do you have any diarrhea?: No Are you experiencing any unusual bleeding?: No Do you have any muscle aches/pain?: No Do you have any abdominal pain?: No Are you experiencing loss of taste or smell?: No Review of Systems Review of Systems Review of systems:: pertinent systems reviewed and negative unless documented below Constitutional Constitutional: Reports as per HPI Eyes Eyes: Reports as per HPI ENT Ears, Nose, Mouth, and Throat: Reports as per HPI *Cardiovascular Cardiovascular: Reports as per HPI *Respiratory Respiratory: Reports as per HPI *Gastrointestinal Gastrointestinal: Reports as per HPI *Genitourinary Genitourinary: Reports as per HPI *Musculoskeletal Musculoskeletal: Reports other (Tremors present.) Integumentary/Breasts Skin/Breast: Reports as per HPI *Neurologic Neurologic: Reports as per HPI Psychiatric Psychiatric: Reports depression (He reports difficulty coping with new stage II lung cancer diagnosis.) and Reports suicidal ideation (He denies current suici brisa thoughts or plans.) Endocrine Endocrine: Reports as per HPI Hematologic/Lymphatic Hematologic/Lymphatic: Reports as per HPI Allergic/Immunologic Allergic/Immunologic: Reports as per HPI Meds Home Medications and Allergies Home Medications ?Medication ?Instructions ?Recorded ?Confirmed ?Type alprazolam 0.5 mg tablet 0.5 mg PO TIDP PRN Anxiety 0 12/06/24 12/06/24 History buprenorphine 300 mg/1.5 mL 300 mg SQ WEEKLY 12/06/24 12/06/24 History solution,exten.rel.subcutaneous syringe (Sublocade) New Prescriptions to Start Prescriptions: Allergies Allergy/AdvReac Type Severity Reaction Status Date / Time No Known Allergies Allergy Verified 12/05/24 19:56 Assessment and Plan *Assessment and plan (1) Suicide ideation: Status: Acute Category: Medical Code(s): R45.851 - Suicidal ideations (2) Alcohol abuse: Status: Acute Category: Social Hx Code(s): F10.10 - Alcohol abuse, uncomplicated (3) Anxiety and depression: Status: Acute Category: Medical Code(s): F41.9 - Anxiety disorder, unspecified; F32.A - Depression, unspecified Plan Assessment: 54-year-old male presented to the emergency room department with his son related to the patient having suicidal thoughts with a plan to put his gun in his mouth and blow his head off. He states he asked his son to take him somewhere and that is when he was brought to the emergency room. He denies any current suicidal thoughts or plans and states that he was recently diagnosed with stage II lung cancer and he is having difficulty accepting that diagnosis. He denies starting any treatment for the cancer at this time, but that he has an upcoming appointment on Tuesday at [facility] to discuss treatment options. He states his plan is to have surgery. He denies feeling sad or hopeless. He denies any interest in an antidepressant. He states he is a former smoker that he quit several months ago. Tremors are present. He states that he does not feel the medication for his alcohol withdrawal is strong enough. He reports that he lives with his and that she is supportive and plans to take him to his appointments. He states that he has received his Sublocade injection once and that it was a month and a half ago and that he was never told that it could be addictive and he does not plan to take it again. He reports that he took Lortab by mouth 50 years ago and that is why he was prescribed Sublocade. He states that Dr. Alba prescribed him the Sublocade and he does not wish for him to be contacted. He denies any other form of opioid use. Did discuss with him medications that could be used to maintain sobriety from alcohol and/or opiates. He states that he has a few more days to get that under control. Also discussed that in the future (as he is not interested at this time) he may need an antidepressant as the cancer diagnosis and treatment plan may have an impact on his mental health. Recommend counseling for coping skills with new cancer diagnosis. Recommend reevaluation of suicidal ideation after he has completed alcohol detox. At this time he denies suicidal ideations or plans. If he has recurrent suicidal ideations or plan then do recommend inpatient treatment. Recommend outpatient evaluation for antidepressant in the future as he denies interest at this time. He he changes his mind and wishes to start antidepressant; recommend zoloft 50mg PO daily. Recommend follow-up with behavioral health after discharge. Recommend medication to maintain sobriety from alcohol. Current recommendation is acamprosate 666mg PO TID as he plans to have surgery in the future and maybe prescribed pain medication related to surgery and possibly related to his cancer diagnosis.
--- NOTE | 2024-12-06 12:06 | US_ITS ---
FINAL REPORT TECHNIQUE: Sonographic images of the right upper quadrant were obtained. CLINICAL HISTORY: Elevated liver enzymes COMPARISON: None FINDINGS: PANCREAS: Head is normal, tail is obscured.. LIVER: Homogeneous. No focal hepatic lesion. No intrahepatic biliary ductal dilatation. GALLBLADDER: Distended. No evidence of gallstones. COMMON DUCT: 9 mm. Dilated for age.. RIGHT KIDNEY: The right kidney measures 12.0 cm. There is no hydronephrosis, mass, or stone. FREE FLUID: None. IMPRESSION: Distended gallbladder with common duct dilated but no evidence of stones. Consider MRCP. Reviewed, Interpreted and Dictated by Maricruz Lilly MD Transcribed by Deirdre Conde Authenticated and [facility]
--- OUTSIDE RECORDS SUMMARY | 2024-12-06 12:14 | XMS_ITS | Encounter Summary ---
[facility] [address] [place] [address] Care Team Providers Care Rolls Baker Name Role Phone Jose Luis Pinon MD Primary Care Provider + [phone] Encounter Details Date Type Department Care Team (Late st Contact Info) Description 12/03/2024 Patient Outreach [facility] NURSE NAVIGATOR [address] [place] [phone] Svetlana Lala, RN Social History Tobacco Use [...] Recorded In the past 12 months has [facility], gas, oil, or water [employer] threatened to shut off services in your [...] and heating? Not hard at all 10/11/2023 [facility] - Occupational [...] GED or equivalent No 10/11/2023 Preferred Language Salvadorean 10/11/2023 PHQ-2 Answer Date Recorded Retired PHQ-9: [...] 12/10/2024 8:30 AM EDT Office Visit [facility] CARDIOTHORACIC SURGERY [address] [place] [phone] Elba Garcia, AUDIO VISUAL COORDINATOR [address] [facility] [address] [place], [place] [id number] 01/04/2025 2:45 PM EDT Office Visit [facility] HEMATOLOGY & ONCOLOGY [address] [facility] [address] [place] [address] Rc Valdez MD [address] [facility] [facility] [address] [place], [place] [id number] 07/04/2025 11:40 AM EST Office Visit [facility] CARDIOLOGY [address] [facility] [address] [place] [address] Helene Girard PAMelissa [address] [facility] [address] [place] [address] documented as of this encounter Visit Diagnoses Not on filedocumented in this encounter Care Teams Rolls Baker Relationship Specialty Start Date End Date Beiting, Jose Luis Martinez MD [address] [facility] [address] [place], [place] [id number] PCP - General Internal Medicine 09/19/22 documented as of this encounter
--- OUTSIDE RECORDS SUMMARY | 2024-12-06 12:14 | XMS_ITS | Encounter Summary ---
[facility] Address [address] [place] [address] Care Team Providers Care Mail Carrier And Clerk Name Role Phone Jose Luis Pinon MD Primary Care Provider + [phone] Encounter Details Date Type Department Care Team (Latest Contact Info) Description 12/03/2024 Travel Social History Tobacco Use Types Packs/Day Years Used Date Smoking Tobacco: Some Days Cigarettes 1 17.6 Started: 05/09/2007 Passive Smoke Exposure: Current Smokeless Tobacco: Never Alcohol Use Standard Drinks/Week Comments Not Currently 0 (1 standard drink = 0.6 oz pur e alcohol) Does not drink anymore [facility] Utilities Answer Date Recorded In [...] and heating? Not hard at all 10/11/2023 [facility] - Occupational Stress [...] GED or equivalent No 10/11/2023 Preferred Language Norwegian 10/11/2023 PHQ-2 Answer Date Recorded Retired PHQ-9: [...] 11:23 PM EDT Adam Yanes RN * [place] Suicide Severity Rating Scale (Screener/Recent Self-Report) Question [...] [facility] CARDIOTHORACIC SURGERY [address] [facility] [address] [place] [phone] Elba Garcia APRN [address] [facility] [address] [place] [address] 01/04/2025 2:45 PM EDT Office Visit [facility] HEMATOLOGY & ONCOLOGY [address] [facility] [address] [place] [address] Rc Valdez MD [address] [place], [place] [phone] 07/04/2025 11:40 AM EST Office Visit [facility] CARDIOLOGY [address] [place] [address] Helene Girard PAMelissa [address] [place] [address] documented as of this encounter Visit Diagnoses Not on filedocumented in this encounter Care Teams Mail Carrier And Clerk Relationship Specialty Start Date End Date Jose Luis Pinon MD [address] [place] [address] PCP - General Internal Medicine 09/19/22 documented as of this encounter
--- OUTSIDE RECORDS SUMMARY | 2024-12-06 12:14 | XMS_ITS | Referral Summary ---
Author Organization [facility] ([place], [place], [place], [place]) Address [address] [place] [address] Care Team Providers Care Kennel Keeper Name Role Phone Jose Luis Pinon MD Primary Care Provider [phone] Allergies No known active allergies Medications No known medications Social History Tobacco Use Types Packs/Day Years Used Date Smoking Tobacco: Never Assessed Food Insecurity Answer Date Recorded Food run out past 12 months Not on file 05/09 Food did not last past 12 months Not on file 05/20/2023 Employment Answer Date Recorded Help finding and keeping a job Not on file 0 05/20/2023 Family and Community Support Answer Adithya e Recorded Help with Day to Day Activities Not on file 05/20/2023 Feeling Lonely or Isolated Not on file 05/20 Educational Attainment Answer Date Jitendra rded Speak language other than Guyanese at home Not on file 05/20/2023 Want help with school or training Not on file 05/20/2023 Substance Use Answer Date Recorded Used prescription meds for non-medical reasons N ot on file 05/20/2023 Used illegal drugs past 12 months Not on file 05/20/2023 Sex and Gender Information Value Date Recorded Sex Assigned at Not on file Legal Sex Male 4:45 PM CDT Gender Identity Not on file Sexual Orientation Not on file Last Filed Vital Signs Vital Sign Reading Time Taken Comments Blood Pressure 94/64 03/18/2023 7:35 PM EST Pulse 99 03/18/2023 7:35 PM EST Temperature 36.6 C (97.8 F) 03/18/2023 7:35 PM EST Respiratory Rate 18 03/18/2023 7:35 PM EST Oxygen Saturation 98% 03/18/2023 7:35 PM EST Inhaled Oxygen Concentration - - Weight 86.2 kg (190 lb) 03/18/2023 7:35 PM EST Height 177.8 cm (5' 10 ) 03/18/2023 7:35 PM EST Body Mass Index 27.26 03/18/2023 7:35 PM EST Plan of Treatment Not on file Insurance BLUE CROSS/BLUE SHIELD Care Teams Kennel Keeper Relationship Specialty Start Date End Date Jose Luis Pinon MD PCP - General Internal Medicine 03/18/23
--- OUTSIDE RECORDS SUMMARY | 2024-12-06 12:14 | XMS_ITS | Clinical Summary ---
Author Organization [facility] ([place], [place], [place], [place]) Address [address] [place] [address] Care Team Providers Care Packaging Line Attendant Name Role Phone Jose Luis Pinon MD Primary Care Provider [phone] Allergies No known active allergies Medications No [...] Date Jitendra rded Speak language other than Yemeni at home Not on file 05/20/2023 Want [...] 03/18/2023 7:35 PM EST Plan of Treatment Health Maintenance Due Date Last Done Comments CT Colonography 1968 Colonoscopy 1968 Colorectal Cancer Screening 1968 FOBT/FIT 1968 Fit-DNA (Cologuard) 1968 Sigmoidoscopy 1968 Depression Screening (12+) 1980 Tobacco Cessation Counseling and Screening (12+) 1980 HIV Screening 07/27/1983 Hepatitis C Screening 1986 Pneumococcal 50+ years (1 of 1 - PCV) 2018 Shingles Vaccine (Zoster) (1 of 2) 2018 COVID-19 VACCINE (7 - 2023-2 5 season) 2024 06/09/2021, 07/24/2020, 07/12/2020, Additional history exists Influenza Vaccine (#1) 2025 DTAP/TDAP/TD VACCINES (5 - T d or Tdap) 12/31/2027 12/30/2017, 06/07/2014, 10/15/2010, Additional history exists Lipid Panel 08/07/2029 08/07/2024, 09/21/2022 Insurance BLUE CROSS/BLUE SHIELD Care Teams Packaging Line Attendant Relationship Specialty Start Date End Date Beiting, Jose Luis, MD PCP - General Internal Medicine 03/18/23
--- OUTSIDE RECORDS SUMMARY | 2024-12-06 12:14 | XMS_ITS | Clinical Summary ---
[facility] Address [address] [place] [address] Care Team Providers Care Visual Education Director Name Role Phone Jose Luis Pinon MD Primary Care Provider + [phone] Allergies No known active allergies Medications sacubitril-vals [...] 5:42 AM EDT Emergency [facility] EMERGENCY DEPARTMENT [address] [place] [address] Adam Sanchez MD Alcohol abuse (Primary Dx); Anxiety; Primary hypertension; Tobacco abuse Discharge Disposition: Home or Self Care 12/03/2024 Travel 12/03/2024 Patient Outreach [facility] NURSE NAVIGATOR [address] [place] [address] Svetlana Lala RN 11/27/2024 9:56 AM EDT - 11/27/2024 11:59 PM EDT Hospital Encounter [facility] [place] [address] [place] [address] Anette Ziegler, Adenocarcinoma of right lung Discharge Disposition: Home or Self Care 11/27/2024 Travel 11/23/2024 9:45 AM EDT Consult [facility] HEMATOLOGY & ONCOLOGY [address] [facility] [address] [place] [address] Rc Valdez MD Adenocarcinoma of lower lobe of right lung (Primary Dx) 11/23/2024 Travel 11/20/2024 7:49 AM EDT - 11/20/2024 11:59 PM EDT Hospital Encounter [facility] [place] [address] [facility] [address] [place] [address] Discharge Disposition: Home or Self Care 11/20/2024 7:49 AM EDT - 11/20/2024 11:59 PM EDT Hospital Encounter [facility] [place] [address] [facility] [address] [place] [address] Adenocarcinoma of right lung Discharge Disposition: Home or Self Care 11/20/2024 Travel 11/13/2024 Patient Outreach [facility] HEMATOLOGY & ONCOLOGY [address] [facility] [address] [place] [address] Charlene Pickard RN 11/08/2024 11:28 AM EDT Anesthesia Event [facility] ENDO SUITES [address] [place] [address] Markus Allan MD 11/08/2024 11:12 AM EDT - 11/08/2024 12:26 PM EDT Surgery [facility] ENDO SUITES [address] [place] [address] Anette Ziegler, BRONCHOSCOPY NAVIGATION WITH ENDOBRONCHIAL ULTRASOUND AND ION ROBOT [15991 (CPT )] 11/08/2024 8:53 AM EDT - 11/08/2024 12:54 PM EDT Hospital Encounter [facility] ENDO SUITES [address] [address] Anette Ziegler, DO Lung nodule Discharge Disposition: Home or Self Care 11/08/2024 Travel 11/06/2024 10:23 AM EDT - 11/06/2024 11:59 PM EDT Hospital Encounter [facility] AT [address] [place] [phone] Anette Ziegler, DO Lung nodule Discharge Disposition: Home or Self Care 11/06/2024 Travel 10/30/2024 8:30 AM EDT Office Visit [facility] PULMONARY & CRITICAL CARE MEDICINE [address] [place] [address] Anette Ziegler, DO Lung nodule (Primary Dx); Mucopurulent chronic bronchitis 10/30/2024 Patient Outreach [facility] HEMATOLOGY & ONCOLOGY [address] [facility] [address] [place] [address] Charlene Pickard, RN 10/30/2024 Prep for Surgery [facility] ORDERS ONLY [address] [place] [address] Anette Ziegler, DO Lung nodule (Primary Dx) 10/30/2024 Travel 10/10/2024 Telephone [facility] CARDIOLOGY [address] [facility] [address] [place] [address]SAWYER - CALL BACK 10/09/2024 Patient Outreach [facility] NURSE NAVIGATOR [address] [place] [address] Svetlana Lala, RN 10/08/2024 8:56 AM EDT - 10/08/2024 11:59 PM EDT Hospital Encounter [facility] [address] [place] [address] Palpitations; PAF (paroxysmal atrial fibrillation); Chronic systolic heart failure; Acute on chronic systolic heart failure; Primary hypertension; Chest pain, unspecified type Discharge Disposition: Home or Self Care 10/08/2024 7:37 AM EDT - 10/08/2024 11:59 PM EDT Hospital Encounter [facility] CT [address] [place] [address] Palpitations; PAF (paroxysmal atrial fibrillation); Chronic systolic heart failure; Acute on chronic systolic heart failure; Primary hypertension; Chest pain, unspecified type Discharge Disposition: Home or Self Care 10/08/2024 Travel 10/05/2024 Telephone [facility] 4D [address] [place] [address] Loi Robles MD 10/05/2024 Telephone [facility] 4D [address] [place] [address] Loi Robles MD 09/27/2024 1:30 PM EDT Office Visit [facility] CARDIOLOGY [address] [facility] [address] [place] [address] Loi Robles MD Chronic systolic heart failure (Primary Dx); PAF (paroxysmal atrial fibrillation); Primary hypertension 09/27/2024 Travel 09/21/2024 Refill [facility] CARDIOLOGY [address] [facility] [address] [place] [address] Loi Robles MD Med Refill from Last [...] not drink anymore [facility] Aentropicoities Answer Date Recorded In the past 12 [...] and heating? Not hard at all 10/11/2023 [facility] - Occupational [...] GED or equivalent No 10/11/2023 Preferred Language Ugandan 10/11/2023 PHQ-2 Answer Date Recorded Retired PHQ-9: [...] [facility] CARDIOTHORACIC SURGERY [address] [facility] [address] [place] [address] Elba Garcia APRN [address] [facility] [address] [place] [address] 01/04/2025 2:45 PM EDT Office Visit [facility] HEMATOLOGY & ONCOLOGY [address] [facility] [address] [place] [phone] Rc Valdez MD [address] [facility] [address] [place] [address] 07/04/2025 11:40 AM EST Office Visit [facility] CARDIOLOGY [address] [facility] [address] [place] [address] Helene Girard PAFlorentinC [address] [facility] [address] [place] [address] Health Maintenance Due Date Last [...] Routine 11/08/2024 11:52 AM EDT Lung nodule NON-EQUIPMENT MANAGER CYTOLOGY, [facility] (RICKIE, COR, MAD, MARCIE) Routine 11/08/2024 11:50 AM EDT Lung nodule ANESTHESIA INTUBATION Routine 11/08/2024 11:34 AM EDT WA BRONCHOSCOPY W/CPTR-ASST IMAGE-GUIDED NAVIGATION 11/08/2024 11:23 AM [...] Free T4 (12/04/2024 12:09 AM EDT) Pathologist [facility] TSH 1.660 0.270 - 4.200 uIU/mL 12/04/2024 12:45 AM EDT [facility] Blood Line / Unknown 12/04/2024 12 :09 AM EDT 12/04/2024 12:14 AM EDT Adam Sanchez MD LAB BLOOD ORDERABLES Final Result [facility]
[address] [place] [address], * (ABNORMAL) CBC Auto Differential (12/04/2024 12:09 AM EDT) Only the most recent of2 resultswithin the time period is included. Pathologist [facility] WBC 10.14 3.40 - 10.80 10*3/mm3 12/04/2024 12:16 AM EDT [facility] RBC 4.87 4.14 - 5.80 10*6/mm3 12/04/2024 12:16 AM EDT [facility] Hemoglobin 15.5 13.0 - 17.7 g/dL 12/04/2024 12:16 AM EDT [facility] Hematocrit 43.7 37.5 - 51.0 % 12/04/2024 [facility] MCV 89.7 79.0 - 97.0 fL 12/04/2024 12:16 AM EDT [facility] MCH 31.8 26.6 - 33.0 pg 12/04/2024 12:[facility] MCHC 35.5 31.5 - 35.7 g/dL 12/04/2024 12:16 AM T [facility] RDW 12.6 12.3 - 15.4 % 12/04/2024 12:16 AM [facility] RDW-SD 41.1 37.0 - 54.0 fl 12/04/2024 12:16 AM [facility] MPV 10.3 6.0 - 12.0 fL 12/04/2024 12:16 AM [facility] Platelets 273 140 - 450 10*3/mm3 12/04/2024 12:16 [facility] Neutrophil % 56.3 42.7 - 76.0 % 12/04/2024 12:16 AM [facility] Lymphocyte % 33.1 19.6 - 45.3 % 12/04/2024 12:16 AM [facility] Monocyte % 5.5 5.0 - 12.0 % 12/04/2024 12:16 AM [facility] Eosinophil % 2.6 0.3 - 6.2 % 12/04/2024 12:16 [facility] Basophil % 1.9(H) 0.0 - 1.5 % 12/04/2024 12:16 [facility] Immature Grans % 0.6(H) 0.0 - 0.5 % 12/04/2024 12:16 [facility] Neutrophils, Absolute 5.71 1.70 - 7.00 10*3/mm3 12/04/2024 12:16 [facility] Lymphocytes, Absolute 3.36(H) 0.70 - 3.10 10*3/mm3 12/04/2024 12:16 AM EDT [facility] Monocytes, Absolute 0.56 0.10 - 0.90 10*3/mm3 12/04/2024 12:16 AM EDT [facility] Eosinophils, Absolute 0.26 0.00 - 0.40 10*3/mm3 12/04/2024 12:16 AM EDT [facility] Basophils, Absolute 0.19 0.00 - 0.20 10*3/mm3 12/04/2024 12:16 AM EDT [facility] Immature Grans, Absolute 0.06(H) 0.00 - 0.05 10*3/mm3 12/04/2024 12:16 AM EDT [facility] nRBC 0.0 0.0 - 0.2 /100 WBC 12/04/2024 12:16 AM EDT [facility] Blood Line / Unknown 12/04/2024 12 :09 AM EDT 12/04/2024 12:14 AM EDT Adam Sanchez MD LAB BLOOD ORDERABLES Final Result [facility]
[address] [place] [address], * (ABNORMAL) Ethanol (12/04/2024 12:09 AM EDT) Ethanol 234(H) 0 - 10 mg/dL 12/04/2024 12:40 AM EDT [facility] Blood Line / Unknown 12/04/2024 12 :09 AM EDT 12/04/2024 12:14 AM EDT Narrative [facility] - 12/04/2024 12:40 AM EDT Not for legal purposes. Adam Sanchez MD LAB BLOOD ORDERABLES Final Result [facility]
[address] [place] [address], [place] [phone] * (ABNORMAL) Comprehensive Metabolic Panel (12/04/2024 12:09 AM EDT) Only the most recent of2 resultswithin the time period is included. Glucose 131(H) 65 - 99 mg/dL 12/04/2024 12:40 AM EDT [facility] BUN 13.0 6.0 - 20.0 mg/dL 12/04/2024 12:40 AM EDT [facility] Creatinine 0.93 0.76 - 1.27 mg/dL 12/04/2024 12:40 AM T [facility] Sodium 143 136 - 145 mmol/L 12/04/2024 12:40 AM T [facility] Potassium 3.6 3.5 - 5.2 mmol/L 12/04/2024 12:40 AM [facility] Chloride 105 98 - 107 mmol/L 12/04/2024 12:40 AM [facility] CO2 25.0 22.0 - 29.0 mmol/L 12/04/2024 12:40 AM [facility] Calcium 8.3(L) 8.6 - 10.5 mg/dL 12/04/2024 12:40 AM [facility] Total Protein 6.7 6.0 - 8.5 g/dL 12/04/2024 12:40 AM [facility] Albumin 4.6 3.5 - 5.2 g/dL 12/04/2024 12:40 AM EDT [facility] ALT (SGPT) 42(H) 1 - 41 U/L 12/04/2024 12:40 AM [facility] AST (SGOT) 35 1 - 40 U/L 12/04/2024 12:40 AM [facility] Alkaline Phosphatase 78 39 - 117 U/L 12/04/2024 12:40 AM [facility] Total Bilirubin 0.3 0.0 - 1.2 mg/dL 12/04/2024 12:40 AM [facility] Globulin 2.1 gm/dL 12/04/2024 12:40 AM EDT [facility] Comment:Calculated Result A/G Ratio 2.2 g/dL 12/04/2024 12:40 AM EDT [facility] BUN/Creatinine Ratio 14.0 7.0 - 25.0 12/04/2024 12:40 AM EDT [facility] Anion Gap 13.0 5.0 - 15.0 mmol/L 12/04/2024 12:40 AM EDT [facility] eGFR 96.4 >60.0 mL/min/1.7 3 12/04/2024 12:40 AM EDT [facility] Blood Line / Unknown 12/04/2024 12 :09 AM EDT 12/04/2024 12:14 AM EDT Narrative [facility] - 12/04/2024 12:40 AM EDT [...] BLOOD ORDERABLES Final Result [facility]
[address] [place] [address], * Telemetry Scan (12/03/2024 11:23 PM EDT) Only the most recent of2 resultswithin the time period is included. [facility] Onbase ECG ORDERABLES Final Result * MRI [...] MD 11/27/2024 11:43 AM EDT Workstation ID: [id number] Narrative 11/27/2024 11:43 AM EDT MRI BRAIN [...] MD 11/27/2024 11:43 AM EDT Workstation ID: [id number] us Anette Ziegler DO IMG MRI ORDERABLES [...] MD 11/23/2024 11:34 AM EDT Workstation ID: [id number] Narrative 11/23/2024 11:34 AM EDT FDG NM [...] MD 11/23/2024 11:34 AM EDT Workstation ID: [id number] us Anette Ziegler DO IMG NM ORDERABLES F inal Result * POC Glucose Once (11/20/2024 8:20 AM EDT) Glucose 103 70 - 130 mg/dL 11/20/2024 8:33 AM EDT [facility] Comment:Serial Number: [id number] Blood 11/20/2024 8:20 AM EDT 11/20/2024 8:33 AM EDT Anette Ziegler DO POINT OF CARE TEST ORDERABLES Final Result [facility]
[address] [facility] [address] [address] [place] [address], [place] * XR Chest 1 View (11/08/2024 12:22 PM EDT) Anatomical Region Laterality Modality Body N/A Radiographic Yuly ging 11/08/2024 12:3 4 PM EDT Impressions 11/08/2024 12:35 PM EDT Impression: Negative for postprocedural pneumothorax. Electronically Signed: Adam Patel MD 11/08/2024 12:35 PM EDT Workstation ID: [id number] Narrative 11/08/2024 12:35 PM EDT XR CHEST [...] MD 11/08/2024 12:35 PM EDT Workstation ID: [id number] Anette Ziegler DO IMG DIAGNOSTIC IMAG ING [...] ALEA 11/10/2024 10:41 AM EDT [facility] Gram Stain Few (2+) WBCs seen 11/10/2024 10:41 AM EDT [facility] Gram Stain No organisms seen 11/10/2024 10:41 AM EDT [facility] Lavage Structure of lower lobe of right lung / Unknown 11/08/2024 11:58 AM EDT 11/08/2024 1:05 PM EDT Anette Ziegler DO MICROBIOLOGY - GENE RAL ORDERABLES Final Result Performing Organization Address City/[facility]/ZIP Co de Phone Number [facility]
[address] [place] [address], [facility]
[address] [place] [address], [place] [phone] * Fungus Smear - Lavage, Lung, Right Lower Lobe (11/08/2024 11:58 AM EDT) Fungal Stain No fungal elements seen 11/12/2024 1:51 PM EDT [facility] Lavage Structure of lower lobe of right lung / Unknown 11/08/2024 11:58 AM EDT 11/08/2024 1:05 PM EDT Anette Ziegler DO MICROBIOLOGY - GENE RAL ORDERABLES Final Result Performing Organization Address City/[facility]/ZIP Co de Phone Number [facility]
[address] [place] [address], [place] [phone] * Tissue Pathology Exam (11/08/2024 11:52 AM EDT) Case Report Surgical Pathology Report Case: [id number] Authorizing Provider: Anette Ziegler Collected: 11/08/2024 11:52 AM DO Mj Ordering Location: [facility] Received: 11/08/2024 12:59 PM ENDO SUITES Pathologist: Kyrie Bird MD Specimen: Lung, Right Lower Lobe, RLL TBBX for patho 11/13/2024 1:09 PM EDT [facility] Clinical Information Lung nodule 11/13/2024 1:09 PM EDT [facility] Final Diagnosis RIGHT LOWER LOBE, TRANSBRONCHIAL BIOPSY: Pulmonary adenocarcinoma GJK 11/13/2024 1:09 PM EDT [facility] at 1309 EDT Gross Description 1. Lung, Right Lower Lobe. Received in formalin labeled RLL TBBX for patho is a 1 x 0.5 x 0.1 cm aggregate of fragmented collier-red tissue, filtered and submitted entirely in a single cassette. LDP 11/13/2024 1:09 PM EDT [facility] Special Stains Stains performed with adequate controls. Tumor positive for TTF-1 and Napsin. Tumor shows focal positivity for p40. Immunohistochemist SANDIE ham: PD-L1 (22C3) Tumor Proportion Score: 30%: PD-L1 expression Testing performed at [facility]. See scanned report. 11/13/2024 1:09 PM EDT [facility] Microscopic Description The slides are reviewed and demonstrate histopathologic features supporting the above rendered diagnosis. 11/13/2024 1:09 PM EDT [facility] Tissue Structure of lower lobe of right lung / Unknown 11/08/2024 11:52 AM EDT 11/08/2024 12:59 PM EDT Anette Ziegler DO PATHOLOGY/CYTOLOGY ORDERABLES Final Result [facility]
[address] [place] [address], * NON-EQUIPMENT MANAGER CYTOLOGY, [facility] (RICKIE,COR,MAD,MARCIE) (11/08/2024 11:50 AM EDT) Reference Lab Report [facility] [address] [place] [address] or [phone] Mickey Aguirre M.D., Detail Supervisor PATIENT NAME LABORATORY NO. ODELL DAY. [id number] AGE SEX SSN CLIENT REF # [facility] 54 1970 [id number] [address] REQUESTING Barry ATTENDING [place] [address] ANETTE ZIEGLER DATE COLLECTED DATE RECEIVED DATE REPORTED 11/08/2024 11/08/2024 11/13/2024 DIAGNOSIS: A. TBNA, RIGHT LOWER LOBE: Malignant B. BRONCH BRUSH, RIGHT LOWER LOBE: Suspicious MICROSCOPIC DESCRIPTION: A. Adenocarcinoma of lung primary, see comment B. Suspicious for adenocarcinoma. Professional interpretation rendered by Laurence John D.O., F.C.A.P. at [facility], [place], [address] [place] [address]. COMMENT: The following immunohistochemical stains were performed [...] PD-L1 22C3 antibody from [employer] on the [place] Benchmark Ultra, a process which was validated [...] BY: Laurence John D.O., Fernanda CPT CODES: [id number], [id number], [id number], [id number], [id number] 11/13/2024 8:57 AM EDT [facility] Tissue Structure of lower lobe of right lung / Unknown 11/08/2024 11:50 AM EDT 11/08/2024 1:00 PM EDT Bronchial brushings specimen (specimen) Structure of lower lobe of right lung / Unknown 11/08/2024 11:57 AM EDT Anette Ziegler DO PATHOLOGY/CYTOLOGY ORDERABLES Final Result [facility]
[address] [place] [address], * BH AN ETT AIRWAY (11/08/2024 11:34 AM EDT) Narrative Daniel Louie CRNA - 11/08/2024 11:34 AM EDT Daniel Louie CRNA 11/08/2024 11:35 AM Airway Reason: elective Date/Time: 11/08/2024 11:31 AM Airway not difficult General Information and Staff Patient location during procedure: OR HELPER COORDINATOR/CAA: Daniel Louie CRNA Indications and Patient Condition [...] MD 11/12/2024 10:25 AM EDT Workstation ID: [id number] Narrative 11/12/2024 10:[address] CHEST [...] MD 11/12/2024 10:25 AM EDT Workstation ID: [id number] Anette Ziegler DO IMG CT ORDERABLES F [...] Using a Siemens Force scanner, a preliminary cardiovascular lab director study was obtained, followed by coronary artery [...] 43 RCA 9 Grading Scale for Plaque Spencer: P1 (CAC 1-100) Mild amount of plaque [...] MD 10/08/2024 11:58 AM EDT Workstation ID: [id number] Narrative 10/08/2024 11:[address] ANGIOGRAM [...] are multiple 1 to 2 mm size ufzavbbmpbaoqhfz-by-gga type nodules favoring infectious or inflammatory process.Within [...] MD 10/08/2024 11:58 AM EDT Workstation ID: [id number] Loi Robles MD IMG CT ORDERABLES Final Resul t * Hepatitis Panel, Acute (01/24/2023 4:32 PM EDT) Hepatitis B Surface Ag Non-Reacti ve Non-Reacti ve 01/24/2023 10:44 PM EDT [facility] Hep A IgM Non-Reacti ve Non-Reacti ve 01/24/2023 10:44 PM EDT [facility] Hep B C IgM Non-Reacti ve Non-Reacti ve 01/24/2023 10:44 PM EDT [facility] Hepatitis C Ab Non-Reacti ve Non-Reacti ve 01/24/2023 10:44 PM EDT [facility] Blood Venipuncture / Unknown 01/24/2023 4:32 PM EDT 01/24/2023 4:42 PM EDT Narrative [facility] - 01/24/2023 10:44 PM EDT Results may be falsely decreased if patient taking Biotin. Ernst Ingram DO LAB BLOOD ORDERABLES Final Resu lt [facility]
[address] [place] [address], from Last 3 Months or Most Recently Relevant to Health Maintenance Insurance [address] PPO Advance Directives * CPR (Attempt [...] or is breathing): Full Support Care Teams Visual Education Director Relationship Specialty Start Date End Date Jose Luis Pinon MD [address] [facility] [address] [place] [address] PCP - General Internal Medicine 09/19/22
--- OUTSIDE RECORDS SUMMARY | 2024-12-06 12:14 | XMS_ITS | Encounter Summary ---
[facility] Address [address] [place] [address] Care Team Providers Care Fabric Sourcer Name Role Phone Jose Luis Pinon MD Primary Care Provider + [phone] Encounter Details Date Type Department Care Team (Latest Contact Info) Description 11/27/2024 Travel Social History Tobacco Use Types Packs/Day Years Used Date Smoking Tobacco: Some Days Cigarettes 1 17.6 Started: 05/09/2007 Passive Smoke Exposure: Current Smokeless Tobacco: Never Alcohol Use Standard Drinks/Week Comments Not Currently 0 (1 standard drink = 0.6 oz pur e alcohol) Does not drink anymore [facility] Utilities Answer Date Recorded In [...] hard at all 10/11/2023 [facility] Occup[facility] ional Health - Occupational Stress [...] GED or equivalent No 10/11/2023 Preferred Language Malagasy 10/11/2023 PHQ-2 Answer Date Recorded Retired PHQ-9: [...] Description 12/10/2024 8:30 AM EDT Office Visit [facility] CARDIOTHORACIC SURGERY [address] [facility] [address] [place] [phone] Elba Garcia APRN [address] [facility] [address] [place] [address] 01/04/2025 2:45 PM EDT Office Visit [facility] HEMATOLOGY & ONCOLOGY [address] [facility] [address] [place] [address] Rc Valdez MD [address] [facility] [address] [place] [address] 07/04/2025 11:40 AM EST Office Visit [facility] CARDIOLOGY [address] [facility] [address] [place] [address] Helene Girard PA-C [address] [facility] [address] [place] [phone] documented as of this encounter Visit Diagnoses Not on filedocumented in this encounter Care Teams Fabric Sourcer Relationship Specialty Start Date End Date Jose Luis Pinon MD [address] [facility] [address] [place] [address] PCP - General Internal Medicine 09/19/22 documented as of this encounter
--- OUTSIDE RECORDS SUMMARY | 2024-12-06 12:15 | XMS_ITS | Encounter Summary ---
Author Organization [facility] Address [address] [place] [address] Care Team Providers Care Puff Ironer Name Role Phone Jose Luis Pinon MD Primary Care Provider [phone] Reason for Visit * Reason Onset Date Comments - CALL BACK 10/10/2024 Encounter Details Date Type Department Care Team (Late st Contact Info) Description 10/10/2024 Telephone [facility] CARDIOLOGY [address] [address] Loi Robles MD 1720 [place] [address] - CALL BACK Social History Tobacco Use Types Packs/Day Years Used Date Smoking Tobacco: Some Days Cigarettes 1 17.6 Started: 05/09/2007 Passive Smoke Exposure: Current Smokeless Tobacco: Never Alcohol Use Standard Drinks/Week Comments Not Currently 0 (1 standard drink = 0.6 oz pur e alcohol) Does not drink anymore [facility] Utilities Answer Date Recorded In the past 12 months has [employer], gas, oil, or water company threatened to [...] and heating? Not hard at all 10/11/2023 [facility] - Occupational Stress Questionnaire Answer Date [...] GED or equivalent No 10/11/2023 Preferred Language Estonian 10/11/2023 PHQ-2 Answer Date Recorded Retired PHQ-9: [...] Viramontes Relationship: Self Best call back number: [phone] What is the best time to reach you: ANYTIME Who are you requesting to speak with (clinical staff, provider, specific staff member): ANYONE What was the call regarding: PATIENT WOULD LIKE A CALL BACK TO DISCUSS HIS CTA RESULTS. WANTING TO KNOW WHAT PROVIDER HE SHOULD BE SEEING MOVING FORWARD. IS VERY CONCERNED AND WOULD LIKE A CALL BACK [facility] TO DISCUSS HIS PLAN OF CARE WITH . documented in this encounter Plan of Treatment Upcoming Encounters Date Type Department Care Team (Late st Contact Info) Description 12/10/2024 8:30 AM EDT Office Visit [facility] CARDIOTHORACIC SURGERY [address] [facility] [address] [place] [address] Elba Garcia, RF TEST TECHNICIAN [address] [place] [address] 01/04/2025 2:45 PM EDT Office Visit [facility] HEMATOLOGY & ONCOLOGY [address] [facility] [address] [place] [phone] Rc Valdez MD [address] [facility] [address] [place] [address] 07/04/2025 11:40 AM EST Office Visit [facility] CARDIOLOGY [address] [facility] [address] [place] [phone] Helene Girard, PAFlorentinC [address] [facility] [address] [place] [address] documented as of this encounter Visit Diagnoses Not on filedocumented in this encounter Care Teams Puff Ironer Relationship Specialty Start Date End Date Jose Luis Pinon MD [address] [place], [place] [phone] PCP - General Internal Medicine 09/19/22 documented as of this encounter
--- OUTSIDE RECORDS SUMMARY | 2024-12-06 12:15 | XMS_ITS | Encounter Summary ---
[facility] Address [address] [place] [address] Care Team Providers Care Foreign Policy Officer Name Role Phone Jose Luis Pinon MD Primary Care Provider + [phone] Encounter Details Date Type Department Care Team (Latest Contact Info) Description 11/20/2024 Travel Social History Tobacco Use Types Packs/Day Years Used Date Smoking Tobacco: Some Days Cigarettes 1 17.6 Started: 05/09/2007 Passive Smoke Exposure: Current Smokeless Tobacco: Never Alcohol Use Standard Drinks/Week Comments Not Currently 0 (1 standard drink = 0.6 oz pur e alcohol) Does not drink anymore [facility] Utilities Answer Date Recorded In the [...] and heating? Not hard at all 10/11/2023 [facility] [place] of Occupat ional Health - Occupational Stress [...] GED or equivalent No 10/11/2023 Preferred Language Polish 10/11/2023 PHQ-2 Answer Date Recorded Retired PHQ-9: [...] Description 12/10/2024 8:30 AM EDT Office Visit [facility] CARDIOTHORACIC SURGERY [address]20 [facility] [address] [place] [phone] Elba Garcia APRN [address] [facility] [address] [place] [address] 01/04/2025 2:45 PM EDT Office Visit [facility] HEMATOLOGY & ONCOLOGY 3000 [facility] [address] [place] [address] Rc Valdez MD [address] [facility] [address] [place] [address] 07/04/2025 11:40 AM EST Office Visit [facility] CARDIOLOGY [address] [facility] [address] [place] [address] Helene Girard PA-C [address] [facility] [address] [place] [address] documented as of this encounter Visit Diagnoses Not on filedocumented in this encounter Care Teams Foreign Policy Officer Relationship Specialty Start Date End Date Jose Luis Pinon MD [address] [facility] [address] [place] [address] PCP - General Internal Medicine 09/19/22 documented as of this encounter
--- OUTSIDE RECORDS SUMMARY | 2024-12-06 12:15 | XMS_ITS | Clinical Summary ---
Author Organization Healthcare Address [address] [place] [address] Care Team Providers Care Mold Cooler Name Role Phone Jose Luis Pinon MD Primary Care Provider + [phone] Allergies Active Allergy Reactions Criticality Noted Date [...] Treatment Not on file Insurance Care Teams Mold Cooler Relationship Specialty Start Date End Date Jose Luis Pinon MD [address] [place] [address] PCP - General 12/23/22
--- OUTSIDE RECORDS SUMMARY | 2024-12-06 12:15 | XMS_ITS | Encounter Summary ---
[facility] Address [address] [place] [address] Care Team Providers Care Laundry Route Driver Name Role Phone Jose Luis Pinon MD Primary Care Provider + [phone] Encounter Details Date Type Department Care Team (Latest Contact Info) Description 10/30/2024 Travel Social History Tobacco Use Types Packs/Day Years Used Date Smoking Tobacco: Some Days Cigarettes 1 17.6 Started: 05/09/2007 Passive Smoke Exposure: Current Smokeless Tobacco: Never Alcohol Use Standard Drinks/Week Comments Not Currently 0 (1 standard drink = 0.6 oz pur e alcohol) Does not drink anymore [facility] Utilities Answer Date Recorded In the past [...] hard at all 10/11/2023 [facility] [place] of Occupat ional Health - Occupational Stress [...] GED or equivalent No 10/11/2023 Preferred Language Greek 10/11/2023 PHQ-2 Answer Date Recorded Retired PHQ-9: [...] 12/10/2024 8:30 AM EDT Office Visit [facility] CARDIOTHORACIC SURGERY [address] [facility] [address] [place] [address] Elba Garcia APRN [address] [facility] [address] [place] [address] 01/04/2025 2:45 PM EDT Office Visit [facility] HEMATOLOGY & ONCOLOGY 3000 [facility] [address] [place] [address] Rc Valdez MD [address] [facility] [address] [place] [address] 07/04/2025 11:40 AM EST Office Visit [facility] CARDIOLOGY 17[address] [facility] [address] [place] [address] Helene Girard PA-C [address] [facility] [address] [place] [address] documented as of this encounter Visit Diagnoses Not on filedocumented in this encounter Care Teams Laundry Route Driver Relationship Specialty Start Date End Date Jose Luis Pinon MD [address] [facility] [address] [place] [address] PCP - General Internal Medicine 09/19/22 documented as of this encounter
--- OUTSIDE RECORDS SUMMARY | 2024-12-06 12:15 | XMS_ITS | Encounter Summary ---
[facility] Address [address] [place] [address] Care Team Providers Care Customer Account Specialist Name Role Phone Jose Luis Pinon MD Primary Care Provider + [phone] Encounter Details Date Type Department Care Team (Latest Contact Info) Description 11/08/2024 Travel Social History Tobacco Use Types Packs/Day Years Used Date Smoking Tobacco: Some Days Cigarettes 1 17.6 Started: 05/09/2007 Passive Smoke Exposure: Current Smokeless Tobacco: Never Alcohol Use Standard Drinks/Week Comments Not Currently 0 (1 standard drink = 0.6 oz pur e alcohol) Does not drink anymore [facility] Utilities Answer Date Recorded In the [...] and heating? Not hard at all 10/11/2023 [facility] [place] of Occupat ional Health - Occupational [...] GED or equivalent No 10/11/2023 Preferred Language Icelandic 10/11/2023 PHQ-2 Answer Date Recorded Retired PHQ-9: [...] [facility] CARDIOTHORACIC SURGERY [address]20 [facility] [address] [place] [phone] Elba Garcia APRN [address] [facility] [address] [place] [address] 01/04/2025 2:45 PM EDT Office Visit [facility] HEMATOLOGY & ONCOLOGY [address] [facility] [address] [place] [address] Rc Valdez MD [address] [facility] [address] [place] [address] 07/04/2025 11:40 AM EST Office Visit [facility] CARDIOLOGY [address] [facility] [address] [place] [address] Helene Girard PA-C [address]20 [facility] [address] [place] [address] documented as of this encounter Visit Diagnoses Not on filedocumented in this encounter Care Teams Customer Account Specialist Relationship Specialty Start Date End Date Jose Luis Pinon MD [address] [facility] [address] [place] [address] PCP - General Internal Medicine 09/19/22 documented as of this encounter
--- OUTSIDE RECORDS SUMMARY | 2024-12-06 12:15 | XMS_ITS | Encounter Summary ---
[facility] Address [address] [place] [address] Care Team Providers Care Supervisor Bridges And Buildings Name Role Phone Jose Luis Pinon MD Primary Care Provider + [phone] Reason for Visit * Reason Comments Med Refill Encounter Details Date Type Department Care Team (Late st Contact Info) Description 05/30/2023 Refill [facility] CARDIOLOGY [address] [address] Arlene Mccarty, LUIS [address] [place] [address] Med Refill Social History Tobacco Use Types [...] or training? Not on file Preferred Language Salvadorean 01/26/2023 Comments Unknown Sex and Gender Information [...] 8:30 AM EDT Office Visit [facility] CARDIOTHORACIC SURGERY [address] [facility] [address] [place] [address] Elba Garcia APRN [address] [facility] [address] [place] [address] 01/04/2025 2:45 PM EDT Office Visit [facility]EMATOLOGY & ONCOLOGY [address] [facility] [address] [place] [address] Rc Valdez MD [address] [facility] [address] [place], [place] [address] 07/04/2025 11:40 AM EST Office Visit [facility] CARDIOLOGY [address] [facility] [address] [place] [phone] Helene Girard PA-C [address] [facility] [address] [address] [place] [address] documented as of this encounter Visit Diagnoses Not on filedocumented in this encounter Additional Health Concerns Infection Onset Date Last Indicated Resolved Time COVID Screen (preop/placement) 08/06/2024 08/06/2024 08/06/2024 6:48 PM EDT documented as of this encounter Care Teams Supervisor Bridges And Buildings Relationship Specialty Start Date End Date Jose Luis Pinon MD [address] [place], [place] [phone] PCP - General Internal Medicine 09/19/22 documented as of this encounter
--- OUTSIDE RECORDS SUMMARY | 2024-12-06 12:15 | XMS_ITS | Encounter Summary ---
[facility] Organization [facility] Address [address] [place] [address] Care Team Providers Care Site Planner Name Role Phone Jose Luis Pinon MD Primary Care Provider + [phone] Encounter Details Date Type Department Care Team (Late st Contact Info) Description 10/30/2024 Prep for Surgery [facility] ORDERS ONLY [address] [place] [address] Bill Ziegler, DO [address] [place] [address] Lung nodule (Primary Dx) Social History Tobacco Use Types Packs/Day Years Used Date Smoking Tobacco: Some Days Cigarettes 1 17.6 Started: 05/09/2007 Passive Smoke Exposure: Current Smokeless Tobacco: Never Alcohol Use Standard Drinks/Week Comments Not Currently 0 (1 standard drink = 0.6 oz pur e alcohol) Does not drink anymore [facility] Utilities Answer Date Recorded In the past 12 months has [employer], gas, oil, or water [employer] threatened to shut off services in your [...] and heating? Not hard at all 10/11/2023 [facility] [place] of Occupat ional Health - Occupational Stress [...] GED or equivalent No 10/11/2023 Preferred Language Japanese 10/11/2023 PHQ-2 Answer Date Recorded Retired PHQ-9: [...] 8:30 AM EDT Office Visit [facility] CARDIOTHORACIC SURGERY [address] [facility] [address] [place] [address] Elba Garcia APRN [address] [facility] [address] [place] [address] 01/04/2025 2:45 PM EDT Office Visit [facility] HEMATOLOGY & ONCOLOGY [address] [facility] [address] [place] [address] Rc Valdez MD [address] [facility] [address] [place] [address] 07/04/2025 11:40 AM EST Office Visit [facility] CARDIOLOGY [address] [facility] [address] [place] [address] McGHelene lawrence PA-C [address] [place] [address] Scheduled Orders Name Type Priority Associated Diagnoses Orde r Schedule ECG 12 Lead ECG Routine Lung nodule Expected: 11/04/2024, Expires: 10/30/2025 documented as of this encounter Results * (ABNORMAL) Comprehensive Metabolic Panel (10/30/2024 9:25 AM EDT) Glucose 113(H) 65 - 99 mg/dL 10/31/2024 12:05 AM EDT [facility] BUN 19.0 6.0 - 20.0 mg/dL 10/31/2024 12:05 AM T [facility] Creatinine 0.98 0.76 - 1.27 mg/dL 10/31/2024 12:05 AM [facility] Sodium 137 136 - 145 mmol/L 10/31/2024 12:05 AM EDT [facility] Potassium 3.8 3.5 - 5.2 mmol/L 10/31/2024 12:05 AM [facility] Chloride 100 98 - 107 mmol/L 10/31/2024 12:05 AM T [facility] CO2 22.1 22.0 - 29.0 mmol/L 10/31/2024 12:05 AM [facility] Calcium 9.2 8.6 - 10.5 mg/dL 10/31/2024 12:05 AM T [facility] Total Protein 7.3 6.0 - 8.5 g/dL 10/31/2024 12:05 AM T [facility] Albumin 4.6 3.5 - 5.2 g/dL 10/31/2024 12:05 AM [facility] ALT (SGPT) 29 1 - 41 U/L 10/31/2024 12:05 AM [facility] AST (SGOT) 27 1 - 40 U/L 10/31/2024 12:05 AM [facility] Alkaline Phosphatase 89 39 - 117 U/L 10/31/2024 12:05 AM EDT [facility] Total Bilirubin 0.6 0.0 - 1.2 mg/dL 10/31/2024 12:05 AM T [facility] Globulin 2.7 gm/dL 10/31/2024 12:05 AM T [facility] A/G Ratio 1.7 g/dL 10/31/2024 12:05 AM EDT [facility] BUN/Creatinine Ratio 19.4 7.0 - 25.0 10/31/2024 12:05 AM T [facility] Anion Gap 14.9 5.0 - 15.0 mmol/L 10/31/2024 12:05 AM [facility] eGFR 90.5 >60.0 mL/min/1.7 3 10/31/2024 12:05 AM [facility] Blood Structure of left hand / Unknown Venipuncture / Unknown 10/30/2024 9:25 AM EDT 10/30/2024 9:26 AM EDT Narrative [facility] - 10/31/2024 12:05 AM EDT [...] DO LAB BLOOD ORDERABLE S Final Result [facility]
[address] [place] [address], [place] [phone] documented in this encounter Visit Diagnoses Diagnosis Lung nodule- Primary Other diseases of lung, not elsewhere classified documented in this encounter Care Teams Site Planner Relationship Specialty Start Date End Date Jose Luis Pinon MD [address] [facility] [address] [place] [address] PCP - General Internal Medicine 09/19/22 documented as of this encounter
--- OUTSIDE RECORDS SUMMARY | 2024-12-06 12:15 | XMS_ITS | Encounter Summary ---
[facility] Organization [facility] Address [address] [place] [address] Care Team Providers Care Opthalmic Tech Name Role Phone Jose Luis Pinon MD Primary Care Provider [phone] Reason for Visit * Reason Comments Med Refill Encounter Details Date Type Department Care Team (Late st Contact Info) Description 10/19/2022 Refill [facility] CARDIOLOGY [address] [place] [phone] Arlene Mccarty, CODING EDUCATOR [address] [place] [address] Med Refill Social History Tobacco Use Types [...] [facility] [address] [facility] [address] [place] [phone] Elba Garcia, CODING EDUCATOR [address] [facility] [address] [place] [address] 01/04/2025 2:45 PM EDT Office Visit [facility] HEMATOLOGY & ONCOLOGY [address] [facility] [address] [place] [address] Rc Valdez MD [address] [facility] [address] [place], [place] [address] 07/04/2025 11:40 AM EST Office Visit [facility] CARDIOLOGY [address] [facility] [address] [place] [address] Helene Girard PA-C [address] [facility] [address] [place] [address] documented as of this encounter Visit Diagnoses Not on filedocumented in this encounter Additional Health Concerns Infection Onset Date Last Indicated Resolved Time COVID Screen (preop/placement) 01/24/2023 01/24/2023 01/24/2023 5:05 PM EDT COVID Screen (preop/placement) 08/06/2024 08/06/2024 08/06/2024 6:48 PM EDT documented as of this encounter Care Teams Opthalmic Tech Relationship Specialty Start Date End Date Jose Luis Pinon MD [address] [place], [place] [address] PCP - General Internal Medicine 09/19/22 documented as of this encounter
--- OUTSIDE RECORDS SUMMARY | 2024-12-06 12:15 | XMS_ITS | Encounter Summary ---
[facility] Address [address] [place] [address] Care Team Providers Care Purchase Request Editor Name Role Phone Jose Luis Pinon MD Primary Care Provider + [phone] Encounter Details Date Type Department Care Team (Latest Contact Info) Description 11/06/2024 Travel Social History Tobacco Use Types Packs/Day Years Used Date Smoking Tobacco: Some Days Cigarettes 1 17.6 Started: 05/09/2007 Passive Smoke Exposure: Current Smokeless Tobacco: Never Alcohol Use Standard Drinks/Week Comments Not Currently 0 (1 standard drink = 0.6 oz pur e alcohol) Does not drink anymore [facility] Utilities Answer Date Recorded In the past [...] and heating? Not hard at all 10/11/2023 [facility] [place] of Occupat ional Health - Occupational Stress [...] GED or equivalent No 10/11/2023 Preferred Language Syrian 10/11/2023 PHQ-2 Answer Date Recorded Retired PHQ-9: [...] [facility] CARDIOTHORACIC SURGERY [address] [facility] [address] [place] [phone] Elba Garcia APRN [address]20 [facility] [address] [place] [address] 01/04/2025 2:45 PM EDT Office Visit [facility] HEMATOLOGY & ONCOLOGY [address] [facility] [address] [place] [address] Rc Valdez MD [address]00 [facility] [address] [place] [address] 07/04/2025 11:40 AM EST Office Visit [facility] CARDIOLOGY [address]20 [facility] [address] [place] [address] Helene Girard PA-C [address] [facility] [address] [place] [phone] documented as of this encounter Visit Diagnoses Not on filedocumented in this encounter Care Teams Purchase Request Editor Relationship Specialty Start Date End Date Jose Luis Pinon MD [address] [facility] [address] [place] [address] PCP - General Internal Medicine 09/19/22 documented as of this encounter
--- OUTSIDE RECORDS SUMMARY | 2024-12-06 12:15 | XMS_ITS | Encounter Summary ---
Author Organization [facility] Address [address] [place] [address] Care Team Providers Care Consumer Loan Officer Name Role Phone Jose Luis Pinon MD Primary Care Provider + [phone] Encounter Details Date Type Department Care Team (Late st Contact Info) Description 11/13/2024 Patient Outreach [facility] HEMATOLOGY & ONCOLOGY [address] [facility] [address] [place] [phone] Charlene Pickard, RN Social History Tobacco Use Types Packs/Day Years Used Date Smoking Tobacco: Some Days Cigarettes 1 17.6 Started: 05/09/2007 Passive Smoke Exposure: Current Smokeless Tobacco: Never Alcohol Use Standard Drinks/Week Comments Not Currently 0 (1 standard drink = 0.6 oz pur e alcohol) Does not drink anymore [facility] Utilities Answer Date Recorded In the past 12 months has [employer], gas, oil, or water [employer] threatened to shut off services in [...] and heating? Not hard at all 10/11/2023 [facility] [place] of Occupat ional Health - Occupational Stress [...] GED or equivalent No 10/11/2023 Preferred Language Stateless 10/11/2023 PHQ-2 Answer Date Recorded Retired PHQ-9: [...] [facility] CARDIOTHORACIC SURGERY [address] [facility] [address] [place] [address] Elba Garcia, YARN FINISHER [address] [facility] [address] [place] [address] 01/04/2025 2:45 PM EDT Office Visit [facility] HEMATOLOGY & ONCOLOGY [address] [facility] [address] [place] [address] Rc Valdez MD [address]00 [facility] [address] [place] [address] 07/04/2025 11:40 AM EST Office Visit [facility] CARDIOLOGY [address] [facility] [address] [place] [address] Helene Girard PA-C [address] [facility] [address] [address] [place] [address] documented as of this encounter Visit Diagnoses Not on filedocumented in this encounter Care Teams Consumer Loan Officer Relationship Specialty Start Date End Date Jose Luis Pinon MD [address] [place] [address] PCP - General Internal Medicine 09/19/22 documented as of this encounter
--- OUTSIDE RECORDS SUMMARY | 2024-12-06 12:15 | XMS_ITS | Encounter Summary ---
[facility] Address [address] [place] [address] Care Team Providers Care Topstitcher Zigzag Name Role Phone Jose Lusi Pinon MD Primary Care Provider + [phone] Encounter Details Date Type Department Care Team (Late st Contact Info) Description 10/30/2024 Patient Outreach [facility] HEMATOLOGY & ONCOLOGY [address] [facility] [address] [place] [phone] Charlene Pickard, RN Social History Tobacco Use Types Packs/Day Years Used Date Smoking Tobacco: Some Days Cigarettes 1 17.6 Started: 05/09/2007 Passive Smoke Exposure: Current Smokeless Tobacco: Never Alcohol Use Standard Drinks/Week Comments Not Currently 0 (1 standard drink = 0.6 oz pur e alcohol) Does not drink anymore [facility] Utilities Answer Date Recorded In the past 12 months has gifted[employer], gas, oil, or water [employer] threatened to shut off services in your [...] and heating? Not hard at all 10/11/2023 [employer] [place] of Occupat ional Health - Occupational Stress [...] GED or equivalent No 10/11/2023 Preferred Language Andorran 10/11/2023 PHQ-2 Answer Date Recorded Retired PHQ-9: [...] [facility] CARDIOTHORACIC SURGERY [address] [facility] [address] [place] [phone] Elba Garcia, OCEAN CLAM BOAT CAPTAIN [address] [facility] [address] [place] [address] 01/04/2025 2:45 PM EDT Office Visit [facility] HEMATOLOGY & ONCOLOGY [address] [facility] [address] [place] [address] Rc Valdez MD [address] [facility] [address] [place] [address] 07/04/2025 11:40 AM EST Office Visit [facility] CARDIOLOGY [address] [facility] [address] [place] [phone] Helene Girard PA-C [address] [facility] [address] [place] [address] documented as of this encounter Visit Diagnoses Not on filedocumented in this encounter Care Teams Topstitcher Zigzag Relationship Specialty Start Date End Date Jose Lusi Pinon MD [address] [facility] [address] [place] [address] PCP - General Internal Medicine 09/19/22 documented as of this encounter
--- OUTSIDE RECORDS SUMMARY | 2024-12-06 12:15 | XMS_ITS | Encounter Summary ---
[facility] Address [address] [place] [address] Care Team Providers Care Fountain Dispenser Name Role Phone Jose Luis Pinon MD Primary Care Provider + [phone] Reason for Visit * Reason Comments Med Refill Encounter Details Date Type Department Care Team (Late st Contact Info) Description 05/05/2023 Refill [facility] CARDIOLOGY [address] [place] [phone] Arlene Mccarty, LUIS [address] [place] [address] Med Refill Social History Tobacco Use Types [...] or training? Not on file Preferred Language Guatemalan 01/26/2023 Comments Unknown Sex and Gender Information [...] Description 12/10/2024 8:30 AM EDT Office Visit [facility] CARDIOTHORACIC SURGERY [address] [facility] [address] [place] [address] Elba Garcia, AGER OPERATOR [address] [facility] [address] [place] [id number] 01/04/2025 2:45 PM EDT Office Visit [facility] HEMATOLOGY & ONCOLOGY [address] [facility] [address] [place] [address] Rc Valdez MD [address] [facility] [address] [place], [place] [id number] 07/04/2025 11:40 AM EST Office Visit [facility] CARDIOLOGY [address] [facility] [address] [place] [address] Helene Girard PAMelissa [address] [facility] [address] [place] [address] documented as of this encounter Visit Diagnoses Not on filedocumented in this encounter Additional Health Concerns Infection Onset Date Last Indicated Resolved Time COVID Screen (preop/placement) 08/06/2024 08/06/2024 08/06/2024 6:48 PM EDT documented as of this encounter Care Teams Fountain Dispenser Relationship Specialty Start Date End Date Jose Luis Pinon MD [address] [facility] [address] [place], [place] [id number] PCP - General Internal Medicine 09/19/22 documented as of this encounter
--- OUTSIDE RECORDS SUMMARY | 2024-12-06 12:15 | XMS_ITS | Encounter Summary ---
[facility] Address [address] [place] [address] Care Team Providers Care Director Family Name Role Phone Jose Luis Pinon MD Primary Care Provider + [phone] Encounter Details Date Type Department Care Team (Late st Contact Info) Description 10/09/2024 Patient Outreach [facility] NURSE NAVIGATOR [address] [place] [phone] Svetlana Lala, RN Social History Tobacco Use Types Packs/Day Years Used Date Smoking Tobacco: Some Days Cigarettes 1 17.6 Started: 05/09/2007 Passive Smoke Exposure: Current Smokeless Tobacco: Never Alcohol Use Standard Drinks/Week Comments Not Currently 0 (1 standard drink = 0.6 oz pur e alcohol) Does not drink anymore [facility] Utilities Answer Date Recorded In the past 12 months has alike, gas, oil, or water [employer] threatened to shut off services in your [...] and heating? Not hard at all 10/11/2023 [facility] [place] of Occupat ional Health - Occupational Stress [...] Description 12/10/2024 8:30 AM EDT Office Visit [facility] CARDIOTHORACIC SURGERY [address] [facility] [address] [place] [phone] Elba Garcia, PER DIEM RN [address] [facility] [address] [place] [address] 01/04/2025 2:45 PM EDT Office Visit [facility] HEMATOLOGY & ONCOLOGY [address] [facility] [address] [place] [address] Rc Valdez MD [address] [facility] [address] [place] [address] 07/04/2025 11:40 AM EST Office Visit [facility] CARDIOLOGY [address] [facility] [address] [place] [phone] Helene Girard PA-C [address] [facility] [address] [address] [place] [address] documented as of this encounter Visit Diagnoses Not on filedocumented in this encounter Care Teams Director Family Relationship Specialty Start Date End Date Jose Luis Pinon MD [address] [facility] [facility] [address] [place] [address] PCP - General Internal Medicine 09/19/22 documented as of this encounter
--- OUTSIDE RECORDS SUMMARY | 2024-12-06 12:15 | XMS_ITS | Encounter Summary ---
[facility] [address] [place] [address] Care Team Providers Care Lead Assistant Manager Name Role Phone Jose Luis Pinon MD Primary Care Provider + [phone] Encounter Details Date Type Department Care Team (Latest Contact Info) Description 10/08/2024 Travel Social History Tobacco Use Types Packs/Day Years Used Date Smoking Tobacco: Some Days Cigarettes 1 17.6 Started: 05/09/2007 Passive Smoke Exposure: Current Smokeless Tobacco: Never Alcohol Use Standard Drinks/Week Comments Not Currently 0 (1 standard drink = 0.6 oz pur e alcohol) Does not drink anymore [facility] Utilities Answer Date Recorded In the [...] and heating? Not hard at all 10/11/2023 [facility] [place] of Occupat ional Health - Occupational Stress [...] GED or equivalent No 10/11/2023 Preferred Language Israeli 10/11/2023 PHQ-2 Answer Date Recorded Retired PHQ-9: [...] Description 12/10/2024 8:30 AM EDT Office Visit [facility] CARDIOTHORACIC SURGERY [address] [facility] [address] [place] [phone] Elba Garcia APRN [address] [facility] [address] [place] [address] 01/04/2025 2:45 PM EDT Office Visit [facility] HEMATOLOGY & ONCOLOGY [address] [facility] [address] [place] [address] Rc Valdez MD [address] [facility] [address] [place] [address] 07/04/2025 11:40 AM EST Office Visit [facility] CARDIOLOGY [address] [facility] [address] [place] [address] Helene Girard PA-C [address] [facility] [address] [place] [phone] documented as of this encounter Visit Diagnoses Not on filedocumented in this encounter Care Teams Lead Assistant Manager Relationship Specialty Start Date End Date Jose Luis Pinon MD [address] [facility] [facility] [address] [place] [address] PCP - General Internal Medicine 09/19/22 documented as of this encounter
--- OUTSIDE RECORDS SUMMARY | 2024-12-06 12:15 | XMS_ITS | Encounter Summary ---
[facility] Address [address] [place] [address] Care Team Providers Care Professor Of Criminal Justice Name Role Phone Jose Luis Pinon MD Primary Care Provider + [phone] Reason for Visit * Reason Comments Med Refill Encounter Details Date Type Department Care Team (Late st Contact Info) Description 09/23/2022 Refill [facility] CARDIOLOGY [address] [place] [phone] Arlene Mccarty, IT DISASTER RECOVERY MANAGER [address] [place] [address] Med Refill Social History Tobacco Use Types [...] [facility] [address] [facility] [address] [place] [phone] Elba Garcia, IT DISASTER RECOVERY MANAGER [address] [facility] [address] [place] [address] 01/04/2025 2:45 PM EDT Office Visit [facility] HEMATOLOGY & ONCOLOGY [address] [facility] [address] [place] [phone] Rc Valdez MD [address] [facility] [address] [place] [address] 07/04/2025 11:40 AM EST Office Visit [facility] CARDIOLOGY [address] [facility] [address] [place] [address] Helene Girard PA-C [address] [facility] [address] [place] [address] documented as of this encounter Visit Diagnoses Not on filedocumented in this encounter Additional Health Concerns Infection Onset Date Last Indicated Resolved Time COVID Screen (preop/placement) 01/24/2023 01/24/2023 01/24/2023 5:05 PM EDT COVID Screen (preop/placement) 08/06/2024 08/06/2024 08/06/2024 6:48 PM EDT documented as of this encounter Care Teams Professor Of Criminal Justice Relationship Specialty Start Date End Date Jose Luis Pinon MD [address] [facility] [place] [address] PCP - General Internal Medicine 09/19/22 documented as of this encounter
--- OUTSIDE RECORDS SUMMARY | 2024-12-06 12:15 | XMS_ITS | Encounter Summary ---
[facility] Address [address] [place] [address] Care Team Providers Care Aerospace Project Manager Name Role Phone Jose Luis Pinon MD Primary Care Provider + [phone] Encounter Details Date Type Department Care Team (Latest Contact Info) Description 11/23/2024 Travel Social History Tobacco Use Types Packs/Day Years Used Date Smoking Tobacco: Some Days Cigarettes 1 17.6 Started: 05/09/2007 Passive Smoke Exposure: Current Smokeless Tobacco: Never Alcohol Use Standard Drinks/Week Comments Not Currently 0 (1 standard drink = 0.6 oz pur e alcohol) Does not drink anymore [facility] Utilities Answer Date Recorded In the [...] and heating? Not hard at all 10/11/2023 [facility] of Occupat ional Health - Occupational Stress [...] [facility] CARDIOTHORACIC SURGERY [address] [facility] [address] [place] [phone] Elba Garcia APRN [address] [facility] [address] [place] [address] 01/04/2025 2:45 PM EDT Office Visit [facility] HEMATOLOGY & ONCOLOGY [address] [facility] [address] [place] [address] Rc Valdez MD [address] [facility] [address] [place] [address] 07/04/2025 11:40 AM EST Office Visit [facility] CARDIOLOGY [address] [facility] [address] [place] [address] Helene Girard PA-C [address] [facility] [address] [place] [phone] documented as of this encounter Visit Diagnoses Not on filedocumented in this encounter Care Teams Aerospace Project Manager Relationship Specialty Start Date End Date Jose Luis Pinon MD [address] [facility] [address] [place] [address] PCP - General Internal Medicine 09/19/22 documented as of this encounter
--- NOTE | 2024-12-06 12:26 | EXP.ACUTE.PN ---
Subjective *Date: 12/06/24 *Time: 14:36 Interval history: Patient is resting in bed, CIWA scores between 3?8. He is feeling very anxious and tremulous. Receiving Ativan and Haldol as needed, rally pack IV. Denies SI at this time. Still currently on one-to-one observation. Behavioral health and peer support consults. Patient LFTs increased drastically, right upper quadrant ultrasound shows gallbladder dilation, general surgery consulted for recommendations. Patient is slightly tender on exam. Per patient he has outpatient therapy he is interested in attending in [place] at discharge. Medical Exam Vital signs and Labs for Last 24 Hours: Vital Signs Temp Pulse Pulse Resp BP BP Pulse Ox 12/06/24 11:58 98 H 15 160/90 H 94 L 12/06/24 11:00 12/06/24 09:00 12/06/24 08:00 12/06/24 08:00 110 H 12/06/24 07:54 98.7 F 107 H 20 167/96 H 96 12/06/24 07:00 12/06/24 05:00 12/06/24 04:00 90 12/06/24 04:00 98.3 F 103 H 16 157/93 H 96 12/06/24 03:00 12/06/24 01:00 12/06/24 00:26 90 9 L 170/108 H 97 12/06/24 00:15 12/06/24 00:00 100 H 12/05/24 23:30 150/93 H 98 12/05/24 23:00 149/96 H 97 12/05/24 22:30 162/110 H 97 12/05/24 22:16 96 H 160/97 H 95 12/05/24 22:09 96 H 152/92 H 96 12/05/24 22:09 97.8 F 92 H 18 152/92 H 12/05/24 21:30 101 H 13 159/95 H 96 12/05/24 21:00 16 153/93 H 12/05/24 20:30 13 158/91 H 12/05/24 20:00 107 H 15 169/115 H 96 12/05/24 19:55 109 H 15 172/105 H 95 12/05/24 19:14 97.9 F 95 H 19 177/102 H 99 12/05/24 19:00 97 H 16 167/116 H 99 12/05/24 18:57 96 H 177/102 H 98 O2 Del Method 12/06/24 11:58 Room Air 12/06/24 11:00 Room Air 12/06/24 09:00 Room Air 12/06/24 08:00 Room Air 12/06/24 08:00 12/06/24 07:54 Room Air 12/06/24 07:00 Room Air 12/06/24 05:00 Room Air 12/06/24 04:00 12/06/24 04:00 Room Air 12/06/24 03:00 Room Air 12/06/24 01:00 Room Air 12/06/24 00:26 Room Air 12/06/24 00:15 Room Air 12/06/24 00:00 12/05/24 23:30 12/05/24 23:00 12/05/24 22:30 12/05/24 22:16 12/05/24 22:09 12/05/24 22:09 Room Air 12/05/24 21:30 12/05/24 21:00 12/05/24 20:30 12/05/24 20:00 12/05/24 19:55 12/05/24 19:14 Room Air 12/05/24 19:00 12/05/24 18:57 Intake and Output 12/05/24 12/06/24 12/06/24 23:59 07:59 15:59 Intake Total 360 / 480 120 / 480 Output Total 450 / 450 Balance - / 30 Intake: Intake, Oral Amount 360 / 480 120 / 480 Output: Output, Urine Amount 450 / 450 Other: Number of Unmeasured Voids 0 Weight 81.647 kg 88.042 kg Patient Weight 12/06/24 23:59 Weight 88.042 kg Laboratory Results - last 24 hr 12/05/24 19:48: WBC 8.3, RBC 5.39, Hgb 17.5, Hct 47.2, MCV 87.6, MCH 32.5 H, MCHC 37.1 H, RDW 12.3, Plt Count 270, MPV 10.2, Neut % (Auto) 61.2, Lymph % (Auto) 25.8, [place] % (Auto) 9.7 H, Eos % (Auto) 1.2, Baso % (Auto) 1.7, Neut # (Auto) 5.1, Lymph # (Auto) 2.1, [place] # (Auto) 0.8, Eos # (Auto) 0.1, Baso # (Auto) 0.1, D-Dimer 0.39, Sodium 144, Potassium 3.8, Chloride 104, Carbon Dioxide 28, Anion Gap 15.8 H, BUN 11, Creatinine 0.90, Estimated Creat Clear 106, Estimated GFR 87, Est GFR ( Amer) 106, Glucose 144 H, Calcium 9.0, Total Bilirubin 0.7, AST 142 H, ALT 187 H, Alkaline Phosphatase 75, Total Protein 7.5, Albumin 5.1 H, Globulin 2.4, Albumin/Globulin Ratio 2.1 H, TSH 1.66, Free T4 0.83, Salicylates < 1.0 L, Acetaminophen < 10 L, Plasma/Serum Alcohol 281 H 12/05/24 20:08: Urine Color Yellow, Urine Appearance Clear, Urine pH 6.0, Ur Specific [place] 1.020, Urine Protein Trace, Urine Glucose (UA) 3+, Urine Ketones Negative, Urine Blood Negative, Urine Nitrate Negative, Urine Bilirubin Negative, Urine Urobilinogen 0.2, Ur Leukocyte Esterase Negative, Urine WBC Occasional, Ur Squamous Epith Cells 3-5, Urine Bacteria Trace, Urine Opiates Screen Negative, Urine Methadone Screen Negative, Ur Barbituates Screen Negative, Ur Phencyclidine Scrn Negative, Ur Amphetamines Screen Negative, U Benzodiazepines Scrn Positive H, Urine Cocaine Screen Negative, U Marijuana (THC) Screen Negative 12/06/24 06:08: WBC 7.0, RBC 5.16, Hgb 16.8, Hct 47.0, MCV 91.1, MCH 32.6 H, MCHC 35.7 H, RDW 12.3, Plt Count 206, MPV 10.0, Neut % (Auto) 72.5, Lymph % (Auto) 20.2, [place] % (Auto) 4.3, Eos % (Auto) 1.0, Baso % (Auto) 1.7, Neut # (Auto) 5.1, Lymph # (Auto) 1.4, [place] # (Auto) 0.3, Eos # (Auto) 0.1, Baso # (Auto) 0.1, Sodium 140, Potassium 4.3, Chloride 106, Carbon Dioxide 21 L, Anion Gap 17.3 H, BUN 13, Creatinine 0.90, Estimated Creat Clear 114, Estimated GFR 87, Est GFR ( Amer) 106, Glucose 131 H, Calcium 8.6, Magnesium 1.8, Total Bilirubin 1.4 H, AST 546 H* D, ALT 513 H*, Alkaline Phosphatase 105, Total Protein 7.1, Albumin 4.7, Globulin 2.4, Albumin/Globulin Ratio 2.0 H I & O for Labs for Last 24 Hours: Intake & Output 12/03/24 12/04/24 12/05/24 12/06/24 23:59 23:59 23:59 23:59 Intake Total 480 / 480 Output Total 450 / 450 Balance Weight 81.647 kg 88.042 kg Constitutional: Present mild distress, diaphoretic and cooperative Head: Present atraumatic Eyes: Present as per HPI ENT: Present normal exam Neck: Present normal inspection and full ROM Respiratory: Present CTA bilaterally, able to speak in complete sentences and symmetric chest movement; Absent wheezes or crackles Cardiac: Present Regular Rhythm and Tachycardia; Absent No Murmur GI: Present soft, tenderness (Right upper quadrant) and hypoactive bowel sounds; Absent distention Rectal (male): Present deferred (male): Present deferred Extremities: Present normal inspection and full ROM; Absent tenderness or edema Skin: Present intact, dry and warm Neuro: Present Resting Tremor, awake, oriented x 3 and moves all extremities Assessment and Plan *Assessment and plan (1) Anxiety and depression: Status: Acute Category: Medical Code(s): F41.9 - Anxiety disorder, unspecified; F32.A - Depression, unspecified (2) Alcohol abuse: Status: Acute Category: Social Hx Code(s): F10.10 - Alcohol abuse, uncomplicated (3) Suicide ideation: Status: Acute Category: Medical Code(s): R45.851 - Suicidal ideations (4) Right upper quadrant pain: Status: Acute Category: Medical Code(s): R10.11 - Right upper quadrant pain (5) Elevated LFTs: Status: Acute Category: Medical Code(s): R79.89 - Other specified abnormal findings of blood chemistry Plan Mr. Odell Viramontes is a 54-year-old male who was brought to the ER yesterday by his son for suicidal ideation and alcohol intoxication. Patient stated that he was recently diagnosed with stage II lung cancer, and has been following with oncology who is considering surgical resection. Patient is not currently undergoing any treatment. Patient states that he has felt very depressed since the diagnosis and has been using alcohol daily. 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 He continues to have racing thoughts of self-harm. Alcohol level on admission was 281. Toxicology screen was also positive for benzos. Patient does have a prescription for Xanax 0.5 mg 3 times daily. Patient is also on Sublocade injection. He denies drug use and smoking. Patient was admitted for alcohol withdrawal and stabilization. #Suicidal ideation #Uncontrolled anxiety/depression #Stage II lung malignancy ? During evaluation patient is very tearful and anxious. He is somnolent. Family is not at bedside. Peers support and behavioral health both consulted. ? Currently denies suicidal ideation, continue one-on-one observation. ? Seizure precautions initiated. ? Vital signs overall normal, patient slightly hypertensive BP 160/90, slightly tachycardic heart rate 98. Patient remains on room air and afebrile. #Alcohol intoxication #History of alcohol withdrawal ? CIWA protocol ordered for patient. Patient CIWA's have been between 3?8. He is receiving p.o. and IV Ativan per protocol, Haldol. ? Patient receiving rally pack IV for hydration. Patient n.p.o. this morning for right upper quadrant ultrasound, clear liquids for dinner. N.p.o. again after midnight for general surgery consult. ? No leukocytosis, no electrolyte abnormalities. Kidney function within normal limits. ? Repeat CBC, CMP, magnesium in the a.m. #Elevated LFTs #Right upper quadrant pain ? Patient initial LFTs elevated, AST 142, ALT 187. Bilirubin 0.7. Repeat LFTs today show significant increase, AST 546, ALT 513. Bilirubin elevated at 1.4. Physical assessment of patient reveals right upper quadrant pain to palpation. Patient has been n.p.o., clears for dinner. Patient states he has no known history of gallbladder or liver issues. ? General Surgery consulted for further recommendations. ? Repeat LFTs in the morning. Full code DVT prophylaxis?Lovenox 40 mg, Clears, n.p.o. at midnight Ambulate as tolerated Seizure precautions
[2024-12-06 13:33] LABS: Hepatitis C Ab Qual. W/ RFX NEGATIVE (Negative)
--- NOTE | 2024-12-06 14:34 | PEERSUPPORT ---
Peer Support Note Patient Information Patient Information: DOS: 12/06/2024 ? Drug(s) of Choice: ETOH, Rx opiates (former) ? Last Use: ETOH 12/05/2024 @ 2:00 pm ? UDS Positive: ETOH ? Use Hx: Pt had surgery on rt forearm, was prescribed opiate pain pills, 8 months ago enrolled in [facility] to transition to suboxone for medication assisted treatment for opiate use disorder, two months ago transitioned to Sublocade injection, plans to only have a few injection then abstinence. ? Current Use: ETOH fireball shots for the last four or five days, after diagnosis, having a difficult time processing. ? Previous MAT/MOUD: [facility] , [place] Suboxone sublingual films ? Current MAT/MOUD: [facility], Sublocade injection 2 months ago. Enrolled in program total of eight months. Reports good relationship with providers and treatment team, is active in therapy sessions and feels supported. ? Support System: [facility] Son ? Potential Barriers: -Mental Health/SI- Pt states he is not suicidal or going to do anything stupid, and just having a hard time with processing everything going on. He has been in and out of doctors for the last few weeks and had so many scans in the recent week.? -Alcohol withdrawal symptoms- tremors, irritability, and being uncomfortable -Fear of asking for medication when he is not feeling well. ? Harm reduction: -Connection to [facility] -Education on Alcohol use disorder- Process of withdrawal -Encourage self-advocacy- for symptoms and feelings to care providers -Treatment referrals/ resources ? Motivation for Change: Pt is honest and forth coming when sharing of his history up to present moment, tearful and withdrawn when talking of diagnosis of cancer. He says he does feel comfortable with his treatment team at [facility] to process. ? Ps shared personal experience focusing on mental health and substance use linking focusing on priority of being intentional with one's mental/emotional health and self-care through connections that are in their best interest and trusted. ? Pt receptive and accepting of support, agreeing to follows up with [facility]. ? Pt reflected on personal withdrawal process in past, saying he began to feel better on day three. ? Plan of Action: -Manage alcohol withdrawal symptoms -Ps will follow up on 12/07/2024
--- NOTE | 2024-12-06 15:15 | PC.NURSE ---
Pt's fireball drink was placed in the [employer] till we could get a bag from house. Pt said we could waste the fireball down the sink. Wasted with charge nurse down the drain.
--- NOTE | 2024-12-06 15:21 | EXP.GE.CONS ---
History of Present Illness *Admission Date: 12/05/24 *History of present illness: Per Dr. 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 Patient states he has unfortunately been diagnosed with stage II lung cancer at [facility] in [place] about 4 weeks ago. He has since followed up with oncology who is considering surgical resection. They apparently have not discussed chemo/radiation therapy yet. Nonetheless, patient has taken this news extremely hard and has been very depressed since diagnosis. He is currently reserved, tearful and not providing many details at this time. 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 He has been having racing thoughts, including thoughts of self-harm. He apparently told his son that he wanted to put a gun in his mouth and blow his head off, and asked to be taken somewhere at which point his son brought him to the ED. In addition, patient started drinking heavily with multiple shots of fireball 3 days ago, last known drink was 6 PM on 12/05/2024. Workup in the ED significant for AST/ALT 142/187, alcohol level 281. ED provider consulted with empath who initially excepted patient, but upon further discovery the patient has had severe alcohol withdrawal in the past they advised further medical stabilization before considering inpatient psychiatry. I discussed case with ED provider and decision was made to admit patient for alcohol intoxication/withdrawal, and suicidal ideation. This is a 54-year-old male with a long history of alcohol intake. The patient has been drinking for many years. He reports he averages about 2 airplane bottles of whiskey per day and at his worst was drinking 6-8 airplane bottles of whiskey per day or more. Patient reports he been on at least a 3-day alcohol binge. He had quit drinking after his last ER admission at [facility] 6 or 8 weeks ago for acute alcoholic hepatitis. He relapsed about 3 days ago. He reports he had significantly elevated liver enzymes that resolved gradually during admission. This has occurred on multiple occasions. Alcohol level elevated 281 in the ER yesterday. This morning liver enzymes elevated with a bilirubin of 1.4, AST up to 546, ALT up to 513 but and alk phos normal at 105. No acute kidney injury. He did have an ultrasound this afternoon that showed distended gallbladder with common bile duct dilation at 9 mm. Patient has no abdominal pain. No tenderness palpation right upper quadrant or throughout his abdomen. Currently undergoing acute alcohol withdrawal. [facility] Disclaimer: The information contained in this section may have been updated after the patient was seen, as this information can be updated by other users. Social History (Updated 12/06/24 @ 00:55 by Arlene Bajwa RN) Smoking Status: Never smoker alcohol intake: current current occupational status: other Travel in the last 8 weeks?: None Have you lived/traveled outside US in past 30 days?: No Contact w/someone who lives/traveled outside US past 30 days?: No Exposure to someone with infectious disease in past 14 days?: No Do you have a fever (greater than 100.4 F or 38 C)?: No Have you tested positive for COVID-19?: No Exposed to someone with COVID-19 in past 14 days?: No Do you have a sore throat?: No Do you have a cough?: No Do you have any weakness?: No Are you experiencing any nausea/vomitting?: No Do you have any diarrhea?: No Are you experiencing any unusual bleeding?: No Do you have any muscle aches/pain?: No Do you have any abdominal pain?: No Are you experiencing loss of taste or smell?: No Review of Systems Review of Systems Review of systems:: pertinent systems reviewed and negative unless documented below Constitutional Constitutional: Reports fatigue Eyes Eyes: Reports system reviewed and no additional complaints, except as documented ENT Ears, Nose, Mouth, and Throat: Reports system reviewed and no additional complaints, except as documented *Cardiovascular Cardiovascular: Reports system reviewed and no additional complaints, except as documented *Respiratory Respiratory: Reports system reviewed and no additional complaints, except as documented *Gastrointestinal Gastrointestinal: Reports system reviewed and no additional complaints, except as documented *Genitourinary Genitourinary: Reports system reviewed and no additional complaints, except as documented *Musculoskeletal Comments: Tremors *Neurologic Neurologic: Reports as per HPI and Reports tremor(s) Psychiatric Psychiatric: Reports as per HPI and Reports suicidal ideation Endocrine Endocrine: Reports fatigue Meds Home Medications and Allergies Home Medications ?Medication ?Instructions ?Recorded ?Confirmed ?Type alprazolam 0.5 mg tablet 0.5 mg PO TIDP PRN Anxiety 12/06/24 12/06/24 History buprenorphine 300 mg/1.5 mL 300 mg SQ WEEKLY 12/06/24 12/06/24 History solution,exten.rel.subcutaneous syringe (Sublocade) New Prescriptions to Start Prescriptions: Allergies Allergy/AdvReac Type Severity Reaction Status Date / Time No Known Allergies Allergy Verified 12/05/24 19:56 Exam (Inpt) Vital signs and Labs for Last 24 Hours: Temp Pulse Resp BP Pulse Ox O2 Del Method 98.7 F 98 H 15 160/90 H 94 L Room Air 12/06/24 07:54 12/06/24 11:58 12/06/24 11:58 12/06/24 11:58 12/06/24 11:58 12/06/24 14:50 Laboratory Results - last 24 hr 12/05/24 19:48: WBC 8.3, RBC 5.39, Hgb 17.5, Hct 47.2, MCV 87.6, MCH 32.5 H, MCHC 37.1 H, RDW 12.3, Plt Count 270, MPV 10.2, Neut % (Auto) 61.2, Lymph % (Auto) 25.8, [place] % (Auto) 9.7 H, Eos % (Auto) 1.2, Baso % (Auto) 1.7, Neut # (Auto) 5.1, Lymph # (Auto) 2.1, [place] # (Auto) 0.8, Eos # (Auto) 0.1, Baso # (Auto) 0.1, D-Dimer 0.39, Sodium 144, Potassium 3.8, Chloride 104, Carbon Dioxide 28, Anion Gap 15.8 H, BUN 11, Creatinine 0.90, Estimated Creat Clear 106, Estimated GFR 87, Est GFR ( Amer) 106, Glucose 144 H, Calcium 9.0, Total Bilirubin 0.7, AST 142 H, ALT 187 H, Alkaline Phosphatase 75, Total Protein 7.5, Albumin 5.1 H, Globulin 2.4, Albumin/Globulin Ratio 2.1 H, TSH 1.66, Free T4 0.83, Salicylates < 1.0 L, Acetaminophen < 10 L, Plasma/Serum Alcohol 281 H, HCV Ab DARON w/Rflx PCR Qn Negative, HIV Ag/Ab Combo Qual Negative 12/05/24 20:08: Urine Color Yellow, Urine Appearance Clear, Urine pH 6.0, Ur Specific [place] 1.020, Urine Protein Trace, Urine Glucose (UA) 3+, Urine Ketones Negative, Urine Blood Negative, Urine Nitrate Negative, Urine Bilirubin Negative, Urine Urobilinogen 0.2, Ur Leukocyte Esterase Negative, Urine WBC Occasional, Ur Squamous Epith Cells 3-5, Urine Bacteria Trace, Urine Opiates Screen Negative, Urine Methadone Screen Negative, Ur Barbituates Screen Negative, Ur Phencyclidine Scrn Negative, Ur Amphetamines Screen Negative, U Benzodiazepines Scrn Positive H, Urine Cocaine Screen Negative, U Marijuana (THC) Screen Negative 12/06/24 06:08: WBC 7.0, RBC 5.16, Hgb 16.8, Hct 47.0, MCV 91.1, MCH 32.6 H, MCHC 35.7 H, RDW 12.3, Plt Count 206, MPV 10.0, Neut % (Auto) 72.5, Lymph % (Auto) 20.2, [place] % (Auto) 4.3, Eos % (Auto) 1.0, Baso % (Auto) 1.7, Neut # (Auto) 5.1, Lymph # (Auto) 1.4, [place] # (Auto) 0.3, Eos # (Auto) 0.1, Baso # (Auto) 0.1, Sodium 140, Potassium 4.3, Chloride 106, Carbon Dioxide 21 L, Anion Gap 17.3 H, BUN 13, Creatinine 0.90, Estimated Creat Clear 114, Estimated GFR 87, Est GFR ( Amer) 106, Glucose 131 H, Calcium 8.6, Magnesium 1.8, Total Bilirubin 1.4 H, AST 546 H* D, ALT 513 H*, Alkaline Phosphatase 105, Total Protein 7.1, Albumin 4.7, Globulin 2.4, Albumin/Globulin Ratio 2.0 H I & O for Labs for Last 24 Hours: Intake & Output 12/04/24 12/05/24 12/06/24 12/07/24 11:59 11:59 11:59 11:59 Intake Total 480 329 Output Total 450 Balance 30 329 Weight 88.042 kg Constitutional: no acute distress and cooperative Head: Present normocephalic and atraumatic Neck: Present normal inspection Respiratory: Present stridor Comment:: CTA throughout but for mild whistling stridor left lower lobe Cardiac: Present Reg Rate and Rhythm GI: Present soft, distention (Mild distention with gas bloat) and normal bowel sounds; Absent tenderness, Dey's sign or ascites Extremities: Present normal inspection Skin: Present intact Neuro: Present Resting Tremor, alert, awake and oriented x 3 Results Labs 12/06/24 06:08 12/06/24 06:08 Labs: Laboratory Results - last 24 hr 12/05/24 19:48: WBC 8.3, RBC 5.39, Hgb 17.5, Hct 47.2, MCV 87.6, MCH 32.5 H, MCHC 37.1 H, RDW 12.3, Plt Count 270, MPV 10.2, Neut % (Auto) 61.2, Lymph % (Auto) 25.8, [place] % (Auto) 9.7 H, Eos % (Auto) 1.2, Baso % (Auto) 1.7, Neut # (Auto) 5.1, Lymph # (Auto) 2.1, [place] # (Auto) 0.8, Eos # (Auto) 0.1, Baso # (Auto) 0.1, D-Dimer 0.39, Sodium 144, Potassium 3.8, Chloride 104, Carbon Dioxide 28, Anion Gap 15.8 H, BUN 11, Creatinine 0.90, Estimated Creat Clear 106, Estimated GFR 87, Est GFR ( Amer) 106, Glucose 144 H, Calcium 9.0, Total Bilirubin 0.7, AST 142 H, ALT 187 H, Alkaline Phosphatase 75, Total Protein 7.5, Albumin 5.1 H, Globulin 2.4, Albumin/Globulin Ratio 2.1 H, TSH 1.66, Free T4 0.83, Salicylates < 1.0 L, Acetaminophen < 10 L, Plasma/Serum Alcohol 281 H, HCV Ab DARON w/Rflx PCR Qn Negative, HIV Ag/Ab Combo Qual Negative 12/05/24 20:08: Urine Color Yellow, Urine Appearance Clear, Urine pH 6.0, Ur Specific [place] 1.020, Urine Protein Trace, Urine Glucose (UA) 3+, Urine Ketones Negative, Urine Blood Negative, Urine Nitrate Negative, Urine Bilirubin Negative, Urine Urobilinogen 0.2, Ur Leukocyte Esterase Negative, Urine WBC Occasional, Ur Squamous Epith Cells 3-5, Urine Bacteria Trace, Urine Opiates Screen Negative, Urine Methadone Screen Negative, Ur Barbituates Screen Negative, Ur Phencyclidine Scrn Negative, Ur Amphetamines Screen Negative, U Benzodiazepines Scrn Positive H, Urine Cocaine Screen Negative, U Marijuana (THC) Screen Negative 12/06/24 06:08: WBC 7.0, RBC 5.16, Hgb 16.8, Hct 47.0, MCV 91.1, MCH 32.6 H, MCHC 35.7 H, RDW 12.3, Plt Count 206, MPV 10.0, Neut % (Auto) 72.5, Lymph % (Auto) 20.2, [place] % (Auto) 4.3, Eos % (Auto) 1.0, Baso % (Auto) 1.7, Neut # (Auto) 5.1, Lymph # (Auto) 1.4, [place] # (Auto) 0.3, Eos # (Auto) 0.1, Baso # (Auto) 0.1, Sodium 140, Potassium 4.3, Chloride 106, Carbon Dioxide 21 L, Anion Gap 17.3 H, BUN 13, Creatinine 0.90, Estimated Creat Clear 114, Estimated GFR 87, Est GFR ( Amer) 106, Glucose 131 H, Calcium 8.6, Magnesium 1.8, Total Bilirubin 1.4 H, AST 546 H* D, ALT 513 H*, Alkaline Phosphatase 105, Total Protein 7.1, Albumin 4.7, Globulin 2.4, Albumin/Globulin Ratio 2.0 H Assessment and Plan *Assessment and plan (1) Elevated LFTs: Status: Acute Category: Medical Code(s): R79.89 - Other specified abnormal findings of blood chemistry (2) Alcohol abuse: Status: Acute Category: Social Hx Code(s): F10.10 - Alcohol abuse, uncomplicated (3) Acute alcoholic hepatitis: Status: Acute Category: Medical Code(s): K70.10 - Alcoholic hepatitis without ascites (4) Common bile duct dilatation: Status: Acute Category: Medical Code(s): K83.8 - Other specified diseases of biliary tract Plan 1. Elevated LFTs/alcohol abuse/acute alcoholic hepatitis/common bile duct dilation Serum alcohol level 281 upon admission yesterday. The patient admits to a 3-day alcohol binge and is currently undergoing alcohol withdrawal symptoms. He has been admitted on multiple occasions through other hospitals for acute alcohol intoxication and withdrawal including acute alcoholic hepatitis. He reports he usually develops significant elevations with in his liver enzymes and always normalizes during his admission. Currently bilirubin mildly elevated at 1.4 with an AST of 546 and an ALT of 513. Alk phos is still normal at 105. He did have distended gallbladder and slight CBD dilation at 9 mm on ultrasound today. With a normal alkaline phosphatase and no abdominal pain no right upper quadrant pain or tenderness, I believe the significant transaminitis is from acute alcohol hepatitis. However would go ahead and do the MRCP and agree with surgical consult. I will order a PT/INR to establish MELD score and Maddrey discriminant function, consider N-acetylcysteine, glucocorticoids, Vitamin K depending on results. No known history of cirrhosis. Unsure if patient is currently following with any GI practice. No evidence of hepatic encephalopathy at this time. No evidence of ascites or anasarca or acute liver failure. Recommend close monitoring of LFTs bilirubin and PT/INR. Patient will need long-term follow-up with GI/hepatology after discharge.
[2024-12-06] MEDS: MULTIVITAMIN TABLET 1 EACH PO (17:37)
--- NOTE | 2024-12-06 17:42 | PC.NURSE ---
Aox 4, up with assistance times one, on RA, 22g L Hand Rally infusing, RUQ US done, CIWA's 3 rajni with a score of 8 each time. Oral ativan given, sitter in room.
[2024-12-06 19:08] LABS: INR 1.13 (0.9-1.1); Prothrombin Time 12.4 seconds (10.1-12.5)
[2024-12-06] MEDS: diazePAM 5MG TABLET 5 MG PO (20:21)
[2024-12-07] VITALS: PULSE 100
[2024-12-07 04:00] VITALS: BP 162/101; PULSE 80; PULSE 89; RESP 13; TEMP 36.8; O2SAT 97; BMI 30.3
[2024-12-07 05:21] LABS: Albumin Level 3.3 g/dl (3.5-5.0); Chloride 98 mmol/L (98-107); Potassium 3.4 mmoL/L (3.5-5.1); Sodium 132 mmol/L (136-145)
[2024-12-07 05:24] LABS: Alanine Aminotransferase 458 U/L (12-78); Albumin/Globulin Ratio 1.2 (1.1-1.8); Alkaline Phosphatase 83 U/L (38-126); Anion Gap 8.4 mEq/L (5-15); Aspartate Amino Transferase 297 U/L (17-59); Bilirubin,Total 0.9 mg/dl (0.2-1.3); Blood Urea Nitrogen 13 mg/dl (9-20); Calcium 8.4 mg/dl (8.4-10.2); Carbon Dioxide 29 mmol/L (22.0-30.0); Creatinine Clearance Estimated 132 mL/min (50-200); Creatinine,Serum 0.80 mg/dl (0.66-1.25); Estimated Glomerular Filt Rate 100 ml/min (>60); GFR (African American) 121 ML/MIN (>60); Globulin 2.8 g/dL (1.3-3.2); Glucose 121 mg/dl (74-100); Total Protein,Serum 6.1 g/dl (6.3-8.2)
[2024-12-07 05:25] LABS: INR 1.08 (0.9-1.1); Magnesium 2.0 mg/dl (1.6-2.3); Prothrombin Time 11.9 seconds (10.1-12.5)
[2024-12-07 05:41] LABS: Hematocrit 40.3 % (42.0-52.0); Immature Granulocytes % 0.4 %; Mean Corpuscular HGB Conc 35.7 g/dL (31.8-35.4); Mean Corpuscular Hemoglobin 31.9 pg (27.0-31.2); Mean Corpuscular Volume 89.2 fl (80-94); Nucleated Red Blood Cells % 0 %; Platelet Count 162 K/mm3 (142-424); Red Blood Count 4.52 M/mm3 (4.60-6.20); Red Cell Distribution Width-SD 38.3 fL; White Blood Count 5.5 K/mm3 (4.8-10.8)
[2024-12-07 05:46] LABS: Hemoglobin 14.5 g/dL (14.1-18.0)
--- NOTE | 2024-12-07 06:02 | PC.NURSE ---
Pt is on cwal scoring a 4 at begining of shift and during pt was resting scoring 0. v/s, ox4, RA. NPO at midnight. No acute events to report. Plan of care ongoing.
--- NOTE | 2024-12-07 07:02 | P.CONS_ITS ---
History of Present Illness *Admission Date: 12/05/24 *Reason for visit:: Distended gallbladder; biliary dilatation *History of present illness: This is a 54-year-old gentleman seen in consultation for evaluation regarding recent ultrasound findings of distended gallbladder and dilated common bile duct. See HPI forwarded from admission H&P below. Currently, the patient feels much better . He is not complaining of abdominal pain and states that he is no longer tender. No fevers. CBC from today reviewed. WBC normal. CMP from today reviewed. AST remains elevated but is down to 297. ALT remains elevated but is down to 458. Alk phos remains normal. Bilirubin is now normal at 0.9. Ultrasound completed yesterday reviewed. No obvious gallbladder wall thickening, cholelithiasis, or pericholecystic fat stranding noted. Gallbladder is somewhat distended. Common bile duct 9 mm. Forwarded from admission H&P: Per Dr. 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 Patient states he has unfortunately been diagnosed with stage II lung cancer at [facility] in [place] about 4 weeks ago. He has since followed up with oncology who is considering surgical resection. They apparently have not discussed chemo/radiation therapy yet. Nonetheless, patient has taken this news extremely hard and has been very depressed since diagnosis. He is currently reserved, tearful and not providing many details at this time. 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 He has been having racing thoughts, including thoughts of self-harm. He apparently told his son that he wanted to put a gun in his mouth and blow his head off, and asked to be taken somewhere at which point his son brought him to the ED. In addition, patient started drinking heavily with multiple shots of fireball 3 days ago, last known drink was 6 PM on 12/05/2024. Workup in the ED significant for AST/ALT 142/187, alcohol level 281. ED provider consulted with empath who initially excepted patient, but upon further discovery the patient has had severe alcohol withdrawal in the past they advised further medical stabilization before considering inpatient psychiatry. I discussed case with ED provider and decision was made to admit patient for alcohol intoxication/withdrawal, and suicidal ideation. This is a 54-year-old male with a long history of alcohol intake. The patient has been drinking for many years. He reports he averages about 2 airplane bottles of whiskey per day and at his worst was drinking 6-8 airplane bottles of whiskey per day or more. Patient reports he been on at least a 3-day alcohol binge. He had quit drinking after his last ER admission at [facility] 6 or 8 weeks ago for acute alcoholic hepatitis. He relapsed about 3 days ago. He reports he had significantly elevated liver enzymes that resolved gradually during admission. This has occurred on multiple occasions. Alcohol level elevated 281 in the ER yesterday. This morning liver enzymes elevated with a bilirubin of 1.4, AST up to 546, ALT up to 513 but and alk phos normal at 105. No acute kidney injury. He did have an ultrasound this afternoon that showed distended gallbladder with common bile duct dilation at 9 mm. Patient has no abdominal pain. No tenderness palpation right upper quadrant or throughout his abdomen. Currently undergoing acute alcohol withdrawal. [facility] Disclaimer: The information contained in this section may have been updated after the patient was seen, as this information can be updated by other users. Social History (Updated 12/06/24 @ 00:55 by Arlene Bajwa RN) Smoking Status: Never smoker alcohol intake: current current occupational status: other Travel in the last 8 weeks?: None Have you lived/traveled outside US in past 30 days?: No Contact w/someone who lives/traveled outside US past 30 days?: No Exposure to someone with infectious disease in past 14 days?: No Do you have a fever (greater than 100.4 F or 38 C)?: No Have you tested positive for COVID-19?: No Exposed to someone with COVID-19 in past 14 days?: No Do you have a sore throat?: No Do you have a cough?: No Do you have any weakness?: No Are you experiencing any nausea/vomitting?: No Do you have any diarrhea?: No Are you experiencing any unusual bleeding?: No Do you have any muscle aches/pain?: No Do you have any abdominal pain?: No Are you experiencing loss of taste or smell?: No Review of Systems *Neurologic Neurologic: Reports as per HPI and Reports tremor(s) Meds Home Medications and Allergies Home Medications ?Medication ?Instructions ?Recorded ?Confirmed ?Type alprazolam 0.5 mg tablet 0.5 mg PO TIDP PRN Anxiety 0 12/06/24 12/06/24 History buprenorphine 300 mg/1.5 mL 300 mg SQ WEEKLY 12/06/24 12/06/24 History solution,exten.rel.subcutaneous syringe (Sublocade) New Prescriptions to Start Prescriptions: Allergies Allergy/AdvReac Type Severity Reaction Status Date / Time No Known Allergies Allergy Verified 12/05/24 19:56 Exam (Inpt) Vital signs and Labs for Last 24 Hours: Temp Pulse Resp BP Pulse Ox O2 Del Method 98.3 F 89 13 162/101 H 97 Room Air 12/07/24 04:00 12/07/24 04:00 12/07/24 04:00 12/07/24 04:00 12/07/24 04:00 12/07/24 06:04 Laboratory Results - last 24 hr 12/05/24 19:48: HCV Ab DARON w/Rflx PCR Qn Negative, HIV Ag/Ab Combo Qual Negative 12/06/24 06:08: Sodium 140, Potassium 4.3, Chloride 106, Carbon Dioxide 21 L, A nion Gap 17.3 H, BUN 13, Creatinine 0.90, Estimated Creat Clear 114, Estimated GFR 87, Est GFR ( Amer) 106, Glucose 131 H, Calcium 8.6, Magnesium 1.8, T otal Bilirubin 1.4 H, AST 546 H* D, ALT 513 H*, Alkaline Phosphatase 105, Total Protein 7.1, Albumin 4.7, Globulin 2.4, Albumin/Globulin Ratio 2.0 H 12/06/24 18:47: PT 12.4, INR 1.13 H 12/07/24 05:01: WBC 5.5, RBC 4.52 L, Hgb 14.5 D, Hct 40.3 L, MCV 89.2, MCH 31.9 H, MCHC 35.7 H, RDW 11.9, Plt Count 162, MPV 10.3, Neut % (Auto) 65.8, Lymph % (Auto) 20.9, [place] % (Auto) 9.6 H, Eos % (Auto) 1.1, Baso % (Auto) 2.2 H, Neut # (Auto) 3.6, Lymph # (Auto) 1.2, [place] # (Auto) 0.5, Eos # (Auto) 0.1, Baso # (Auto) 0.1, PT 11.9, INR 1.08, Sodium 132 L, Potassium 3.4 L D, Chloride 98, Carbon Dioxide 29, Anion Gap 8.4, BUN 13, Creatinine 0.80, Estimated Creat Clear 132, Estimated GFR 100, Est GFR ( Amer) 121, Glucose 121 H, Calcium 8.4, Magnesium 2.0 D, Total Bilirubin 0.9, AST 297 H D, ALT 458 H*, Alkaline Phosphatase 83, Total Protein 6.1 L, Albumin 3.3 L D, Globulin 2.8, Albumin/Globulin Ratio 1.2 I & O for Labs for Last 24 Hours: Intake & Output 12/04/24 12/05/24 12/06/24 12/07/24 11:59 11:59 11:59 11:59 Intake Total 480 / 480 1049 / 1049 Output Total 450 / 450 600 / 600 Balance 449 / 449 Weight 194 lb 1.6 oz 200 lb Constitutional: no acute distress Respiratory: Absent respiratory distress Cardiac: Absent Tachycardia GI: Present soft; Absent distention, tenderness, guarding or rebound Results Labs 12/07/24 05:01 12/07/24 05:01 Labs: Laboratory Results - last 24 hr 12/05/24 19:48: HCV Ab DARON w/Rflx PCR Qn Negative, HIV Ag/Ab Combo Qual Negative 12/06/24 06:08: Sodium 140, Potassium 4.3, Chloride 106, Carbon Dioxide 21 L, A nion Gap 17.3 H, BUN 13, Creatinine 0.90, Estimated Creat Clear 114, Estimated GFR 87, Est GFR ( Amer) 106, Glucose 131 H, Calcium 8.6, Magnesium 1.8, T otal Bilirubin 1.4 H, AST 546 H* D, ALT 513 H*, Alkaline Phosphatase 105, Total Protein 7.1, Albumin 4.7, Globulin 2.4, Albumin/Globulin Ratio 2.0 H 12/06/24 18:47: PT 12.4, INR 1.13 H 12/07/24 05:01: WBC 5.5, RBC 4.52 L, Hgb 14.5 D, Hct 40.3 L, MCV 89.2, MCH 31.9 H, MCHC 35.7 H, RDW 11.9, Plt Count 162, MPV 10.3, Neut % (Auto) 65.8, Lymph % (Auto) 20.9, [place] % (Auto) 9.6 H, Eos % (Auto) 1.1, Baso % (Auto) 2.2 H, Neut # (Auto) 3.6, Lymph # (Auto) 1.2, [place] # (Auto) 0.5, Eos # (Auto) 0.1, Baso # (Auto) 0.1, PT 11.9, INR 1.08, Sodium 132 L, Potassium 3.4 L D, Chloride 98, Carbon Dioxide 29, Anion Gap 8.4, BUN 13, Creatinine 0.80, Estimated Creat Clear 132, Estimated GFR 100, Est GFR ( Amer) 121, Glucose 121 H, Calcium 8.4, Magnesium 2.0 D, Total Bilirubin 0.9, AST 297 H D, ALT 458 H*, Alkaline Phosphatase 83, Total Protein 6.1 L, Albumin 3.3 L D, Globulin 2.8, Albumin/Globulin Ratio 1.2 Assessment and Plan *Assessment and plan (1) Abnormal gallbladder ultrasound: Status: Acute Category: Medical Code(s): R93.2 - Abnormal findings on diagnostic imaging of liver and biliary tract Plan: No evidence of cholecystitis. No evidence of cholelithiasis. Gallbladder distention possibly temporal in nature. (2) Common bile duct dilatation: Status: Acute Category: Medical Code(s): K83.8 - Other specified diseases of biliary tract Plan: Ongoing outpatient evaluation by gastroenterology (3) Right upper quadrant pain: Status: Resolved Category: Medical Code(s): R10.11 - Right upper quadrant pain Plan: Currently resolved (4) Elevated LFTs: Status: Acute Category: Medical Code(s): R79.89 - Other specified abnormal findings of blood chemistry Plan: Improving (5) Acute alcoholic hepatitis: Status: Acute Category: Medical Code(s): K70.10 - Alcoholic hepatitis without ascites Plan The patient's symptomatology, radiographic evaluation, and laboratory anomalies are most likely related to alcoholic hepatitis. Currently, he has no right upper quadrant pain and is wishing to be discharged. There is no acute need for surgical intervention. Ongoing evaluation by the gastroenterology service warranted secondary to common bile duct dilatation. Outpatient evaluation by the surgical service warranted if symptoms recur.
[2024-12-07 07:21] VITALS: BP 163/88; PULSE 86; RESP 12; TEMP 36.9; O2SAT 97
[2024-12-07] MEDS: diazePAM 5MG TABLET 5 MG PO ×2 (07:37→09:56)
[2024-12-07 07:46] VITALS: O2SAT 97
--- NOTE | 2024-12-07 08:12 | SW/DCPLANNER ---
I spoke w/ patient regarding plans once medically stable for discharge. Patient stated that he lives in [place] and plans to return home w/ family. Patient stated that he is scheduled for a procedure next week. Patient is currently established w/ [facility] in [place] and has a follow up appointment for after his surgery. Per Ricardo w/ [facility] inpatient psychiatric treatment is not needed at this time. Patient expressed no further needs at this time. Peer Support is also consulted on this patient. Patient is anxious to be discharged today.
--- NOTE | 2024-12-07 08:30 | P.DS_ITS ---
<Statement entered by Deloris Correa MD - 12/08/24 17:19> Agree with [employer]PER[employer]OR note as documented General Admission date:: 12/05/24 Discharge date: 12/07/24 HPI HPI HPI: This is a 54-year-old gentleman seen in consultation for evaluation regarding recent ultrasound findings of distended gallbladder and dilated common bile duct. See HPI forwarded from admission H&P below. Currently, the patient feels much better . He is not complaining of abdominal pain and states that he is no longer tender. No fevers. CBC from today reviewed. WBC normal. CMP from today reviewed. AST remains elevated but is down to 297. ALT remains elevated but is down to 458. Alk phos remains normal. Bilirubin is now normal at 0.9. Ultrasound completed yesterday reviewed. No obvious gallbladder wall t hickening, cholelithiasis, or pericholecystic fat stranding noted. Gallbladder is somewhat distended. Common bile duct 9 mm. Forwarded from admission H&P: Per Dr. 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 Patient states he has unfortunately been diagnosed with stage II lung cancer at [facility] in [place] about 4 weeks ago. He has since followed up with oncology who is considering surgical resection. They apparently have not discussed chemo/radiation therapy yet. Nonetheless, patient has taken this news extremely hard and has been very depressed since diagnosis. He is currently reserved, tearful and not providing many details at this time. 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 He has been having racing thoughts, including thoughts of self-harm. He apparently told his son that he wanted to put a gun in his mouth and blow his head off, and asked to be taken somewhere at which point his son brought him to the ED. In addition, patient started drinking heavily with multiple shots of fireball 3 days ago, last known drink was 6 PM on 12/05/2024. Workup in the ED significant for AST/ALT 142/187, alcohol level 281. ED provider consulted with empath who initially excepted patient, but upon further discovery the patient has had severe alcohol withdrawal in the past they advised further medical stabilization before considering inpatient psychiatry. I discussed case with ED provider and decision was made to admit patient for alcohol intoxication/withdrawal, and suicidal ideation. This is a 54-year-old male with a long history of alcohol intake. The patient has been drinking for many years. He reports he averages about 2 airplane bottles of whiskey per day and at his worst was drinking 6-8 airplane bottles of whiskey per day or more. Patient reports he been on at least a 3-day alcohol binge. He had quit drinking after his last ER admission at [facility] 6 or 8 weeks ago for acute alcoholic hepatitis. He relapsed about 3 days ago. He reports he had significantly elevated liver enzymes that resolved gradually during admission. This has occurred on multiple occasions. Alcohol level elevated 281 in the ER yesterday. This morning liver enzymes elevated with a bilirubin of 1.4, AST up to 546, ALT up to 513 but and alk phos normal at 105. No acute kidney injury. He did have an ultrasound this afternoon that showed distended gallbladder with common bile duct dilation at 9 mm. Patient has no abdominal pain. No tenderness palpation right upper quadrant or throughout his abdomen. Currently undergoing acute alcohol withdrawal. Hospital Course Hospital Course Hospital Course: Mr. Odell Viramontes is a 54-year-old male who was brought to the ER Tuesday by his son for suicidal ideation and alcohol intoxication. Patient stated that he was recently diagnosed with stage II lung cancer, and has been following with oncology who is considering surgical resection. Patient is not currently undergoing any treatment. Patient states that he has felt very depressed since the diagnosis and has been using alcohol daily. 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 He continues to have racing thoughts of self-harm. Alcohol level on admission was 281. Toxicology screen was also positive for benzos. Patient does have a prescription for Xanax 0.5 mg 3 times daily. Patient is also on Sublocade injection. He denies drug use and smoking. Patient was admitted for alcohol withdrawal and stabilization. #Suicidal ideation #Uncontrolled anxiety/depression #Stage II lung malignancy ?Patient very well-appearing today, denies signs of withdrawal. No tremors, diaphoresis, nausea, hallucinations noted. CIWA score 0. Patient plans to follow-up with [facility] in [place], this is where he already follows for his Sublocade injections. He plans to go to [place] to stay with her friend for the time being. ? He does have a follow-up appointment with his oncologist in [place] in the coming weeks. ?Patient denies suicidal ideation at this time. Yesterday spoke with behavioral health and peers support. Per behavioral health recommendation patient should seek counseling and be evaluated for antidepressant if he is interested. He is not interested in this time to start antidepressant therapy. At this time he is not interested in starting any new medication related to his alcohol withdrawal. He is wanting to move forward with the surgical procedure for his cancer diagnosis. ?Peers support discussed patient's alcohol withdrawal with him, he states that he has withdrawal from alcohol in the past. He is comfortable with his current treatment plan at [facility], and plans to continue to follow with them. He is not interested in local resources due to living in [place]. #Alcohol intoxication #History of alcohol withdrawal ?CIWA's have been 0 for patient throughout the night and today. He does have Xanax 0.5 mg 3 times daily as needed for his anxiety/alcohol withdrawal symptoms. ? No leukocytosis, no electrolyte abnormalities. Kidney function within normal limits. #Elevated LFTs #Right upper quadrant pain #Acute alcoholic hepatitis ? Patient initial LFTs elevated, AST 142, ALT 187. Bilirubin 0.7. LFTs trended upward yesterday, trending back down today, AST 297, ALT 458. Bilirubin normal at 0.9. GI consulted and recommended MRCP, spoke with general surgery and Dr. Perdomo who both feel that the MRCP would not be beneficial in this situation. Follow-up with GI appointment made for patient at discharge. Patient denies right upper quadrant pain today, nausea, vomiting. He was also seen by general surgery, Dr. Oro, who states that he needs to follow-up with GI due to ductal dilation. Likely etiology acute alcoholic hepatitis. Total time spent on discharge 38 minutes in counseling, documentation, chart review, and direct care with patient. Exam Data for Last 24 hours Vital signs and Labs for Last 24 Hours: Temp Pulse Resp BP Pulse Ox O2 Del Method 98.5 F 86 12 163/88 H 97 Room Air 12/07/24 07:21 12/07/24 07:21 12/07/24 07:21 12/07/24 07:21 12/07/24 07:46 12/07/24 07:46 Laboratory Results - last 24 hr 12/05/24 19:48: HCV Ab DARON w/Rflx PCR Qn Negative, HIV Ag/Ab Combo Qual Negative 12/06/24 18:47: PT 12.4, INR 1.13 H 12/07/24 05:01: WBC 5.5, RBC 4.52 L, Hgb 14.5 D, Hct 40.3 L, MCV 89.2, MCH 31.9 H, MCHC 35.7 H, RDW 11.9, Plt Count 162, MPV 10.3, Neut % (Auto) 65.8, Lymph % (Auto) 20.9, Randall % (Auto) 9.6 H, Eos % (Auto) 1.1, Baso % (Auto) 2.2 H, Neut # (Auto) 3.6, Lymph # (Auto) 1.2, Randall # (Auto) 0.5, Eos # (Auto) 0.1, Baso # (Auto) 0.1, PT 11.9, INR 1.08, Sodium 132 L, Potassium 3.4 L D, Chloride 98, Carbon Dioxide 29, Anion Gap 8.4, BUN 13, Creatinine 0.80, Estimated Creat Clear 132, Estimated GFR 100, Est GFR ( Amer) 121, Glucose 121 H, Calcium 8.4, Magnesium 2.0 D, Total Bilirubin 0.9, AST 297 H D, ALT 458 H*, Alkaline Phosphatase 83, Total Protein 6.1 L, Albumin 3.3 L D, Globulin 2.8, Albumin/Globulin Ratio 1.2 I & O for Last 24 hours: Intake & Output 12/04/24 12/05/24 12/06/24 12/07/24 23:59 23:59 23:59 23:59 Intake Total 1409 / 1529 120 / 120 Output Total 850 / 850 200 / 200 Balance 559 / 679 -80 / -80 Weight 81.647 kg 88.042 kg 90.718 kg Constitutional Constitutional: no acute distress and cooperative *Routine HEENT Exam Head: Present normocephalic Eye: Present EOMI ENT: Present mucous membranes moist *Routine Neck Exam Neck: Present supple and full ROM; Absent JVD *Routine Respiratory Exam Respiratory: Present CTA bilaterally, normal respiratory effort, able to speak in complete sentences and symmetric chest movement; Absent wheezes or crackles *Routine Cardiovascular Exam Cardiovascular: Present RRR, Normal S1 and Normal S2; Absent murmur *Routine Abdominal Exam Abdominal: Present soft and normoactive bowel sounds; Absent tenderness or distended *Routine Extremities Exam Extremities: Present normal capillary refill; Absent edema or full ROM *Routine Skin Exam Skin: Present intact and dry; Absent rash *Routine Neurological Exam Neurological: Present alert, oriented X3, vision grossly intact and hearing grossly intact Results Data Completed and Pending Labs on day of discharge: Labs from last 24 hours 12/07/24 12/06/24 12/05/24 05:01 18:47 19:48 WBC 5.5 RBC 4.52 L Hgb 14.5 D Hct 40.3 L MCV 89.2 MCH 31.9 H MCHC 35.7 H RDW 11.9 Plt Count 162 MPV 10.3 Neut % (Auto) 65.8 Lymph % (Auto) 20.9 Randall % (Auto) 9.6 H Eos % (Auto) 1.1 Baso % (Auto) 2.2 H Neut # (Auto) 3.6 Lymph # (Auto) 1.2 Randall # (Auto) 0.5 Eos # (Auto) 0.1 Baso # (Auto) 0.1 PT 11.9 12.4 INR 1.08 1.13 H Sodium 132 L Potassium 3.4 L D Chloride 98 Carbon Dioxide 29 Anion Gap 8.4 BUN 13 Creatinine 0.80 Estimated Creat Clear 132 Estimated GFR 100 Est GFR ( Amer) 121 Glucose 121 H Calcium 8.4 Magnesium 2.0 D Total Bilirubin 0.9 AST 297 H D ALT 458 H* Alkaline Phosphatase 83 Total Protein 6.1 L Albumin 3.3 L D Globulin 2.8 Albumin/Globulin Ratio 1.2 HCV Ab DARON w/Rflx PCR Qn Negative HIV Ag/Ab Combo Qual Negative DS: Diagnosis Discharge Diagnosis (1) Abnormal gallbladder ultrasound: Status: Acute Code(s): R93.2 - Abnormal findings on diagnostic imaging of liver and biliary tract (2) Common bile duct dilatation: Status: Acute Code(s): K83.8 - Other specified diseases of biliary tract (3) Right upper quadrant pain: Status: Resolved Code(s): R10.11 - Right upper quadrant pain (4) Elevated LFTs: Status: Acute Code(s): R79.89 - Other specified abnormal findings of blood chemistry (5) Acute alcoholic hepatitis: Status: Acute Code(s): K70.10 - Alcoholic hepatitis without ascites (6) Alcohol abuse: Status: Acute Code(s): F10.10 - Alcohol abuse, uncomplicated (7) Suicide ideation: Status: Acute Code(s): R45.851 - Suicidal ideations Meds Home Medications and Allergies Home Medications ?Medication ?Instructions ?Recorded ?Confirmed ?Type alprazolam 0.5 mg tablet 0.5 mg PO TIDP PRN Anxiety 0 12/06/24 12/06/24 History buprenorphine 300 mg/1.5 mL 300 mg SQ WEEKLY 12/06/24 12/06/24 History solution,exten.rel.subcutaneous syringe (Sublocade) New Prescriptions to Start Prescriptions: Allergies Allergy/AdvReac Type Severity Reaction Status Date / Time No Known Allergies Allergy Verified 12/05/24 19:56 Discharge Plan Disposition Patient Disposition: Home, Self-Care Condition: Fair Discharge Order Discharge Orders: Discharge Order (Routine); Ordered 12/07/24 Ordered By: Kimberley Pradhan Follow up Plan Follow up with: iLve Perdomo II, MD [Staff Physician, Gastroenterology] - 12/31/24 9:15 am Vicente Alba MD [Referring, Medical] - Enter time for follow up Referral Note: Please call for follow up appointment Prescriptions/Medication Reconciliation: Continued alprazolam 0.5 mg Tablet 0.5 mg PO TIDP PRN (Reason: Anxiety) Sublocade 300 mg/1.5 mL Solution, Extended Rel Syringe 300 mg SQ WEEKLY Problem Reconciliation Problems Reviewed?: Yes Patient Discharge Instructions ACTIVITY: Continue current activity DIET: continue same diet Patient Instructions: Alcoholic Hepatitis (Alternative Therapy), DI for Alcohol Use Disorder Print Language: [place]an Providers Primary Care Provider: Provider,Referral Admit Provider: Javier Torres Attending Provider: Javier Torres
[2024-12-07] MEDS: THIAMINE 100MG TABLET 100 MG PO (09:16)
[2024-12-07] MEDS: FAMOTIDINE 20MG TABLET 20 MG PO (09:16)
[2024-12-07] MEDS: FOLIC ACID 1MG TABLET 1 MG PO (09:16)
[2024-12-07] MEDS: MVI, ADULT NO.1 WITH VIT K 10 ML, THIAMINE HCL 100 MG, MAGNESIUM SULFATE 2 GM in LACTAT... 125 ML IV (09:21)
--- NOTE | 2024-12-07 12:17 | PEERSUPPORT ---
Peer Support Note Patient Information Patient Information: DOS: 12/07/2024 ? Pt ready with belongings waiting on transportation. He is anxious of the days to come with his upcoming surgery for an attempt to remove cancer. He identifies drinking is not helpful to his overall health and has no desire to drink. He is focused on being stable for his surgery. He had initially planned to report to [facility] but ended up at [facility] and says is glad that he did as everyone treated him well. Ps had been to [facility] once before for stabilization, and detox. He says he feels stable now focusing on the next steps of his treatment, with an appointment at [facility] for his cancer diagnosis to discuss surgery dos and don'ts on 12/10/2024. ? Pt is forth coming when sharing of issues at home, and plans to have some hard but healthy conversations in hopes to feel supported. ? Support system for daily check ins/ times of distress: -Brother; lives next door to him. -Parents; he visits them weekly -Son; comfortable to reach out to ? Ps and pt discussed daily task to be intentional practicing mindfulness: -Diet -Hygiene -Mediation/prayer -Exercise- walking, positive music, yoga -Self-Check- mental, emotion, physical ? Pt shared interests and hobbies: -Building classic cars/ Attending car shows -Going out for dinner -Walking in his neighborhood -Enjoying his backyard ? Ps provided contact information to [facility], [facility], pt has heard good reviews. ? Pt receptive expressing gratitude for support and compassion shown. ? Pt agrees to follow up phone calls with [facility], and has contact information to reach out as needed.
--- NOTE | 2024-12-10 11:41 | SW/DCPLANNER ---
Spoke with patient on the phone. Patient stated that she is doing good. Patient stated that he is aware of his upcoming appointments. Patient stated that he was able to get his new medicine picked up. Patient stated that he has to give kuddos out to Manuela. Patient stated that he has no concerns or questions at this time. Gail Peterson
[2024-12-10 22:09] LABS: ALT (SGPT) P5P 489 IU/L (0-55); AST (SGOT) P5P 350 IU/L (0-40); Alpha 2-Macroglobulins, Qn 253 mg/dL (110-276); Bilirubin, Total 0.7 mg/dL (0.0-1.2); Cholesterol, Total 68 mg/dL (100-199); GGT 47 IU/L (0-65); Glucose 104 mg/dL (70-99); Triglycerides 181 mg/dL (0-149)
== END 2024-12-07 10:30 | disposition home or self-care (01) | DRG 897 ==
LOC: ER 21:22 → 2ND 12-06 06:08
PROVIDERS: Nurse Practitioner Family; Admitting Provider Student in an Organized Health Care Education/Training Program; Emergency Provider Emergency Medicine; Visit Provider Student in an Organized Health Care Education/Training Program
DX: F10.139 Alcohol abuse with withdrawal, unspecified (principal); C34.90 Malignant neoplasm of unspecified part of unspecified bronchus or lung; R45.851 Suicidal ideations; Y90.8 Blood alcohol level of 240 mg/100 ml or more; F41.9 Anxiety disorder, unspecified; K70.10 Alcoholic hepatitis without ascites; K83.8 Other specified diseases of biliary tract; F31.9 Bipolar disorder, unspecified; I10 Essential (primary) hypertension; E78.5 Hyperlipidemia, unspecified; F10.129 Alcohol abuse with intoxication, unspecified; Z87.891 Personal history of nicotine dependence
CPT/HCPCS: 36415; 76705; 80053; 80074; 80307; 80320; 80329; 81001; 81596; 82247; 82465; 82947; 82977; 83521; 83735; 84439; 84443; 84450; 84460; 84478; 85025; 85378; 85610; 86803; 87389; 93005; J1630; J1650; J3360; J3411; J3475; J7120